=== PATIENT | male | born 1975 | race Hispanic/Latino ===

== ENCOUNTER 2020-12-29 13:48 | Observation (INO) | payer SELFPAY ==
--- NOTE | 2020-12-29 14:08 | Emergency Department Report ---
Blank Doc - Documentation Documentation: 45-year-old female that presents with chest pain, shortness of breath and bila teral leg swelling. 1- This is a initial triage assessment/medical screening only. Full assessment and work-up will be completed once the patient is in proper hospital gown, ED bed and in a private room setting. This initial assessment/diagnostic orders/clinical plan/ treatment(s) is/are subject to change based on pt's health status, clinical progression and re-assessment by fellow clinical providers in the ED. Further treatment and workup at subsequent clinical providers discretion. Patient/guardians urged not to elope from ED as their condition may be serious if not clinically assessed and managed. 2-cardiac work-up
--- NOTE | 2020-12-29 14:30 | XRay Report ---
CHEST 2 VIEWS INDICATION: Chest Pain. Shortness of breath and dizziness. COMPARISON: None available FINDINGS: Support devices: None. Heart: Within normal limits. Lungs/pleura: No acute air space or interstitial disease. No pneumothorax. Additional findings: None. IMPRESSION: No acute findings. Signer Name: Mor Colin Jr, MD Signed: 12/29/2020 2:26 PM Workstation Name: [id number]
[2020-12-29 16:04] LABS: Basophils # (Auto) 0.1 K/mm3 (0.0-0.1); Basophils % (Auto) 0.8 % (0.0-1.8); Eosinophils # (Auto) 0.3 K/mm3 (0.0-0.4); Eosinophils % (Auto) 3.5 % (0.0-4.3); Hematocrit 37.5 % (35.5-45.6); Hemoglobin 12.3 gm/dl (11.8-15.2); Lymphocytes # (Auto) 1.7 K/mm3 (1.2-5.4); Lymphocytes % (Auto) 22.1 % (13.4-35.0); Mean Corpuscular HGB Conc 33 % (32-34); Mean Corpuscular Volume 93 fl (84-94); Monocytes # (Auto) 0.6 K/mm3 (0.0-0.8); Monocytes % (Auto) 7.3 % (0.0-7.3); Platelet Count 249 K/mm3 (140-440); Red Blood Count 4.04 M/mm3 (3.65-5.03); Red Cell Distribution Width 14.6 % (13.2-15.2)
[2020-12-29 16:18] LABS: INR 1.01 (0.87-1.13)
[2020-12-29 16:20] LABS: Partial Thromboplastin Time 29.2 Sec. (24.2-36.6)
[2020-12-29 16:23] LABS: Alanine Aminotransferase 35 units/L (7-56); BUN/Creatinine Ratio 12; Blood Urea Nitrogen 11 mg/dL (9-20); Calcium 9.5 mg/dL (8.4-10.2); Hemolysis Index 11
[2020-12-29 16:35] LABS: Chol/HDL Ratio 4.71 %; HDL Cholesterol 28 mg/dL (40-59); LDL Cholesterol,Direct 91 mg/dL (50-130)
[2020-12-30] MEDS ORDERED: ASPIRIN 81 MG TAB CHEW PO ONE (06:42)
--- NOTE | 2020-12-30 06:48 | Emergency Department Report ---
ED Chest Pain HPI - General Chief Complaint: Chest Pain Stated Complaint: DIFF BREATHING,CHEST PAINS Time Seen by Provider: 12/29/20 14:07 Source: patient Mode of arrival: Ambulatory Limitations: No Limitations - History of Present Illness Initial Comments: This patient has been in the emergency department waiting room for about 14 hours prior to my shift starting. Much of his work-up, including labs, EKG, chest x-ray, have been completed through triage or while in the waiting room. This is a 45-year-old male who presents to the emergency department yesterday afternoon with a complaint of generalized chest pain, shortness of breath, mixed dry and productive cough, and left lower leg pain that has been going on over the past few days. Patient has a history of coronary artery disease and recently had a stent placed at [facility] a few weeks ago. He is a tobacco smoker at about 1/4 to 1/2 pack/day, but denies any illi cit drug use. The patient is not vaccinated against COVID-19. Per nursing staff, the patient had an episode in which she was "choking" and turned an ashy moran appearance. However he was evaluated by the overnight ER physician and did not appear in any respiratory distress or have any hypoxia at that time. - Related Data Previous Rx's Medication Instructions Recorded Last Taken Type Ciprofloxacin HCl [Ciprofloxacin 500 mg PO Q12H #10 tab 05/07/15 Unknown Rx TAB] Ibuprofen [Motrin] 800 mg PO Q8HR PRN #30 tablet 05/07/15 Unknown Rx Ondansetron [Zofran Odt] 4 mg PO Q6HR PRN #20 tab.rapdis 05/07/15 Unknown Rx Ciprofloxacin HCl [Ciprofloxacin 500 mg PO Q12H #14 tab 06/02/15 Unknown Rx TAB] Ibuprofen [Motrin] 800 mg PO Q8HR PRN #30 tablet 06/02/15 Unknown Rx Ondansetron [Zofran Odt] 4 mg PO TID #14 tab.rapdis 06/02/15 Unknown Rx Sulfamethoxazole/Trimethoprim 1 each PO BID #14 tablet 12/30/20 Unknown Rx [Bactrim DS TAB] Allergies Allergy/AdvReac Type Severity Reaction Status Date / Time No Known Allergies Allergy Verified 12/29/20 14:08 Heart Score - HEART Score History: Slightly suspicious EKG: Normal Age: 45-65 Risk factors: > 3 risk factors or hx of atherosclerotic disease Troponin: 1-3x normal limit HEART Score: 4 - EKG Read Time Time EKG Completed: 14:05 EKG Read Time: 14:13 - Critical Actions Critical Actions: 4-6 pts:12-16.6% risk of adverse cardiac event. Should be admitted ED Review of Systems ROS: Stated complaint: DIFF BREATHING,CHEST PAINS Other details as noted in HPI Comment: All other systems reviewed and negative Constitutional: denies: chills, fever Eyes: denies: eye pain, vision change ENT: denies: ear pain, throat pain Respiratory: cough, shortness of breath Cardiovascular: chest pain. denies: edema Gastrointestinal: denies: abdominal pain, vomiting Genitourinary: denies: dysuria, discharge Musculoskeletal: myalgia. denies: back pain Skin: denies: rash, lesions Neurological: denies: headache, weakness ED Past Medical Hx - Past Medical History Hx Congestive Heart Failure: Yes Hx Diabetes: Yes - Surgical History Hx Coronary Stent: Yes Additional Surgical History: R index finger - Social History Smoking Status: Current Every Day Smoker Substance Use Type: None - Medications Home Medications: Home Medications Medication Instructions Recorded Confirmed Last Taken Type Ciprofloxacin HCl [Ciprofloxacin 500 mg PO Q12H #10 tab 05/07/15 Unknown Rx TAB] Ibuprofen [Motrin] 800 mg PO Q8HR PRN #30 tablet 05/07/15 Unknown Rx Ondansetron [Zofran Odt] 4 mg PO Q6HR PRN #20 tab.rapdis 05/07/15 Unknown Rx Ciprofloxacin HCl [Ciprofloxacin 500 mg PO Q12H #14 tab 06/02/15 Unknown Rx TAB] Ibuprofen [Motrin] 800 mg PO Q8HR PRN #30 tablet 06/02/15 Unknown Rx Ondansetron [Zofran Odt] 4 mg PO TID #14 tab.rapdis 06/02/15 Unknown Rx Sulfamethoxazole/Trimethoprim 1 each PO BID #14 tablet 12/30/20 Unknown Rx [Bactrim DS TAB] ED Physical Exam - General Limitations: No Limitations - Other Other exam information: GENERAL: The patient is well-developed well-nourished. HENT: Normocephalic. Atraumatic. Patient has moist mucous membranes. EYES: Extraocular motions are intact. NECK: Supple. Trachea is midline. CHEST/LUNGS: Clear to auscultation. There is no respiratory distress noted. HEART/CARDIOVASCULAR: Regular. There is no tachycardia. There is no murmur. ABDOMEN: Abdomen is soft, nontender. Patient has normal bowel sounds. Obese habitus. SKIN: Skin is warm and dry. There is bilateral nonpitting swelling to the lower extremities. There is erythema to the left tib-fib. NEURO: The patient is awake, alert, and oriented. The patient is cooperative. The patient has no focal neurologic deficits. Cranial nerves II through XII grossly intact. MUSCULOSKELETAL: There is no tenderness or deformity. There is no limitation range of motion. ED Course Vital Signs 12/29/20 12/29/20 12/30/20 14:12 14:13 07:53 Temperature 98.2 F 99.2 F 98 F Pulse Rate 110 H 97 H Respiratory 22 16 Rate Blood Pressure Blood Pressure 144/66 122/86 [Right] O2 Sat by Pulse 93 97 Oximetry 12/30/20 12/30/20 12/30/20 08:39 08:51 11:19 Temperature Pulse Rate 100 H 101 H Respiratory 19 20 Rate Blood Pressure 168/84 Blood Pressure 168/99 [Right] O2 Sat by Pulse 96 96 Oximetry 12/30/20 11:20 Temperature Pulse Rate 110 H Respiratory Rate Blood Pressure 168/87 Blood Pressure [Right] O2 Sat by Pulse Oximetry - Reevaluation(s) Reevaluation #1: 12/30/20 06:51 Patient's labs shows slightly elevated troponins that are trending downwards. Given that the patient recently had a stent placed a few weeks ago, it appears less likely that he has a new obstructing lesion or occlusion. However, given his history of coronary artery disease with active chest pain and even slightly elevated troponins, the patient will be admitted to the hospital for further evaluation and treatment. He has an elevated D-dimer level and has left leg pain. He will have a CT angiography of the chest, as well as lower extremity venous Doppler ultrasounds. The patient will receive a full dose aspirin. I am attempting to get the patient back out of the acute waiting room and onto cardiac monitoring. However, I did see the patient in the acute waiting room and he does not appear in any respiratory or acute distress. Reevaluation #2: 12/30/20 07:52 Patient has expressed frustration regarding his long wait. It is very understandable given that he has been in the emergency department for about 17 hours in between the main waiting room and to the acute waiting room. He also complains of being hungry, but I have told him that he cannot eat anything until he has completed the CT angiography studies. At first, the patient expressed that he wanted to sign out AMA. I explained to him that he has the right to do so, but without further evaluation I cannot rule out a PE, DVT, or ACS. The patient has agreed to remain in the emergency department, for now. We are placing him on a stretcher outside of room 24. An IV will be placed so the patient can have the CT angiography studies, as well as analgesia. The patient will be admitted to the hospitalist service. RADHA score - Radha Score Age > 65: (0) No Aspirin use within the Past 7 Days: (0) No 3 or more CAD Risk Factors: (1) Yes 2 or more Angina events in past 24 hrs: (1) Yes Known CAD with more than 50% Stenosis: (1) Yes Elevated Cardiac Markers: (1) Yes ST Deviation Greater than 0.5mm: (0) No RADHA Score: 4 ED Medical Decision Making - Lab Data Result diagrams: 12/30/20 10:49 12/29/20 15:30 Lab Results 12/29/20 12/29/20 12/29/20 Range/Units 15:30 15:30 15:30 WBC 7.7 (4.5-11.0) K/mm3 RBC 4.04 (3.65-5.03) M/mm3 Hgb 12.3 (11.8-15.2) gm/dl Hct 37.5 (35.5-45.6) % MCV 93 (84-94) fl MCH 31 (28-32) pg MCHC 33 (32-34) % RDW 14.6 (13.2-15.2) % Plt Count 249 (140-440) K/mm3 Lymph % (Auto) 22.1 (13.4-35.0) % [place] % (Auto) 7.3 (0.0-7.3) % Eos % (Auto) 3.5 (0.0-4.3) % Baso % (Auto) 0.8 (0.0-1.8) % Lymph # (Auto) 1.7 (1.2-5.4) K/mm3 [place] # (Auto) 0.6 (0.0-0.8) K/mm3 Eos # (Auto) 0.3 (0.0-0.4) K/mm3 Baso # (Auto) 0.1 (0.0-0.1) K/mm3 Seg Neutrophils % 66.3 (40.0-70.0) % Seg Neutrophils # 5.1 (1.8-7.7) K/mm3 PT 13.8 (12.2-14.9) Sec. INR 1.01 (0.87-1.13) APTT 29.2 (24.2-36.6) Sec. D-Dimer (0-234) ng/mlDDU Sodium 140 (137-145) mmol/L Potassium 4.4 (3.6-5.0) mmol/L Chloride 101.2 (98-107) mmol/L Carbon Dioxide 30 (22-30) mmol/L Anion Gap 13 mmol/L BUN 11 (9-20) mg/dL Creatinine 0.9 (0.8-1.3) mg/dL Estimated GFR > 60 ml/min BUN/Creatinine Ratio 12 % Glucose 177 H (75-100) mg/dL Calcium 9.5 (8.4-10.2) mg/dL Total Bilirubin 0.70 (0.1-1.2) mg/dL AST 33 (5-40) units/L ALT 35 (7-56) units/L Alkaline Phosphatase 133 H (35-129) units/L Troponin T 0.041 H (0.00-0.029) ng/mL NT-Pro-B Natriuret Pep 2558 H (0-450) pg/mL Total Protein 7.2 (6.3-8.2) g/dL Albumin 4.0 (3.9-5) g/dL Albumin/Globulin Ratio 1.3 % Triglycerides 156 H (2-149) mg/dL Cholesterol 132 (50-199) mg/dL LDL Cholesterol Direct 91 (50-130) mg/dL HDL Cholesterol 28 L (40-59) mg/dL Cholesterol/HDL Ratio 4.71 % 12/29/20 12/29/20 Range/Units 17:28 22:47 WBC (4.5-11.0) K/mm3 RBC (3.65-5.03) M/mm3 Hgb (11.8-15.2) gm/dl Hct (35.5-45.6) % MCV (84-94) fl MCH (28-32) pg MCHC (32-34) % RDW (13.2-15.2) % Plt Count (140-440) K/mm3 Lymph % (Auto) (13.4-35.0) % [place] % (Auto) (0.0-7.3) % Eos % (Auto) (0.0-4.3) % Baso % (Auto) (0.0-1.8) % Lymph # (Auto) (1.2-5.4) K/mm3 [place] # (Auto) (0.0-0.8) K/mm3 Eos # (Auto) (0.0-0.4) K/mm3 Baso # (Auto) (0.0-0.1) K/mm3 Seg Neutrophils % (40.0-70.0) % Seg Neutrophils # (1.8-7.7) K/mm3 PT (12.2-14.9) Sec. INR (0.87-1.13) APTT (24.2-36.6) Sec. D-Dimer 1021.02 H (0-234) ng/mlDDU Sodium (137-145) mmol/L Potassium (3.6-5.0) mmol/L Chloride (98-107) mmol/L Carbon Dioxide (22-30) mmol/L Anion Gap mmol/L BUN (9-20) mg/dL Creatinine (0.8-1.3) mg/dL Estimated GFR ml/min BUN/Creatinine Ratio % Glucose (75-100) mg/dL Calcium (8.4-10.2) mg/dL Total Bilirubin (0.1-1.2) mg/dL AST (5-40) units/L ALT (7-56) units/L Alkaline Phosphatase (35-129) units/L Troponin T 0.036 H (0.00-0.029) ng/mL NT-Pro-B Natriuret Pep (0-450) pg/mL Total Protein (6.3-8.2) g/dL Albumin (3.9-5) g/dL Albumin/Globulin Ratio % Triglycerides (2-149) mg/dL Cholesterol (50-199) mg/dL LDL Cholesterol Direct (50-130) mg/dL HDL Cholesterol (40-59) mg/dL Cholesterol/HDL Ratio % - EKG Data -: EKG Interpreted by Me EKG shows normal: sinus rhythm, axis, intervals, QRS complexes, ST-T waves Rate: tachycardia (108 bpm) - EKG Data When compared to previous EKG there are: no significant change Interpretation: unchanged when compared t (09/08/14) - Radiology Data Radiology results: report reviewed, image reviewed interpreted by me: Chest x-ray does not show any acute process. There are no pleural effusions, obvious pneumonia and there is no pneumothorax. No widened mediastinum. CTA CHEST WITH CONTRAST INDICATION : Chest pain, S.O.B., bi-lateral leg swelling an elevated D-dimer. 100 ml omni 350 . TECHNIQUE: Axial imaging performed through the chest, with contrast bolus timing set to maximize opacification of the pulmonary arteries. Sagittal and coronal reformatted images. 3-plane MIP reformatted images were obtained. All CT scans at this location are performed using CT dose reduction for ALARA by means of automated exposure control. 100 mL of intravenous contrast administered. COMPARISON: Chest x-ray yesterday FINDINGS: Bolus: Contrast bolus timing is adequate. PTE: No filling defect is present to suggest PTE. Mediastinum: There is mild cardiomegaly. No pericardial abnormality. The thoracic aorta is unremarkable. No mediastinal mass or adenopathy. Shotty subcentimeter mediastinal lymph nodes are noted. Lungs: The lungs are clear with no evidence for significant parenchymal disease, pneumonia, pleural effusion or pneumothorax. Bones: Minimal thoracic spondylosis. Upper abdomen: Limited imaging of the upper abdomen shows nothing acute. IMPRESSION: No evidence for pulmonary embolus. Mild cardiomegaly. Lungs clear. DUPLEX DOPPLER LOWER EXTREMITY VEINS, BILATERAL INDICATION / CLINICAL INFORMATION: Lower leg pain. TECHNIQUE: Duplex doppler imaging was performed through the veins of both lower extremities using venous compression and other maneuvers. COMPARISON: None available. FINDINGS: RIGHT COMMON FEMORAL VEIN: Negative. RIGHT FEMORAL VEIN: Negative. RIGHT POPLITEAL VEIN: Negative. RIGHT CALF VEINS: Negative. LEFT COMMON FEMORAL VEIN: Negative. LEFT FEMORAL VEIN: Negative. LEFT POPLITEAL VEIN: Negative. LEFT CALF VEINS: Negative. ADDITIONAL FINDINGS: None. IMPRESSION: 1. No sonographic evidence for DVT in either lower extremity. - Medical Decision Making This patient presents with some generalized chest pain, shortness of breath, cough, lower extremity swelling with left leg pain. He recently had a heart cath done with stent placement a few weeks ago at [facility]. EKG does not show any morphology consistent with ST elevation myocardial infarction. Chest x-ray does not show any pneumonia, pleural effusions, pneumothorax, widened mediastinum, or any other acute process. Patient's labs show slightly elevated troponin levels. He also has an elevated D-dimer level. For this reason he had a CT angiography of the chest that did not show any pulmonary embolism, dissection, or any other acute process. Patient had bilateral lower extremity venous Doppler ultrasound that was negative for DVT. Patient has been given analgesia, antiemetics, full dose aspirin. He will be admitted to the hospital for further evaluation and treatment and was accepted for admission by the hospitalist service. Critical Care Time: No Critical care attestation.: If time is entered above; I have spent that time in minutes in the direct care of this critically ill patient, excluding procedure time. ED Disposition Clinical Impression: Elevated troponin, History of coronary artery disease, Cellulitis of left leg without foot, Obesity hypoventilation syndrome Chest pain Qualifiers: Chest pain type: unspecified Qualified Code(s): R07.9 - Chest pain, unspecified Pain and swelling of lower extremity Qualifiers: Laterality: unspecified laterality Qualified Code(s): M79.606 - Pain in leg, unspecified; M79.89 - Other specified soft tissue disorders Disposition: ADMITTED INPATIENT Is pt being admited?: Yes Condition: Serious Time of Disposition: 07:43
[2020-12-30] MEDS ORDERED: MORPHINE 4 MG/1 ML INJ IV ONE (07:54)
[2020-12-30] MEDS ORDERED: ONDANSETRON 4 MG/2 ML INJ IV ONE (07:54)
[2020-12-30] MEDS ORDERED: SULFAMETHOXAZOLE/TRIMETHOPRIM 800/160MG DS TAB PO ONE (08:01)
--- NOTE | 2020-12-30 09:01 | Cat Scan Report ---
CTA CHEST WITH CONTRAST INDICATION : Chest pain, S.O.B., bi-lateral leg swelling an elevated D-dimer. 100 ml omni 350 . TECHNIQUE: Axial imaging performed through the chest, with contrast bolus timing set to maximize opa cification of the pulmonary arteries. Sagittal and coronal reformatted images. 3-plane MIP reformatte d images were obtained. All CT scans at this location are performed using CT dose reduction for ALAR A by means of automated exposure control. 100 mL of intravenous contrast administered. COMPARISON: Chest x-ray yesterday FINDINGS: Bolus: Contrast bolus timing is adequate. PTE: No filling defect is present to suggest PTE. Mediastinum: There is mild cardiomegaly. No pericardial abnormality. The thoracic aorta is unremarka ble. No mediastinal mass or adenopathy. Shotty subcentimeter mediastinal lymph nodes are noted. Lungs: The lungs are clear with no evidence for significant parenchymal disease, pneumonia, pleural effusion or pneumothorax. Bones: Minimal thoracic spondylosis. Upper abdomen: Limited imaging of the upper abdomen shows nothing acute. IMPRESSION: No evidence for pulmonary embolus. Mild cardiomegaly. Lungs clear. Signer Name: Mor Colin Jr, MD Signed: 12/30/2020 8:57 AM Workstation Name: [id number]
--- NOTE | 2020-12-30 09:28 | History and Physical Report ---
History of Present Illness Date of examination: 12/30/20 Date of admission: 12/30/2020 Chief complaint: Chest pain and shortness of breath History of present illness: 45-year-old obese male patient with significant past medical history of coronary artery disease status post PCI, ischemic cardiac myopathy Follows with [facility] presented to the emergency room with worsening shortness of breath, and intermittent chest pain. Patient reports that he was recently admitted to [facility] and had stents placed Patient claims compliance with medications diet and follow-up visits Initial evaluation in the emergency room is consistent with non-ST elevation ID, with elevated troponins Chest x-ray no acute abnormality noted, CTA chest negative for PE however has some cardiomyopathy Time of my evaluation patient denies chest pain, complains of worsening shortness of breath Denies nausea vomiting or abdominal pain Denies palpitations, denies headache or dizziness Past History Past Medical History: CAD, hypertension, hyperlipidemia, other (Status post PCI) Past Surgical History: PTCA (Multiple stent placements) Social history: smoking. denies: alcohol abuse, prescription drug abuse Family history: denies: no significant family history Medications and Allergies Allergies Allergy/AdvReac Type Severity Reaction Status Date / Time No Known Allergies Allergy Verified 12/29/20 14:08 Home Medications Medication Instructions Recorded Confirmed Last Taken Type Ciprofloxacin HCl [Ciprofloxacin 500 mg PO Q12H #10 tab 05/07/15 Unknown Rx TAB] Ibuprofen [Motrin] 800 mg PO Q8HR PRN #30 tablet 05/07/15 Unknown Rx Ondansetron [Zofran Odt] 4 mg PO Q6HR PRN #20 tab.rapdis 05/07/15 Unknown Rx Ciprofloxacin HCl [Ciprofloxacin 500 mg PO Q12H #14 tab 06/02/15 Unknown Rx TAB] Ibuprofen [Motrin] 800 mg PO Q8HR PRN #30 tablet 06/02/15 Unknown Rx Ondansetron [Zofran Odt] 4 mg PO TID #14 tab.rapdis 06/02/15 Unknown Rx Sulfamethoxazole/Trimethoprim 1 each PO BID #14 tablet 12/30/20 Unknown Rx [Bactrim DS TAB] Review of Systems Constitutional: fatigue, weakness, no weight loss, no weight gain, no fever, no chills, no anorexia Cardiovascular: chest pain, orthopnea, edema, shortness of breath, no palpitations, no syncope Respiratory: shortness of breath, dyspnea on exertion, no cough, no cough with s putum Gastrointestinal: no abdominal pain, no nausea, no vomiting Genitourinary Male: no dysuria, no hematuria Musculoskeletal: no neck stiffness, no myalgias, no arthritis Integumentary: no rash, no lesions Neurological: no numbness, no tingling, no seizures Psychiatric: no anxiety, no depression Endocrine: no cold intolerance, no heat intolerance Hematologic/Lymphatic: no easy bruising, no easy bleeding Allergic/Immunologic: no urticaria, no allergic rhinitis Exam - Constitutional Vitals: Temp Pulse Resp BP Pulse Ox 98 F 100 H 20 168/99 96 12/30/20 07:53 12/30/20 08:51 12/30/20 08:51 12/30/20 08:51 12/30/20 08:51 General appearance: Present: no acute distress, well-nourished - EENT Eyes: Present: PERRL, EOM intact - Neck Neck: Present: supple, normal ROM - Respiratory Respiratory effort: normal Respiratory: bilateral: diminished, negative: rales, rhonchi, wheezing - Cardiovascular Rhythm: regular Heart Sounds: Present: S1 & S2 - Extremities Extremities: no ischemia, No edema - Abdominal General gastrointestinal: Present: soft, non-tender, tender, non-distended - Integumentary Integumentary: Present: clear, warm - Musculoskeletal Musculoskeletal: strength equal bilaterally, generalized weakness - Psychiatric Psychiatric: appropriate mood/affect, cooperative - Neurologic Neurologic: CNII-XII intact, moves all extremities HEART Score - HEART Score EKG: Normal Age: 45-65 Risk factors: > 3 risk factors or hx of atherosclerotic disease Troponin: Troponin T 0.040 ng/mL (0.00-0.029) H 12/30/20 08:16 Troponin: 1-3x normal limit - Critical Actions Critical Actions: 4-6 pts:12-16.6% risk of adverse cardiac event. Should be admitted Results - Labs CBC & Chem 7: 12/30/20 10:49 12/30/20 20:43 Labs: Abnormal lab results 12/29/20 12/29/20 12/29/20 Range/Units 15:30 17:28 22:47 D-Dimer 1021.02 H (0-234) ng/mlDDU Glucose 177 H (75-100) mg/dL Alkaline Phosphatase 133 H (35-129) units/L Troponin T 0.041 H 0.036 H (0.00-0.029) ng/mL NT-Pro-B Natriuret Pep 2558 H (0-450) pg/mL Triglycerides 156 H (2-149) mg/dL HDL Cholesterol 28 L (40-59) mg/dL 12/30/20 Range/Units 08:16 D-Dimer (0-234) ng/mlDDU Glucose (75-100) mg/dL Alkaline Phosphatase (35-129) units/L Troponin T 0.040 H (0.00-0.029) ng/mL NT-Pro-B Natriuret Pep (0-450) pg/mL Triglycerides (2-149) mg/dL HDL Cholesterol (40-59) mg/dL Assessment and Plan - Patient Problems (1) Chest pain Onset Date: ~12/30/20 Current Visit: Yes Status: Acute Qualifiers: Chest pain type: unspecified Qualified Code(s): R07.9 - Chest pain, unsp ecified Plan to address problem: Patient has chest pain, multiple risk factors Serial cardiac enzymes, serial EKG Aspirin beta-blockers statins nitrates Advised to quit smoking Cardiology consult, echocardiogram, possible cath versus stress test (2) Non-ST elevation ID (NSTEMI) Onset Date: ~12/30/20 Current Visit: Yes Status: Acute Plan to address problem: Patient has multiple risk factors Aspirin, beta-blockers, СЕРГЕЙ inhibitors, nitrates, statins and morphine Start heparin drip per protocol Serial cardiac enzymes, serial EKG, echocardiogram for LV function ejection fraction Patient n.p.o. status except meds Cardiology consult for possible left heart catheterization versus stress test (3) Tobacco use disorder Current Visit: Yes Status: Chronic Plan to address problem: Smoking cessation education and counseling Advised nicotine patch as needed (4) Obesity (BMI 30-39.9) Current Visit: Yes Status: Acute Plan to address problem: Patient advised weight reduction Dietary modification exercise as tolerated When medically stable (5) Elevated d-dimer Current Visit: Yes Status: Acute Plan to address problem: CTA chest negative for PE, will request venous Doppler to rule out DVT Closely monitor (6) DVT prophylaxis Current Visit: Yes Status: Acute Plan to address problem: Patient is already on heparin drip (7) Full code status Current Visit: Yes Status: Acute Plan to address problem: We will closely monitor the patient and adjust the management as needed Follow cardiology evaluation recommendations Plan of care reviewed with the patient and his nurse I spent total 60 minutes coordinating this admission
[2020-12-30] MEDS ORDERED: FAMOTIDINE 20 MG/2 ML INJ IV NR (09:31)
[2020-12-30] MEDS ORDERED: MORPHINE 2 MG/1 ML INJ IV PRN (10:00)
[2020-12-30] MEDS ORDERED: ASPIRIN 325 MG TAB PO SCH (10:00)
[2020-12-30] MEDS ORDERED: NITROGLYCERIN 0.4 MG TAB SUBL SL PRN (10:00)
[2020-12-30] MEDS ORDERED: LISINOPRIL 5 MG TAB PO SCH (10:00)
--- NOTE | 2020-12-30 10:18 | Electrocardiograph Report ---
[facility] Test Date: 2020-12-29 Test Time: 14:05:37 Pat Name: CRYSTAL PATTERSON Department: Room: Gender: M [employer]: TOD : 1975 Requested By: RANJAN OLEA Order Number: [id number] Reading MD: Jj Matias Measurements Intervals [place] Rate: 108 P: 29 [place]: 135 QRS: 44 QRSD: 95 T: 148 QT: 351 QTc: 471 Interpretive Statements Sinus tachycardia, minor non specific ST changes noted. No previous ECG available for comparison Electronically Signed On 12-30-2020 10:17:53 EDT by Jj Matias
--- NOTE | 2020-12-30 10:49 | Vascular Lab Report ---
DUPLEX DOPPLER LOWER EXTREMITY VEINS, BILATERAL INDICATION / CLINICAL INFORMATION: Lower leg pain. TECHNIQUE: Duplex doppler imaging was performed through the veins of both lower extremities using venous mary john and other maneuvers. COMPARISON: None available. FINDINGS: RIGHT COMMON FEMORAL VEIN: Negative. RIGHT FEMORAL VEIN: Negative. RIGHT POPLITEAL VEIN: Negative. RIGHT CALF VEINS: Negative. LEFT COMMON FEMORAL VEIN: Negative. LEFT FEMORAL VEIN: Negative. LEFT POPLITEAL VEIN: Negative. LEFT CALF VEINS: Negative. ADDITIONAL FINDINGS: None. IMPRESSION: 1. No sonographic evidence for DVT in either lower extremity. Signer Name: Georges Aldana MD Signed: 12/30/2020 10:44 AM Workstation Name: [id number]
[2020-12-30] MEDS ORDERED: HEPARIN/ 0.45% NACL DRIP 25,000 UNIT/500 ML BAG IV SCH (11:00)
[2020-12-30] MEDS ORDERED: HEPARIN 10,000 UNITS/10 ML VIAL IV PRN (11:00)
[2020-12-30] MEDS: carvediloL 6.25 MG TAB PO SCH ×2 (11:19→22:38)
[2020-12-30] MEDS: FUROSEMIDE 40 MG/4 ML INJ IV SCH (11:20)
[2020-12-30 11:41] LABS: Hematocrit 35.6 % (35.5-45.6)
--- NOTE | 2020-12-30 11:43 | Consultation ---
History of Present Illness Consult date: 12/30/20 Consult reason: elevated troponin History of present illness: This is a 45-year old M presents to this hospital with shortness of breath. Patient denies chest pain and denies palpitations. Chest x-ray reports no acute findings and CTA of the chest is negative for PE. Labs done in the ED shows mild elevated troponin measurements. An ECG done is sinus rhythm, no acute ischemic changes. A cardiac consultation was requested for mild elevated troponin measurements. Patient has a history of ischemic cardiomyopathy and 2 vessel coronary artery disease. 3 weeks ago a cardiac cath done at [facility] showed AUDIOVISUAL LIBRARIAN of the RCA. Stenosis involving the mid LAD was treated with angioplasty and Resolute drug eluting stents. There was patent stents of the mid LCx and proximal LAD. Left ventricular ejection fraction 30-35%. Records reports the patient left the hospital against medical advise and without prescriptions for DAPT. Patient reports he takes a low dose aspirin but does not take plavix and has not followed up with his primary [employer] since he left the hospital. He also continues to smoke. Past History Past Medical History: CAD, diabetes, heart failure, hypertension, other (Sleep apnea, non-compliant with Cpap) Social history: smoking Medications and Allergies Allergies Allergy/AdvReac Type Severity Reaction Status Date / Time No Known Allergies Allergy Verified 12/29/20 14:08 Home Medications Medication Instructions Recorded Confirmed Last Taken Type Ciprofloxacin HCl [Ciprofloxacin 500 mg PO Q12H #10 tab 05/07/15 Unknown Rx TAB] Ibuprofen [Motrin] 800 mg PO Q8HR PRN #30 tablet 05/07/15 Unknown Rx Ondansetron [Zofran Odt] 4 mg PO Q6HR PRN #20 tab.rapdis 05/07/15 Unknown Rx Ciprofloxacin HCl [Ciprofloxacin 500 mg PO Q12H #14 tab 06/02/15 Unknown Rx TAB] Ibuprofen [Motrin] 800 mg PO Q8HR PRN #30 tablet 06/02/15 Unknown Rx Ondansetron [Zofran Odt] 4 mg PO TID #14 tab.rapdis 06/02/15 Unknown Rx Sulfamethoxazole/Trimethoprim 1 each PO BID #14 tablet 12/30/20 Unknown Rx [Bactrim DS TAB] Active Meds: Active Medications Aspirin (Aspirin 325 Mg Tab) 325 mg PO QDAY [place] Last Admin: 12/30/20 11:19 Dose: Not Given Documented by: Carvedilol (Carvedilol 6.25 Mg Tab) 6.25 mg PO BID [facility] Last Admin: 12/30/20 11:19 Dose: 6.25 mg Documented by: Clopidogrel Bisulfate (Clopidogrel 75 Mg Tab) 75 mg PO QDAY [facility] Famotidine (Famotidine 20 Mg/2 Ml Inj) 20 mg IV ONCE NR Stop: 12/30/20 12:00 Furosemide (Furosemide 40 Mg/4 Ml Inj) 40 mg IV QDAY [facility] Last Admin: 12/30/20 11:20 Dose: 40 mg Documented by: Heparin Sodium (Porcine) (Heparin 10,000 Units/10 Ml Vial) 4,800 unit 40 unit/kg (4800 unit) IV Q6H PRN PRN Reason: Anti-Xa Assay < 0.1 units/ml Heparin Sodium/Sodium Chloride (Heparin/ 0.45% Nacl-25,000 Unit/500 Ml) 25,000 unit in 500 mls @ 20 mls/hr IV TITRATE [facility]; Protocol Lisinopril (Lisinopril 5 Mg Tab) 5 mg PO QDAY [facility] Last Admin: 12/30/20 11:20 Dose: 5 mg Documented by: Morphine Sulfate (Morphine 2 Mg/1 Ml Inj) 2 mg IV Q4H PRN PRN Reason: Pain, Moderate (4-6) Nitroglycerin (Nitroglycerin 0.4 Mg Tab Subl) 0.4 mg SL .Q5MIN PRN PRN Reason: Chest Pain Review of Systems Cardiovascular: dyspnea on exertion, no chest pain, no palpitations, no edema Physical Examination Vital Signs Temp Pulse Resp Pulse Ox 98.2 F 110 H 22 93 12/29/20 14:12 12/29/20 14:12 12/29/20 14:12 12/29/20 14:12 General appearance: no acute distress, obese HEENT: Positive: PERRL Neck: Positive: trachea midline Cardiac: Positive: Reg Rate and Rhythm Lungs: Positive: Decreased Breath Sounds Neuro: Positive: Grossly Intact Extremities: Absent: edema Results 12/30/20 10:49 12/29/20 15:30 Cardiac Enzymes 12/29/20 Range/Units 15:30 AST 33 (5-40) units/L Coagulation 12/29/20 Range/Units 15:30 PT 13.8 (12.2-14.9) Sec. INR 1.01 (0.87-1.13) APTT 29.2 (24.2-36.6) Sec. Lipids 12/29/20 Range/Units 15:30 Triglycerides 156 H (2-149) mg/dL Cholesterol 132 (50-199) mg/dL HDL Cholesterol 28 L (40-59) mg/dL Cholesterol/HDL Ratio 4.71 % CBC 12/29/20 Range/Units 15:30 WBC 7.7 (4.5-11.0) K/mm3 RBC 4.04 (3.65-5.03) M/mm3 Hgb 12.3 (11.8-15.2) gm/dl Hct 37.5 (35.5-45.6) % Plt Count 249 (140-440) K/mm3 Lymph # (Auto) 1.7 (1.2-5.4) K/mm3 Stark # (Auto) 0.6 (0.0-0.8) K/mm3 Eos # (Auto) 0.3 (0.0-0.4) K/mm3 Baso # (Auto) 0.1 (0.0-0.1) K/mm3 Comprehensive Metabolic Panel 12/29/20 Range/Units 15:30 Sodium 140 (137-145) mmol/L Potassium 4.4 (3.6-5.0) mmol/L Chloride 101.2 (98-107) mmol/L Carbon Dioxide 30 (22-30) mmol/L BUN 11 (9-20) mg/dL Creatinine 0.9 (0.8-1.3) mg/dL Glucose 177 H (75-100) mg/dL Calcium 9.5 (8.4-10.2) mg/dL AST 33 (5-40) units/L ALT 35 (7-56) units/L Alkaline Phosphatase 133 H (35-129) units/L Total Protein 7.2 (6.3-8.2) g/dL Albumin 4.0 (3.9-5) g/dL Assessment and Plan Nonspecific elevated troponin Hx of CAD s/p PCI of the mid LAD 12/09/20 Hx of ischemic CMP, LVEF 30-35% Medical noncompliant Diabetes Hypertension Tobacco abuse Resume medical therapy for coronary artery disease and ischemic cardiomyopathy. Advised smoking cessation.
[2020-12-30] MEDS ORDERED: CLOPIDOGREL 75 MG TAB PO SCH (12:00)
[2020-12-30] MEDS ORDERED: CLOPIDOGREL 300 MG TAB PO ONE (12:15)
[2020-12-30] MEDS ORDERED: CLOPIDOGREL 300 MG TAB PO NR (17:00)
[2020-12-30] MEDS ORDERED: ENOXAPARIN 40 MG/0.4 ML INJ SUB-Q SCH (22:00)
[2020-12-30] MEDS: LISINOPRIL 20 MG TAB PO SCH (22:42)
[2020-12-31] MEDS ORDERED: ZOLPIDEM 5 MG TAB PO ONE (03:45)
[2020-12-31] MEDS ORDERED: ALPRAZolam 0.25 MG TAB PO PRN (09:30)
[2020-12-31 09:36] VITALS: BP 123/67
[2020-12-31] MEDS: FUROSEMIDE 40 MG/4 ML INJ IV SCH (09:36)
[2020-12-31] MEDS: LISINOPRIL 20 MG TAB PO SCH (09:36)
[2020-12-31] MEDS: carvediloL 6.25 MG TAB PO SCH (09:37)
--- NOTE | 2020-12-31 09:49 | Progress Note ---
Assessment and Plan Nonspecific elevated troponin Hx of CAD s/p PCI of the mid LAD 12/09/20 Hx of ischemic CMP, LVEF 30-35% Medical noncompliant Diabetes Hypertension Tobacco abuse Continue medical therapy for coronary artery disease and ischemic cardiomyopathy. Advised smoking cessation. Stable cardiac blackmon. Subjective Date of service: 12/31/20 Interval history: No cardiac complaints. Denies chest pain and denies shortness of breath. Objective Vital Signs Temp Pulse Resp BP BP Pulse Ox 12/31/20 09:36 78 123/67 12/31/20 08:56 97.9 F 72 20 114/68 90 12/31/20 05:42 98.2 F 84 20 124/54 95 12/31/20 04:00 83 12/31/20 03:23 98 12/31/20 00:17 97.9 F 85 18 114/66 96 12/30/20 22:42 93 H 127/80 12/30/20 22:38 92 H 127/80 12/30/20 22:34 96 H 127/80 12/30/20 15:25 98 H 96 H 155/84 12/30/20 11:20 110 H 168/87 12/30/20 11:19 101 H 168/84 - Physical Examination General: No Apparent Distress HEENT: Positive: PERRL Neck: Positive: trachea midline Cardiac: Positive: Reg Rate and Rhythm Lungs: Positive: Decreased Breath Sounds Neuro: Positive: Grossly Intact Extremities: Absent: edema - Labs and Meds CBC 12/30/20 Range/Units 10:49 Hgb 12.0 (11.8-15.2) gm/dl Hct 35.6 (35.5-45.6) % Plt Count 225 (140-440) K/mm3 Comprehensive Metabolic Panel 12/30/20 Range/Units 20:43 Sodium 135 L (137-145) mmol/L
[2020-12-31] MEDS ORDERED: CLOPIDOGREL 75 MG TAB PO SCH (10:00)
[2020-12-31] MEDS ORDERED: ASPIRIN 81 MG TAB CHEW PO SCH (10:00)
[2020-12-31] MEDS ORDERED: SPIRONOLACTONE 25 MG TAB PO SCH (10:00)
--- NOTE | 2020-12-31 11:04 | Discharge Summary ---
Providers - Providers Date of Admission: 12/30/20 08:01 Date of discharge: 12/31/20 Attending physician: MAXIM HAWKINS 12/30/20 09:35 Consult to Physician [CONS] Routine Comment: Consulting Provider: PETE FERRIS Physician Instructions: Reason For Exam: Non-ST elevation PR/risk factors Primary care physician: LAST REPAIRER HELPER Hospitalization Reason for admission: Chest pain and shortness of breath Condition: Stable Pertinent studies: CTA chest; negative for PE mild cardiomegaly lower extremity venous Doppler; negative for DVT Chest x-ray; no acute abnormality no acute abnormality Hospital course: 45-year-old obese male patient with significant past medical history of coronary artery disease status post PCI, ischemic cardiac myopathy Follows with [facility] presented to the emergency room with worsening shortness of breath, and intermittent chest pain. Patient reports that he was recently admitted to [facility] and had stents placed Patient claims compliance with medications diet and follow-up visits Initial evaluation in the emergency room is consistent with non-ST elevation PR, with elevated troponins Chest x-ray no acute abnormality noted, patient had elevated D-dimers ,CTA chest negative for PE however has some cardiomyopathy Lower extremity venous Doppler negative for DVT Patient was evaluated by charging plug placer, patient recently had extensive work-up in [facility], no further work-up during this admission Medications optimized patient symptoms significantly improved Today patient is comfortable no new complaints vital signs stable physical examination prior to discharge is unremarkable Cleared by cardiology for discharge and follow-up per schedule Patient strongly advised smoking cessation advised nicotine patch if needed Patient also advised to be compliant with medications diet and follow-up visits Complains of some anxiety intermittent, gave low-dose Xanax for 2 3 days And if no improvement advised to see private psychiatrist for further evaluation and management Patient verbalized understanding Hemodynamically and clinically stable at discharge - Discharge Diagnoses -- Chest pain Status: Acute -- Non-ST elevation PR (NSTEMI) Status: Acute --GERD; gastroesophageal reflux disease Status: Acute --Coronary artery disease s/p PCI Status: Acute --Generalized anxiety; Status: Chronic/advised to see outpatient psych -- Tobacco use disorder Status: Chronic --Obesity (BMI 30-39.9) Status: Chronic --Elevated d-dimer Status: Acute /negative PE, negative DVT Patient cleared by cardiology Stable at discharge Disposition: HOME / SELF CARE / HOMELESS Final Discharge Diagnosis (Prints w/discharge instructions): Atypical chest pain resolved. GERD. Non-ST elevation PR. Ongoing tobacco use. Obesity BMI 35.6. Elevated D-dimers. Negative for PE and negative DVT Time spent for discharge: 35 minutes Core Measure Documentation - Palliative Care Palliative Care/ Comfort Measures: Not Applicable - Core Measures Any of the following diagnoses?: heart failure - Heart Failure Discharge Requirements СЕРГЕЙ/ARB for LVSD if EF <40%: Yes Beta itzel at discharge: Yes Exam - Constitutional Vitals: Temp Pulse Resp BP Pulse Ox 97.9 F 78 20 123/67 90 12/31/20 08:56 12/31/20 09:36 12/31/20 08:56 12/31/20 09:36 12/31/20 08:56 General appearance: Present: no acute distress, well-nourished, obese - EENT Eyes: Present: PERRL, EOM intact - Neck Neck: Present: supple, normal ROM - Respiratory Respiratory effort: normal Respiratory: bilateral: diminished, negative: rales, rhonchi, wheezing - Cardiovascular Rhythm: regular Heart Sounds: Present: S1 & S2 - Extremities Extremities: no ischemia, No edema - Abdominal General gastrointestinal: Present: soft, non-tender, non-distended, normal bowel sounds - Integumentary Integumentary: Present: clear, warm - Musculoskeletal Musculoskeletal: strength equal bilaterally, generalized weakness - Psychiatric Psychiatric: appropriate mood/affect, cooperative - Neurologic Neurologic: moves all extremities Plan Activity: advance as tolerated Diet: other (Cardiac diet) Special Instructions: smoking cessation Additional Instructions: Advised smoking cessation. Advised to comply with medications, diet and follow-up visits. Advised weight reduction with diet modification and exercise as tolerated when you are medically stable. If you have worsening symptoms, contact MD or go to the nearest emergency room as needed Follow up with: PRIMARY MD RUSTY [Primary Care Provider] - 7 Days PETE FERRIS MD [Staff Physician] - 14 Days BALDO LAGOS MD [Staff Physician] - 7 Days Prescriptions: Spironolactone [Aldactone] 25 mg PO QDAY #30 tablet Aspirin [Aspirin BABY CHEW TAB] 81 mg PO QDAY #30 tab.chew Sulfamethoxazole/Trimethoprim [Bactrim DS TAB] 1 each PO BID #14 tablet carvediloL [Coreg] 6.25 mg PO BID #60 tablet ISOSORBIDE MONOnitrate [Imdur ER] 30 mg PO QDAY #30 tablet Furosemide [Lasix TAB] 40 mg PO QDAY #30 tablet AtorvaSTATin [Lipitor] 40 mg PO QHS #30 tablet Clopidogrel [Plavix] 75 mg PO QDAY #30 tablet ALPRAZolam [Xanax TAB] 0.25 mg PO QHS PRN #6 tablet PRN Reason: Anxiety lisinopriL [Zestril TAB] 20 mg PO QDAY #30 tablet
== END 2020-12-31 14:27 | disposition home or self-care (01) ==
LOC: ED 13:48 → 4A 12-30 08:01
PROVIDERS: ADMIT Internal Medicine; ATTEND Internal Medicine
DX: I21.4 Non-ST elevation (NSTEMI) myocardial infarction (principal); M79.606 Pain in leg, unspecified; R77.8 Other specified abnormalities of plasma proteins; L03.116 Cellulitis of left lower limb; R07.89 Other chest pain; E66.9 Obesity, unspecified; I10 Essential (primary) hypertension; I25.10 Atherosclerotic heart disease of native coronary artery without angina pectoris; E78.5 Hyperlipidemia, unspecified; E11.9 Type 2 diabetes mellitus without complications; K21.9 Gastro-esophageal reflux disease without esophagitis; F41.9 Anxiety disorder, unspecified; F17.210 Nicotine dependence, cigarettes, uncomplicated; Z68.35 Body mass index [BMI] 35.0-35.9, adult; Z86.79 Personal history of other diseases of the circulatory system; Z95.1 Presence of aortocoronary bypass graft; Z91.14 Patient's other noncompliance with medication regimen
CPT/HCPCS: 36415; 71046; 71275; 80053; 80061; 83880; 84295; 84484; 85014; 85018; 85025; 85049; 85379; 85610; 85730; 93005; 93970; 96372; 96374; 96375; 96376; 99285; 99406; A9270; G0378; J1644; J1650; J1940; J2405; Q9967; J2270

== ENCOUNTER 2021-01-31 23:18 | Inpatient (IN) | payer OTHER ==
--- NOTE | 2021-02-01 00:27 | Event Note ---
ED Screening Note Date of service: 02/01/21 Time: 00:24 ED Screening Note: Patient is a 45-year-old male with a history of tobacco abuse, coronary artery disease s/p PTCA stents, hypertension, COPD and recurrent chronic bilateral lower extremities cellulitis presents to the ED with complaint of acute onset persistent shortness of breath on exertion, severe painful swollen erythematous ulcerated lower extremity wounds for the last 1 month, worse in the last 1 week. Patient states that the pain and the swelling on the left lower leg leg has worsened this patient the last 2 days, and that he has also been experiencing intermittent chills and fever and body aches in the last 2 days.. Patient also stated that the shortness of breath is especially worse when he lays down to sleep oral on exertion even on short distances. Patient denies dizziness, syncope, chest pain, nausea and vomiting, abdominal pain, traumatic injury, headache, numbness and tingling or weakness of lower extremities bilaterally. This initial assessment/diagnostic orders/clinical plan/treatment(s) is/are subject to change based on patients health status, clinical progression and re- assessment by fellow clinical providers in the ED. Further treatment and workup at subsequent clinical providers discretion. Patient/guardian urged not to elope from the ED as their condition may be serious if not clinically assessed and managed. Initial orders include: CBC, EKG, CMP, BNP, troponin, chest x-ray
--- NOTE | 2021-02-01 01:42 | XRay Report ---
CHEST 1 VIEW INDICATION / CLINICAL INFORMATION: DYSPNEA STUDY TIME: 42 COMPARISON: 12/29/2020 FINDINGS: SUPPORT DEVICES: None HEART / MEDIASTINUM: No significant abnormality. LUNGS / PLEURA: Calcified granuloma is seen in the right. Lung hirsch are clear of infiltrates. No pn eumothorax. ADDITIONAL FINDINGS: No significant additional findings. additional findings. Signer Name: Sina Whitt MD Signed: 02/01/2021 1:37 AM Workstation Name: [id number]
[2021-02-01 02:00] LABS: Basophils # (Auto) 0.1 K/mm3 (0.0-0.1); Basophils % (Auto) 1.4 % (0.0-1.8); Eosinophils # (Auto) 0.4 K/mm3 (0.0-0.4); Eosinophils % (Auto) 4.5 % (0.0-4.3); Hematocrit 37.2 % (35.5-45.6); Hemoglobin 12.2 gm/dl (11.8-15.2); Lymphocytes % (Auto) 22.6 % (13.4-35.0); Mean Corpuscular HGB Conc 33 % (32-34); Mean Corpuscular Volume 87 fl (84-94); Monocytes # (Auto) 0.6 K/mm3 (0.0-0.8); Monocytes % (Auto) 6.8 % (0.0-7.3); Platelet Count 303 K/mm3 (140-440); Red Blood Count 4.26 M/mm3 (3.65-5.03); Red Cell Distribution Width 15.4 % (13.2-15.2)
[2021-02-01 02:22] LABS: Alanine Aminotransferase 21 units/L (7-56); Albumin 4.1 g/dL (3.9-5); BUN/Creatinine Ratio 14; Blood Urea Nitrogen 11 mg/dL (9-20); Calcium 9.6 mg/dL (8.4-10.2); Hemolysis Index 0
[2021-02-01 03:04] LABS: Chol/HDL Ratio 4.63 %; HDL Cholesterol 33 mg/dL (40-59); LDL Cholesterol,Direct 109 mg/dL (50-130)
[2021-02-01] MEDS ORDERED: MORPHINE 4 MG/1 ML INJ IV ONE (03:04)
[2021-02-01] MEDS ORDERED: FUROSEMIDE 40 MG/4 ML INJ IV ONE (03:04)
[2021-02-01] MEDS ORDERED: CLOPIDOGREL 75 MG TAB PO ONE (03:04)
[2021-02-01] MEDS ORDERED: NITROGLYCERIN 0.4 MG TAB SUBL SL PRN (03:04)
[2021-02-01] MEDS ORDERED: ASPIRIN 325 MG TAB PO ONE (03:04)
[2021-02-01] MEDS ORDERED: ONDANSETRON 4 MG/2 ML INJ IV ONE (03:04)
--- NOTE | 2021-02-01 03:06 | Emergency Department Report ---
ED General Adult HPI - General Chief complaint: Extremity Injury, Lower Stated complaint: LEFT LEG PAIN PUI?: No Time Seen by Provider: 02/01/21 02:37 Source: patient, RN notes reviewed, old records reviewed Mode of arrival: Ambulatory Limitations: Physical Limitation - History of Present Illness Initial comments: The patient was evaluated in the emergency department for symptoms described in the history of present illness. He/she was evaluated in the context of the global COVID-19 pandemic, which necessitated consideration that the patient might be at risk for infection with the virus that causes COVID-19. Institutional protocols and algorithms that pertain to the evaluation of patients at risk for COVID-19 are in a state of rapid change based on information released by regulatory bodies including the CDC and federal and state organizations. These policies and algorithms were followed during the patient's care in the emergency department. Please note that these policies, procedures and recommendations changed on a rapid basis. Past medical history: Obesity, tobacco use, noncompliance, coronary artery disea se, ischemic CAD, recently had cardiac catheterization at [facility], where he was found to have a chronic total occlusion of the right coronary artery, patent state in the circumflex, and progressive de earle disease of the mid LAD. Underwent coronary stenting of the LAD, and placed on dual antiplatelet therapy. EF 30 to 35%. Patient has a documented history of noncompliance. The patient was recently admitted to this hospital for chest pain and shortness of breath as well as lower extremity swelling and left lower extremity redness. He had a bilateral lower extremity DVT study which was negative for DVT. He had a CTA chest which was negative for acute findings. He was seen by cardiology, who recommended dual antiplatelet therapy, guideline directed medical therapy for coronary artery disease, and ischemic cardiomyopathy. Cardiology recommended the patient's long-term prognosis is very poor due to admitted noncompliance with recommended medical therapy and follow-up. Today, the patient presents to the ER with a primary complaints of bilateral lower extremity pain and swelling, and left lower extremity redness and weeping/questionable pus. Patient reports she has completed 3 courses of antibiotics, including Keflex, Bactrim, and clindamycin. He endorses chest tightness but no pain. He denies headache, neck pain. He has abdominal pressure. He denies hematemesis and bright red blood per rectum. The patient tells me that he knows he needs to take his medications, but he has difficulty affording them. He wants to try to stop smoking cigarettes, but he is having difficulty doing so. -: Gradual, days(s) Location: chest, left, right, upper extremity, lower extremity Radiation: non-radiation Quality: aching Consistency: intermittent Improves with: rest Worsens with: movement - Related Data Previous Rx's Medication Instructions Recorded Last Taken Type Ciprofloxacin HCl [Ciprofloxacin 500 mg PO Q12H #10 tab 05/07/15 Unknown Rx TAB] Ondansetron [Zofran Odt] 4 mg PO Q6HR PRN #20 tab.rapdis 05/07/15 Unknown Rx Ciprofloxacin HCl [Ciprofloxacin 500 mg PO Q12H #14 tab 06/02/15 Unknown Rx TAB] Ibuprofen [Motrin 800 MG tab] 800 mg PO Q8HR PRN #30 tablet 06/02/15 Unknown Rx Sulfamethoxazole/Trimethoprim 1 each PO BID #14 tablet 12/30/20 Unknown Rx [Bactrim DS TAB] ALPRAZolam [Xanax TAB] 0.25 mg PO QHS PRN #6 tablet 12/31/20 Unknown Rx Aspirin [Aspirin BABY CHEW TAB] 81 mg PO QDAY #30 tab.chew 12/31/20 Unknown Rx AtorvaSTATin [Lipitor] 40 mg PO QHS #30 tablet 12/31/20 Unknown Rx Clopidogrel [Plavix] 75 mg PO QDAY #30 tablet 12/31/20 Unknown Rx Furosemide [Lasix TAB] 40 mg PO QDAY #30 tablet 12/31/20 Unknown Rx ISOSORBIDE MONOnitrate [Imdur ER] 30 mg PO QDAY #30 tablet 12/31/20 Unknown Rx Nicotine [Habitrol] 14 mg TD DAILY #30 patch 12/31/20 Unknown Rx Spironolactone [Aldactone] 25 mg PO QDAY #30 tablet 12/31/20 Unknown Rx carvediloL [Coreg] 6.25 mg PO BID #60 tablet 12/31/20 Unknown Rx lisinopriL [Zestril TAB] 20 mg PO QDAY #30 tablet 12/31/20 Unknown Rx Allergies Allergy/AdvReac Type Severity Reaction Status Date / Time No Known Allergies Allergy Verified 12/29/20 14:08 ED Review of Systems ROS: Stated complaint: LEFT LEG PAIN Other details as noted in HPI Constitutional: malaise, weakness, other (Denies loss of taste and smell). denies: fever Eyes: denies: eye discharge Respiratory: shortness of breath Cardiovascular: chest pain, edema Gastrointestinal: denies: nausea, vomiting, hematemesis, melena, hematochezia Musculoskeletal: arthralgia, myalgia Skin: rash, lesions, change in color, pruritus Neurological: denies: weakness (Denies focal extremity weakness and numbness) Psychiatric: anxiety Hematological/Lymphatic: denies: easy bleeding ED Past Medical Hx - Past Medical History Hx Congestive Heart Failure: Yes Hx Diabetes: Yes - Surgical History Hx Coronary Stent: Yes Additional Surgical History: R index finger - Social History Smoking Status: Current Every Day Smoker - Medications Home Medications: Home Medications Medication Instructions Recorded Confirmed Last Taken Type Ciprofloxacin HCl [Ciprofloxacin 500 mg PO Q12H #10 tab 05/07/15 Unknown Rx TAB] Ondansetron [Zofran Odt] 4 mg PO Q6HR PRN #20 tab.rapdis 05/07/15 Unknown Rx Ciprofloxacin HCl [Ciprofloxacin 500 mg PO Q12H #14 tab 06/02/15 Unknown Rx TAB] Ibuprofen [Motrin 800 MG tab] 800 mg PO Q8HR PRN #30 tablet 06/02/15 Unknown Rx Sulfamethoxazole/Trimethoprim 1 each PO BID #14 tablet 12/30/20 Unknown Rx [Bactrim DS TAB] ALPRAZolam [Xanax TAB] 0.25 mg PO QHS PRN #6 tablet 12/31/20 Unknown Rx Aspirin [Aspirin BABY CHEW TAB] 81 mg PO QDAY #30 tab.chew 12/31/20 Unknown Rx AtorvaSTATin [Lipitor] 40 mg PO QHS #30 tablet 12/31/20 Unknown Rx Clopidogrel [Plavix] 75 mg PO QDAY #30 tablet 12/31/20 Unknown Rx Furosemide [Lasix TAB] 40 mg PO QDAY #30 tablet 12/31/20 Unknown Rx ISOSORBIDE MONOnitrate [Imdur ER] 30 mg PO QDAY #30 tablet 12/31/20 Unknown Rx Nicotine [Habitrol] 14 mg TD DAILY #30 patch 12/31/20 Unknown Rx Spironolactone [Aldactone] 25 mg PO QDAY #30 tablet 12/31/20 Unknown Rx carvediloL [Coreg] 6.25 mg PO BID #60 tablet 12/31/20 Unknown Rx lisinopriL [Zestril TAB] 20 mg PO QDAY #30 tablet 12/31/20 Unknown Rx ED Physical Exam - General Limitations: Physical Limitation General appearance: alert, anxious, in distress, obese - Head Head exam: Present: atraumatic, normocephalic - Eye Eye exam: Present: normal appearance, EOMI. Absent: nystagmus - ENT ENT exam: Present: normal exam, normal orophraynx, mucous membranes moist, normal external ear exam - Neck Neck exam: Present: normal inspection, full ROM. Absent: tenderness, meningismus - Respiratory Respiratory exam: Present: decreased breath sounds. Absent: wheezes, rales, rhonchi, stridor - Cardiovascular Cardiovascular Exam: Present: normal rhythm, tachycardia, normal heart sounds, JVD. Absent: bradycardia, irregular rhythm, systolic murmur, diastolic murmur, rubs, gallop - GI/Abdominal GI/Abdominal exam: Present: soft. Absent: distended, tenderness, guarding, rebound, rigid, pulsatile mass - Rectal Rectal exam: Present: deferred - Extremities Exam Extremities exam: Present: full ROM, tenderness, pedal edema (3+ pulses noted in the bilateral upper and lower extremities.), calf tenderness (There is bilateral lower extremity tenderness), other (2+ pulses noted in the bilateral upper and lower extremities. There is no long bony tenderness. The muscular compartments are soft. There is no pain with passive range of motion of the toes.). Absent: normal inspection (There is redness noted to the left lower extremity circumferentially, an ulceration noted to the anterior distal tibial region.) - Back Exam Back exam: Present: normal inspection. Absent: tenderness, CVA tenderness (R), CVA tenderness (L), paraspinal tenderness, vertebral tenderness - Neurological Exam Neurological exam: Present: alert, oriented X3, other (No facial droop. Tongue midline. Extraocular movements intact bilaterally. Facial sensation intact to light touch in V1, V2, V3 distribution bilaterally. 5 and a 5 strength in 4 extremities. Sensation intact to light touch in 4 extremities.). Absent: motor sensory deficit - Psychiatric Psychiatric exam: Present: anxious - Skin Skin exam: Present: warm, rash, erythema. Absent: cyanosis, petechiae, pallor, abrasion, ecchymosis ED Course Vital Signs 02/01/21 01:39 Temperature 98.9 F Pulse Rate 117 H Respiratory 18 Rate Blood Pressure 135/89 O2 Sat by Pulse 95 Oximetry - Reevaluation(s) Reevaluation #1: 02/01/21 03:42 Differential diagnosis, including but not limited to: Ischemic cardiomyopathy, CHF, dependent edema, venous stasis dermatitis, noncompliance, acute coronary syndrome, tobacco dependence Assessment plan: 45-year-old gentleman with multiple cardiovascular risk factors, known history of noncompliance, who to me at this point in time denies chest pain, presenting with a primary complaint of bilateral lower extremity swelling, and left lower extremity redness, warmth and ulceration, and weeping discharge. His examination is consistent with decompensated congestive heart failure, and this is most likely lower extremity stasis dermatitis. I will cover him empirically with antibiotics, although I clinically favor stasis dermatitis versus cellulitis. Patient had a marked troponin bump when compared to prior laboratory studies, renal function appears to be unchanged. Uncertain if this is a type I or type II troponin leak. The patient denies chest pain at this time. He will be started on aspirin, Plavix, Lasix, as needed nitroglycerin, and unfractionated heparin. Have requested cardiology consultation, awaiting callback. We have recommended admission to the medical service, the patient is agreeable to this plan of care. I spent around 15 minutes discussing tobacco cessation, with the patient, as well as need to remain compliant with outpatient medications. I instructed patient's and showed him that he may download the good Rx affordable prescription application on smart phone, and I instructed him on how he may use this application to find affordable prescriptions. I also counseled the patient that he would benefit from using the money that he pays for cigarettes to pay for his prescriptions. The patient endorsed understanding. Hospital physician, Dr. Bhardwaj to admit to IMS - Consultations Consultation #1: 02/01/21 04:17 Discussed the patient's history, physical, laboratory studies, imaging studies and EKG findings with cardiology on-call, Dr. Mack. He is in agreement with the plan of care, and [facility] cardiology will follow in consultation and make further inpatient recommendations. ED Medical Decision Making - Lab Data Result diagrams: 02/01/21 01:25 02/01/21 01:25 Lab Results 02/01/21 02/01/21 02/01/21 Range/Units 01:25 01:25 01:25 WBC 8.7 (4.5-11.0) K/mm3 RBC 4.26 (3.65-5.03) M/mm3 Hgb 12.2 (11.8-15.2) gm/dl Hct 37.2 (35.5-45.6) % MCV 87 (84-94) fl MCH 29 (28-32) pg MCHC 33 (32-34) % RDW 15.4 H (13.2-15.2) % Plt Count 303 (140-440) K/mm3 Lymph % (Auto) 22.6 (13.4-35.0) % Wells % (Auto) 6.8 (0.0-7.3) % Eos % (Auto) 4.5 H (0.0-4.3) % Baso % (Auto) 1.4 (0.0-1.8) % Lymph # (Auto) 2.0 (1.2-5.4) K/mm3 Wells # (Auto) 0.6 (0.0-0.8) K/mm3 Eos # (Auto) 0.4 (0.0-0.4) K/mm3 Baso # (Auto) 0.1 (0.0-0.1) K/mm3 Seg Neutrophils % 64.7 (40.0-70.0) % Seg Neutrophils # 5.6 (1.8-7.7) K/mm3 Sodium 141 (137-145) mmol/L Potassium 4.0 (3.6-5.0) mmol/L Chloride 100.5 (98-107) mmol/L Carbon Dioxide 29 (22-30) mmol/L Anion Gap 16 mmol/L BUN 11 (9-20) mg/dL Creatinine 0.8 (0.8-1.3) mg/dL Estimated GFR > 60 ml/min BUN/Creatinine Ratio 14 % Glucose 188 H (75-100) mg/dL Calcium 9.6 (8.4-10.2) mg/dL Magnesium 2.10 (1.7-2.3) mg/dL Total Bilirubin 0.60 (0.1-1.2) mg/dL AST 25 (5-40) units/L ALT 21 (7-56) units/L Alkaline Phosphatase 145 H (35-129) units/L Total Creatine Kinase 92 (55-170) units/L Troponin T 0.297 H* (0.00-0.029) ng/mL NT-Pro-B Natriuret Pep 5209 H (0-450) pg/mL Total Protein 7.4 (6.3-8.2) g/dL Albumin 4.1 (3.9-5) g/dL Albumin/Globulin Ratio 1.2 % Triglycerides 88 (2-149) mg/dL Cholesterol 153 (50-199) mg/dL LDL Cholesterol Direct 109 (50-130) mg/dL HDL Cholesterol 33 L (40-59) mg/dL Cholesterol/HDL Ratio 4.63 % Vital Signs 02/01/21 01:39 Temperature 98.9 F Pulse Rate 117 H Respiratory 18 Rate Blood Pressure 135/89 O2 Sat by Pulse 95 Oximetry - EKG Data -: EKG Interpreted by Mo EKG shows normal: sinus rhythm Rate: tachycardia - EKG Data 02/01/21 03:39 The EKG #1 is interpreted at 01: 40 5 AM. This is a sinus rhythm, tachycardia, rate 114 bpm. QTC prolonged at 459 ms. There is a normal axis, there is a normal P wave axis. There is poor R wave progression. This is an abnormal EKG. This is not a STEMI. The EKG today appears to be unchanged when compared to prior EKG from 12/29/2020 - Radiology Data Radiology results: pending, report reviewed, image reviewed CHEST 1 VIEW INDICATION / CLINICAL INFORMATION: DYSPNEA STUDY TIME: 42 COMPARISON: 12/29/2020 FINDINGS: SUPPORT DEVICES: None HEART / MEDIASTINUM: No significant abnormality. LUNGS / PLEURA: Calcified granuloma is seen in the right. Lung hirsch are clear of infiltrates. No pneumothorax. ADDITIONAL FINDINGS: No significant additional findings. additional findings. Signer Name: Sina Whitt MD Signed: 02/01/2021 12:37 AM Workstation Name: [id number] DUPLEX DOPPLER LOWER EXTREMITY VEINS, BILATERAL INDICATION / CLINICAL INFORMATION: Lower leg pain. TECHNIQUE: Duplex doppler imaging was performed through the veins of both lower extremities using venous compression and other maneuvers. COMPARISON: None available. FINDINGS: RIGHT COMMON FEMORAL VEIN: Negative. RIGHT FEMORAL VEIN: Negative. RIGHT POPLITEAL VEIN: Negative. RIGHT CALF VEINS: Negative. LEFT COMMON FEMORAL VEIN: Negative. LEFT FEMORAL VEIN: Negative. LEFT POPLITEAL VEIN: Negative. LEFT CALF VEINS: Negative. ADDITIONAL FINDINGS: None. IMPRESSION: 1. No sonographic evidence for DVT in either lower extremity. Signer Name: Georges Aldana MD Signed: 12/30/2020 9:44 AM Workstation Name: [id number] CTA CHEST WITH CONTRAST INDICATION : Chest pain, S.O.B., bi-lateral leg swelling an elevated D-dimer. 100 ml omni 350 . TECHNIQUE: Axial imaging performed through the chest, with contrast bolus timing set to maximize opacification of the pulmonary arteries. Sagittal and coronal reformatted im ages. 3-plane MIP reformatted images were obtained. All CT scans at this location are performed using CT dose reduction for ALARA by means of automated exposure control. 100 mL of intravenous contrast administered. COMPARISON: Chest x-ray yesterday FINDINGS: Bolus: Contrast bolus timing is adequate. PTE: No filling defect is present to suggest PTE. Mediastinum: There is mild cardiomegaly. No pericardial abnormality. The thoracic aorta is unremarkable. No mediastinal mass or adenopathy. Shotty subcentimeter mediastinal lymph nodes are noted. Lungs: The lungs are clear with no evidence for significant parenchymal disease, pneumonia, pleural effusion or pneumothorax. Bones: Minimal thoracic spondylosis. Upper abdomen: Limited imaging of the upper abdomen shows nothing acute. IMPRESSION: No evidence for pulmonary embolus. Mild cardiomegaly. Lungs clear. Signer Name: Mor Colin Jr, MD Signed: 12/30/2020 7:57 AM Workstation Name: [id number] Critical Care Time: Yes Critical care time in (mins) excluding proc time.: 35 Critical care attestation.: If time is entered above; I have spent that time in minutes in the direct care of this critically ill patient, excluding procedure time. ED Disposition Clinical Impression: Elevated troponin, Pain and swelling of lower extremity, History of coronary artery disease, Non-compliance, Tobacco abuse counseling, Ischemic cardiomyopathy Disposition: ADMITTED INPATIENT Is pt being admited?: Yes Does the pt Need Aspirin: No Condition: Fair Heart Score - HEART Score History: Slightly suspicious EKG: Non-specific Age: 45-65 Risk factors: > 3 risk factors or hx of atherosclerotic disease Troponin: 1-3x normal limit HEART Score: 5 - EKG Read Time Time EKG Completed: 01:45 EKG Read Time: 01:45 - Critical Actions Critical Actions: 4-6 pts:12-16.6% risk of adverse cardiac event. Should be admitted
[2021-02-01] MEDS ORDERED: HEPARIN 10,000 UNITS/10 ML VIAL IV ONE (03:40)
[2021-02-01] MEDS ORDERED: HEPARIN 10,000 UNITS/10 ML VIAL IV PRN (03:40)
[2021-02-01] MEDS ORDERED: ACETAMINOPHEN 325 MG TAB PO PRN (03:48)
[2021-02-01] MEDS ORDERED: MORPHINE 4 MG/1 ML INJ IV PRN (03:48)
[2021-02-01] MEDS ORDERED: DEXTROSE 50% IN WATER (25GM) 50 ML SYRINGE IV PRN (03:48)
[2021-02-01] MEDS ORDERED: HYDROmorphone 1 MG/1 ML INJ IV PRN (03:48)
[2021-02-01] MEDS ORDERED: SULFAMETHOXAZOLE/TRIMETHOPRIM 800/160MG DS TAB PO ONE (03:50)
[2021-02-01] MEDS ORDERED: cephALEXin ORAL LIQD 500 MG/10 ML ORAL LIQD PO ONE (03:50)
[2021-02-01] MEDS ORDERED: IBUPROFEN 800 MG TAB PO PRN (03:55)
--- NOTE | 2021-02-01 04:04 | History and Physical Report ---
History of Present Illness Date of examination: 02/01/21 Date of admission: 02/01/21 Chief complaint: Bilateral lower extremity swelling Shortness of breath History of present illness: 45 years old man with past medical history of obesity, tobacco use, noncompliance, coronary artery disease, ischemic CAD, recently had cardiac catheterization at [facility], EF 30 to 35% was brought to the emergency room because of bilateral lower extremity pain and swelling, and left lower extremity redness and weeping/questionable pus. Patient reports she has completed 3 courses of antibiotics, including Keflex, Bactrim, and clindamycin. Patient also complained of shortness of breath and chest tightness but no pain. He denies headache, neck pain. He has abdominal pressure. He denies hematemesis and bright red blood per rectum. Patient wants to try to stop smoking cigarettes, but he is having difficulty doing so. In the emergency room patient is found to have acute CHF exacerbation patient proBNP is 09/07/2008. Patient also has elevated troponin 0 0.297 and bilateral lower extremity swelling and left lower extremity cellulitis Past History Past Medical History: CAD, diabetes, heart failure Medications and Allergies Allergies Allergy/AdvReac Type Severity Reaction Status Date / Time No Known Allergies Allergy Verified 12/29/20 14:08 Home Medications Medication Instructions Recorded Confirmed Last Taken Type Ciprofloxacin HCl [Ciprofloxacin 500 mg PO Q12H #10 tab 05/07/15 Unknown Rx TAB] Ondansetron [Zofran Odt] 4 mg PO Q6HR PRN #20 tab.rapdis 05/07/15 Unknown Rx Ciprofloxacin HCl [Ciprofloxacin 500 mg PO Q12H #14 tab 06/02/15 Unknown Rx TAB] Ibuprofen [Motrin 800 MG tab] 800 mg PO Q8HR PRN #30 tablet 06/02/15 Unknown Rx Sulfamethoxazole/Trimethoprim 1 each PO BID #14 tablet 12/30/20 Unknown Rx [Bactrim DS TAB] ALPRAZolam [Xanax TAB] 0.25 mg PO QHS PRN #6 tablet 12/31/20 Unknown Rx Aspirin [Aspirin BABY CHEW TAB] 81 mg PO QDAY #30 tab.chew 12/31/20 Unknown Rx AtorvaSTATin [Lipitor] 40 mg PO QHS #30 tablet 12/31/20 Unknown Rx Clopidogrel [Plavix] 75 mg PO QDAY #30 tablet 12/31/20 Unknown Rx Furosemide [Lasix TAB] 40 mg PO QDAY #30 tablet 12/31/20 Unknown Rx ISOSORBIDE MONOnitrate [Imdur ER] 30 mg PO QDAY #30 tablet 12/31/20 Unknown Rx Nicotine [Habitrol] 14 mg TD DAILY #30 patch 12/31/20 Unknown Rx Spironolactone [Aldactone] 25 mg PO QDAY #30 tablet 12/31/20 Unknown Rx carvediloL [Coreg] 6.25 mg PO BID #60 tablet 12/31/20 Unknown Rx lisinopriL [Zestril TAB] 20 mg PO QDAY #30 tablet 12/31/20 Unknown Rx Active Meds: Active Medications Acetaminophen (Acetaminophen 325 Mg Tab) 650 mg PO Q6H PRN PRN Reason: Pain, Mild (1-3) Alprazolam (Alprazolam 0.25 Mg Tab) 0.25 mg PO QHS PRN PRN Reason: Anxiety Aspirin (Aspirin 81 Mg Tab Chew) 81 mg PO QDAY [place] Atorvastatin Calcium (Atorvastatin 40 Mg Tab) 40 mg PO QHS [place] Carvedilol (Carvedilol 6.25 Mg Tab) 6.25 mg PO BID [place] Clopidogrel Bisulfate (Clopidogrel 75 Mg Tab) 75 mg PO QDAY [place] Dextrose (Dextrose 50% In Water (25gm) 50 Ml Syringe) 50 ml IV Q30MIN PRN; P rotocol PRN Reason: Hypoglycemia Furosemide (Furosemide 40 Mg/4 Ml Inj) 40 mg IV BID@0600,1800 [facility] Heparin Sodium (Porcine) (Heparin 10,000 Units/10 Ml Vial) 4,700 unit 40 unit/kg (4700 unit) IV Q6H PRN PRN Reason: Anti-Xa Assay < 0.1 units/ml Heparin Sodium (Porcine) (Heparin 5,000 Unit/1 Ml Vial) 5,000 unit SUB-Q Q8HR [facility] Hydromorphone HCl (Hydromorphone 1 Mg/1 Ml Inj) 0.25 mg IV Q5MIN PRN PRN Reason: Chest Pain Heparin Sodium/Sodium Chloride (Heparin/ 0.45% Nacl-25,000 Unit/500 Ml) 25,000 unit in 500 mls @ 20 mls/hr IV TITRATE [place]; Protocol Piperacillin Sod/Tazobactam Sod (Zosyn/Ns 4.5gm/100ml) 4.5 gm in 100 mls @ 200 mls/hr IV Q8H [facility]; Protocol Ibuprofen (Ibuprofen 800 Mg Tab) 800 mg PO Q8HR PRN PRN Reason: PAIN Insulin Human Lispro (Insulin Lispro 100 Unit/Ml) 0 unit SUB-Q ACHS [facility]; Protocol Isosorbide Mononitrate (Isosorbide Mononitrate Er 30 Mg Tab) 30 mg PO QDAY [facility] Lisinopril (Lisinopril 20 Mg Tab) 20 mg PO QDAY [facility] Morphine Sulfate (Morphine 4 Mg/1 Ml Inj) 2 mg IV Q5MIN PRN PRN Reason: Chest Pain unrelieved by NTG Nicotine (Nicotine 14 Mg/24 Hr Patch) 14 mg TD DAILY [facility] Nitroglycerin (Nitroglycerin 0.4 Mg Tab Subl) 0.4 mg SL .Q5MIN PRN PRN Reason: Chest Pain Pantoprazole Sodium (Pantoprazole 40 Mg Tab) 40 mg PO QDAY [facility] Sodium Chloride (Sodium Chloride 0.9% 10 Ml Flush Syringe) 10 ml IV PRN PRN PRN Reason: LINE FLUSH Spironolactone (Spironolactone 25 Mg Tab) 25 mg PO QDAY [facility] Tramadol HCl (Tramadol 50 Mg Tab) 50 mg PO Q6H PRN PRN Reason: Pain, Moderate (4-6) Review of Systems All systems: negative Constitutional: weakness, malaise Cardiovascular: chest pain, edema, shortness of breath, dyspnea on exertion Respiratory: shortness of breath, dyspnea on exertion Musculoskeletal: myalgias Exam - Constitutional Vitals: Temp Pulse Resp BP Pulse Ox 98.9 F 117 H 18 135/89 95 02/01/21 01:39 02/01/21 01:39 02/01/21 01:39 02/01/21 01:39 02/01/21 01:39 General appearance: Present: no acute distress, well-nourished - EENT Eyes: Present: PERRL ENT: hearing intact, clear oral mucosa - Neck Neck: Present: supple, normal ROM - Respiratory Respiratory effort: normal Respiratory: bilateral: rales - Cardiovascular Heart Sounds: Present: S1 & S2. Absent: rub, click - Extremities Extremities: pulses symmetrical Extremity abnormal: edema Peripheral Pulses: within normal limits - Abdominal General gastrointestinal: Present: soft, non-tender, non-distended, normal bowel sounds Male genitourinary: Present: normal - Integumentary Integumentary: Present: warm, dry, erythema - Musculoskeletal Musculoskeletal: gait normal, strength equal bilaterally - Psychiatric Psychiatric: appropriate mood/affect, intact judgment & insight - Neurologic Neurologic: CNII-XII intact, moves all extremities HEART Score - HEART Score EKG: Non-specific Age: 45-65 Risk factors: > 3 risk factors or hx of atherosclerotic disease Troponin: Troponin T 0.297 ng/mL (0.00-0.029) H* 02/01/21 01:25 Troponin: 1-3x normal limit - Critical Actions Critical Actions: 4-6 pts:12-16.6% risk of adverse cardiac event. Should be admitted Results - Labs CBC & Chem 7: 02/01/21 01:25 02/01/21 01:25 Labs: Laboratory Last Values WBC 8.7 K/mm3 (4.5-11.0) 02/01/21 01:25 RBC 4.26 M/mm3 (3.65-5.03) 02/01/21 01:25 Hgb 12.2 gm/dl (11.8-15.2) 02/01/21 01:25 Hct 37.2 % (35.5-45.6) 02/01/21 01:25 MCV 87 fl (84-94) 02/01/21 01:25 MCH 29 pg (28-32) 02/01/21 01:25 MCHC 33 % (32-34) 02/01/21 01:25 RDW 15.4 % (13.2-15.2) H 02/01/21 01:25 Plt Count 303 K/mm3 (140-440) 02/01/21 01:25 Lymph % (Auto) 22.6 % (13.4-35.0) 02/01/21 01:25 [place] % (Auto) 6.8 % (0.0-7.3) 02/01/21 01:25 Eos % (Auto) 4.5 % (0.0-4.3) H 02/01/21 01:25 Baso % (Auto) 1.4 % (0.0-1.8) 02/01/21 01:25 Lymph # (Auto) 2.0 K/mm3 (1.2-5.4) 02/01/21 01:25 [place] # (Auto) 0.6 K/mm3 (0.0-0.8) 02/01/21 01:25 Eos # (Auto) 0.4 K/mm3 (0.0-0.4) 02/01/21 01:25 Baso # (Auto) 0.1 K/mm3 (0.0-0.1) 02/01/21 01:25 Seg Neutrophils % 64.7 % (40.0-70.0) 02/01/21 01:25 Seg Neutrophils # 5.6 K/mm3 (1.8-7.7) 02/01/21 01:25 Sodium 141 mmol/L (137-145) 02/01/21 01:25 Potassium 4.0 mmol/L (3.6-5.0) 02/01/21 01:25 Chloride 100.5 mmol/L (98-107) 02/01/21 01:25 Carbon Dioxide 29 mmol/L (22-30) 02/01/21 01:25 Anion Gap 16 mmol/L 02/01/21 01:25 BUN 11 mg/dL (9-20) 02/01/21 01:25 Creatinine 0.8 mg/dL (0.8-1.3) 02/01/21 01:25 Estimated GFR > 60 ml/min 02/01/21 01:25 BUN/Creatinine Ratio 14 % 02/01/21 01:25 Glucose 188 mg/dL (75-100) H 02/01/21 01:25 Calcium 9.6 mg/dL (8.4-10.2) 02/01/21 01:25 Magnesium 2.10 mg/dL (1.7-2.3) 02/01/21 01:25 Total Bilirubin 0.60 mg/dL (0.1-1.2) 02/01/21 01:25 AST 25 units/L (5-40) 02/01/21 01:25 ALT 21 units/L (7-56) 02/01/21 01:25 Alkaline Phosphatase 145 units/L (35-129) H 02/01/21 01:25 Total Creatine Kinase 92 units/L (55-170) 02/01/21 01:25 Troponin T 0.297 ng/mL (0.00-0.029) H* 02/01/21 01:25 NT-Pro-B Natriuret Pep 5209 pg/mL (0-450) H 02/01/21 01:25 Total Protein 7.4 g/dL (6.3-8.2) 02/01/21 01:25 Albumin 4.1 g/dL (3.9-5) 02/01/21 01:25 Albumin/Globulin Ratio 1.2 % 02/01/21 01:25 Triglycerides 88 mg/dL (2-149) 02/01/21 01:25 Cholesterol 153 mg/dL (50-199) 02/01/21 01:25 LDL Cholesterol Direct 109 mg/dL (50-130) 02/01/21 01:25 HDL Cholesterol 33 mg/dL (40-59) L 02/01/21 01:25 Cholesterol/HDL Ratio 4.63 % 02/01/21 01:25 - Imaging and Cardiology Chest x-ray: report reviewed Assessment and Plan VTE prophylaxis?: Chemical Plan of care discussed with patient/family: Yes - Patient Problems (1) Acute exacerbation of CHF (congestive heart failure) Status: Acute Plan to address problem: Admit the patient to the medical telemetry. Put the patient on CHF pathway. Cardiac diet. Fluid restriction. Maintain input output. Lasix 40 mg IV daily. Echocardiogram. Lisinopril 20 mg p.o. daily. Consult cardiology (2) Non-ST elevation CT (NSTEMI) Onset Date: ~12/30/20 Status: Acute Plan to address problem: Aspirin 81 mg p.o. daily Plavix 75 mg p.o. daily. Lipitor 40 mg p.o. daily. We do the serial cardiac enzymes. Echocardiogram. Cardiology consult (3) Cellulitis of left leg without foot Status: Acute Plan to address problem: Zosyn 4.5 g IV every 8 hours. Reconsult wound care evaluation. Lasix 40 mg IV every 12 hours (4) Ischemic cardiomyopathy Status: Acute Plan to address problem: Aspirin 81 mg p.o. daily Plavix 75 mg p.o. daily. Lipitor 40 mg p.o. daily. We do the serial cardiac enzymes. Echocardiogram. Cardiology consult. We will continue the home medication (5) Tobacco use disorder Status: Chronic Plan to address problem: We counseled the patient regarding quitting smoking. We will continue the nicotine patch (6) DVT prophylaxis Status: Acute Plan to address problem: Heparin 5000 units subcu every 8 hours for DVT prophylaxis. Protonix 40 mg p.o. daily for GI prophylaxis (7) Full code status Status: Acute Plan to address problem: Patient is a full code
[2021-02-01 04:08] LABS: INR 1.08 (0.87-1.13)
[2021-02-01 04:09] LABS: Partial Thromboplastin Time 30.3 Sec. (24.2-36.6)
[2021-02-01] MEDS: HEPARIN/ 0.45% NACL DRIP 25,000 UNIT/500 ML BAG IV SCH (04:41)
[2021-02-01] MEDS: PIPERACIL/TAZOBACTA 4.5/NS 100 4.5 GM/100 ML VIAL IV SCH ×3 (04:54→21:53)
[2021-02-01 05:19] LABS: Blood Urea Nitrogen 11 mg/dL (9-20); Calcium 9.3 mg/dL (8.4-10.2); Hemolysis Index 7
[2021-02-01 05:20] LABS: BUN/Creatinine Ratio 16
[2021-02-01] MEDS ORDERED: HEPARIN 5,000 UNIT/1 ML VIAL SUB-Q SCH (06:00)
[2021-02-01] MEDS: FUROSEMIDE 40 MG/4 ML INJ IV SCH ×2 (06:15→18:00)
[2021-02-01] MEDS: INSULIN LISPRO 100 UNIT/ML SUB-Q SCH ×3 (07:55→16:36)
--- NOTE | 2021-02-01 08:38 | Progress Note ---
Assessment and Plan Assessment and plan: -- Acute exacerbation of CHF (congestive heart failure) Current visit: yes Status: Acute Acute on chronic systolic congestive heart failure EF 30 to 35% Continue antifailure medications, diuretics, beta-blockers, СЕРГЕЙ inhibitors Input output monitoring, low-sodium diet, fluid restriction And supportive care --Ischemic cardiomyopathy Current visit: yes Status: Acute EF 30 to 35%, continue antifailure medications --Non-ST elevation [place] (NSTEMI) Current visit: yes Status: Acute nonspecific elevation of troponin Continue current cardiac medications Patient is started on heparin drip by admitting physician Follow cardiology eval --History of coronary artery disease s/p PCI 12/09/2020[mid LAD] Current visit: yes Status: Chronic Continue current cardiac medications Continue dual antiplatelet therapy aspirin and Plavix Beta-blockers, СЕРГЕЙ inhibitors, nitrates and statin --Cellulitis of left leg without foot Current visit: yes Status: Acute Zosyn 4.5 g IV every 8 hours. Elevate the limb Wound care -- Tobacco use disorder Current visit: yes Status: Chronic Smoking cessation counseling done, advised nicotine patch as needed --DVT prophylaxis Status: Acute Lovenox subcu --Full code status Status: Acute Patient is on heparin drip --Medical noncompliance; patient strongly advised to comply with medications diet follow-up visits Patient verbalized understanding We will closely monitor the patient and adjust management as needed Follow consultants evaluation and recommendation Plan of care reviewed with the patient and his nurse Advance care 45 minutes History Interval history: I seen and examined the patient in ER awaiting room assignment Patient complains of mild intermittent chest pain Slightly better than yesterday Vital signs noted Hospitalist Physical - Constitutional Vitals: Temp Pulse Resp BP Pulse Ox 98.9 F 109 H 20 121/94 96 02/01/21 01:39 02/01/21 08:01 02/01/21 08:01 02/01/21 08:01 02/01/21 08:01 General appearance: Present: no acute distress, well-nourished, obese - EENT Eyes: Present: PERRL, EOM intact - Neck Neck: Present: supple, normal ROM - Respiratory Respiratory effort: normal Respiratory: bilateral: diminished, rales, negative: rhonchi, wheezing - Cardiovascular Rhythm: regular Heart Sounds: Present: S1 & S2 - Extremities Extremities: no ischemia Extremity abnormal: edema, other (Chronic skin changes/chronic cellulitis) - Abdominal General gastrointestinal: soft, non-tender, non-distended, normal bowel sounds - Integumentary Integumentary: Present: clear, warm - Psychiatric Psychiatric: appropriate mood/affect, cooperative - Neurologic Neurologic: CNII-XII intact, moves all extremities HEART Score - HEART Score EKG: Non-specific Age: 45-65 Risk factors: > 3 risk factors or hx of atherosclerotic disease Troponin: Troponin T 0.297 ng/mL (0.00-0.029) H* 02/01/21 01:25 Troponin: 1-3x normal limit - Critical Actions Critical Actions: 4-6 pts:12-16.6% risk of adverse cardiac event. Should be admitted Results - Labs CBC & Chem 7: 02/01/21 01:25 02/01/21 04:15 Labs: Laboratory Last Values WBC 8.7 K/mm3 (4.5-11.0) 02/01/21 01:25 RBC 4.26 M/mm3 (3.65-5.03) 02/01/21 01:25 Hgb 12.2 gm/dl (11.8-15.2) 02/01/21 01:25 Hct 37.2 % (35.5-45.6) 02/01/21 01:25 MCV 87 fl (84-94) 02/01/21 01:25 MCH 29 pg (28-32) 02/01/21 01:25 MCHC 33 % (32-34) 02/01/21 01:25 RDW 15.4 % (13.2-15.2) H 02/01/21 01:25 Plt Count 303 K/mm3 (140-440) 02/01/21 01:25 Lymph % (Auto) 22.6 % (13.4-35.0) 02/01/21 01:25 [place] % (Auto) 6.8 % (0.0-7.3) 02/01/21 01:25 Eos % (Auto) 4.5 % (0.0-4.3) H 02/01/21 01:25 Baso % (Auto) 1.4 % (0.0-1.8) 02/01/21 01:25 Lymph # (Auto) 2.0 K/mm3 (1.2-5.4) 02/01/21 01:25 [place] # (Auto) 0.6 K/mm3 (0.0-0.8) 02/01/21 01:25 Eos # (Auto) 0.4 K/mm3 (0.0-0.4) 02/01/21 01:25 Baso # (Auto) 0.1 K/mm3 (0.0-0.1) 02/01/21 01:25 Seg Neutrophils % 64.7 % (40.0-70.0) 02/01/21 01:25 Seg Neutrophils # 5.6 K/mm3 (1.8-7.7) 02/01/21 01:25 PT 14.6 Sec. (12.2-14.9) 02/01/21 03:44 INR 1.08 (0.87-1.13) 02/01/21 03:44 APTT 30.3 Sec. (24.2-36.6) 02/01/21 03:44 Sodium 138 mmol/L (137-145) 02/01/21 04:15 Potassium 3.7 mmol/L (3.6-5.0) 02/01/21 04:15 Chloride 99.3 mmol/L (98-107) 02/01/21 04:15 Carbon Dioxide 29 mmol/L (22-30) 02/01/21 04:15 Anion Gap 13 mmol/L 02/01/21 04:15 BUN 11 mg/dL (9-20) 02/01/21 04:15 Creatinine 0.7 mg/dL (0.8-1.3) L 02/01/21 04:15 Estimated GFR > 60 ml/min 02/01/21 04:15 BUN/Creatinine Ratio 16 % 02/01/21 04:15 Glucose 160 mg/dL (75-100) H 02/01/21 04:15 POC Glucose 155 mg/dL (70-105) H 02/01/21 07:38 Calcium 9.3 mg/dL (8.4-10.2) 02/01/21 04:15 Magnesium 2.10 mg/dL (1.7-2.3) 02/01/21 01:25 Total Bilirubin 0.60 mg/dL (0.1-1.2) 02/01/21 01:25 AST 25 units/L (5-40) 02/01/21 01:25 ALT 21 units/L (7-56) 02/01/21 01:25 Alkaline Phosphatase 145 units/L (35-129) H 02/01/21 01:25 Total Creatine Kinase 92 units/L (55-170) 02/01/21 01:25 Troponin T 0.297 ng/mL (0.00-0.029) H* 02/01/21 01:25 NT-Pro-B Natriuret Pep 5209 pg/mL (0-450) H 02/01/21 01:25 Total Protein 7.4 g/dL (6.3-8.2) 02/01/21 01:25 Albumin 4.1 g/dL (3.9-5) 02/01/21 01:25 Albumin/Globulin Ratio 1.2 % 02/01/21 01:25 Triglycerides 88 mg/dL (2-149) 02/01/21 01:25 Cholesterol 153 mg/dL (50-199) 02/01/21 01:25 LDL Cholesterol Direct 109 mg/dL (50-130) 02/01/21 01:25 HDL Cholesterol 33 mg/dL (40-59) L 02/01/21 01:25 Cholesterol/HDL Ratio 4.63 % 02/01/21 01:25 Active Medications - Current Medications Current Medications: Generic Name Dose Route Start Last Admin Trade Name Freq PRN Reason Stop Dose Admin Acetaminophen 650 mg 02/01/21 03:48 Acetaminophen 325 Mg Tab PO Q6H PRN Pain, Mild (1-3) Alprazolam 0.25 mg 02/01/21 03:55 Alprazolam 0.25 Mg Tab PO QHS PRN Anxiety Aspirin 81 mg 02/01/21 10:00 Aspirin 81 Mg Tab Chew PO QDAY [facility] Atorvastatin Calcium 40 mg 02/01/21 22:00 Atorvastatin 40 Mg Tab PO QHS [facility] Carvedilol 6.25 mg 02/01/21 10:00 Carvedilol 6.25 Mg Tab PO BID [facility] Clopidogrel Bisulfate 75 mg 02/02/21 10:00 Clopidogrel 75 Mg Tab PO QDAY [facility] Dextrose 50 ml 02/01/21 03:48 Dextrose 50% In Water (25gm) 50 Ml Syringe IV Q30MIN PRN Hypoglycemia Protocol Furosemide 40 mg 02/01/21 06:00 02/01/21 06:15 Furosemide 40 Mg/4 Ml Inj IV Not Given BID@0600,1800 [facility] Heparin Sodium (Porcine) 4,700 unit 02/01/21 03:40 Heparin 10,000 Units/10 Ml Vial 40 unit/kg (4700 unit) IV Q6H PRN Anti-Xa Assay < 0.1 units/ml Hydromorphone HCl 0.25 mg 02/01/21 03:48 Hydromorphone 1 Mg/1 Ml Inj IV Q5MIN PRN Chest Pain Heparin Sodium/Sodium Chloride 25,000 unit in 500 mls @ 20 mls/hr 02/01/21 04:00 02/01/21 04:41 Heparin/ 0.45% Nacl-25,000 Unit/500 Ml IV 1,000 units/hr TITRATE [place] 20 mls/hr Administration Protocol 1,000 UNITS/HR Piperacillin Sod/Tazobactam Sod 4.5 gm in 100 mls @ 200 mls/hr 02/01/21 04:00 02/01/21 04:54 Zosyn/Ns 4.5gm/100ml IV 200 mls/hr Q8H [facility] Administration Protocol Ibuprofen 800 mg 02/01/21 03:55 Ibuprofen 800 Mg Tab PO Q8HR PRN Pain, Moderate (4-6) Insulin Human Lispro 0 unit 02/01/21 07:30 02/01/21 07:55 Insulin Lispro 100 Unit/Ml SUB-Q 2 unit ACHS [facility] Administration Protocol Isosorbide Mononitrate 30 mg 02/01/21 10:00 Isosorbide Mononitrate Er 30 Mg Tab PO QDAY [facility] Lisinopril 20 mg 02/01/21 10:00 Lisinopril 20 Mg Tab PO QDAY [facility] Morphine Sulfate 2 mg 02/01/21 03:48 Morphine 4 Mg/1 Ml Inj IV Q5MIN PRN Chest Pain unrelieved by NTG Nicotine 14 mg 02/01/21 10:00 Nicotine 14 Mg/24 Hr Patch TD DAILY [facility] Nitroglycerin 0.4 mg 02/01/21 03:04 Nitroglycerin 0.4 Mg Tab Subl SL .Q5MIN PRN Chest Pain Pantoprazole Sodium 40 mg 02/01/21 10:00 Pantoprazole 40 Mg Tab PO QDAY [facility] Sodium Chloride 10 ml 02/01/21 03:48 Sodium Chloride 0.9% 10 Ml Flush Syringe IV PRN PRN LINE FLUSH Spironolactone 25 mg 02/01/21 10:00 Spironolactone 25 Mg Tab PO QDAY [facility] Tramadol HCl 50 mg 02/01/21 03:48 Tramadol 50 Mg Tab PO Q6H PRN Pain, Moderate (4-6)
[2021-02-01] MEDS: SPIRONOLACTONE 25 MG TAB PO SCH (10:55)
[2021-02-01] MEDS: LISINOPRIL 20 MG TAB PO SCH (10:55)
[2021-02-01] MEDS: NICOTINE 14 MG/24 HR PATCH TD SCH (10:55)
[2021-02-01] MEDS: carvediloL 6.25 MG TAB PO SCH ×2 (10:55→22:09)
[2021-02-01] MEDS: ASPIRIN 81 MG TAB CHEW PO SCH (10:55)
[2021-02-01] MEDS: PANTOPRAZOLE 40 MG TAB PO SCH (10:55)
[2021-02-01] MEDS: traMADol 50 MG TAB PO PRN ×2 (12:51→22:11)
--- NOTE | 2021-02-01 14:14 | Consultation ---
History of Present Illness Consult date: 02/01/21 Consult reason: congestive heart failure, elevated troponin History of present illness: 45-year-old male with past medical history of ischemic cardiomyopathy, CAD status post multiple PCI (most recently mid LAD stent 12/2020), diabetes, history of tobacco and methamphetamine abuse, obesity, and noncompliance is admitted with dyspnea and cellulitis. Cardiology consulted for recommendations regarding elevated troponin. Patient reports previously seeing Dr. Ger Layton at [facility] office approximately 1 year ago but admits to lack of follow-up since then. He was recently seen at [facility] in December due to unstable angina after he had been noncompliant with prescribed ticagrelor. He presents today with increasing leg swelling, dyspnea, and PND. No chest pain. He reports compliance with his medications, including dual antiplatelet therapy with aspirin and Plavix. Work-up notable for elevated troponin (0.297, 0.257) and elevated NT proBNP 5209. Last cardiac catheterization 12/09/20 at [facility] showed 80% mid LAD stenosis status post NORMA x1 and SENIOR ADMINISTRATOR SUPPORT of the RCA. Previously placed stents in the left main coronary artery, proximal to mid LAD, and proximal to mid left circumflex were patent. LVEF was reportedly 30 to 35%. Past History Past Medical History: CAD, diabetes, heart failure Medications and Allergies Allergies Allergy/AdvReac Type Severity Reaction Status Date / Time No Known Allergies Allergy Verified 12/29/20 14:08 Home Medications Medication Instructions Recorded Confirmed Last Taken Type Ciprofloxacin HCl [Ciprofloxacin 500 mg PO Q12H #10 tab 05/07/15 Unknown Rx TAB] Ondansetron [Zofran Odt] 4 mg PO Q6HR PRN #20 tab.rapdis 05/07/15 Unknown Rx Ciprofloxacin HCl [Ciprofloxacin 500 mg PO Q12H #14 tab 06/02/15 Unknown Rx TAB] Ibuprofen [Motrin 800 MG tab] 800 mg PO Q8HR PRN #30 tablet 06/02/15 Unknown Rx Sulfamethoxazole/Trimethoprim 1 each PO BID #14 tablet 12/30/20 Unknown Rx [Bactrim DS TAB] ALPRAZolam [Xanax TAB] 0.25 mg PO QHS PRN #6 tablet 12/31/20 Unknown Rx Aspirin [Aspirin BABY CHEW TAB] 81 mg PO QDAY #30 tab.chew 12/31/20 Unknown Rx AtorvaSTATin [Lipitor] 40 mg PO QHS #30 tablet 12/31/20 Unknown Rx Clopidogrel [Plavix] 75 mg PO QDAY #30 tablet 12/31/20 Unknown Rx Furosemide [Lasix TAB] 40 mg PO QDAY #30 tablet 12/31/20 Unknown Rx ISOSORBIDE MONOnitrate [Imdur ER] 30 mg PO QDAY #30 tablet 12/31/20 Unknown Rx Nicotine [Habitrol] 14 mg TD DAILY #30 patch 12/31/20 Unknown Rx Spironolactone [Aldactone] 25 mg PO QDAY #30 tablet 12/31/20 Unknown Rx carvediloL [Coreg] 6.25 mg PO BID #60 tablet 12/31/20 Unknown Rx lisinopriL [Zestril TAB] 20 mg PO QDAY #30 tablet 12/31/20 Unknown Rx Active Meds: Active Medications Acetaminophen (Acetaminophen 325 Mg Tab) 650 mg PO Q6H PRN PRN Reason: Pain, Mild (1-3) Alprazolam (Alprazolam 0.25 Mg Tab) 0.25 mg PO QHS PRN PRN Reason: Anxiety Aspirin (Aspirin 81 Mg Tab Chew) 81 mg PO QDAY [facility] Last Admin: 02/01/21 10:55 Dose: 81 mg Documented by: Atorvastatin Calcium (Atorvastatin 40 Mg Tab) 40 mg PO QHS [facility] Carvedilol (Carvedilol 6.25 Mg Tab) 6.25 mg PO BID [facility] Last Admin: 02/01/21 10:55 Dose: 6.25 mg Documented by: Clopidogrel Bisulfate (Clopidogrel 75 Mg Tab) 75 mg PO QDAY [facility] Dextrose (Dextrose 50% In Water (25gm) 50 Ml Syringe) 50 ml IV Q30MIN PRN; Protocol PRN Reason: Hypoglycemia Furosemide (Furosemide 40 Mg/4 Ml Inj) 40 mg IV BID@0600,1800 [facility] Last Admin: 02/01/21 06:15 Dose: Not Given Documented by: Heparin Sodium (Porcine) (Heparin 10,000 Units/10 Ml Vial) 4,700 unit 40 unit/kg (4700 unit) IV Q6H PRN PRN Reason: Anti-Xa Assay < 0.1 units/ml Last Admin: 02/01/21 11:00 Dose: 4,700 unit Documented by: Hydromorphone HCl (Hydromorphone 1 Mg/1 Ml Inj) 0.25 mg IV Q5MIN PRN PRN Reason: Chest Pain Heparin Sodium/Sodium Chloride (Heparin/ 0.45% Nacl-25,000 Unit/500 Ml) 25,000 unit in 500 mls @ 20 mls/hr IV TITRATE [facility]; Protocol Last Titration: 02/01/21 11:00 Dose: 1,350 units/hr, 27 mls/hr Documented by: Piperacillin Sod/Tazobactam Sod (Zosyn/Ns 4.5gm/100ml) 4.5 gm in 100 mls @ 200 mls/hr IV Q8H [facility]; Protocol Last Admin: 02/01/21 12:21 Dose: 200 mls/hr Documented by: Ibuprofen (Ibuprofen 800 Mg Tab) 800 mg PO Q8HR PRN PRN Reason: Pain, Moderate (4-6) Insulin Human Lispro (Insulin Lispro 100 Unit/Ml) 0 unit SUB-Q ACHS [facility]; Protocol Last Admin: 02/01/21 12:21 Dose: 2 unit Documented by: Isosorbide Mononitrate (Isosorbide Mononitrate Er 30 Mg Tab) 30 mg PO QDAY [facility] Last Admin: 02/01/21 10:55 Dose: 30 mg Documented by: Lisinopril (Lisinopril 20 Mg Tab) 20 mg PO QDAY [facility] Last Admin: 02/01/21 10:55 Dose: 20 mg Documented by: Morphine Sulfate (Morphine 4 Mg/1 Ml Inj) 2 mg IV Q5MIN PRN PRN Reason: Chest Pain unrelieved by NTG Nicotine (Nicotine 14 Mg/24 Hr Patch) 14 mg TD DAILY [facility] Last Admin: 02/01/21 10:55 Dose: 14 mg Documented by: Nitroglycerin (Nitroglycerin 0.4 Mg Tab Subl) 0.4 mg SL .Q5MIN PRN PRN Reason: Chest Pain Pantoprazole Sodium (Pantoprazole 40 Mg Tab) 40 mg PO QDAY [facility] Last Admin: 02/01/21 10:55 Dose: 40 mg Documented by: Sodium Chloride (Sodium Chloride 0.9% 10 Ml Flush Syringe) 10 ml IV PRN PRN PRN Reason: LINE FLUSH Spironolactone (Spironolactone 25 Mg Tab) 25 mg PO QDAY [facility] Last Admin: 02/01/21 10:55 Dose: 25 mg Documented by: Tramadol HCl (Tramadol 50 Mg Tab) 50 mg PO Q6H PRN PRN Reason: Pain, Moderate (4-6) Last Admin: 02/01/21 12:51 Dose: 50 mg Documented by: Physical Examination Vital Signs Temp Pulse Resp BP Pulse Ox 98.9 F 117 H 18 135/89 95 02/01/21 01:39 02/01/21 01:39 02/01/21 01:39 02/01/21 01:39 02/01/21 01:39 Narrative exam: Gen-NAD, comfortable Neck-supple, no JVD CV-regular rhythm, tachycardic, no murmurs Lungs-mostly clear, nasal cannula oxygen Abd-soft/nt/nd Ext-warm to touch, 1+ edema, left lower extremity red Neuro-alert and oriented, no gross focal deficits Psych-affect normal Results 02/01/21 01:25 02/01/21 04:15 Cardiac Enzymes 02/01/21 Range/Units 01:25 AST 25 (5-40) units/L Coagulation 02/01/21 Range/Units 03:44 PT 14.6 (12.2-14.9) Sec. INR 1.08 (0.87-1.13) APTT 30.3 (24.2-36.6) Sec. Lipids 02/01/21 Range/Units 01:25 Triglycerides 88 (2-149) mg/dL Cholesterol 153 (50-199) mg/dL HDL Cholesterol 33 L (40-59) mg/dL Cholesterol/HDL Ratio 4.63 % CBC 02/01/21 Range/Units 01:25 WBC 8.7 (4.5-11.0) K/mm3 RBC 4.26 (3.65-5.03) M/mm3 Hgb 12.2 (11.8-15.2) gm/dl Hct 37.2 (35.5-45.6) % Plt Count 303 (140-440) K/mm3 Lymph # (Auto) 2.0 (1.2-5.4) K/mm3 [place] # (Auto) 0.6 (0.0-0.8) K/mm3 Eos # (Auto) 0.4 (0.0-0.4) K/mm3 Baso # (Auto) 0.1 (0.0-0.1) K/mm3 Comprehensive Metabolic Panel 02/01/21 02/01/21 Range/Units 01:25 04:15 Sodium 141 138 (137-145) mmol/L Potassium 4.0 3.7 (3.6-5.0) mmol/L Chloride 100.5 99.3 (98-107) mmol/L Carbon Dioxide 29 29 (22-30) mmol/L BUN 11 11 (9-20) mg/dL Creatinine 0.8 0.7 L (0.8-1.3) mg/dL Glucose 188 H 160 H (75-100) mg/dL Calcium 9.6 9.3 (8.4-10.2) mg/dL AST 25 (5-40) units/L ALT 21 (7-56) units/L Alkaline Phosphatase 145 H (35-129) units/L Total Protein 7.4 (6.3-8.2) g/dL Albumin 4.1 (3.9-5) g/dL 01/31/2021 EKGsinus tachycardia 114 bpm, nonspecific ST changes Assessment and Plan #Decompensated ischemic cardiomyopathy #Troponin elevation #CAD status post multiple prior PCI, last mid LAD stent in 12/2020 #Cellulitis #Diabetes #History of tobacco and methamphetamine use #Obesity #Left leg cellulitis #Noncompliance Mild troponin elevation with decreasing trend is likely related to decompensated heart failure, rather than acute MA. No need to further check troponin. May continue IV heparin for 48 hours. Continue IV Lasix. Monitor renal function and I/Os. Continue aspirin, Plavix, atorvastatin, carvedilol, lisinopril, spironolactone, and Imdur. Patient extensively counseled on importance of outpatient follow-up and with medications. He may ultimately be a candidate for ICD for primary prevention of SCD if LVEF remains less than 35% after compliance with GDMT and abstinence from drug use for >90 days.
[2021-02-01] MEDS: ALPRAZolam 0.25 MG TAB PO PRN (22:13)
[2021-02-02] MEDS: INSULIN LISPRO 100 UNIT/ML SUB-Q SCH ×5 (00:02→22:22)
[2021-02-02] MEDS: PIPERACIL/TAZOBACTA 4.5/NS 100 4.5 GM/100 ML VIAL IV SCH ×4 (04:57→20:34)
[2021-02-02] MEDS: FUROSEMIDE 40 MG/4 ML INJ IV SCH ×2 (05:42→18:37)
[2021-02-02] MEDS: HEPARIN/ 0.45% NACL DRIP 25,000 UNIT/500 ML BAG IV SCH (05:56)
[2021-02-02] MEDS ORDERED: MORPHINE 4 MG/1 ML INJ IV PRN (08:26)
--- NOTE | 2021-02-02 08:28 | Progress Note ---
Assessment and Plan Assessment and plan: --Non-ST elevation OK (NSTEMI) Current visit: yes Status: Acute nonspecific elevation of troponin Continue current cardiac medications Patient is started on heparin drip by admitting physician Cardiology evaluation noted and appreciated Advised to continue heparin drip for total 48 hours -- Acute exacerbation of CHF (congestive heart failure) Current visit: yes Status: Acute Acute on chronic systolic congestive heart failure EF 30 to 35% Continue antifailure medications, diuretics, beta-blockers, СЕРГЕЙ inhibitors Input output monitoring, low-sodium diet, fluid restriction And supportive care --Ischemic cardiomyopathy Current visit: yes Status: Acute EF 30 to 35%, continue antifailure medications --History of coronary artery disease s/p PCI 12/09/2020[mid LAD] Current visit: yes Status: Chronic Continue current cardiac medications Continue dual antiplatelet therapy aspirin and Plavix Beta-blockers, СЕРГЕЙ inhibitors, nitrates and statin --Cellulitis of left leg without foot Current visit: yes Status: Acute Zosyn 4.5 g IV every 8 hours. Elevate the limb Wound care -- Tobacco use disorder Current visit: yes Status: Chronic Smoking cessation counseling done, advised nicotine patch as needed --Obesity; BMI 35.3 Current visit: yes Status: Chronic Patient advised diet modification exercise as tolerated and weight reduction When medically stable, verbalized understanding --DVT prophylaxis Status: Acute Lovenox subcu --Full code status Status: Acute Patient is on heparin drip --Medical noncompliance; patient strongly advised to comply with medications diet follow-up visits Patient verbalized understanding We will closely monitor the patient and adjust management as needed Follow consultants evaluation and recommendation Plan of care reviewed with the patient and his nurse 02/02/2021; Patient feels slightly better Cardiology evaluation noted and appreciated, continue heparin drip next 24 hours Smoking cessation counseling, advised compliance Disposition; follow cardiology evaluation and recommendation, discharge when medically stable and cleared History Interval history: I have seen and examined the patient at the bedside Patient continues to have intermittent chest pain On heparin drip and cardiac medications Vital signs noted Hospitalist Physical - Constitutional Vitals: Temp Pulse Resp BP Pulse Ox 98.4 F 104 H 15 92/62 96 02/02/21 05:38 02/02/21 05:10 02/01/21 23:50 02/02/21 05:10 02/02/21 05:10 General appearance: Present: no acute distress, well-nourished, obese - EENT Eyes: Present: PERRL, EOM intact - Neck Neck: Present: supple, normal ROM - Respiratory Respiratory effort: normal Respiratory: bilateral: diminished, negative: rales, rhonchi, wheezing - Cardiovascular Rhythm: regular Heart Sounds: Present: S1 & S2 - Extremities Extremities: no ischemia, No edema - Abdominal General gastrointestinal: soft, non-tender, non-distended, normal bowel sounds - Integumentary Integumentary: Present: clear, warm - Psychiatric Psychiatric: appropriate mood/affect, cooperative - Neurologic Neurologic: CNII-XII intact, moves all extremities HEART Score - HEART Score EKG: Non-specific Age: 45-65 Risk factors: > 3 risk factors or hx of atherosclerotic disease Troponin: Troponin T 0.257 ng/mL (0.00-0.029) H* 02/01/21 10:35 Troponin: 1-3x normal limit - Critical Actions Critical Actions: 4-6 pts:12-16.6% risk of adverse cardiac event. Should be admitted Results - Labs CBC & Chem 7: 02/01/21 01:25 02/01/21 04:15 Labs: Laboratory Last Values WBC 8.7 K/mm3 (4.5-11.0) 02/01/21 01:25 RBC 4.26 M/mm3 (3.65-5.03) 02/01/21 01:25 Hgb 12.2 gm/dl (11.8-15.2) 02/01/21 01:25 Hct 37.2 % (35.5-45.6) 02/01/21 01:25 MCV 87 fl (84-94) 02/01/21 01:25 MCH 29 pg (28-32) 02/01/21 01:25 MCHC 33 % (32-34) 02/01/21 01:25 RDW 15.4 % (13.2-15.2) H 02/01/21 01:25 Plt Count 303 K/mm3 (140-440) 02/01/21 01:25 Lymph % (Auto) 22.6 % (13.4-35.0) 02/01/21 01:25 [place] % (Auto) 6.8 % (0.0-7.3) 02/01/21 01:25 Eos % (Auto) 4.5 % (0.0-4.3) H 02/01/21 01:25 Baso % (Auto) 1.4 % (0.0-1.8) 02/01/21 01:25 Lymph # (Auto) 2.0 K/mm3 (1.2-5.4) 02/01/21 01:25 [place] # (Auto) 0.6 K/mm3 (0.0-0.8) 02/01/21 01:25 Eos # (Auto) 0.4 K/mm3 (0.0-0.4) 02/01/21 01:25 Baso # (Auto) 0.1 K/mm3 (0.0-0.1) 02/01/21 01:25 Seg Neutrophils % 64.7 % (40.0-70.0) 02/01/21 01:25 Seg Neutrophils # 5.6 K/mm3 (1.8-7.7) 02/01/21 01:25 PT 14.6 Sec. (12.2-14.9) 02/01/21 03:44 INR 1.08 (0.87-1.13) 02/01/21 03:44 APTT 30.3 Sec. (24.2-36.6) 02/01/21 03:44 Heparin Anti-Xa Level 0.16 U.I./ml (0.3-0.7) L 02/01/21 23:15 Sodium 138 mmol/L (137-145) 02/01/21 04:15 Potassium 3.7 mmol/L (3.6-5.0) 02/01/21 04:15 Chloride 99.3 mmol/L (98-107) 02/01/21 04:15 Carbon Dioxide 29 mmol/L (22-30) 02/01/21 04:15 Anion Gap 13 mmol/L 02/01/21 04:15 BUN 11 mg/dL (9-20) 02/01/21 04:15 Creatinine 0.7 mg/dL (0.8-1.3) L 02/01/21 04:15 Estimated GFR > 60 ml/min 02/01/21 04:15 BUN/Creatinine Ratio 16 % 02/01/21 04:15 Glucose 160 mg/dL (75-100) H 02/01/21 04:15 POC Glucose 146 mg/dL (70-105) H 02/01/21 16:33 Calcium 9.3 mg/dL (8.4-10.2) 02/01/21 04:15 Magnesium 2.10 mg/dL (1.7-2.3) 02/01/21 01:25 Total Bilirubin 0.60 mg/dL (0.1-1.2) 02/01/21 01:25 AST 25 units/L (5-40) 02/01/21 01:25 ALT 21 units/L (7-56) 02/01/21 01:25 Alkaline Phosphatase 145 units/L (35-129) H 02/01/21 01:25 Total Creatine Kinase 92 units/L (55-170) 02/01/21 01:25 Troponin T 0.257 ng/mL (0.00-0.029) H* 02/01/21 10:35 NT-Pro-B Natriuret Pep 5209 pg/mL (0-450) H 02/01/21 01:25 Total Protein 7.4 g/dL (6.3-8.2) 02/01/21 01:25 Albumin 4.1 g/dL (3.9-5) 02/01/21 01:25 Albumin/Globulin Ratio 1.2 % 02/01/21 01:25 Triglycerides 88 mg/dL (2-149) 02/01/21 01:25 Cholesterol 153 mg/dL (50-199) 02/01/21 01:25 LDL Cholesterol Direct 109 mg/dL (50-130) 02/01/21 01:25 HDL Cholesterol 33 mg/dL (40-59) L 02/01/21 01:25 Cholesterol/HDL Ratio 4.63 % 02/01/21 01:25 Active Medications - Current Medications Current Medications: Generic Name Dose Route Start Last Admin Trade Name Freq PRN Reason Stop Dose Admin Acetaminophen 650 mg 02/01/21 03:48 Acetaminophen 325 Mg Tab PO Q6H PRN Pain, Mild (1-3) Alprazolam 0.25 mg 02/01/21 03:55 02/01/21 22:13 Alprazolam 0.25 Mg Tab PO 0.25 mg QHS PRN Administration Anxiety Aspirin 81 mg 02/01/21 10:00 02/01/21 10:55 Aspirin 81 Mg Tab Chew PO 81 mg QDAY [facility] Administration Atorvastatin Calcium 40 mg 02/01/21 22:00 02/01/21 22:09 Atorvastatin 40 Mg Tab PO 40 mg QHS [facility] Administration Carvedilol 6.25 mg 02/01/21 10:00 02/01/21 22:09 Carvedilol 6.25 Mg Tab PO 6.25 mg BID [facility] Administration Clopidogrel Bisulfate 75 mg 02/02/21 10:00 Clopidogrel 75 Mg Tab PO QDAY [facility] Dextrose 50 ml 02/01/21 03:48 Dextrose 50% In Water (25gm) 50 Ml Syringe IV Q30MIN PRN Hypoglycemia Protocol Furosemide 40 mg 02/01/21 06:00 02/02/21 05:42 Furosemide 40 Mg/4 Ml Inj IV 40 mg BID@0600,1800 [facility] Administration Heparin Sodium (Porcine) 4,700 unit 02/01/21 03:40 02/01/21 11:00 Heparin 10,000 Units/10 Ml Vial 40 unit/kg (4700 unit) 4,700 unit IV Administration Q6H PRN Anti-Xa Assay < 0.1 units/ml Hydromorphone HCl 0.25 mg 02/01/21 03:48 Hydromorphone 1 Mg/1 Ml Inj IV Q5MIN PRN Chest Pain Heparin Sodium/Sodium Chloride 25,000 unit in 500 mls @ 20 mls/hr 02/01/21 04:00 02/02/21 05:56 Heparin/ 0.45% Nacl-25,000 Unit/500 Ml IV 1,550 units/hr TITRATE [facility] 31 mls/hr Administration Protocol 1,000 UNITS/HR Piperacillin Sod/Tazobactam Sod 4.5 gm in 100 mls @ 200 mls/hr 02/01/21 04:00 02/02/21 05:57 Zosyn/Ns 4.5gm/100ml IV 200 mls/hr Q8H [facility] Administration Protocol Ibuprofen 800 mg 02/01/21 03:55 Ibuprofen 800 Mg Tab PO Q8HR PRN Pain, Moderate (4-6) Insulin Human Lispro 0 unit 02/01/21 07:30 02/02/21 00:02 Insulin Lispro 100 Unit/Ml SUB-Q 4 unit ACHS [facility] Administration Protocol Isosorbide Mononitrate 30 mg 02/01/21 10:00 02/01/21 10:55 Isosorbide Mononitrate Er 30 Mg Tab PO 30 mg QDAY [facility] Administration Lisinopril 20 mg 02/01/21 10:00 02/01/21 10:55 Lisinopril 20 Mg Tab PO 20 mg QDAY [facility] Administration Morphine Sulfate 2 mg 02/01/21 03:48 02/01/21 23:45 Morphine 4 Mg/1 Ml Inj IV 2 mg Q5MIN PRN Administration Chest Pain unrelieved by NTG Nicotine 14 mg 02/01/21 10:00 02/01/21 10:55 Nicotine 14 Mg/24 Hr Patch TD 14 mg DAILY [facility] Administration Nitroglycerin 0.4 mg 02/01/21 03:04 Nitroglycerin 0.4 Mg Tab Subl SL .Q5MIN PRN Chest Pain Pantoprazole Sodium 40 mg 02/01/21 10:00 02/01/21 10:55 Pantoprazole 40 Mg Tab PO 40 mg QDAY [facility] Administration Sodium Chloride 10 ml 02/01/21 03:48 Sodium Chloride 0.9% 10 Ml Flush Syringe IV PRN PRN LINE FLUSH Spironolactone 25 mg 02/01/21 10:00 02/01/21 10:55 Spironolactone 25 Mg Tab PO 25 mg QDAY [facility] Administration Tramadol HCl 50 mg 02/01/21 03:48 02/01/21 22:11 Tramadol 50 Mg Tab PO 50 mg Q6H PRN Administration Pain, Moderate (4-6) Nutrition/Malnutrition Assess - Dietary Evaluation Nutrition/Malnutrition Findings: Nutrition Notes Start: 02/01/21 08:54 Freq: Status: Active Protocol: Document 02/01/21 08:54 (Rec: 02/01/21 08:56 [email or web address]) Nutrition Notes Need for Assessment generated from: MD Order Initial or Follow up Brief Note Current Diagnosis Coronary Artery Disease, Diabetes,Heart Failure Other Pertinent Diagnosis NSTEMI, cellulitis of left food Current Diet Cardiac, consistent CHO Subjective/Other Information MD consult for diet education. Pt on hold in ED. Nutrition Intervention Follow-Up By: 02/03/21 Additional Comments F/U: room placement and diet education needs
[2021-02-02] MEDS ORDERED: MORPHINE 2 MG/1 ML INJ IV PRN (09:00)
[2021-02-02] MEDS: CLOPIDOGREL 75 MG TAB PO SCH (10:31)
[2021-02-02] MEDS: carvediloL 6.25 MG TAB PO SCH ×2 (10:31→22:17)
[2021-02-02] MEDS: ASPIRIN 81 MG TAB CHEW PO SCH (10:31)
[2021-02-02] MEDS: PANTOPRAZOLE 40 MG TAB PO SCH (10:32)
[2021-02-02] MEDS: LISINOPRIL 20 MG TAB PO SCH (10:32)
--- NOTE | 2021-02-02 10:42 | Electrocardiograph Report ---
[facility] Test Date: 2021-02-01 Test Time: 01:45:46 Pat Name: CRYSTAL PATTERSON Department: Room: [place] [address] Gender: M Charge Loader: ALDEN : 1975 Requested By: TAY MENDEZ Order Number: [id number] Reading MD: Jj Matias Measurements Intervals [place] Rate: 114 P: 34 [place]: 133 QRS: 38 QRSD: 95 T: 45 QT: 332 QTc: 459 Interpretive Statements Sinus tachycardia Compared to ECG 12/29/2020 14:05:37 No significant change. Electronically Signed On 02-02-2021 10:42:23 EDT by Jj Matias
[2021-02-02] MEDS: SPIRONOLACTONE 25 MG TAB PO SCH (12:02)
[2021-02-02] MEDS: NICOTINE 14 MG/24 HR PATCH TD SCH (12:04)
--- NOTE | 2021-02-02 13:53 | Progress Note ---
Assessment and Plan - Patient Problems (1) Ischemic cardiomyopathy Current Visit: Yes Status: Acute Plan to address problem: As documented, he has a history of multivessel coronary disease and ischemic cardiomyopathy. 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 2 months ago, he had additional drug-eluting stents placed to his mid LAD at [facility], and since then has been fully compliant with his dual antiplatelet therapy with Plavix. His left ventricular ejection fraction is 30 to 35%. On this presentation, he has no chest pain, but he complained of some dyspnea, and he was also found with some lower extremity cellulitis. The EKG showed mild sinus tachycardia with no ST or T wave changes of ischemia, but the troponin levels were elevated at 0.25 and 0.29, flat on serial measurements. Recommendations: Optimal management of coronary artery disease with guideline directed medical therapy including continued uninterrupted dual oral antiplatelet therapy. Medical therapy for chronic systolic heart failure with guideline directed medical therapy including diuretics. Subjective Date of service: 02/02/21 Interval history: Patient is comfortable, no new cardiac complaints. As documented, he has a history of multivessel coronary disease and ischemic cardiomyopathy. 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 2 months ago, he had additional drug-eluting stents placed to his mid LAD at [facility], and since then has been fully compliant with his dual antiplatelet therapy with Plavix. His left ventricular ejection fraction is 30 to 35%. On this presentation, he has no chest pain, but he complained of some dyspnea, and he was also found with some lower extremity cellulitis. The EKG showed mild sinus tachycardia with no ST or T wave changes of ischemia, but the troponin levels were elevated at 0.25 and 0.29, flat on serial measurements. Objective Vital Signs Temp Pulse Resp BP Pulse Ox 02/02/21 05:38 98.4 F 02/02/21 05:10 104 H 92/62 96 02/02/21 05:00 92/62 82 L 02/02/21 04:50 92/62 02/02/21 04:43 98/62 83 L 02/02/21 04:20 98/62 02/02/21 04:05 107/65 82 L 02/02/21 03:50 107/65 02/02/21 03:46 98/59 73 L 02/02/21 03:35 98/59 02/02/21 03:20 98/59 02/02/21 03:02 103/58 85 02/02/21 02:50 103/58 89 02/02/21 02:41 109/58 90 02/02/21 02:31 112/63 79 L 02/02/21 02:20 112/63 02/02/21 02:11 109/58 02/02/21 02:01 109/58 02/02/21 01:50 178 H 109/58 02/02/21 01:40 102/60 100 02/02/21 01:31 102/60 100 02/02/21 01:20 102/60 99 02/02/21 01:11 87/51 98 02/02/21 01:01 96 02/02/21 00:50 87/51 95 02/02/21 00:41 95/51 94 02/02/21 00:31 95/51 91 02/02/21 00:20 87/51 94 02/02/21 00:11 96 H 90/43 95 02/02/21 00:01 90/43 93 02/01/21 23:50 95 H 15 90/43 02/01/21 23:41 96 H 16 95/51 76 L 02/01/21 23:31 98 H 20 95/51 38 L 02/01/21 23:20 96 H 20 95/51 02/01/21 23:11 101 H 20 115/67 46 L 02/01/21 23:01 101 H 21 115/67 02/01/21 22:50 101 H 21 115/67 02/01/21 22:41 101 H 19 109/66 65 L 02/01/21 22:31 99 H 20 109/66 02/01/21 22:20 101 H 19 109/66 02/01/21 22:11 102 H 16 107/71 02/01/21 22:09 101 H 107/71 02/01/21 22:01 91 H 20 107/71 02/01/21 21:50 101 H 26 H 107/71 02/01/21 21:41 105 H 22 99/72 02/01/21 21:31 103 H 17 99/72 79 L 02/01/21 21:21 102 H 23 98/69 81 L 02/01/21 21:11 98 H 20 99/72 94 02/01/21 21:01 84 17 99/72 83 L 02/01/21 20:50 100 H 17 99/72 83 L 02/01/21 20:41 111 H 18 106/85 53 L 02/01/21 20:31 103 H 20 106/85 61 L - Physical Examination General: No Apparent Distress HEENT: Positive: PERRL Neck: Positive: neck supple Cardiac: Positive: Reg Rate and Rhythm Lungs: Positive: Decreased Breath Sounds Neuro: Positive: Grossly Intact Abdomen: Positive: Soft Skin: Positive: Clear Extremities: Present: +1 Edema
[2021-02-02] MEDS: ALPRAZolam 0.25 MG TAB PO PRN (22:16)
[2021-02-03] MEDS: PIPERACIL/TAZOBACTA 4.5/NS 100 4.5 GM/100 ML VIAL IV SCH ×3 (05:22→21:40)
[2021-02-03] MEDS: FUROSEMIDE 40 MG/4 ML INJ IV SCH ×2 (05:22→17:29)
[2021-02-03 06:49] LABS: Hematocrit 36.4 % (35.5-45.6); Hemoglobin 11.7 gm/dl (11.8-15.2)
--- NOTE | 2021-02-03 09:59 | Progress Note ---
Assessment and Plan Nonspecific troponin measurement pt denies chest pain Lower extremity cellulitis Hx of multivessel coronary disease additional drug-eluting stents placed to his mid LAD at [facility] 12/2020 compliant with plavix and aspirin Ischemic cardiomyopathy, ejection fraction is 30-35%. Continue medical therapy for ischemic cardiomyopathy and coronary artery disease. Otherwise, conservative cardiac management. Subjective Date of service: 02/03/21 Interval history: Patient has no cardiac complaints. Objective Vital Signs Temp Pulse Resp BP BP Pulse Ox 02/03/21 07:38 98.7 F 18 124/79 02/03/21 00:19 96 02/02/21 23:45 98.4 F 108 H 18 109/67 95 02/02/21 22:53 108 H 02/02/21 22:17 96 H 111/62 02/02/21 21:04 18 02/02/21 21:00 96 H 21 111/62 02/02/21 20:50 98.5 F 02/02/21 20:34 18 02/02/21 20:00 89 16 128/71 98 02/02/21 19:30 16 98 02/02/21 17:40 74 16 116/74 95 - Physical Examination General: No Apparent Distress HEENT: Positive: PERRL Neck: Positive: neck supple Cardiac: Positive: Reg Rate and Rhythm Lungs: Positive: Decreased Breath Sounds Neuro: Positive: Grossly Intact Abdomen: Positive: Soft Extremities: Present: +1 Edema - Labs and Meds CBC 02/03/21 Range/Units 06:22 Hgb 11.7 L (11.8-15.2) gm/dl Hct 36.4 (35.5-45.6) % Plt Count 319 (140-440) K/mm3
[2021-02-03] MEDS: INSULIN LISPRO 100 UNIT/ML SUB-Q SCH ×5 (10:18→22:14)
[2021-02-03] MEDS: CLOPIDOGREL 75 MG TAB PO SCH (10:30)
[2021-02-03] MEDS: LISINOPRIL 20 MG TAB PO SCH (10:30)
[2021-02-03] MEDS: NICOTINE 14 MG/24 HR PATCH TD SCH (10:30)
[2021-02-03] MEDS: SPIRONOLACTONE 25 MG TAB PO SCH (10:30)
[2021-02-03] MEDS: ASPIRIN 81 MG TAB CHEW PO SCH (10:30)
[2021-02-03] MEDS: carvediloL 6.25 MG TAB PO SCH ×2 (10:30→22:10)
[2021-02-03] MEDS: PANTOPRAZOLE 40 MG TAB PO SCH (10:30)
--- NOTE | 2021-02-03 16:28 | Progress Note ---
Assessment and Plan --Non-ST elevation MD (NSTEMI) Current visit: yes Status: Acute nonspecific elevation of troponin Continue current cardiac medications Patient is started on heparin drip by admitting physician Cardiology evaluation noted and appreciated Advised to continue heparin drip for total 48 hours -- Acute exacerbation of CHF (congestive heart failure) Current visit: yes Status: Acute Acute on chronic systolic congestive heart failure EF 30 to 35% Continue antifailure medications, diuretics, beta-blockers, СЕРГЕЙ inhibitors Input output monitoring, low-sodium diet, fluid restriction And supportive care --Ischemic cardiomyopathy Current visit: yes Status: Acute EF 30 to 35%, continue antifailure medications --History of coronary artery disease s/p PCI 12/09/2020[mid LAD] Current visit: yes Status: Chronic Continue current cardiac medications Continue dual antiplatelet therapy aspirin and Plavix Beta-blockers, СЕРГЕЙ inhibitors, nitrates and statin --Cellulitis of left leg without foot Current visit: yes Status: Acute Zosyn 4.5 g IV every 8 hours. Elevate the limb Wound care -- Tobacco use disorder Current visit: yes Status: Chronic Smoking cessation counseling done, advised nicotine patch as needed --Obesity; BMI 35.3 Current visit: yes Status: Chronic Patient advised diet modification exercise as tolerated and weight reduction When medically stable, verbalized understanding --DVT prophylaxis Status: Acute Lovenox subcu --Full code status Status: Acute Patient is on heparin drip --Medical noncompliance; patient strongly advised to comply with medications diet follow-up visits Patient verbalized understanding Plan of care reviewed with the patient and his nurse 02/02/2021; Patient feels slightly better Cardiology evaluation noted and appreciated, continue heparin drip next 24 hours Smoking cessation counseling, advised compliance 02/03/21: pending cardiology recommendation for anticoagulation Disposition; follow cardiology evaluation and recommendation, discharge when medically stable and cleared Subjective Date of service: 02/03/21 Interval history: Patient seen and examined. Medical records and medication list reviewed. No acute event overnight noted by the RN. Patient denies any chest pain or difficulty breathing. Patient is tolerating diet. Discussed plan of care at bedside with patient. Objective - Exam Narrative Exam: GENERAL: well-developed and well-nourished male lying on bed appeared to be in no discomfort. HEENT: Normocephalic. Atraumatic. No conjunctival congestion or icterus. Patient has moist mucous membranes. NECK: Supple. Trachea midline. CHEST/LUNGS: Clear to auscultated bilaterally, breathing nonlabored. No wheezes crackles or rhonchi. HEART/CARDIOVASCULAR: Regular in rate and rhythm. S1 and S2 positive. ABDOMEN: Abdomen is soft, nontender. Patient has normal bowel sounds. SKIN: There is no rash. Warm and dry. NEURO: No focal motor deficit. Follows command. MUSCULOSKELETAL: No joint effusion or tenderness. EXTRIMITY: No edema, no cyanosis or clubbing. PSYCH: Cooperative. - Constitutional Vitals: Vital Signs - 12hr 02/03/21 02/03/21 02/03/21 07:38 11:51 14:00 Temperature 98.7 F 98.0 F Pulse Rate 91 H 98 H Respiratory 18 18 Rate Blood Pressure 124/79 117/66 O2 Sat by Pulse 97 Oximetry 02/03/21 14:31 Temperature Pulse Rate Respiratory 18 Rate Blood Pressure O2 Sat by Pulse 97 Oximetry - Labs CBC & Chem 7: 02/03/21 06:22 02/01/21 04:15 Labs: Abnormal lab results 02/02/21 02/03/21 02/03/21 Range/Units 16:27 06:22 16:19 Hgb 11.7 L (11.8-15.2) gm/dl POC Glucose 158 H 218 H (70-105) mg/dL HEART Score - HEART Score EKG: Non-specific Age: 45-65 Risk factors: > 3 risk factors or hx of atherosclerotic disease Troponin: Troponin T 0.257 ng/mL (0.00-0.029) H* 02/01/21 10:35 Troponin: 1-3x normal limit - Critical Actions Critical Actions: 4-6 pts:12-16.6% risk of adverse cardiac event. Should be admitted
[2021-02-04] MEDS: PIPERACIL/TAZOBACTA 4.5/NS 100 4.5 GM/100 ML VIAL IV SCH ×2 (04:40→13:00)
[2021-02-04] MEDS: FUROSEMIDE 40 MG/4 ML INJ IV SCH (05:49)
[2021-02-04] MEDS: traMADol 50 MG TAB PO PRN (06:16)
[2021-02-04] MEDS: INSULIN LISPRO 100 UNIT/ML SUB-Q SCH ×2 (08:15→13:00)
[2021-02-04] MEDS: SPIRONOLACTONE 25 MG TAB PO SCH (09:14)
[2021-02-04] MEDS: ASPIRIN 81 MG TAB CHEW PO SCH (09:14)
[2021-02-04] MEDS: carvediloL 6.25 MG TAB PO SCH (09:15)
[2021-02-04] MEDS: CLOPIDOGREL 75 MG TAB PO SCH (09:16)
[2021-02-04] MEDS: PANTOPRAZOLE 40 MG TAB PO SCH (09:16)
[2021-02-04] MEDS: NICOTINE 14 MG/24 HR PATCH TD SCH (09:17)
[2021-02-04] MEDS: LISINOPRIL 20 MG TAB PO SCH (09:17)
--- NOTE | 2021-02-04 11:56 | Progress Note ---
Assessment and Plan Nonspecific troponin measurement pt denies chest pain Lower extremity cellulitis Hx of multivessel coronary disease additional drug-eluting stents placed to his mid LAD at [facility] 12/2020 on plavix and aspirin Ischemic cardiomyopathy A follow up echocardiogram done this admission shows a severe cardiomyopathy with EF 15-20%. 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 Noncompliant with outpatient cardiac follow up. Subjective Date of service: 02/04/21 Interval history: Patient has no cardiac complaints. Objective Vital Signs Temp Pulse Pulse Resp BP Pulse Ox 02/04/21 10:47 16 95 02/04/21 10:00 90 02/04/21 08:06 98.7 F 88 18 104/61 93 02/04/21 06:00 95 H 02/04/21 03:43 97.7 F 95 H 18 136/81 98 02/03/21 23:48 94 02/03/21 22:50 98.0 F 96 H 19 107/56 100 02/03/21 22:10 92 H 106/54 02/03/21 22:00 96 H 92 H 20 97 02/03/21 19:21 98.0 F 98 H 20 106/54 97 02/03/21 16:20 98.7 F 93 H 18 139/58 100 02/03/21 14:31 18 97 02/03/21 14:00 98 H - Physical Examination General: No Apparent Distress HEENT: Positive: PERRL Neck: Positive: neck supple Cardiac: Positive: Reg Rate and Rhythm Lungs: Positive: Decreased Breath Sounds Neuro: Positive: Grossly Intact Extremities: Present: +1 Edema, Other (Bilat LE cellulitis )
--- NOTE | 2021-02-04 16:21 | Discharge Summary ---
Providers - Providers Date of Admission: 02/01/21 06:32 Date of discharge: 02/04/21 Attending physician: LAURENT GRIMALDO 02/01/21 Consult to Cardiac Rehabilitation [CONS] Routine Reason For Exam: Phase I 02/01/21 03:32 Consult to Physician [CONS] Urgent Comment: Dr. Rendon spoke with Dr. Mack @ 0415 Consulting Provider: BREEZY CRESPO Physician Instructions: Reason For Exam: ischemic cardiomyopathy, troponin bump 02/01/21 03:49 Consult to Dietitian/Nutrition [CONS] Routine Physician Instructions: Reason For Exam: Reason for Consult: Diet education 02/01/21 03:59 Consult to Wound/ET Nurse [CONS] Routine Reason For Exam: wound eval Primary care physician: [employer] Hospitalization Condition: Fair Hospital course: 45 years old man with past medical history of obesity, tobacco use, noncompliance, coronary artery disease, ischemic CAD, recently had cardiac catheterization at [facility], EF 30 to 35% was brought to the emergency room because of bilateral lower extremity pain and swelling, and left lower extremity redness and weeping/questionable pus. Patient reported she has completed 3 courses of antibiotics, including Keflex, Bactrim, and clindamycin. Patient also complained of shortness of breath and chest tightness but no pain. In the emergency room patient is found to have acute CHF exacerbation patient proBNP is 09/07/2008. 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 Patient placed on diuretics, cardiology recommended to continue patient with Eliquis 2.5 mg twice daily along with his regimen of Plavix and aspirin. Patient symptom improved with supportive care medical management. Patient was then discharged home in stable condition with outpatient follow-up. Daily clinical course: 02/02/2021; Patient feels slightly better Cardiology evaluation noted and appreciated, continue heparin drip next 24 hours Smoking cessation counseling, advised compliance 02/03/21: pending cardiology recommendation for anticoagulation 02/04/21: As noted, echocardiogram shows a severe cardiomyopathy with evidence of old laminated apical thrombus. The patient is a poor candidate for warfarin due to his history of noncompliance. We will instead add Eliquis 2.5 mg twice daily to his regimen of Plavix and baby aspirin. Patient was then discharged home in stable condition with outpatient follow-up. Disposition: 01 HOME / SELF CARE / HOMELESS Final Discharge Diagnosis (Prints w/discharge instructions): --Non-ST elevation PR (NSTEMI). -- Acute exacerbation of CHF (congestive heart failure) EF 30 to 35%. --Ischemic cardiomyopathy. --History of coronary artery disease s/p PCI 12/09/2020[mid LAD]. --Cellulitis of left leg without foot. --Tobacco use disorder. --Obesity; BMI 35.3 Time spent for discharge: 34 minutes Core Measure Documentation - Palliative Care Palliative Care/ Comfort Measures: Not Applicable - Core Measures Any of the following diagnoses?: none Exam - Constitutional Vitals: Temp Pulse Resp BP Pulse Ox 98.7 F 88 16 104/61 95 02/04/21 08:06 02/04/21 08:06 02/04/21 10:47 02/04/21 08:06 02/04/21 10:47 Plan Activity: advance as tolerated Weight Bearing Status: Weight Bear as Tolerated Diet: low fat, low salt Special Instructions: other (Follow-up at wound care clinic in 1 week) Follow up with: PRIMARY CAREMD [Primary Care Provider] - 3-5 Days PRABHJOT GRIFFITH MD [Staff Physician] - 7 Days Prescriptions: Apixaban [Eliquis] 2.5 mg PO Q12HR #60 tablet
[2021-02-04 17:13] VITALS: BP 116/73
[2021-02-04] MEDS ORDERED: APIXABAN 2.5 MG TAB PO SCH (22:00)
--- NOTE | 2021-02-09 14:07 | Electrocardiograph Report ---
[facility] Test Date: 2021-02-03 Test Time: 07:44:58 Pat Name: CRYSTAL PATTERSON Department: Room: A475 1 Gender: M First Line Supervisor: SANTIAGO : 1975 Requested By: DAYAMI ALVARADO Order Number: [id number] Reading MD: Kenneth Anderson Measurements Intervals [place] Rate: 88 P: 50 OR: 141 QRS: 33 QRSD: 108 T: 70 QT: 396 QTc: 480 Interpretive Statements Sinus rhythm Nonspecific inferolateral ST abnormality Compared to ECG 02/01/2021 01:45:46 No significant change Electronically Signed On 02-09-2021 14:07:21 EDT by Kenneth Anderson
--- NOTE | 2021-02-09 14:12 | Electrocardiograph Report ---
[facility] Test Date: 2021-02-03 Test Time: 11:30:29 Pat Name: CRYSTAL PATTERSON Department: Room: A475 1 Gender: M Land Inspector: SANTIAGO : 1975 Requested By: DAYAMI ALVARADO Order Number: [id number] Reading MD: Kenneth Anderson Measurements Intervals [place] Rate: 70 P: 24 DC: 157 QRS: 23 QRSD: 105 T: QT: 402 QTc: 434 Interpretive Statements Sinus rhythm Compared to ECG 02/03/2021 07:44:58 No significant changes Electronically Signed On 02-09-2021 14:11:55 EDT by Kenneth Anderson
== END 2021-02-04 17:33 | disposition home or self-care (01) | DRG 280 ==
LOC: ED 23:18 → 4A 02-01 06:32
PROVIDERS: ADMIT Hospitalist; ATTEND Internal Medicine
DX: I21.4 Non-ST elevation (NSTEMI) myocardial infarction (principal); I50.23 Acute on chronic systolic (congestive) heart failure; L03.116 Cellulitis of left lower limb; F17.200 Nicotine dependence, unspecified, uncomplicated; I25.5 Ischemic cardiomyopathy; E66.9 Obesity, unspecified; Z68.35 Body mass index [BMI] 35.0-35.9, adult; I25.10 Atherosclerotic heart disease of native coronary artery without angina pectoris; J44.9 Chronic obstructive pulmonary disease, unspecified; I11.0 Hypertensive heart disease with heart failure; Z91.19 Patient's noncompliance with other medical treatment and regimen; Z71.6 Tobacco abuse counseling
CPT/HCPCS: 36415; 71045; 80048; 80053; 80061; 82550; 82962; 83735; 83880; 84484; 85014; 85018; 85025; 85049; 85520; 85610; 85730; 93005; 93306; 94760; G0378; J1644; J1815; J1940; J2270; J2405; J2543

== ENCOUNTER 2021-03-18 21:13 | Inpatient (IN) | payer SELFPAY ==
--- NOTE | 2021-03-18 22:08 | Event Note ---
ED Screening Note ED Screening Note: Patient is a 45-year-old male presents emergency room with complaints of possible cellulitis He states he has had bilateral lower extremity swelling and redness for approximately 1 week Patient states he was admitted in the hospital on 02/04/2021 and states he was sent home with Augmentin He states it improved with the antibiotics but then came back He states he is on Lasix Patient states he has chronic shortness of breath which has been increasing Pitting bilateral lower extremity edema with erythema and increased warmth This initial assessment/diagnostic orders/clinical plan/treatment(s) is/are subject to change based on patients health status, clinical progression and re- assessment by fellow clinical providers in the ED. Further treatment and workup at subsequent clinical providers discretion. Patient/guardian urged not to elope from the ED as their condition may be serious if not clinically assessed and managed. Initial orders include: Labs, EKG, x-ray Appears likely CHF exacerbation with cellulitis Patient will be sent to the main ED for MD cobb
--- NOTE | 2021-03-18 22:24 | Emergency Department Report ---
ED General Adult HPI - General Chief complaint: Skin Rash Stated complaint: BILATERAL LEG PAIN Time Seen by Provider: 03/18/21 22:03 Source: patient Mode of arrival: Ambulatory Limitations: No Limitations - History of Present Illness Initial comments: Patient is 45-year-old male with history of diabetes, noncompliant with his medication, congestive heart failure. Patient presented to the ER complaining of bilateral lower extremity swelling, pain and redness. Patient was diagnosed with cellulitis and admitted to the hospital in January. Patient stated that he was discharged on Augmentin. Patient stated that he felt much better but he came back again. Patient currently denying any fever or chills. He is complaining of shortness of breath. - Related Data Previous Rx's Medication Instructions Recorded Last Taken Type Ondansetron [Zofran Odt] 4 mg PO Q6HR PRN #20 tab.rapdis 05/07/15 Unknown Rx Ibuprofen [Motrin 800 MG tab] 800 mg PO Q8HR PRN #30 tablet 06/02/15 Unknown Rx ALPRAZolam [Xanax TAB] 0.25 mg PO QHS PRN #6 tablet 12/31/20 Unknown Rx Aspirin [Aspirin BABY CHEW TAB] 81 mg PO QDAY #30 tab.chew 12/31/20 Unknown Rx AtorvaSTATin [Lipitor] 40 mg PO QHS #30 tablet 12/31/20 Unknown Rx Clopidogrel [Plavix] 75 mg PO QDAY #30 tablet 12/31/20 Unknown Rx Furosemide [Lasix TAB] 40 mg PO QDAY #30 tablet 12/31/20 Unknown Rx ISOSORBIDE MONOnitrate [Imdur ER] 30 mg PO QDAY #30 tablet 12/31/20 Unknown Rx Nicotine [Habitrol] 14 mg TD DAILY #30 patch 12/31/20 Unknown Rx Spironolactone [Aldactone] 25 mg PO QDAY #30 tablet 12/31/20 Unknown Rx carvediloL [Coreg] 6.25 mg PO BID #60 tablet 12/31/20 Unknown Rx lisinopriL [Zestril TAB] 20 mg PO QDAY #30 tablet 12/31/20 Unknown Rx Amoxicillin/Potassium Clav 1 each PO BID #10 tablet 02/04/21 Unknown Rx [Augmentin 875-125 Tablet] Apixaban [Eliquis] 2.5 mg PO Q12HR #60 tablet 02/04/21 Unknown Rx Allergies Allergy/AdvReac Type Severity Reaction Status Date / Time No Known Allergies Allergy Verified 12/29/20 14:08 ED Review of Systems ROS: Stated complaint: BILATERAL LEG PAIN Other details as noted in HPI Comment: All other systems reviewed and negative Constitutional: denies: chills, fever Respiratory: shortness of breath. denies: cough, SOB with exertion, wheezing Cardiovascular: palpitations. denies: chest pain Gastrointestinal: denies: abdominal pain, nausea, vomiting Musculoskeletal: arthralgia, myalgia ED Past Medical Hx - Past Medical History Previous Medical History?: Yes Hx Congestive Heart Failure: Yes Hx Diabetes: Yes - Surgical History Past Surgical History?: Yes Hx Coronary Stent: Yes Additional Surgical History: R index finger - Social History Smoking Status: Current Every Day Smoker - Medications Home Medications: Home Medications Medication Instructions Recorded Confirmed Last Taken Type Ondansetron [Zofran Odt] 4 mg PO Q6HR PRN #20 tab.rapdis 05/07/15 Unknown Rx Ibuprofen [Motrin 800 MG tab] 800 mg PO Q8HR PRN #30 tablet 06/02/15 Unknown Rx ALPRAZolam [Xanax TAB] 0.25 mg PO QHS PRN #6 tablet 12/31/20 Unknown Rx Aspirin [Aspirin BABY CHEW TAB] 81 mg PO QDAY #30 tab.chew 12/31/20 Unknown Rx AtorvaSTATin [Lipitor] 40 mg PO QHS #30 tablet 12/31/20 Unknown Rx Clopidogrel [Plavix] 75 mg PO QDAY #30 tablet 12/31/20 Unknown Rx Furosemide [Lasix TAB] 40 mg PO QDAY #30 tablet 12/31/20 Unknown Rx ISOSORBIDE MONOnitrate [Imdur ER] 30 mg PO QDAY #30 tablet 12/31/20 Unknown Rx Nicotine [Habitrol] 14 mg TD DAILY #30 patch 12/31/20 Unknown Rx Spironolactone [Aldactone] 25 mg PO QDAY #30 tablet 12/31/20 Unknown Rx carvediloL [Coreg] 6.25 mg PO BID #60 tablet 12/31/20 Unknown Rx lisinopriL [Zestril TAB] 20 mg PO QDAY #30 tablet 12/31/20 Unknown Rx Amoxicillin/Potassium Clav 1 each PO BID #10 tablet 02/04/21 Unknown Rx [Augmentin 875-125 Tablet] Apixaban [Eliquis] 2.5 mg PO Q12HR #60 tablet 02/04/21 Unknown Rx ED Physical Exam - General Limitations: No Limitations General appearance: alert, in no apparent distress - Head Head exam: Present: atraumatic, normocephalic, normal inspection - Eye Eye exam: Present: normal appearance - ENT ENT exam: Present: normal exam, normal orophraynx, mucous membranes moist - Neck Neck exam: Present: normal inspection - Respiratory Respiratory exam: Present: normal lung sounds bilaterally - Cardiovascular Cardiovascular Exam: Present: tachycardia - GI/Abdominal GI/Abdominal exam: Present: soft, normal bowel sounds. Absent: distended, tenderness, guarding, rebound, rigid, mass, bruit, pulsatile mass, hernia - Extremities Exam Extremities exam: Present: pedal edema, other (Bilateral lower extremity swelling, tenderness and redness up to the knee.). Absent: calf tenderness - Back Exam Back exam: Present: normal inspection, full ROM. Absent: CVA tenderness (R), CVA tenderness (L) - Neurological Exam Neurological exam: Present: alert, oriented X3, CN II-XII intact, reflexes normal. Absent: motor sensory deficit - Psychiatric Psychiatric exam: Present: normal mood - Skin Skin exam: Present: warm, intact, erythema ED Course Vital Signs 03/18/21 03/18/21 03/18/21 21:59 22:12 23:31 Temperature 99.2 F 99.2 F Pulse Rate 117 H 115 H 112 H Respiratory 16 17 17 Rate Blood Pressure 113/59 Blood Pressure 123/81 149/78 [Left] O2 Sat by Pulse 95 97 97 Oximetry ED Medical Decision Making - Lab Data Result diagrams: 03/18/21 22:16 03/18/21 22:16 - Medical Decision Making Patient is 45-year-old male with history of diabetes, noncompliant with his medication, congestive heart failure. Patient presented to the ER complaining of bilateral lower extremity swelling, pain and redness. Patient was diagnosed with cellulitis and admitted to the hospital in January. Patient stated that he was discharged on Augmentin. Patient stated that he felt much better but he came back again. Patient currently denying any fever or chills. He is complaining of shortness of breath. Patient remained stable in the ER. Labs reviewed and is unremarkable except for elevated BNP. Patient has significant bilateral lower extremity edema and cellulitis. Patient received clindamycin. Patient also received Lasix 40 mg IV. I discussed the patient with Dr. Sin he agreed to admit the patient to the hospital for further management. Critical care attestation.: If time is entered above; I have spent that time in minutes in the direct care of this critically ill patient, excluding procedure time. ED Disposition Clinical Impression: Bilateral lower leg cellulitis, CHF exacerbation Disposition: ADMITTED INPATIENT Is pt being admited?: Yes Condition: Stable
[2021-03-18 22:34] LABS: Basophils # (Auto) 0.1 K/mm3 (0.0-0.1); Basophils % (Auto) 1.2 % (0.0-1.8); Eosinophils # (Auto) 0.2 K/mm3 (0.0-0.4); Eosinophils % (Auto) 2.7 % (0.0-4.3); Hematocrit 35.3 % (35.5-45.6); Hemoglobin 11.5 gm/dl (11.8-15.2); Lymphocytes # (Auto) 1.4 K/mm3 (1.2-5.4); Lymphocytes % (Auto) 17.9 % (13.4-35.0); Mean Corpuscular HGB Conc 33 % (32-34); Mean Corpuscular Volume 84 fl (84-94); Monocytes # (Auto) 0.6 K/mm3 (0.0-0.8); Monocytes % (Auto) 8.1 % (0.0-7.3); Platelet Count 287 K/mm3 (140-440); Red Blood Count 4.21 M/mm3 (3.65-5.03)
[2021-03-18 22:58] LABS: Alanine Aminotransferase 16 units/L (7-56); Albumin 3.8 g/dL (3.9-5); BUN/Creatinine Ratio 11; Blood Urea Nitrogen 10 mg/dL (9-20); Calcium 9.2 mg/dL (8.4-10.2); Hemolysis Index 7
--- NOTE | 2021-03-18 23:01 | XRay Report ---
CHEST 1 VIEW 03/18/2021 9:43 PM INDICATION / CLINICAL INFORMATION: SOB, BLE edema. COMPARISON: 02/01/21 FINDINGS: SUPPORT DEVICES: None. HEART / MEDIASTINUM: Heart is upper normal size and stable. LUNGS / PLEURA: No significant pulmonary or pleural abnormality. No pneumothorax. ADDITIONAL FINDINGS: No significant additional findings. IMPRESSION: 1. No acute findings. No change. Signer Name: Lisa Owusu MD Signed: 03/18/2021 10:57 PM Workstation Name: [id number]
[2021-03-18] MEDS ORDERED: FUROSEMIDE 40 MG/4 ML INJ IV ONE (23:07)
[2021-03-18] MEDS ORDERED: SODIUM CHLORIDE 0.9% 1000 ML 1,000 ML IV SCH (23:45)
[2021-03-18] MEDS ORDERED: DEXTROSE 50% IN WATER (25GM) 50 ML SYRINGE IV PRN (23:52)
[2021-03-18] MEDS ORDERED: ACETAMINOPHEN 325 MG TAB PO PRN (23:52)
[2021-03-18] MEDS ORDERED: ONDANSETRON 4 MG/2 ML INJ IV PRN (23:52)
[2021-03-18] MEDS ORDERED: NALOXONE 0.4 MG/1 ML INJ IV PRN (23:55)
[2021-03-18] MEDS ORDERED: ALPRAZolam 0.25 MG TAB PO PRN (23:57)
[2021-03-19] MEDS ORDERED: ALBUTEROL 2.5 MG/3 ML NEBU IH PRN (00:03)
[2021-03-19] MEDS: AMPICILLIN/SULBACTA 1.5GM/50ML 1.5 GM/50 ML BAG IV SCH ×2 (00:46→05:45)
[2021-03-19] MEDS ORDERED: NON-FORMULARY EACH (Apixaban 2.5 MG Tablet) PO SCH (01:15)
--- NOTE | 2021-03-19 01:19 | History and Physical Report ---
History of Present Illness Date of examination: 03/18/21 Date of admission: 03/18/21 23:52 Chief complaint: BLE redness, warmth, and edema extending up to abdomen History of present illness: 45 y.o. male who is an ongoing smoker with hx HTN, HLD, CAD, MO x2 s/p PCI stents, CHF (EF 30-35%), DM2, and obesity who presents to [facility] ED with complaints of BLE pain, swelling and redness. Reports worsening BLE edema extending up to abdomen x 3-4 days. He usually takes oral Lasix 40mg daily. He decided to to an extra dose (an additional 40mg) to see if it would help with the swelling, but no relief. In addition to BLE edema, his legs are red and warm to touch. Reports being admitted to [facility] in January with similar complaints and was diagnosed with BLE cellulitis, treated with IV abx and discharged on oral Augmentin. States that he completed oral abx and had improvement in his legs. Endorses dyspnea at rest which is worst with exertion. Denies fever, chills, n/v/d, PAREDES, CP, palpitations, abdominal pain, constipation, melena, hematochezia, cough, recent fall/injury, hematuria, dysuria, or recent sick contacts Past History Past Medical History: acute MO (x2), CAD, heart failure (EF 30-35%), hy pertension, hyperlipidemia, other (Bilateral lower extremity cellulitis (01/27), obesity, tobacco abuse, ?? DIRK with nocturnal use of supplemental O2 3L NC) Past Surgical History: Other (PCI stent) Social history: single, lives with family (Sister), smoking (Current every day smoker), full code. denies: alcohol abuse, prescription drug abuse Family history: CAD, hypertension, stroke, other (CHF) Medications and Allergies Allergies Allergy/AdvReac Type Severity Reaction Status Date / Time No Known Allergies Allergy Verified 12/29/20 14:08 Home Medications Medication Instructions Recorded Confirmed Last Taken Type Ondansetron [Zofran Odt] 4 mg PO Q6HR PRN #20 tab.rapdis 05/07/15 Unknown Rx Ibuprofen [Motrin 800 MG tab] 800 mg PO Q8HR PRN #30 tablet 06/02/15 Unknown Rx ALPRAZolam [Xanax TAB] 0.25 mg PO QHS PRN #6 tablet 12/31/20 Unknown Rx Aspirin [Aspirin BABY CHEW TAB] 81 mg PO QDAY #30 tab.chew 12/31/20 Unknown Rx AtorvaSTATin [Lipitor] 40 mg PO QHS #30 tablet 12/31/20 Unknown Rx Clopidogrel [Plavix] 75 mg PO QDAY #30 tablet 12/31/20 Unknown Rx Furosemide [Lasix TAB] 40 mg PO QDAY #30 tablet 12/31/20 Unknown Rx ISOSORBIDE MONOnitrate [Imdur ER] 30 mg PO QDAY #30 tablet 12/31/20 Unknown Rx Nicotine [Habitrol] 14 mg TD DAILY #30 patch 12/31/20 Unknown Rx Spironolactone [Aldactone] 25 mg PO QDAY #30 tablet 12/31/20 Unknown Rx carvediloL [Coreg] 6.25 mg PO BID #60 tablet 12/31/20 Unknown Rx lisinopriL [Zestril TAB] 20 mg PO QDAY #30 tablet 12/31/20 Unknown Rx Amoxicillin/Potassium Clav 1 each PO BID #10 tablet 02/04/21 Unknown Rx [Augmentin 875-125 Tablet] Apixaban [Eliquis] 2.5 mg PO Q12HR #60 tablet 02/04/21 Unknown Rx Active Meds: Active Medications Acetaminophen (Acetaminophen 325 Mg Tab) 650 mg PO Q4H PRN PRN Reason: Pain MILD(1-3)/Fever >100.5/PAREDES Albuterol (Albuterol 2.5 Mg/3 Ml Nebu) 2.5 mg IH Q4HRT PRN PRN Reason: Shortness Of Breath Alprazolam (Alprazolam 0.25 Mg Tab) 0.25 mg PO QHS PRN PRN Reason: Anxiety Aspirin (Aspirin 81 Mg Tab Chew) 81 mg PO QDAY [place] Atorvastatin Calcium (Atorvastatin 40 Mg Tab) 40 mg PO QHS [place] Carvedilol (Carvedilol 6.25 Mg Tab) 6.25 mg PO BID [place] Dextrose (Dextrose 50% In Water (25gm) 50 Ml Syringe) 50 ml IV Q30MIN PRN; Protocol PRN Reason: Hypoglycemia Docusate Sodium (Docusate Sodium 100 Mg Cap) 100 mg PO BID [place] Furosemide (Furosemide 40 Mg/4 Ml Inj) 40 mg IV QDAY [place] Hydromorphone HCl (Hydromorphone 1 Mg/1 Ml Inj) 0.5 mg IV Q3H PRN PRN Reason: Pain , Severe (7-10) Ampicillin Sodium/Sulbactam Sodium (Unasyn/Ns 1.5 Gm/50 Ml) 1.5 gm in 50 mls @ 100 mls/hr IV Q6HR PAR[place]; Protocol Last Admin: 03/19/21 00:46 Dose: 100 mls/hr Documented by: Sodium Chloride (Nacl 0.9% 1000 Ml) 1,000 mls @ 42 mls/hr IV DIRECT PARIS Stop: 03/19/21 10:00 Insulin Human Lispro (Insulin Lispro 100 Unit/Ml) 0 unit SUB-Q ACHS PARIS; Protocol Miscellaneous Medication (Apixaban) 2.5 mg PO Q12HR [place] Naloxone HCl (Naloxone 0.4 Mg/1 Ml Inj) 0.1 mg IV Q2MIN PRN PRN Reason: Res Rate </= 8 or 02 SAT < 92% Nicotine (Nicotine 14 Mg/24 Hr Patch) 14 mg TD DAILY [place] Ondansetron HCl (Ondansetron 4 Mg/2 Ml Inj) 4 mg IV Q8H PRN PRN Reason: Nausea And Vomiting Oxycodone/Acetaminophen (Oxycodone /Acetaminophen 5-325mg Tab) 1 tab PO Q6H PRN PRN Reason: Pain, Moderate (4-6) Sodium Chloride (Sodium Chloride 0.9% 10 Ml Flush Syringe) 10 ml IV BID PARIS Sodium Chloride (Sodium Chloride 0.9% 10 Ml Flush Syringe) 10 ml IV PRN PRN PRN Reason: LINE FLUSH Review of Systems All systems: negative (As noted in HPI) Exam - Physical Exam Narrative exam: Physical exam General appearance: Present: Slightly uncomfortable, alert and oriented 3, adult male - EENT Eyes: Present: PERRL, EOM intact ENT: hearing intact, normal dentition - Neck Neck: Present: supple, normal ROM - Respiratory Respiratory effort: Labored with activity, on supplemental oxygen 3L Respiratory: Diminished bases - Cardiovascular Heart rate: 88 (bpm) Rhythm: Sinus Heart Sounds: Present: S1 & S2. Absent: rub, click - Extremities Extremities: no ischemia, pulses intact, bilateral lower extremity edema extending up to abdomen, bilateral lower extremity erythema and warmth - Peripheral Assessment Peripheral Pulses: within normal limits - Abdominal General gastrointestinal: non-tender, normal bowel sounds - Integumentary Integumentary: Present: warm, dry, BLE erythema - Musculoskeletal Musculoskeletal: Able to move all extremities -Neurological Neurological: CN II-XII intact - Psychiatric Psychiatric: cooperative - Constitutional Vitals: Temp Pulse Resp BP Pulse Ox 99.2 F 116 H 15 102/52 96 03/18/21 22:12 03/19/21 01:00 03/19/21 01:00 03/19/21 01:00 03/19/21 01:00 Results - Labs CBC & Chem 7: 03/18/21 22:16 03/18/21 22:16 Labs: Laboratory Last Values WBC 7.8 K/mm3 (4.5-11.0) 03/18/21 22:16 RBC 4.21 M/mm3 (3.65-5.03) 03/18/21 22:16 Hgb 11.5 gm/dl (11.8-15.2) L 03/18/21 22:16 Hct 35.3 % (35.5-45.6) L 03/18/21 22:16 MCV 84 fl (84-94) 03/18/21 22:16 MCH 27 pg (28-32) L 03/18/21 22:16 MCHC 33 % (32-34) 03/18/21 22:16 RDW 17.0 % (13.2-15.2) H 03/18/21 22:16 Plt Count 287 K/mm3 (140-440) 03/18/21 22:16 Lymph % (Auto) 17.9 % (13.4-35.0) 03/18/21 22:16 [place] % (Auto) 8.1 % (0.0-7.3) H 03/18/21 22:16 Eos % (Auto) 2.7 % (0.0-4.3) 03/18/21 22:16 Baso % (Auto) 1.2 % (0.0-1.8) 03/18/21 22:16 Lymph # (Auto) 1.4 K/mm3 (1.2-5.4) 03/18/21 22:16 S[place]ent # (Auto) 0.6 K/mm3 (0.0-0.8) 03/18/21 22:16 Eos # (Auto) 0.2 K/mm3 (0.0-0.4) 03/18/21 22:16 Baso # (Auto) 0.1 K/mm3 (0.0-0.1) 03/18/21 22:16 Seg Neutrophils % 70.1 % (40.0-70.0) H 03/18/21 22:16 Seg Neutrophils # 5.5 K/mm3 (1.8-7.7) 03/18/21 22:16 Sodium 138 mmol/L (137-145) 03/18/21 22:16 Potassium 3.9 mmol/L (3.6-5.0) 03/18/21 22:16 Chloride 97.8 mmol/L (98-107) L 03/18/21 22:16 Carbon Dioxide 29 mmol/L (22-30) 03/18/21 22:16 Anion Gap 15 mmol/L 03/18/21 22:16 BUN 10 mg/dL (9-20) 03/18/21 22:16 Creatinine 0.9 mg/dL (0.8-1.3) 03/18/21 22:16 Estimated GFR > 60 ml/min 03/18/21 22:16 BUN/Creatinine Ratio 11 % 03/18/21 22:16 Glucose 207 mg/dL (75-100) H 03/18/21 22:16 Lactic Acid 1.90 mmol/L (0.7-2.0) 03/18/21 23:29 Calcium 9.2 mg/dL (8.4-10.2) 03/18/21 22:16 Total Bilirubin 0.80 mg/dL (0.1-1.2) 03/18/21 22:16 AST 23 units/L (5-40) 03/18/21 22:16 ALT 16 units/L (7-56) 03/18/21 22:16 Alkaline Phosphatase 162 units/L (35-129) H 03/18/21 22:16 NT-Pro-B Natriuret Pep 1808 pg/mL (0-450) H 03/18/21 22:16 Total Protein 6.9 g/dL (6.3-8.2) 03/18/21 22:16 Albumin 3.8 g/dL (3.9-5) L 03/18/21 22:16 Albumin/Globulin Ratio 1.2 % 03/18/21 22:16 - Imaging and Cardiology Chest x-ray: report reviewed, image reviewed Imaging and Cardiology: CXR: FINDINGS: SUPPORT DEVICES: None. HEART / MEDIASTINUM: Heart is upper normal size and stable. LUNGS / PLEURA: No significant pulmonary or pleural abnormality. No pneumothorax. ADDITIONAL FINDINGS: No significant additional findings. IMPRESSION: 1. No acute findings. No change. Assessment and Plan Assessment and plan: Bilateral lower extremity cellulitis -History of bilateral lower extremity cellulitis previously treated as inpatient with IV ABX, DC'd on Augmentin (01/27) -Bilateral lower extremity Doppler pending -On IV ABX -ID consult pending Acute on chronic CHF -EF 30-35% seen on Echo -BNP elevated at 1808 -CXR negative for acute abnormalities -on IV Lasix Dyspnea -Monitor O2 sats -Albuterol prn -Supplemental O2 prn, wean as tolerated Lactic acidosis -Lactic acid on admission 2.40 -on IV Abx -Gentle IVF -Cultures pending -Continue to monitor Anemia -Hemoglobin on admission 11.5 -Continue to monitor hemoglobin -Transfuse as needed for hgb <7 DM2 -Uncontrolled -POC BG monitoring -On consistent carb diet -SSI coverage prn -HgbA1C pending Hx CAD -Continue Eliquis, statin, and ASA Tobacco abuse -Current every day smoker -Counseled for cessation -Nicotine patch when necessary DVT PPX -On oral a/c, and SCD's Advance Directives: No VTE prophylaxis?: Chemical, Mechanical Plan of care discussed with patient/family: Yes
[2021-03-19] MEDS: oxyCODONE /ACETAMINOPHEN 5-325MG TAB PO PRN ×2 (01:29→22:29)
[2021-03-19] MEDS: APIXABAN 2.5 MG TAB PO SCH ×3 (01:30→22:30)
[2021-03-19] MEDS: INSULIN LISPRO 100 UNIT/ML SUB-Q SCH ×4 (07:29→22:31)
[2021-03-19] MEDS ORDERED: HEPARIN 5,000 UNIT/1 ML VIAL SUB-Q SCH (10:00)
[2021-03-19] MEDS: ASPIRIN 81 MG TAB CHEW PO SCH (10:31)
[2021-03-19] MEDS: DOCUSATE SODIUM 100 MG CAP PO SCH ×2 (10:31→22:30)
[2021-03-19] MEDS: carvediloL 6.25 MG TAB PO SCH ×2 (10:31→22:33)
[2021-03-19] MEDS: FUROSEMIDE 40 MG/4 ML INJ IV SCH (10:32)
[2021-03-19] MEDS: HYDROmorphone 1 MG/1 ML INJ IV PRN (10:48)
[2021-03-19] MEDS: NICOTINE 14 MG/24 HR PATCH TD SCH (11:00)
--- NOTE | 2021-03-19 11:41 | Progress Note ---
Assessment and Plan Assessment and plan: #Bilateral lower extremity swelling -Patient with history of cellulitis treated inpatient last month -Unusual to have bilateral cellulitis, exam more consistent with chronic venous stasis with superimposed edema -Counseled on the need for control of fluid status, compression of lower extremity, and elevation -Infectious disease consulted for further recommendations -We will continue Unasyn and IV Lasix for now #Heart failure with reduced ejection fraction #ischemic cardiomyopathy #Coronary artery disease -TTE 01/2021: EF less than 15% -BNP 1808 -Will restart home medications -Cardiology consulted for optimization of fluid status #Left ventricular apical thrombus -Seen on last echocardiogram (01/2021) -Continue apixaban at current dose #Type 2 diabetes -A1c 8.4% -patient not taking any medications outpatient -controlled with SSI -will need to oral medications up discharge and outpatient follow up #Obesity -BMI 35.5% -counseled on lifestyle modifications including dietary and physical activity: Time +10mins Disposition Plan: Continue medical management Total Time Spent with Patient (Minutes): 20 minutes History Interval history: No acute events overnight. Patient reports improvement in lower extremity swelling. Continues to have pain in both legs. Hospitalist Physical - Physical exam Narrative exam: GENERAL: Obese. Sitting on the side of the bed in no acute distress. HEENT: Nasal cannula at 3 L/min CHEST/LUNGS: Coarse breath sounds bilaterally. HEART/CARDIOVASCULAR: RRR. No murmur, rubs or gallops appreciated. ABDOMEN: +BS. NT/ND. SKIN: Dusky color to bilateral lower extremity NEURO: No focal motor deficit. Follows all commands. EXTREMITIES: 2+ edema to bilateral lower extremity. PSYCH: Cooperative. - Constitutional Vitals: Temp Pulse Resp BP Pulse Ox 98.4 F 108 H 16 117/64 96 03/19/21 01:31 03/19/21 07:30 03/19/21 07:30 03/19/21 07:30 03/19/21 07:30 Results - Labs CBC & Chem 7: 03/20/21 05:43 03/20/21 05:43 Labs: Laboratory Last Values WBC 7.8 K/mm3 (4.5-11.0) 03/18/21 22:16 RBC 4.21 M/mm3 (3.65-5.03) 03/18/21 22:16 Hgb 11.5 gm/dl (11.8-15.2) L 03/18/21 22:16 Hct 35.3 % (35.5-45.6) L 03/18/21 22:16 MCV 84 fl (84-94) 03/18/21 22:16 MCH 27 pg (28-32) L 03/18/21 22:16 MCHC 33 % (32-34) 03/18/21 22:16 RDW 17.0 % (13.2-15.2) H 03/18/21 22:16 Plt Count 287 K/mm3 (140-440) 03/18/21 22:16 Lymph % (Auto) 17.9 % (13.4-35.0) 03/18/21 22:16 [place] % (Auto) 8.1 % (0.0-7.3) H 03/18/21 22:16 Eos % (Auto) 2.7 % (0.0-4.3) 03/18/21 22:16 Baso % (Auto) 1.2 % (0.0-1.8) 03/18/21 22:16 Lymph # (Auto) 1.4 K/mm3 (1.2-5.4) 03/18/21 22:16 [place] # (Auto) 0.6 K/mm3 (0.0-0.8) 03/18/21 22:16 Eos # (Auto) 0.2 K/mm3 (0.0-0.4) 03/18/21 22:16 Baso # (Auto) 0.1 K/mm3 (0.0-0.1) 03/18/21 22:16 Seg Neutrophils % 70.1 % (40.0-70.0) H 03/18/21 22:16 Seg Neutrophils # 5.5 K/mm3 (1.8-7.7) 03/18/21 22:16 Sodium 138 mmol/L (137-145) 03/18/21 22:16 Potassium 3.9 mmol/L (3.6-5.0) 03/18/21 22:16 Chloride 97.8 mmol/L (98-107) L 03/18/21 22:16 Carbon Dioxide 29 mmol/L (22-30) 03/18/21 22:16 Anion Gap 15 mmol/L 03/18/21 22:16 BUN 10 mg/dL (9-20) 03/18/21 22:16 Creatinine 0.9 mg/dL (0.8-1.3) 03/18/21 22:16 Estimated GFR > 60 ml/min 03/18/21 22:16 BUN/Creatinine Ratio 11 % 03/18/21 22:16 Glucose 207 mg/dL (75-100) H 03/18/21 22:16 POC Glucose 160 mg/dL (70-105) H 03/19/21 11:21 Hemoglobin A1c 8.4 % (4-6) H 03/18/21 22:16 Lactic Acid 1.90 mmol/L (0.7-2.0) 03/18/21 23:29 Calcium 9.2 mg/dL (8.4-10.2) 03/18/21 22:16 Total Bilirubin 0.80 mg/dL (0.1-1.2) 03/18/21 22:16 AST 23 units/L (5-40) 03/18/21 22:16 ALT 16 units/L (7-56) 03/18/21 22:16 Alkaline Phosphatase 162 units/L (35-129) H 03/18/21 22:16 NT-Pro-B Natriuret Pep 1808 pg/mL (0-450) H 03/18/21 22:16 Total Protein 6.9 g/dL (6.3-8.2) 03/18/21 22:16 Albumin 3.8 g/dL (3.9-5) L 03/18/21 22:16 Albumin/Globulin Ratio 1.2 % 03/18/21 22:16 Microbiology: Microbiology 03/18/21 22:48 Peripheral/Venous Blood Culture - Preliminary Culture in Progress 03/18/21 23:29 Peripheral/Venous Blood Culture - Preliminary Culture in Progress Active Medications - Current Medications Current Medications: Generic Name Dose Route Start Last Admin Trade Name Freq PRN Reason Stop Dose Admin Acetaminophen 650 mg 03/18/21 23:52 Acetaminophen 325 Mg Tab PO Q4H PRN Pain MILD(1-3)/Fever >100.5/PAREDES Albuterol 2.5 mg 03/19/21 00:03 Albuterol 2.5 Mg/3 Ml Nebu IH Q4HRT PRN Shortness Of Breath Alprazolam 0.25 mg 03/18/21 23:57 Alprazolam 0.25 Mg Tab PO QHS PRN Anxiety Apixaban 2.5 mg 03/19/21 01:15 03/19/21 11:00 Apixaban 2.5 Mg Tab PO 2.5 mg Q12HR PAR[place] Administration Aspirin 81 mg 03/19/21 10:00 03/19/21 10:31 Aspirin 81 Mg Tab Chew PO 81 mg QDAY [place] Administration Atorvastatin Calcium 40 mg 03/19/21 22:00 Atorvastatin 40 Mg Tab PO QHS [place] Carvedilol 6.25 mg 03/19/21 10:00 03/19/21 10:31 Carvedilol 6.25 Mg Tab PO 6.25 mg BID [place] Administration Dextrose 50 ml 03/18/21 23:52 Dextrose 50% In Water (25gm) 50 Ml Syringe IV Q30MIN PRN Hypoglycemia Protocol Docusate Sodium 100 mg 03/19/21 10:00 03/19/21 10:31 Docusate Sodium 100 Mg Cap PO 100 mg BID [facility] Administration Furosemide 40 mg 03/19/21 10:00 03/19/21 10:32 Furosemide 40 Mg/4 Ml Inj IV 40 mg QDAY [facility] Administration Hydromorphone HCl 0.5 mg 03/18/21 23:55 03/19/21 10:48 Hydromorphone 1 Mg/1 Ml Inj IV 0.5 mg Q3H PRN Administration Pain , Severe (7-10) Ampicillin Sodium/Sulbactam Sodium 3 gm in 100 mls @ 200 mls/hr 03/19/21 12:00 Unasyn/Ns 3 Gm/100 Ml IV Q6HR [facility] Insulin Human Lispro 0 unit 03/19/21 07:30 03/19/21 07:29 Insulin Lispro 100 Unit/Ml SUB-Q Not Given ACHS [facility] Protocol Naloxone HCl 0.1 mg 03/18/21 23:55 Naloxone 0.4 Mg/1 Ml Inj IV Q2MIN PRN Res Rate </= 8 or 02 SAT < 92% Nicotine 14 mg 03/19/21 10:00 03/19/21 11:00 Nicotine 14 Mg/24 Hr Patch TD 14 mg DAILY [facility] Administration Ondansetron HCl 4 mg 03/18/21 23:52 Ondansetron 4 Mg/2 Ml Inj IV Q8H PRN Nausea And Vomiting Oxycodone/Acetaminophen 1 tab 03/18/21 23:55 03/19/21 01:29 Oxycodone /Acetaminophen 5-325mg Tab PO 1 tab Q6H PRN Administration Pain, Moderate (4-6) Sodium Chloride 10 ml 03/19/21 10:00 03/19/21 10:29 Sodium Chloride 0.9% 10 Ml Flush Syringe IV 10 ml BID [place] Administration Sodium Chloride 10 ml 03/18/21 23:52 Sodium Chloride 0.9% 10 Ml Flush Syringe IV PRN PRN LINE FLUSH
--- NOTE | 2021-03-19 12:07 | Consultation ---
History of Present Illness - Reason for Consult Consult date: 03/19/21 - History of Present Illness 45-year-old male past medical history tobacco abuse, hypertension, hyperlipidemia, CAD, CHF, diabetes, obesity presented to hospital complaining of bilateral lower extremity pain, swelling, redness. He had recently been seen for bilateral lower extremity cellulitis in January, and was discharged with Augmentin. He reports that he had improvement in the legs at that time. Afebrile since admission white count 7.8. Normal renal function. Cultures no growth so far. Imaging personally reviewed: Chest x-ray: No acute findings Review of Systems: Bold if positive, otherwise negative General: fevers, chills, rigors HEENT: visual disturbance, diplopia, eye pain Respiratory: cough, sputum, hemoptysis, shortness of breath Cardiovascular: chest pain, syncope Gastrointestinal: nausea, vomiting, diarrhea, abdominal pain Genitourinary: dysuria, hematuria, flank pain Musculoskeletal: neck pain, back pain, joint pain, edema Neurologic: headaches, seizures Hematologic: easy bruising or bleeding Endocrine: night sweats, acute weight loss Skin: rash, jaundice, redness Psychiatric: suicidal, homicidal ideation Past History Past Medical History: acute CA (x2), CAD, heart failure (EF 30-35%), hypertension, hyperlipidemia, other (Bilateral lower extremity cellulitis (01/27), obesity, tobacco abuse, ?? DIRK with nocturnal use of supplemental O2 3L NC) Past Surgical History: Other (PCI stent) Social history: single, lives with family (Sister), smoking (Current every day smoker), full code. denies: alcohol abuse, prescription drug abuse Family history: CAD, hypertension, stroke, other (CHF) Medications and Allergies Allergies Allergy/AdvReac Type Severity Reaction Status Date / Time No Known Allergies Allergy Verified 12/29/20 14:08 Home Medications Medication Instructions Recorded Confirmed Last Taken Type Ondansetron [Zofran Odt] 4 mg PO Q6HR PRN #20 tab.rapdis 05/07/15 Unknown Rx Ibuprofen [Motrin 800 MG tab] 800 mg PO Q8HR PRN #30 tablet 06/02/15 Unknown Rx ALPRAZolam [Xanax TAB] 0.25 mg PO QHS PRN #6 tablet 12/31/20 Unknown Rx Aspirin [Aspirin BABY CHEW TAB] 81 mg PO QDAY #30 tab.chew 12/31/20 Unknown Rx AtorvaSTATin [Lipitor] 40 mg PO QHS #30 tablet 12/31/20 Unknown Rx Clopidogrel [Plavix] 75 mg PO QDAY #30 tablet 12/31/20 Unknown Rx Furosemide [Lasix TAB] 40 mg PO QDAY #30 tablet 12/31/20 Unknown Rx ISOSORBIDE MONOnitrate [Imdur ER] 30 mg PO QDAY #30 tablet 12/31/20 Unknown Rx Nicotine [Habitrol] 14 mg TD DAILY #30 patch 12/31/20 Unknown Rx Spironolactone [Aldactone] 25 mg PO QDAY #30 tablet 12/31/20 Unknown Rx carvediloL [Coreg] 6.25 mg PO BID #60 tablet 12/31/20 Unknown Rx lisinopriL [Zestril TAB] 20 mg PO QDAY #30 tablet 12/31/20 Unknown Rx Amoxicillin/Potassium Clav 1 each PO BID #10 tablet 02/04/21 Unknown Rx [Augmentin 875-125 Tablet] Apixaban [Eliquis] 2.5 mg PO Q12HR #60 tablet 02/04/21 Unknown Rx Active Meds: Active Medications Acetaminophen (Acetaminophen 325 Mg Tab) 650 mg PO Q4H PRN PRN Reason: Pain MILD(1-3)/Fever >100.5/PAREDES Albuterol (Albuterol 2.5 Mg/3 Ml Nebu) 2.5 mg IH Q4HRT PRN PRN Reason: Shortness Of Breath Alprazolam (Alprazolam 0.25 Mg Tab) 0.25 mg PO QHS PRN PRN Reason: Anxiety Apixaban (Apixaban 2.5 Mg Tab) 2.5 mg PO Q12HR [facility] Last Admin: 03/19/21 11:00 Dose: 2.5 mg Documented by: Aspirin (Aspirin 81 Mg Tab Chew) 81 mg PO QDAY [facility] Last Admin: 03/19/21 10:31 Dose: 81 mg Documented by: Atorvastatin Calcium (Atorvastatin 40 Mg Tab) 40 mg PO QHS [facility] Carvedilol (Carvedilol 6.25 Mg Tab) 6.25 mg PO BID [facility] Last Admin: 03/19/21 10:31 Dose: 6.25 mg Documented by: Dextrose (Dextrose 50% In Water (25gm) 50 Ml Syringe) 50 ml IV Q30MIN PRN; Protocol PRN Reason: Hypoglycemia Docusate Sodium (Docusate Sodium 100 Mg Cap) 100 mg PO BID [facility] Last Admin: 03/19/21 10:31 Dose: 100 mg Documented by: Furosemide (Furosemide 40 Mg/4 Ml Inj) 40 mg IV QDAY [facility] Last Admin: 03/19/21 10:32 Dose: 40 mg Documented by: Hydromorphone HCl (Hydromorphone 1 Mg/1 Ml Inj) 0.5 mg IV Q3H PRN PRN Reason: Pain , Severe (7-10) Last Admin: 03/19/21 10:48 Dose: 0.5 mg Documented by: Ampicillin Sodium/Sulbactam Sodium (Unasyn/Ns 3 Gm/100 Ml) 3 gm in 100 mls @ 200 mls/hr IV Q6HR [facility] Insulin Human Lispro (Insulin Lispro 100 Unit/Ml) 0 unit SUB-Q ACHS [facility]; Protocol Last Admin: 03/19/21 11:41 Dose: 2 unit Documented by: Naloxone HCl (Naloxone 0.4 Mg/1 Ml Inj) 0.1 mg IV Q2MIN PRN PRN Reason: Res Rate </= 8 or 02 SAT < 92% Nicotine (Nicotine 14 Mg/24 Hr Patch) 14 mg TD DAILY [facility] Last Admin: 03/19/21 11:00 Dose: 14 mg Documented by: Ondansetron HCl (Ondansetron 4 Mg/2 Ml Inj) 4 mg IV Q8H PRN PRN Reason: Nausea And Vomiting Oxycodone/Acetaminophen (Oxycodone /Acetaminophen 5-325mg Tab) 1 tab PO Q6H PRN PRN Reason: Pain, Moderate (4-6) Last Admin: 03/19/21 01:29 Dose: 1 tab Documented by: Sodium Chloride (Sodium Chloride 0.9% 10 Ml Flush Syringe) 10 ml IV BID [facility] Last Admin: 03/19/21 10:29 Dose: 10 ml Documented by: Sodium Chloride (Sodium Chloride 0.9% 10 Ml Flush Syringe) 10 ml IV PRN PRN PRN Reason: LINE FLUSH Physical Examination - Physical Exam Narrative exam: Physical Exam: Constitutional: Alert, cooperative. No acute distress Head, Ears, Nose: Normocephalic, atraumatic. External ears, nose normal Eyes: Conjunctivae/corneas clear. No icterus. No ptosis. Neck: Supple, no meningeal signs Oral: dentition fair, no thrush Cardiovascular: S1, S2 normal. Respiratory: Good air entry, clear to auscultation bilaterally GI: Soft, non-tender; bowel sounds normal. No peritoneal signs. Musculoskeletal: BLE edema to abdomen. Redness. Skin: No rash or abscess Hem/Lymphatic: No palpable cervical or supraclavicular nodes. No lymphangitis Psych: Mood ok. Affect normal Neurological: Awake, alert, oriented. No gross abnormality - Constitutional Vitals: Vital Signs Temp Pulse Resp BP Pulse Ox 98.4 F 108 H 16 117/64 96 03/19/21 01:31 03/19/21 07:30 03/19/21 07:30 03/19/21 07:30 03/19/21 07:30 Temperature -Last 24 Hours Temperature 98.4 F Temperature 99.2 F Temperature 99.2 F Results - Labs CBC & Chem 7: 03/18/21 22:16 03/18/21 22:16 Labs: Abnormal lab results 03/18/21 03/18/21 03/18/21 Range/Units 22:16 22:16 22:16 Hgb 11.5 L (11.8-15.2) gm/dl Hct 35.3 L (35.5-45.6) % MCH 27 L (28-32) pg RDW 17.0 H (13.2-15.2) % [place] % (Auto) 8.1 H (0.0-7.3) % Seg Neutrophils % 70.1 H (40.0-70.0) % Chloride 97.8 L (98-107) mmol/L Glucose 207 H (75-100) mg/dL POC Glucose (70-105) mg/dL Hemoglobin A1c (4-6) % Lactic Acid 2.40 H* (0.7-2.0) mmol/L Alkaline Phosphatase 162 H (35-129) units/L NT-Pro-B Natriuret Pep 1808 H (0-450) pg/mL Albumin 3.8 L (3.9-5) g/dL 03/18/21 03/19/21 03/19/21 Range/Units 22:16 04:42 07:28 Hgb (11.8-15.2) gm/dl Hct (35.5-45.6) % MCH (28-32) pg RDW (13.2-15.2) % [place] % (Auto) (0.0-7.3) % Seg Neutrophils % (40.0-70.0) % Chloride (98-107) mmol/L Glucose (75-100) mg/dL POC Glucose 117 H 107 H (70-105) mg/dL Hemoglobin A1c 8.4 H (4-6) % Lactic Acid (0.7-2.0) mmol/L Alkaline Phosphatase (35-129) units/L NT-Pro-B Natriuret Pep (0-450) pg/mL Albumin (3.9-5) g/dL 03/19/21 Range/Units 11:21 Hgb (11.8-15.2) gm/dl Hct (35.5-45.6) % MCH (28-32) pg RDW (13.2-15.2) % [place] % (Auto) (0.0-7.3) % Seg Neutrophils % (40.0-70.0) % Chloride (98-107) mmol/L Glucose (75-100) mg/dL POC Glucose 160 H (70-105) mg/dL Hemoglobin A1c (4-6) % Lactic Acid (0.7-2.0) mmol/L Alkaline Phosphatase (35-129) units/L NT-Pro-B Natriuret Pep (0-450) pg/mL Albumin (3.9-5) g/dL Assessment and Plan Cultures: Blood culture no growth so far A/P: 45-year-old male past medical history tobacco abuse, hypertension, hyperlipidemia, CAD, CHF, diabetes, obesity admitted with: #Venous stasis vs cellulitis: More likely to be venous stasis dermatitis, especially in the setting of no fevers or white count and in the setting of edema. #CHF: With severe bilateral lower extremity edema #Diabetes: tight glycemic control for best outcomes. Recs: -Continue Unasyn for now -Check CRP and procalcitonin in the morning -Likely stop antibiotics if above normal given afebrile normal white count. -Edema control strategies: Compression, leg elevation Thank you for the consult, we will continue to follow. Nadeem Thornton MD [facility] ([facility]) O: [phone] F: [phone]
[2021-03-19] MEDS: AMPICILLIN/SULBACTA 3GM/100ML 3 GM/100 ML BAG IV SCH ×2 (13:00→17:59)
--- NOTE | 2021-03-19 13:11 | Vascular Lab Report ---
DUPLEX DOPPLER LOWER EXTREMITY VEINS, BILATERAL INDICATION / CLINICAL INFORMATION: hx cad, hf, c/o ble edema and pain. TECHNIQUE: Duplex doppler imaging was performed through the veins of both lower extremities using britton ous compression and other maneuvers. COMPARISON: Bilateral lower extremity venous Doppler 12/30/2020. FINDINGS: RIGHT COMMON FEMORAL VEIN: Negative. RIGHT FEMORAL VEIN: Negative. RIGHT POPLITEAL VEIN: Negative. RIGHT CALF VEINS: Negative. LEFT COMMON FEMORAL VEIN: Negative. LEFT FEMORAL VEIN: Negative. LEFT POPLITEAL VEIN: Negative. LEFT CALF VEINS: Negative. ADDITIONAL FINDINGS: Incidental finding of a small right knee effusion. IMPRESSION: 1. No sonographic evidence for DVT in either lower extremity. Scribed by: Cristina Parekh RDMS, RVT Scribed: 03/19/2021 9:52 AM I have reviewed the images, agree with this report, and edited this report as needed. Signer Name: Braydon Jones MD Signed: 03/19/2021 1:06 PM Workstation Name: [id number]
--- NOTE | 2021-03-19 13:55 | Consultation ---
History of Present Illness Consult date: 03/19/21 Consult reason: congestive heart failure, other (Coronary artery disease) History of present illness: 45-year-old man with a history of coronary artery disease, ischemic cardiomyopathy on medical therapy. He has multivessel coronary stents, most recent coronary stenting was 5 months ago. He is on dual antiplatelet therapy aspirin and Plavix. The patient presents to the hospital at this time with complaints of persistent redness and swelling of both lower extremities. He has apparently been undergoing treatment for bilateral cellulitis, but complaints that his symptoms of cellulitis have been persistent. Otherwise, no chest pain, no unusual shortness of breath. He states that he is compliant with his guideline directed medical therapy for his coronary artery disease and ischemic cardiomyopathy, and states that he is compliant with his aspirin and Plavix. His home medications also include triple therapy with Eliqu is 2.5 mg twice daily. The indication for oral anticoagulation is unclear to me at this time. 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 Past History Past Medical History: CAD, heart failure (EF 30-35%), hypertension, hyperlipidemia, other (Bilateral lower extremity cellulitis (01/27), obesity, tobacco abuse, ?? DIRK with nocturnal use of supplemental O2 3L NC) Past Surgical History: PTCA, Other (PCI stent) Social history: single, lives with family (Sister), smoking (Current every day smoker), full code. denies: alcohol abuse, prescription drug abuse Family history: CAD, hypertension, stroke, other (CHF) Medications and Allergies Allergies Allergy/AdvReac Type Severity Reaction Status Date / Time No Known Allergies Allergy Verified 12/29/20 14:08 Home Medications Medication Instructions Recorded Confirmed Last Taken Type Ondansetron [Zofran Odt] 4 mg PO Q6HR PRN #20 tab.rapdis 05/07/15 Unknown Rx Ibuprofen [Motrin 800 MG tab] 800 mg PO Q8HR PRN #30 tablet 06/02/15 Unknown Rx ALPRAZolam [Xanax TAB] 0.25 mg PO QHS PRN #6 tablet 12/31/20 Unknown Rx Aspirin [Aspirin BABY CHEW TAB] 81 mg PO QDAY #30 tab.chew 12/31/20 Unknown Rx AtorvaSTATin [Lipitor] 40 mg PO QHS #30 tablet 08/25/21 Unknown Rx Clopidogrel [Plavix] 75 mg PO QDAY #30 tablet 12/31/20 Unknown Rx Furosemide [Lasix TAB] 40 mg PO QDAY #30 tablet 12/31/20 Unknown Rx ISOSORBIDE MONOnitrate [Imdur ER] 30 mg PO QDAY #30 tablet 12/31/20 Unknown Rx Nicotine [Habitrol] 14 mg TD DAILY #30 patch 12/31/20 Unknown Rx Spironolactone [Aldactone] 25 mg PO QDAY #30 tablet 12/31/20 Unknown Rx carvediloL [Coreg] 6.25 mg PO BID #60 tablet 12/31/20 Unknown Rx lisinopriL [Zestril TAB] 20 mg PO QDAY #30 tablet 12/31/20 Unknown Rx Amoxicillin/Potassium Clav 1 each PO BID #10 tablet 02/04/21 Unknown Rx [Augmentin 875-125 Tablet] Apixaban [Eliquis] 2.5 mg PO Q12HR #60 tablet 02/04/21 Unknown Rx Active Meds: Active Medications Acetaminophen (Acetaminophen 325 Mg Tab) 650 mg PO Q4H PRN PRN Reason: Pain MILD(1-3)/Fever >100.5/PAREDES Albuterol (Albuterol 2.5 Mg/3 Ml Nebu) 2.5 mg IH Q4HRT PRN PRN Reason: Shortness Of Breath Alprazolam (Alprazolam 0.25 Mg Tab) 0.25 mg PO QHS PRN PRN Reason: Anxiety Apixaban (Apixaban 2.5 Mg Tab) 2.5 mg PO Q12HR [facility] Last Admin: 03/19/21 11:00 Dose: 2.5 mg Documented by: Aspirin (Aspirin 81 Mg Tab Chew) 81 mg PO QDAY [facility] Last Admin: 03/19/21 10:31 Dose: 81 mg Documented by: Atorvastatin Calcium (Atorvastatin 40 Mg Tab) 40 mg PO QHS [facility] Carvedilol (Carvedilol 6.25 Mg Tab) 6.25 mg PO BID [facility] Last Admin: 03/19/21 10:31 Dose: 6.25 mg Documented by: Dextrose (Dextrose 50% In Water (25gm) 50 Ml Syringe) 50 ml IV Q30MIN PRN; Protocol PRN Reason: Hypoglycemia Docusate Sodium (Docusate Sodium 100 Mg Cap) 100 mg PO BID [facility] Last Admin: 03/19/21 10:31 Dose: 100 mg Documented by: Furosemide (Furosemide 40 Mg/4 Ml Inj) 40 mg IV QDAY [facility] Last Admin: 03/19/21 10:32 Dose: 40 mg Documented by: Hydromorphone HCl (Hydromorphone 1 Mg/1 Ml Inj) 0.5 mg IV Q3H PRN PRN Reason: Pain , Severe (7-10) Last Admin: 03/19/21 10:48 Dose: 0.5 mg Documented by: Ampicillin Sodium/Sulbactam Sodium (Unasyn/Ns 3 Gm/100 Ml) 3 gm in 100 mls @ 200 mls/hr IV Q6HR [facility] Last Admin: 03/19/21 13:00 Dose: 200 mls/hr Documented by: Insulin Human Lispro (Insulin Lispro 100 Unit/Ml) 0 unit SUB-Q ACHS [facility]; Pr otocol Last Admin: 03/19/21 11:41 Dose: 2 unit Documented by: Naloxone HCl (Naloxone 0.4 Mg/1 Ml Inj) 0.1 mg IV Q2MIN PRN PRN Reason: Res Rate </= 8 or 02 SAT < 92% Nicotine (Nicotine 14 Mg/24 Hr Patch) 14 mg TD DAILY [facility] Last Admin: 03/19/21 11:00 Dose: 14 mg Documented by: Ondansetron HCl (Ondansetron 4 Mg/2 Ml Inj) 4 mg IV Q8H PRN PRN Reason: Nausea And Vomiting Oxycodone/Acetaminophen (Oxycodone /Acetaminophen 5-325mg Tab) 1 tab PO Q6H PRN PRN Reason: Pain, Moderate (4-6) Last Admin: 03/19/21 01:29 Dose: 1 tab Documented by: Sodium Chloride (Sodium Chloride 0.9% 10 Ml Flush Syringe) 10 ml IV BID [facility] Last Admin: 03/19/21 10:29 Dose: 10 ml Documented by: Sodium Chloride (Sodium Chloride 0.9% 10 Ml Flush Syringe) 10 ml IV PRN PRN PRN Reason: LINE FLUSH Review of Systems Cardiovascular: shortness of breath, no chest pain, no orthopnea, no palpitations, no rapid/irregular heart beat, no edema, no syncope, no lightheadedness Physical Examination Vital Signs Temp Pulse Resp BP Pulse Ox 99.2 F 117 H 16 123/81 95 03/18/21 21:59 03/18/21 21:59 03/18/21 21:59 03/18/21 21:59 03/18/21 21:59 General appearance: no acute distress HEENT: Positive: PERRL Neck: Positive: neck supple Cardiac: Positive: Reg Rate and Rhythm Lungs: Positive: Decreased Breath Sounds Neuro: Positive: Grossly Intact Abdomen: Positive: Soft Male genitourinary: Positive: deferred Skin: Positive: Clear Extremities: Present: +2 Edema (With bilateral erythema, consistent with bilateral cellulitis) Results 03/18/21 22:16 03/18/21 22:16 Cardiac Enzymes 03/18/21 Range/Units 22:16 AST 23 (5-40) units/L CBC 03/18/21 Range/Units 22:16 WBC 7.8 (4.5-11.0) K/mm3 RBC 4.21 (3.65-5.03) M/mm3 Hgb 11.5 L (11.8-15.2) gm/dl Hct 35.3 L (35.5-45.6) % Plt Count 287 (140-440) K/mm3 Lymph # (Auto) 1.4 (1.2-5.4) K/mm3 [place] # (Auto) 0.6 (0.0-0.8) K/mm3 Eos # (Auto) 0.2 (0.0-0.4) K/mm3 Baso # (Auto) 0.1 (0.0-0.1) K/mm3 Comprehensive Metabolic Panel 03/18/21 Range/Units 22:16 Sodium 138 (137-145) mmol/L Potassium 3.9 (3.6-5.0) mmol/L Chloride 97.8 L (98-107) mmol/L Carbon Dioxide 29 (22-30) mmol/L BUN 10 (9-20) mg/dL Creatinine 0.9 (0.8-1.3) mg/dL Glucose 207 H (75-100) mg/dL Calcium 9.2 (8.4-10.2) mg/dL AST 23 (5-40) units/L ALT 16 (7-56) units/L Alkaline Phosphatase 162 H (35-129) units/L Total Protein 6.9 (6.3-8.2) g/dL Albumin 3.8 L (3.9-5) g/dL Assessment and Plan - Patient Problems (1) Ischemic cardiomyopathy Current Visit: No Status: Acute Plan to address problem: Patient presents with symptoms of persistent bilateral lower extremity cellulitis. Cardiac status appears asymptomatic, will continue guideline directed medical therapy for coronary artery disease and ischemic cardiomyopathy, including dual oral antiplatelet therapy following his coronary stent implanted 5 months ago at [facility].
[2021-03-19] MEDS: CLOPIDOGREL 75 MG TAB PO SCH (14:07)
[2021-03-20] MEDS: AMPICILLIN/SULBACTA 3GM/100ML 3 GM/100 ML BAG IV SCH ×5 (00:42→23:16)
[2021-03-20 06:34] LABS: Basophils # (Auto) 0.1 K/mm3 (0.0-0.1); Basophils % (Auto) 1.2 % (0.0-1.8); Eosinophils # (Auto) 0.3 K/mm3 (0.0-0.4); Eosinophils % (Auto) 3.7 % (0.0-4.3); Hematocrit 38.4 % (35.5-45.6); Hemoglobin 11.8 gm/dl (11.8-15.2); Lymphocytes # (Auto) 0.9 K/mm3 (1.2-5.4); Lymphocytes % (Auto) 12.8 % (13.4-35.0); Mean Corpuscular HGB Conc 31 % (32-34); Mean Corpuscular Volume 83 fl (84-94); Monocytes # (Auto) 0.6 K/mm3 (0.0-0.8); Platelet Count 293 K/mm3 (140-440); Red Blood Count 4.62 M/mm3 (3.65-5.03); Red Cell Distribution Width 17.1 % (13.2-15.2)
[2021-03-20 06:40] LABS: Alanine Aminotransferase 16 units/L (7-56); Albumin 3.8 g/dL (3.9-5); BUN/Creatinine Ratio 17; Blood Urea Nitrogen 15 mg/dL (9-20); Calcium 9.2 mg/dL (8.4-10.2); Hemolysis Index 2
[2021-03-20] MEDS: INSULIN LISPRO 100 UNIT/ML SUB-Q SCH ×4 (09:29→21:35)
[2021-03-20] MEDS: CLOPIDOGREL 75 MG TAB PO SCH (09:31)
[2021-03-20] MEDS: ASPIRIN 81 MG TAB CHEW PO SCH (09:31)
[2021-03-20] MEDS: SPIRONOLACTONE 25 MG TAB PO SCH (09:31)
[2021-03-20] MEDS: NICOTINE 14 MG/24 HR PATCH TD SCH (09:31)
[2021-03-20] MEDS: DOCUSATE SODIUM 100 MG CAP PO SCH ×2 (09:31→21:23)
[2021-03-20] MEDS: carvediloL 6.25 MG TAB PO SCH ×2 (09:32→21:22)
[2021-03-20] MEDS: FUROSEMIDE 40 MG/4 ML INJ IV SCH (09:32)
[2021-03-20] MEDS: LISINOPRIL 20 MG TAB PO SCH (09:32)
[2021-03-20] MEDS: APIXABAN 2.5 MG TAB PO SCH ×2 (09:32→21:23)
--- NOTE | 2021-03-20 09:54 | Progress Note ---
Assessment and Plan - Patient Problems (1) Ischemic cardiomyopathy Current Visit: No Status: Acute Plan to address problem: Patient presents with symptoms of persistent bilateral lower extremity cellulitis. Cardiac status appears asymptomatic, will continue guideline directed medical therapy for coronary artery disease and ischemic cardiomyopathy, including dual oral antiplatelet therapy following his coronary stent implanted 5 months ago at [facility]. While hospitalized, we will place him on a trial of intravenous milrinone in addition to optimal diuretic therapy. I will also recommend a pulmonary evaluation of his sleep apnea and COPD which are likely major contributors to his chronic dyspnea and fatigue. Subjective Date of service: 03/20/21 Interval history: Patient is able to lay flat, but complains of low threshold exertional dyspnea at home. It will be recalled that he has multiple comorbidities for chronic d yspnea including his sleep apnea, COPD and continued tobacco abuse. In the hospital, his able to lay mostly supine, and does not exhibit any symptoms of orthopnea. He does have a persistent 2+ lower extremity edema, with erythema that has been previously suggested to be cellulitis. Objective Vital Signs Temp Pulse Resp BP BP Pulse Ox 03/20/21 05:02 97.4 F L 96 H 18 110/68 97 03/19/21 23:44 96 03/19/21 23:29 17 03/19/21 22:34 97.8 F 106 H 18 118/67 100 03/19/21 22:33 118/67 03/19/21 22:29 17 03/19/21 22:00 128/78 99 03/19/21 20:31 98 H 12 128/78 99 03/19/21 19:31 100 H 18 128/78 99 03/19/21 18:30 91 H 16 111/76 03/19/21 18:01 101 H 15 111/76 03/19/21 17:31 99 H 18 111/76 03/19/21 17:01 96 H 22 111/76 03/19/21 16:31 90 11 L 111/76 03/19/21 16:00 93 H 17 111/76 03/19/21 15:31 85 19 107/68 03/19/21 15:01 94 H 17 106/65 03/19/21 14:31 93 H 17 106/65 03/19/21 14:01 93 H 21 106/65 94 03/19/21 13:31 117/79 88 03/19/21 13:01 97 03/19/21 12:53 / 96 03/19/21 10:30 103 H 17 11779 97 03/19/21 10:28 117/ 98 - Physical Examination General: No Apparent Distress HEENT: Positive: PERRL Neck: Positive: neck supple Cardiac: Positive: Reg Rate and Rhythm Lungs: Positive: Decreased Breath Sounds Neuro: Positive: Grossly Intact Abdomen: Positive: Soft Skin: Positive: Clear Extremities: Present: +2 Edema (With bilateral erythema, consistent with bilateral cellulitis) - Labs and Meds Cardiac Enzymes 03/20/21 Range/Units 05:43 AST 24 (5-40) units/L CBC 03/20/21 Range/Units 05:43 WBC 7.4 (4.5-11.0) K/mm3 RBC 4.62 (3.65-5.03) M/mm3 Hgb 11.8 (11.8-15.2) gm/dl Hct 38.4 (35.5-45.6) % Plt Count 293 (140-440) K/mm3 Lymph # (Auto) 0.9 L (1.2-5.4) K/mm3 [place] # (Auto) 0.6 (0.0-0.8) K/mm3 Eos # (Auto) 0.3 (0.0-0.4) K/mm3 Baso # (Auto) 0.1 (0.0-0.1) K/mm3 Comprehensive Metabolic Panel 03/20/21 Range/Units 05:43 Sodium 136 L (137-145) mmol/L Potassium 4.4 (3.6-5.0) mmol/L Chloride 95.3 L (98-107) mmol/L Carbon Dioxide 31 H (22-30) mmol/L BUN 15 (9-20) mg/dL Creatinine 0.9 (0.8-1.3) mg/dL Glucose 128 H (75-100) mg/dL Calcium 9.2 (8.4-10.2) mg/dL AST 24 (5-40) units/L ALT 16 (7-56) units/L Alkaline Phosphatase 180 H (35-129) units/L Total Protein 7.6 (6.3-8.2) g/dL Albumin 3.8 L (3.9-5) g/dL
[2021-03-20] MEDS ORDERED: CLOPIDOGREL 75 MG TAB PO SCH (10:00)
--- NOTE | 2021-03-20 12:20 | Progress Note ---
Assessment and Plan Cultures: Blood culture no growth so far A/P: 45-year-old male past medical history tobacco abuse, hypertension, hyperlipidemia, CAD, CHF, diabetes, obesity admitted with: #Venous stasis vs cellulitis: More likely to be venous stasis dermatitis, especially in the setting of no fevers or white count and in the setting of edema. #CHF: With severe bilateral lower extremity edema #Diabetes: tight glycemic control for best outcomes. Recs: -Continue Unasyn for now -Check CRP and procalcitonin in the morning -Likely stop antibiotics if above normal given afebrile normal white count. -Edema control strategies: Compression, leg elevation Thank you for the consult, we will continue to follow. Nadeem Thornton MD [facility] ([facility]) O: [phone] F: [phone] Subjective Date of service: 03/20/21 Interval history: Afebrile, normal white count. Cultures remain negative Objective - Exam Narrative Exam: Physical Exam: Constitutional: Alert, cooperative. No acute distress Head, Ears, Nose: Normocephalic, atraumatic. Eyes: Conjunctivae/corneas clear. No icterus. No ptosis. Neck: Supple, no meningeal signs Oral: dentition fair, no thrush Cardiovascular: S1, S2 normal. Respiratory: Good air entry, clear to auscultation bilaterally GI: Soft, non-tender; bowel sounds normal. No peritoneal signs. Musculoskeletal: Tense BLE edema to abdomen. Redness L>R. Skin: No rash or abscess Hem/Lymphatic: No palpable cervical or supraclavicular nodes. No lymphangitis Psych: Mood ok. Affect normal Neurological: Awake, alert, oriented. No gross abnormality - Constitutional Vitals: Vital Signs Temp Pulse Resp BP Pulse Ox 97.4 F L 96 H 18 110/68 97 03/20/21 05:02 03/20/21 05:02 03/20/21 05:02 03/20/21 05:02 03/20/21 05:02 Temperature -Last 24 Hours Temperature 97.4 F Temperature 97.8 F - Labs CBC & Chem 7: 03/20/21 05:43 03/20/21 05:43 Labs: Abnormal lab results 03/19/21 03/19/21 03/20/21 Range/Units 16:01 21:43 05:43 MCV 83 L (84-94) fl MCH 26 L (28-32) pg MCHC 31 L (32-34) % RDW 17.1 H (13.2-15.2) % Lymph % (Auto) 12.8 L (13.4-35.0) % [place] % (Auto) 8.0 H (0.0-7.3) % Lymph # (Auto) 0.9 L (1.2-5.4) K/mm3 Seg Neutrophils % 74.3 H (40.0-70.0) % Sodium (137-145) mmol/L Chloride (98-107) mmol/L Carbon Dioxide (22-30) mmol/L Glucose (75-100) mg/dL POC Glucose 146 H 123 H (70-105) mg/dL Total Bilirubin (0.1-1.2) mg/dL Alkaline Phosphatase (35-129) units/L Albumin (3.9-5) g/dL 03/20/21 03/20/21 03/20/21 Range/Units 05:43 07:39 11:31 MCV (84-94) fl MCH (28-32) pg MCHC (32-34) % RDW (13.2-15.2) % Lymph % (Auto) (13.4-35.0) % [place] % (Auto) (0.0-7.3) % Lymph # (Auto) (1.2-5.4) K/mm3 Seg Neutrophils % (40.0-70.0) % Sodium 136 L (137-145) mmol/L Chloride 95.3 L (98-107) mmol/L Carbon Dioxide 31 H (22-30) mmol/L Glucose 128 H (75-100) mg/dL POC Glucose 191 H 129 H (70-105) mg/dL Total Bilirubin 1.30 H (0.1-1.2) mg/dL Alkaline Phosphatase 180 H (35-129) units/L Albumin 3.8 L (3.9-5) g/dL
--- NOTE | 2021-03-20 12:58 | Electrocardiograph Report ---
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
--- NOTE | 2021-03-20 13:02 | Electrocardiograph Report ---
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
--- NOTE | 2021-03-20 13:35 | Progress Note ---
Assessment and Plan Assessment and plan: #Probable lower extremity cellulitis #venous stasis dermatitis #Bilateral lower extremity swelling -Unusual to have bilateral cellulitis, exam more consistent with chronic venous stasis with superimposed edema -Counseled on the need for control of fluid status, compression of lower extremity, and elevation at home -Infectious disease following, appreciate assistance -continue unasyn #Heart failure with reduced ejection fraction #ischemic cardiomyopathy #Coronary artery disease -TTE 01/2021: EF less than 15% -BNP 1808 -continue home medications -milrinone drip today, transfer to telemetry floor -Cardiology consulted for optimization of fluid status #Left ventricular apical thrombus -Seen on last echocardiogram (01/2021) -Continue apixaban at current dose #Type 2 diabetes -A1c 8.4% -patient not taking any medications outpatient -controlled with SSI -will need to oral medications up discharge and outpatient follow up #Obesity -BMI 35.5% #Tobacco dependence -Counseled about tobacco cessation and detrimental effects of tobacco on his comorbidities: Time +10 mins Disposition Plan: Home Total Time Spent with Patient (Minutes): 20 minutes History Interval history: No acute events overnight. Patient reports not sleeping well overnight. Still has shortness of breath. Noticed improvement in edema. Hospitalist Physical - Physical exam Narrative exam: GENERAL: Obese. Lying in bed in no acute distress. HEENT: Nasal cannula at 3 L/min CHEST/LUNGS: Coarse breath sounds bilaterally. HEART/CARDIOVASCULAR: RRR. No murmur, rubs or gallops appreciated. ABDOMEN: +BS. NT/ND. SKIN: Dusky color to bilateral lower extremity NEURO: No focal motor deficit. Follows all commands. EXTREMITIES: Improving edema to bilateral lower extremity. PSYCH: Cooperative. - Constitutional Vitals: Temp Pulse Resp BP Pulse Ox 97.4 F L 95 H 22 112/69 96 03/20/21 11:33 03/20/21 11:33 03/20/21 11:33 03/20/21 11:33 03/20/21 11:33 General appearance: Present: no acute distress HEART Score - HEART Score Troponin: WBC 7.4 K/mm3 (4.5-11.0) 03/20/21 05:43 RBC 4.62 M/mm3 (3.65-5.03) 03/20/21 05:43 Hgb 11.8 gm/dl (11.8-15.2) 03/20/21 05:43 Hct 38.4 % (35.5-45.6) 03/20/21 05:43 MCV 83 fl (84-94) L 03/20/21 05:43 MCH 26 pg (28-32) L 03/20/21 05:43 MCHC 31 % (32-34) L 03/20/21 05:43 RDW 17.1 % (13.2-15.2) H 03/20/21 05:43 Plt Count 293 K/mm3 (140-440) 03/20/21 05:43 Lymph % (Auto) 12.8 % (13.4-35.0) L 03/20/21 05:43 [place] % (Auto) 8.0 % (0.0-7.3) H 03/20/21 05:43 Eos % (Auto) 3.7 % (0.0-4.3) 03/20/21 05:43 Baso % (Auto) 1.2 % (0.0-1.8) 03/20/21 05:43 Lymph # (Auto) 0.9 K/mm3 (1.2-5.4) L 03/20/21 05:43 [place] # (Auto) 0.6 K/mm3 (0.0-0.8) 03/20/21 05:43 Eos # (Auto) 0.3 K/mm3 (0.0-0.4) 03/20/21 05:43 Baso # (Auto) 0.1 K/mm3 (0.0-0.1) 03/20/21 05:43 Seg Neutrophils % 74.3 % (40.0-70.0) H 03/20/21 05:43 Seg Neutrophils # 5.5 K/mm3 (1.8-7.7) 03/20/21 05:43 Sodium 136 mmol/L (137-145) L 03/20/21 05:43 Potassium 4.4 mmol/L (3.6-5.0) 03/20/21 05:43 Chloride 95.3 mmol/L (98-107) L 03/20/21 05:43 Carbon Dioxide 31 mmol/L (22-30) H 03/20/21 05:43 Anion Gap 14 mmol/L 03/20/21 05:43 BUN 15 mg/dL (9-20) 03/20/21 05:43 Creatinine 0.9 mg/dL (0.8-1.3) 03/20/21 05:43 Estimated GFR > 60 ml/min 03/20/21 05:43 BUN/Creatinine Ratio 17 % 03/20/21 05:43 Glucose 128 mg/dL (75-100) H 03/20/21 05:43 POC Glucose 129 mg/dL (70-105) H 03/20/21 11:31 Hemoglobin A1c 8.4 % (4-6) H 03/18/21 22:16 Lactic Acid 1.90 mmol/L (0.7-2.0) 03/18/21 23:29 Calcium 9.2 mg/dL (8.4-10.2) 03/20/21 05:43 Total Bilirubin 1.30 mg/dL (0.1-1.2) H 03/20/21 05:43 AST 24 units/L (5-40) 03/20/21 05:43 ALT 16 units/L (7-56) 03/20/21 05:43 Alkaline Phosphatase 180 units/L (35-129) H 03/20/21 05:43 NT-Pro-B Natriuret Pep 1808 pg/mL (0-450) H 03/18/21 22:16 Total Protein 7.6 g/dL (6.3-8.2) 03/20/21 05:43 Albumin 3.8 g/dL (3.9-5) L 03/20/21 05:43 Albumin/Globulin Ratio 1.0 % 03/20/21 05:43 Results - Labs CBC & Chem 7: 03/20/21 05:43 03/20/21 05:43 Labs: Laboratory Last Values WBC 7.4 K/mm3 (4.5-11.0) 03/20/21 05:43 RBC 4.62 M/mm3 (3.65-5.03) 03/20/21 05:43 Hgb 11.8 gm/dl (11.8-15.2) 03/20/21 05:43 Hct 38.4 % (35.5-45.6) 03/20/21 05:43 MCV 83 fl (84-94) L 03/20/21 05:43 MCH 26 pg (28-32) L 03/20/21 05:43 MCHC 31 % (32-34) L 03/20/21 05:43 RDW 17.1 % (13.2-15.2) H 03/20/21 05:43 Plt Count 293 K/mm3 (140-440) 03/20/21 05:43 Lymph % (Auto) 12.8 % (13.4-35.0) L 03/20/21 05:43 [place] % (Auto) 8.0 % (0.0-7.3) H 03/20/21 05:43 Eos % (Auto) 3.7 % (0.0-4.3) 03/20/21 05:43 Baso % (Auto) 1.2 % (0.0-1.8) 03/20/21 05:43 Lymph # (Auto) 0.9 K/mm3 (1.2-5.4) L 03/20/21 05:43 [place] # (Auto) 0.6 K/mm3 (0.0-0.8) 03/20/21 05:43 Eos # (Auto) 0.3 K/mm3 (0.0-0.4) 03/20/21 05:43 Baso # (Auto) 0.1 K/mm3 (0.0-0.1) 03/20/21 05:43 Seg Neutrophils % 74.3 % (40.0-70.0) H 03/20/21 05:43 Seg Neutrophils # 5.5 K/mm3 (1.8-7.7) 03/20/21 05:43 Sodium 136 mmol/L (137-145) L 03/20/21 05:43 Potassium 4.4 mmol/L (3.6-5.0) 03/20/21 05:43 Chloride 95.3 mmol/L (98-107) L 03/20/21 05:43 Carbon Dioxide 31 mmol/L (22-30) H 03/20/21 05:43 Anion Gap 14 mmol/L 03/20/21 05:43 BUN 15 mg/dL (9-20) 03/20/21 05:43 Creatinine 0.9 mg/dL (0.8-1.3) 03/20/21 05:43 Estimated GFR > 60 ml/min 03/20/21 05:43 BUN/Creatinine Ratio 17 % 03/20/21 05:43 Glucose 128 mg/dL (75-100) H 03/20/21 05:43 POC Glucose 129 mg/dL (70-105) H 03/20/21 11:31 Hemoglobin A1c 8.4 % (4-6) H 03/18/21 22:16 Lactic Acid 1.90 mmol/L (0.7-2.0) 03/18/21 23:29 Calcium 9.2 mg/dL (8.4-10.2) 03/20/21 05:43 Total Bilirubin 1.30 mg/dL (0.1-1.2) H 03/20/21 05:43 AST 24 units/L (5-40) 03/20/21 05:43 ALT 16 units/L (7-56) 03/20/21 05:43 Alkaline Phosphatase 180 units/L (35-129) H 03/20/21 05:43 NT-Pro-B Natriuret Pep 1808 pg/mL (0-450) H 03/18/21 22:16 Total Protein 7.6 g/dL (6.3-8.2) 03/20/21 05:43 Albumin 3.8 g/dL (3.9-5) L 03/20/21 05:43 Albumin/Globulin Ratio 1.0 % 03/20/21 05:43 Microbiology: Microbiology 03/18/21 22:48 Peripheral/Venous Blood Culture - Preliminary NO GROWTH AFTER 24 HOURS 03/18/21 23:29 Peripheral/Venous Blood Culture - Preliminary NO GROWTH AFTER 24 HOURS Martinez/IV: Voiding Method Toilet Active Medications - Current Medications Current Medications: Generic Name Dose Route Start Last Admin Trade Name Freq PRN Reason Stop Dose Admin Acetaminophen 650 mg 03/18/21 23:52 03/20/21 11:27 Acetaminophen 325 Mg Tab PO 650 mg Q4H PRN Administration Pain MILD(1-3)/Fever >100.5/PAREDES Albuterol 2.5 mg 03/19/21 00:03 Albuterol 2.5 Mg/3 Ml Nebu IH Q4HRT PRN Shortness Of Breath Alprazolam 0.25 mg 03/18/21 23:57 Alprazolam 0.25 Mg Tab PO QHS PRN Anxiety Apixaban 2.5 mg 03/19/21 01:15 03/20/21 09:32 Apixaban 2.5 Mg Tab PO 2.5 mg Q12HR [place]IS Administration Aspirin 81 mg 03/19/21 10:00 03/20/21 09:31 Aspirin 81 Mg Tab Chew PO 81 mg QDAY [place] Administration Atorvastatin Calcium 40 mg 03/19/21 22:00 03/19/21 22:30 Atorvastatin 40 Mg Tab PO 40 mg QHS [place]IS Administration Carvedilol 6.25 mg 03/19/21 10:00 03/20/21 09:32 Carvedilol 6.25 Mg Tab PO 6.25 mg BID PARIS Administration Clopidogrel Bisulfate 75 mg 03/19/21 14:00 03/20/21 09:31 Clopidogrel 75 Mg Tab PO 75 mg QDAY [place] Administration Dextrose 50 ml 03/18/21 23:52 Dextrose 50% In Water (25gm) 50 Ml Syringe IV Q30MIN PRN Hypoglycemia Protocol Docusate Sodium 100 mg 03/19/21 10:00 03/20/21 09:31 Docusate Sodium 100 Mg Cap PO 100 mg BID PARIS Administration Furosemide 40 mg 03/19/21 10:00 03/20/21 09:32 Furosemide 40 Mg/4 Ml Inj IV 40 mg QDAY [place] Administration Hydromorphone HCl 0.5 mg 03/18/21 23:55 03/19/21 10:48 Hydromorphone 1 Mg/1 Ml Inj IV 0.5 mg Q3H PRN Administration Pain , Severe (7-10) Ampicillin Sodium/Sulbactam Sodium 3 gm in 100 mls @ 200 mls/hr 03/19/21 12:00 03/20/21 12:35 Unasyn/Ns 3 Gm/100 Ml IV 200 mls/hr Q6HR PARIS Administration Milrinone Lactate/Dextrose 20 mg in 100 mls @ 13.37 mls/hr 03/20/21 10:00 Milrinone-D5w 20 Mg/100 Ml IV 03/23/21 09:59 DIRECT PARIS Protocol 0.375 MCG/KG/MIN Insulin Human Lispro 0 unit 03/19/21 07:30 03/20/21 11:52 Insulin Lispro 100 Unit/Ml SUB-Q Not Given ACHS PARIS Protocol Isosorbide Mononitrate 30 mg 03/20/21 10:00 03/20/21 09:32 Isosorbide Mononitrate Er 30 Mg Tab PO 30 mg QDAY [place] Administration Lisinopril 20 mg 03/20/21 10:00 03/20/21 09:32 Lisinopril 20 Mg Tab PO 20 mg QDAY [place] Administration Naloxone HCl 0.1 mg 03/18/21 23:55 Naloxone 0.4 Mg/1 Ml Inj IV Q2MIN PRN Res Rate </= 8 or 02 SAT < 92% Nicotine 14 mg 03/19/21 10:00 03/20/21 09:31 Nicotine 14 Mg/24 Hr Patch TD 14 mg DAILY PARIS Administration Ondansetron HCl 4 mg 03/18/21 23:52 Ondansetron 4 Mg/2 Ml Inj IV Q8H PRN Nausea And Vomiting Oxycodone/Acetaminophen 1 tab 03/18/21 23:55 03/19/21 22:29 Oxycodone /Acetaminophen 5-325mg Tab PO 1 tab Q6H PRN Administration Pain, Moderate (4-6) Sodium Chloride 10 ml 03/19/21 10:00 03/20/21 09:33 Sodium Chloride 0.9% 10 Ml Flush Syringe IV 10 ml BID PARIS Administration Sodium Chloride 10 ml 03/18/21 23:52 Sodium Chloride 0.9% 10 Ml Flush Syringe IV PRN PRN LINE FLUSH Spironolactone 25 mg 03/20/21 10:00 03/20/21 09:31 Spironolactone 25 Mg Tab PO 25 mg QDAY PARIS Administration
[2021-03-20] MEDS: MILRINONE-D5W 20 MG/100 ML 20 MG/100 ML BAG IV SCH ×2 (14:26→20:38)
[2021-03-20] MEDS: oxyCODONE /ACETAMINOPHEN 5-325MG TAB PO PRN (21:18)
[2021-03-21] MEDS: MILRINONE-D5W 20 MG/100 ML 20 MG/100 ML BAG IV SCH ×2 (05:38→13:30)
[2021-03-21] MEDS: AMPICILLIN/SULBACTA 3GM/100ML 3 GM/100 ML BAG IV SCH ×4 (05:40→23:49)
[2021-03-21 05:59] LABS: BUN/Creatinine Ratio 19; Blood Urea Nitrogen 15 mg/dL (9-20); Hemolysis Index 2
[2021-03-21 06:42] LABS: Hepatitis C Virus Antibody Non-Reactive (NonReactive)
--- NOTE | 2021-03-21 08:01 | Progress Note ---
Assessment and Plan Assessment and plan: #Probable lower extremity cellulitis #venous stasis dermatitis #Bilateral lower extremity swelling -US venous duplex negative for DVT -exam more consistent with chronic venous stasis with superimposed edema -counseled on the need for control of fluid status, compression of lower extremity, and elevation at home -Infectious disease following, appreciate assistance -continue unasyn for now #Heart failure with reduced ejection fraction #ischemic cardiomyopathy #Coronary artery disease -TTE 01/2021: EF less than 15% -BNP 1808 -continue home medications -Continue milrinone drip -continue telemetry -Lasix dose changed to 20 IV twice daily -Cardiology consulted for optimization of fluid status #Left ventricular apical thrombus -Seen on last echocardiogram (01/2021) -Continue apixaban at current dose #Type 2 diabetes -A1c 8.4% -patient not taking any medications outpatient -controlled with SSI -will need to oral medications up discharge and outpatient follow up #Obesity #Sleep apnea -BMI 35.5% -Continue oxygen at night #Tobacco dependence -Counseled about tobacco cessation and detrimental effects of tobacco on his comorbidities: Time +10 mins Disposition Plan: Continue medical management Total Time Spent with Patient (Minutes): 20 minutes History Interval history: No acute events overnight. Shortness of breath improved his only wear oxygen at night due to inability to tolerate CPAP. Has been having continued improvement in edema. Continues to have bilateral leg pain. Hospitalist Physical - Physical exam Narrative exam: GENERAL: Obese. Standing up in no acute distress CHEST/LUNGS: Coarse breath sounds bilaterally. HEART/CARDIOVASCULAR: RRR. No murmur, rubs or gallops appreciated. ABDOMEN: +BS. NT/ND. SKIN: Dusky color to bilateral lower extremity NEURO: No focal motor deficit. Follows all commands. EXTREMITIES: Improving edema to bilateral lower extremity. PSYCH: Cooperative. - Constitutional Vitals: Temp Pulse Resp BP Pulse Ox 97.8 F 109 H 22 114/63 89 03/21/21 03:15 03/21/21 03:15 03/21/21 03:15 03/21/21 03:15 03/21/21 03:15 General appearance: Present: no acute distress Results - Labs CBC & Chem 7: 03/20/21 05:43 03/21/21 04:08 Labs: Laboratory Last Values WBC 7.4 K/mm3 (4.5-11.0) 03/20/21 05:43 RBC 4.62 M/mm3 (3.65-5.03) 03/20/21 05:43 Hgb 11.8 gm/dl (11.8-15.2) 03/20/21 05:43 Hct 38.4 % (35.5-45.6) 03/20/21 05:43 MCV 83 fl (84-94) L 03/20/21 05:43 MCH 26 pg (28-32) L 03/20/21 05:43 MCHC 31 % (32-34) L 03/20/21 05:43 RDW 17.1 % (13.2-15.2) H 03/20/21 05:43 Plt Count 293 K/mm3 (140-440) 03/20/21 05:43 Lymph % (Auto) 12.8 % (13.4-35.0) L 03/20/21 05:43 [place] % (Auto) 8.0 % (0.0-7.3) H 03/20/21 05:43 Eos % (Auto) 3.7 % (0.0-4.3) 03/20/21 05:43 Baso % (Auto) 1.2 % (0.0-1.8) 03/20/21 05:43 Lymph # (Auto) 0.9 K/mm3 (1.2-5.4) L 03/20/21 05:43 [place] # (Auto) 0.6 K/mm3 (0.0-0.8) 03/20/21 05:43 Eos # (Auto) 0.3 K/mm3 (0.0-0.4) 03/20/21 05:43 Baso # (Auto) 0.1 K/mm3 (0.0-0.1) 03/20/21 05:43 Seg Neutrophils % 74.3 % (40.0-70.0) H 03/20/21 05:43 Seg Neutrophils # 5.5 K/mm3 (1.8-7.7) 03/20/21 05:43 Sodium 139 mmol/L (137-145) 03/21/21 04:08 Potassium 3.7 mmol/L (3.6-5.0) 03/21/21 04:08 Chloride 98.9 mmol/L (98-107) 03/21/21 04:08 Carbon Dioxide 29 mmol/L (22-30) 03/21/21 04:08 Anion Gap 15 mmol/L 03/21/21 04:08 BUN 15 mg/dL (9-20) 03/21/21 04:08 Creatinine 0.8 mg/dL (0.8-1.3) 03/21/21 04:08 Estimated GFR > 60 ml/min 03/21/21 04:08 BUN/Creatinine Ratio 19 % 03/21/21 04:08 Glucose 173 mg/dL (75-100) H 03/21/21 04:08 POC Glucose 175 mg/dL (70-105) H 03/21/21 07:35 Hemoglobin A1c 8.4 % (4-6) H 03/18/21 22:16 Lactic Acid 1.90 mmol/L (0.7-2.0) 03/18/21 23:29 Calcium 9.0 mg/dL (8.4-10.2) 03/21/21 04:08 Total Bilirubin 1.30 mg/dL (0.1-1.2) H 03/20/21 05:43 AST 24 units/L (5-40) 03/20/21 05:43 ALT 16 units/L (7-56) 03/20/21 05:43 Alkaline Phosphatase 180 units/L (35-129) H 03/20/21 05:43 C-Reactive Protein 1.70 mg/dL (0.00-1.30) H 03/21/21 05:28 NT-Pro-B Natriuret Pep 1808 pg/mL (0-450) H 03/18/21 22:16 Total Protein 7.6 g/dL (6.3-8.2) 03/20/21 05:43 Albumin 3.8 g/dL (3.9-5) L 03/20/21 05:43 Albumin/Globulin Ratio 1.0 % 03/20/21 05:43 Hepatitis C Antibody Non-reactive (NonReactive) 03/21/21 05:28 Microbiology: Microbiology 03/18/21 22:48 Peripheral/Venous Blood Culture - Preliminary NO GROWTH AFTER 48 HOURS 03/18/21 23:29 Peripheral/Venous Blood Culture - Preliminary NO GROWTH AFTER 48 HOURS Martinez/IV: Voiding Method Toilet Active Medications - Current Medications Current Medications: Generic Name Dose Route Start Last Admin Trade Name Freq PRN Reason Stop Dose Admin Acetaminophen 650 mg 03/18/21 23:52 03/20/21 11:27 Acetaminophen 325 Mg Tab PO 650 mg Q4H PRN Administration Pain MILD(1-3)/Fever >100.5/PAREDES Albuterol 2.5 mg 03/19/21 00:03 Albuterol 2.5 Mg/3 Ml Nebu IH Q4HRT PRN Shortness Of Breath Alprazolam 0.25 mg 03/18/21 23:57 Alprazolam 0.25 Mg Tab PO QHS PRN Anxiety Apixaban 2.5 mg 03/19/21 01:15 03/20/21 21:23 Apixaban 2.5 Mg Tab PO 2.5 mg Q12HR PARIS Administration Aspirin 81 mg 03/19/21 10:00 03/20/21 09:31 Aspirin 81 Mg Tab Chew PO 81 mg QDAY [place] Administration Atorvastatin Calcium 40 mg 03/19/21 22:00 03/20/21 21:22 Atorvastatin 40 Mg Tab PO 40 mg QHS [place] Administration Carvedilol 6.25 mg 03/19/21 10:00 03/20/21 21:22 Carvedilol 6.25 Mg Tab PO 6.25 mg BID [place] Administration Clopidogrel Bisulfate 75 mg 03/19/21 14:00 03/20/21 09:31 Clopidogrel 75 Mg Tab PO 75 mg QDAY [place] Administration Dextrose 50 ml 03/18/21 23:52 Dextrose 50% In Water (25gm) 50 Ml Syringe IV Q30MIN PRN Hypoglycemia Protocol Docusate Sodium 100 mg 03/19/21 10:00 03/20/21 21:23 Docusate Sodium 100 Mg Cap PO 100 mg BID [place] Administration Furosemide 40 mg 03/19/21 10:00 03/20/21 09:32 Furosemide 40 Mg/4 Ml Inj IV 40 mg QDAY [place] Administration Hydromorphone HCl 0.5 mg 03/18/21 23:55 03/19/21 10:48 Hydromorphone 1 Mg/1 Ml Inj IV 0.5 mg Q3H PRN Administration Pain , Severe (7-10) Ampicillin Sodium/Sulbactam Sodium 3 gm in 100 mls @ 200 mls/hr 03/19/21 12:00 03/21/21 05:40 Unasyn/Ns 3 Gm/100 Ml IV 200 mls/hr Q6HR [place] Administration Milrinone Lactate/Dextrose 20 mg in 100 mls @ 13.37 mls/hr 03/20/21 10:00 03/21/21 05:38 Milrinone-D5w 20 Mg/100 Ml IV 03/23/21 09:59 0.375 mcg/kg/min DIRECT [place]IS 13.37 mls/hr Administration Protocol 0.375 MCG/KG/MIN Insulin Human Lispro 0 unit 03/19/21 07:30 03/20/21 21:35 Insulin Lispro 100 Unit/Ml SUB-Q 2 unit ACHS PARIS Administration Protocol Isosorbide Mononitrate 30 mg 03/20/21 10:00 03/20/21 09:32 Isosorbide Mononitrate Er 30 Mg Tab PO 30 mg QDAY [place] Administration Lisinopril 20 mg 03/20/21 10:00 03/20/21 09:32 Lisinopril 20 Mg Tab PO 20 mg QDAY [place] Administration Naloxone HCl 0.1 mg 03/18/21 23:55 Naloxone 0.4 Mg/1 Ml Inj IV Q2MIN PRN Res Rate </= 8 or 02 SAT < 92% Nicotine 14 mg 03/19/21 10:00 03/20/21 09:31 Nicotine 14 Mg/24 Hr Patch TD 14 mg DAILY [place]IS Administration Ondansetron HCl 4 mg 03/18/21 23:52 Ondansetron 4 Mg/2 Ml Inj IV Q8H PRN Nausea And Vomiting Oxycodone/Acetaminophen 1 tab 03/18/21 23:55 03/20/21 21:18 Oxycodone /Acetaminophen 5-325mg Tab PO 1 tab Q6H PRN Administration Pain, Moderate (4-6) Sodium Chloride 10 ml 03/19/21 10:00 03/20/21 21:33 Sodium Chloride 0.9% 10 Ml Flush Syringe IV 10 ml BID PARIS Administration Sodium Chloride 10 ml 03/18/21 23:52 Sodium Chloride 0.9% 10 Ml Flush Syringe IV PRN PRN LINE FLUSH Spironolactone 25 mg 03/20/21 10:00 03/20/21 09:31 Spironolactone 25 Mg Tab PO 25 mg QDAY PARIS Administration
[2021-03-21] MEDS: oxyCODONE /ACETAMINOPHEN 5-325MG TAB PO PRN (08:23)
[2021-03-21] MEDS: INSULIN LISPRO 100 UNIT/ML SUB-Q SCH ×4 (08:24→21:34)
[2021-03-21] MEDS: DOCUSATE SODIUM 100 MG CAP PO SCH ×2 (09:36→21:12)
[2021-03-21] MEDS: ASPIRIN 81 MG TAB CHEW PO SCH (09:36)
[2021-03-21] MEDS: NICOTINE 14 MG/24 HR PATCH TD SCH (09:36)
[2021-03-21] MEDS: FUROSEMIDE 40 MG/4 ML INJ IV SCH (09:36)
[2021-03-21] MEDS: SPIRONOLACTONE 25 MG TAB PO SCH (09:37)
[2021-03-21] MEDS: APIXABAN 2.5 MG TAB PO SCH ×2 (09:37→21:13)
[2021-03-21] MEDS: CLOPIDOGREL 75 MG TAB PO SCH (09:37)
[2021-03-21] MEDS: carvediloL 6.25 MG TAB PO SCH ×2 (09:37→21:12)
[2021-03-21] MEDS: LISINOPRIL 20 MG TAB PO SCH (09:37)
--- NOTE | 2021-03-21 09:59 | Progress Note ---
Assessment and Plan Acute on chronic systolic heart failure Ischemic cardiomyopathy Coronary artery disease s/p PCI 5 months ago Bilateral LE cellulitis COPD DIRK Cannot tolerate CPAP Recommendations: Continue IV milrinone Change lasix to 20 mg IV bid at patient request Subjective Date of service: 03/21/21 Principal diagnosis: CHF Interval history: Patient feeling better however he continues to be volume overloaded on exam. He is requesting to lower IV lasix dose to 20 mg bid instead of 40 mg IV once a day. Objective Vital Signs Temp Pulse Pulse Resp BP Pulse Ox 03/21/21 07:38 98.4 F 114 H 18 143/82 94 03/21/21 03:15 97.8 F 109 H 22 114/63 89 03/20/21 23:22 98.0 F 106 H 18 122/69 91 03/20/21 22:00 112 H 18 94 03/20/21 21:22 115 H 120/66 03/20/21 19:30 98.1 F 115 H 19 120/66 94 03/20/21 17:00 98 03/20/21 15:35 98.1 F 104 H 20 121/80 93 03/20/21 11:33 97.4 F L 95 H 22 112/69 96 - Physical Examination General: No Apparent Distress HEENT: Positive: PERRL Neck: Positive: neck supple Cardiac: Positive: Tachycardia Lungs: Positive: Normal Exam Neuro: Positive: Grossly Intact Abdomen: Positive: Soft Skin: Positive: Clear Extremities: Present: +2 Edema (With bilateral erythema, consistent with bilateral cellulitis) - Labs and Meds Comprehensive Metabolic Panel 03/21/21 Range/Units 04:08 Sodium 139 (137-145) mmol/L Potassium 3.7 (3.6-5.0) mmol/L Chloride 98.9 (98-107) mmol/L Carbon Dioxide 29 (22-30) mmol/L BUN 15 (9-20) mg/dL Creatinine 0.8 (0.8-1.3) mg/dL Glucose 173 H (75-100) mg/dL Calcium 9.0 (8.4-10.2) mg/dL
[2021-03-21] MEDS: GABAPENTIN 300 MG CAP PO SCH ×2 (13:13→21:13)
[2021-03-21] MEDS: FUROSEMIDE 20 MG/2 ML INJ IV SCH (17:46)
[2021-03-22] MEDS: HYDROmorphone 1 MG/1 ML INJ IV PRN (01:06)
[2021-03-22] MEDS: FUROSEMIDE 20 MG/2 ML INJ IV SCH ×2 (05:53→17:30)
[2021-03-22] MEDS: GABAPENTIN 300 MG CAP PO SCH ×3 (05:53→21:26)
[2021-03-22] MEDS: AMPICILLIN/SULBACTA 3GM/100ML 3 GM/100 ML BAG IV SCH ×4 (05:53→23:46)
[2021-03-22] MEDS: MILRINONE-D5W 20 MG/100 ML 20 MG/100 ML BAG IV SCH ×2 (06:31→16:39)
[2021-03-22 06:37] LABS: Hematocrit 37.2 % (35.5-45.6); Hemoglobin 11.7 gm/dl (11.8-15.2); Mean Corpuscular HGB Conc 32 % (32-34); Mean Corpuscular Volume 84 fl (84-94); Platelet Count 295 K/mm3 (140-440); Red Blood Count 4.44 M/mm3 (3.65-5.03)
[2021-03-22 06:59] LABS: Blood Urea Nitrogen 12 mg/dL (9-20); Hemolysis Index 5
[2021-03-22 07:12] LABS: BUN/Creatinine Ratio 17
--- NOTE | 2021-03-22 08:05 | Progress Note ---
Assessment and Plan Assessment and plan: #Probable lower extremity cellulitis #venous stasis dermatitis #Bilateral lower extremity swelling -US venous duplex negative for DVT -exam more consistent with chronic venous stasis with superimposed edema -counseled on the need for control of fluid status, compression of lower extremity, and elevation at home -Infectious disease following, appreciate assistance -continue unasyn for now #Heart failure with reduced ejection fraction #ischemic cardiomyopathy #Coronary artery disease -TTE 01/2021: EF less than 15% -BNP 1808 -continue home medications -Continue milrinone drip -continue telemetry and lasix while inpatient -will discharge with toresmide per Cardiology recommendations -Cardiology consulted for optimization of fluid status #Left ventricular apical thrombus -Seen on last echocardiogram (01/2021) -Continue apixaban at current dose #Type 2 diabetes -A1c 8.4% -patient not taking any medications outpatient -controlled with SSI -will need to oral medications up discharge and outpatient follow up #Obesity #Sleep apnea -BMI 35.5% -Continue oxygen at night #Tobacco dependence -Counseled about tobacco cessation and detrimental effects of tobacco on his comorbidities: Time +10 mins Disposition Plan: Home Total Time Spent with Patient (Minutes): 20 minutes History Interval history: No acute events overnight. Patient continues to notice improvement in edema. Still having bilateral leg pain. Hospitalist Physical - Physical exam Narrative exam: GENERAL: Obese. Lying in bed, no acute distress CHEST/LUNGS: Coarse breath sounds bilaterally. HEART/CARDIOVASCULAR: RRR. No murmur, rubs or gallops appreciated. ABDOMEN: +BS. NT/ND. SKIN: Dusky color to bilateral lower extremity NEURO: No focal motor deficit. Follows all commands. EXTREMITIES: Improving edema to bilateral lower extremity. PSYCH: Cooperative. - Constitutional Vitals: Temp Pulse Resp BP Pulse Ox 97.9 F 105 H 19 131/71 91 03/22/21 03:27 03/22/21 03:27 03/22/21 03:27 03/22/21 03:27 03/22/21 03:27 General appearance: Present: no acute distress Results - Labs CBC & Chem 7: 03/22/21 04:18 03/22/21 04:18 Labs: Laboratory Last Values WBC 7.5 K/mm3 (4.5-11.0) 03/22/21 04:18 RBC 4.44 M/mm3 (3.65-5.03) 03/22/21 04:18 Hgb 11.7 gm/dl (11.8-15.2) L 03/22/21 04:18 Hct 37.2 % (35.5-45.6) 03/22/21 04:18 MCV 84 fl (84-94) 03/22/21 04:18 MCH 26 pg (28-32) L 03/22/21 04:18 MCHC 32 % (32-34) 03/22/21 04:18 RDW 17.0 % (13.2-15.2) H 03/22/21 04:18 Plt Count 295 K/mm3 (140-440) 03/22/21 04:18 Lymph % (Auto) 12.8 % (13.4-35.0) L 03/20/21 05:43 [place] % (Auto) 8.0 % (0.0-7.3) H 03/20/21 05:43 Eos % (Auto) 3.7 % (0.0-4.3) 03/20/21 05:43 Baso % (Auto) 1.2 % (0.0-1.8) 03/20/21 05:43 Lymph # (Auto) 0.9 K/mm3 (1.2-5.4) L 03/20/21 05:43 [place] # (Auto) 0.6 K/mm3 (0.0-0.8) 03/20/21 05:43 Eos # (Auto) 0.3 K/mm3 (0.0-0.4) 03/20/21 05:43 Baso # (Auto) 0.1 K/mm3 (0.0-0.1) 03/20/21 05:43 Seg Neutrophils % 74.3 % (40.0-70.0) H 03/20/21 05:43 Seg Neutrophils # 5.5 K/mm3 (1.8-7.7) 03/20/21 05:43 Sodium 139 mmol/L (137-145) 03/22/21 04:18 Potassium 4.4 mmol/L (3.6-5.0) 03/22/21 04:18 Chloride 98.6 mmol/L (98-107) 03/22/21 04:18 Carbon Dioxide 27 mmol/L (22-30) 03/22/21 04:18 Anion Gap 18 mmol/L 03/22/21 04:18 BUN 12 mg/dL (9-20) 03/22/21 04:18 Creatinine 0.7 mg/dL (0.8-1.3) L 03/22/21 04:18 Estimated GFR > 60 ml/min 03/22/21 04:18 BUN/Creatinine Ratio 17 % 03/22/21 04:18 Glucose 132 mg/dL (75-100) H 03/22/21 04:18 POC Glucose 138 mg/dL (70-105) H 03/22/21 07:39 Hemoglobin A1c 8.4 % (4-6) H 03/18/21 22:16 Lactic Acid 1.90 mmol/L (0.7-2.0) 03/18/21 23:29 Calcium 9.0 mg/dL (8.4-10.2) 03/22/21 04:18 Total Bilirubin 1.30 mg/dL (0.1-1.2) H 03/20/21 05:43 AST 24 units/L (5-40) 03/20/21 05:43 ALT 16 units/L (7-56) 03/20/21 05:43 Alkaline Phosphatase 180 units/L (35-129) H 03/20/21 05:43 C-Reactive Protein 1.70 mg/dL (0.00-1.30) H 03/21/21 05:28 NT-Pro-B Natriuret Pep 1808 pg/mL (0-450) H 03/18/21 22:16 Total Protein 7.6 g/dL (6.3-8.2) 03/20/21 05:43 Albumin 3.8 g/dL (3.9-5) L 03/20/21 05:43 Albumin/Globulin Ratio 1.0 % 03/20/21 05:43 Hepatitis C Antibody Non-reactive (NonReactive) 03/21/21 05:28 Microbiology: Microbiology 03/18/21 22:48 Peripheral/Venous Blood Culture - Preliminary NO GROWTH AFTER 72 HOURS 03/18/21 23:29 Peripheral/Venous Blood Culture - Preliminary NO GROWTH AFTER 72 HOURS Martinez/IV: Voiding Method Urinal Active Medications - Current Medications Current Medications: Generic Name Dose Route Start Last Admin Trade Name Freq PRN Reason Stop Dose Admin Acetaminophen 650 mg 03/18/21 23:52 03/20/21 11:27 Acetaminophen 325 Mg Tab PO 650 mg Q4H PRN Administration Pain MILD(1-3)/Fever >100.5/PAREDES Albuterol 2.5 mg 03/19/21 00:03 Albuterol 2.5 Mg/3 Ml Nebu IH Q4HRT PRN Shortness Of Breath Alprazolam 0.25 mg 03/18/21 23:57 03/22/21 01:06 Alprazolam 0.25 Mg Tab PO 0.25 mg QHS PRN Administration Anxiety Apixaban 2.5 mg 03/19/21 01:15 03/21/21 21:13 Apixaban 2.5 Mg Tab PO 2.5 mg Q12HR PARIS Administration Aspirin 81 mg 03/19/21 10:00 03/21/21 09:36 Aspirin 81 Mg Tab Chew PO 81 mg QDAY PARIS Administration Atorvastatin Calcium 40 mg 03/19/21 22:00 03/21/21 21:13 Atorvastatin 40 Mg Tab PO 40 mg QHS PARIS Administration Carvedilol 6.25 mg 03/19/21 10:00 03/21/21 21:12 Carvedilol 6.25 Mg Tab PO 6.25 mg BID PARIS Administration Clopidogrel Bisulfate 75 mg 03/19/21 14:00 03/21/21 09:37 Clopidogrel 75 Mg Tab PO 75 mg QDAY PARIS Administration Dextrose 50 ml 03/18/21 23:52 Dextrose 50% In Water (25gm) 50 Ml Syringe IV Q30MIN PRN Hypoglycemia Protocol Docusate Sodium 100 mg 03/19/21 10:00 03/21/21 21:12 Docusate Sodium 100 Mg Cap PO 100 mg BID PARIS Administration Furosemide 20 mg 03/21/21 18:00 03/22/21 05:53 Furosemide 20 Mg/2 Ml Inj IV 20 mg 0600,1800 PARIS Administration Gabapentin 300 mg 03/21/21 14:00 03/22/21 05:53 Gabapentin 300 Mg Cap PO 300 mg Q8HR PARIS Administration Hydromorphone HCl 0.5 mg 03/18/21 23:55 03/22/21 01:06 Hydromorphone 1 Mg/1 Ml Inj IV 0.5 mg Q3H PRN Administration Pain , Severe (7-10) Ampicillin Sodium/Sulbactam Sodium 3 gm in 100 mls @ 200 mls/hr 03/19/21 12:00 03/22/21 05:53 Unasyn/Ns 3 Gm/100 Ml IV 200 mls/hr Q6HR PARIS Administration Milrinone Lactate/Dextrose 20 mg in 100 mls @ 13.37 mls/hr 03/20/21 10:00 03/22/21 06:31 Milrinone-D5w 20 Mg/100 Ml IV 03/23/21 09:59 0.36 mcg/kg/min DIRECT PARIS 12.9 mls/hr Infusion Protocol 0.375 MCG/KG/MIN Insulin Human Lispro 0 unit 03/19/21 07:30 03/21/21 21:34 Insulin Lispro 100 Unit/Ml SUB-Q Not Given ACHS PARIS Protocol Isosorbide Mononitrate 30 mg 03/20/21 10:00 03/21/21 09:36 Isosorbide Mononitrate Er 30 Mg Tab PO 30 mg QDAY PARIS Administration Lisinopril 20 mg 03/20/21 10:00 03/21/21 09:37 Lisinopril 20 Mg Tab PO 20 mg QDAY PARIS Administration Naloxone HCl 0.1 mg 03/18/21 23:55 Naloxone 0.4 Mg/1 Ml Inj IV Q2MIN PRN Res Rate </= 8 or 02 SAT < 92% Nicotine 14 mg 03/19/21 10:00 03/21/21 09:36 Nicotine 14 Mg/24 Hr Patch TD 14 mg DAILY PARIS Administration Ondansetron HCl 4 mg 03/18/21 23:52 Ondansetron 4 Mg/2 Ml Inj IV Q8H PRN Nausea And Vomiting Oxycodone/Acetaminophen 1 tab 03/18/21 23:55 03/21/21 08:23 Oxycodone /Acetaminophen 5-325mg Tab PO 1 tab Q6H PRN Administration Pain, Moderate (4-6) Sodium Chloride 10 ml 03/19/21 10:00 03/21/21 21:13 Sodium Chloride 0.9% 10 Ml Flush Syringe IV 10 ml BID PARIS Administration Sodium Chloride 10 ml 03/18/21 23:52 Sodium Chloride 0.9% 10 Ml Flush Syringe IV PRN PRN LINE FLUSH Spironolactone 25 mg 03/20/21 10:00 03/21/21 09:37 Spironolactone 25 Mg Tab PO 25 mg QDAY PARIS Administration
[2021-03-22] MEDS: INSULIN LISPRO 100 UNIT/ML SUB-Q SCH ×4 (09:47→21:39)
[2021-03-22] MEDS: NICOTINE 14 MG/24 HR PATCH TD SCH (10:06)
[2021-03-22] MEDS: SPIRONOLACTONE 25 MG TAB PO SCH (10:08)
[2021-03-22] MEDS: APIXABAN 2.5 MG TAB PO SCH ×2 (10:14→21:38)
[2021-03-22] MEDS: CLOPIDOGREL 75 MG TAB PO SCH (10:14)
[2021-03-22] MEDS: DOCUSATE SODIUM 100 MG CAP PO SCH ×2 (10:14→21:26)
[2021-03-22] MEDS: carvediloL 6.25 MG TAB PO SCH ×2 (10:15→21:26)
[2021-03-22] MEDS: LISINOPRIL 20 MG TAB PO SCH (10:18)
[2021-03-22] MEDS: ASPIRIN 81 MG TAB CHEW PO SCH (10:18)
--- NOTE | 2021-03-22 10:23 | Progress Note ---
Assessment and Plan Acute on chronic systolic heart failure Ischemic cardiomyopathy Coronary artery disease s/p PCI 5 months ago Bilateral LE cellulitis COPD DIRK Cannot tolerate CPAP Recommendations: Continue IV milrinone as long as inpatient. Discontinue when ready for discharge from a noncardiac standpoint. Continue IV diuretics. Switch to p.o. torsemide 40 mg once a day upon discharge. Subjective Date of service: 03/22/21 Principal diagnosis: CHF Interval history: Patient is asleep. No cardiac events recorded overnight. Discussed with RN. Objective Vital Signs Temp Pulse Resp BP Pulse Ox 03/22/21 10:18 110 H 03/22/21 10:15 114 H 03/22/21 10:14 114 H 03/22/21 10:08 114 H 03/22/21 07:41 98.4 F 101 H 18 149/84 86 03/22/21 03:27 97.9 F 105 H 19 131/71 91 03/21/21 22:35 98.2 F 103 H 19 102/54 96 03/21/21 22:00 98 03/21/21 21:40 96 03/21/21 21:12 103 H 131/78 03/21/21 19:30 98.3 F 112 H 18 126/79 94 03/21/21 15:10 98.4 F 103 H 18 131/78 93 - Physical Examination General: No Apparent Distress HEENT: Positive: PERRL Neck: Positive: neck supple Cardiac: Positive: Reg Rate and Rhythm Lungs: Positive: Normal Exam Neuro: Positive: Grossly Intact Abdomen: Positive: Soft Skin: Positive: Clear Extremities: Present: +2 Edema (With bilateral erythema, consistent with bilateral cellulitis) - Labs and Meds CBC 03/22/21 Range/Units 04:18 WBC 7.5 (4.5-11.0) K/mm3 RBC 4.44 (3.65-5.03) M/mm3 Hgb 11.7 L (11.8-15.2) gm/dl Hct 37.2 (35.5-45.6) % Plt Count 295 (140-440) K/mm3 Comprehensive Metabolic Panel 03/22/21 Range/Units 04:18 Sodium 139 (137-145) mmol/L Potassium 4.4 (3.6-5.0) mmol/L Chloride 98.6 (98-107) mmol/L Carbon Dioxide 27 (22-30) mmol/L BUN 12 (9-20) mg/dL Creatinine 0.7 L (0.8-1.3) mg/dL Glucose 132 H (75-100) mg/dL Calcium 9.0 (8.4-10.2) mg/dL
[2021-03-23] MEDS: MILRINONE-D5W 20 MG/100 ML 20 MG/100 ML BAG IV SCH (03:18)
[2021-03-23] MEDS: FUROSEMIDE 20 MG/2 ML INJ IV SCH (05:16)
[2021-03-23] MEDS: AMPICILLIN/SULBACTA 3GM/100ML 3 GM/100 ML BAG IV SCH (05:16)
[2021-03-23] MEDS: GABAPENTIN 300 MG CAP PO SCH (05:16)
[2021-03-23] MEDS: INSULIN LISPRO 100 UNIT/ML SUB-Q SCH (08:00)
--- NOTE | 2021-03-23 08:39 | Discharge Summary ---
Providers - Providers Date of Admission: 03/18/21 23:52 Date of discharge: 03/23/21 Attending physician: NARCISA ALMENDAREZ MD 03/18/21 23:51 Consult to Wound/ET Nurse [CONS] Routine Reason For Exam: wound eval 03/18/21 23:52 Consult to Physician [CONS] Routine Comment: Consulting Provider: RANDY ZENDEJAS Physician Instructions: Reason For Exam: hx ble cellulitis previously tx with augmentin 03/19/21 11:46 Consult to Physician [CONS] Routine Comment: Consulting Provider: PETE FERRIS Physician Instructions: Reason For Exam: Ischemic cardiomyopathy Primary care physician: [id number] DEVELOPER Hospitalization Condition: Stable Disposition: 30 STILL A PATIENT Exam - Constitutional Vitals: Temp Pulse Resp BP Pulse Ox 98.2 F 103 H 18 110/65 94 03/23/21 04:56 03/23/21 04:56 03/23/21 04:56 03/23/21 04:56 03/23/21 04:56 Plan Care Plan Goals: Please start wearing compression stockings during the day. If you find that you have increased swelling in your lower extremities, please elevate them. Try to restrict the total amount of fluid you consume every day (eating or drinking) to less than 1.5 liters. Consume a low sodium diet. Restrict processed foods, cured meats, do not add additional salt to prepared foods, wash canned vegetables before preparing them. You will start taking a new water pill called torsemide once per day. You can stop taking the furosemide. Please follow up with Cardiology and your primary care doctor after discharge. Follow up with: PRIMARY MD RUSTY [Primary Care Provider] - 3-5 Days Prescriptions: Torsemide [Demadex] 40 mg PO DAILY 30 Days #60 tablet Gabapentin 300 mg PO Q8HR 30 Days #90 capsule Compress.stocking,Knee,Reg,Lrg [Relief Knee Close Toe] 1 each MC DAILY 30 Days #2 each
[2021-03-23 10:56] LABS: BUN/Creatinine Ratio 14; Blood Urea Nitrogen 11 mg/dL (9-20); Calcium 9.2 mg/dL (8.4-10.2); Hemolysis Index 0
[2021-03-23] MEDS: NICOTINE 14 MG/24 HR PATCH TD SCH (11:04)
[2021-03-23] MEDS: ASPIRIN 81 MG TAB CHEW PO SCH (11:04)
[2021-03-23] MEDS: LISINOPRIL 20 MG TAB PO SCH (11:05)
[2021-03-23] MEDS: carvediloL 6.25 MG TAB PO SCH (11:14)
[2021-03-23] MEDS: DOCUSATE SODIUM 100 MG CAP PO SCH (11:14)
[2021-03-23] MEDS: APIXABAN 2.5 MG TAB PO SCH (11:15)
[2021-03-23] MEDS: CLOPIDOGREL 75 MG TAB PO SCH (11:15)
[2021-03-23 11:16] VITALS: BP 107/87
[2021-03-23] MEDS: SPIRONOLACTONE 25 MG TAB PO SCH (11:18)
--- NOTE | 2021-03-23 11:27 | Progress Note ---
Assessment and Plan Cultures: Blood culture no growth A/P: 45-year-old male past medical history tobacco abuse, hypertension, hyperlipidemia, CAD, CHF, diabetes, obesity admitted with: #Venous stasis vs cellulitis: More likely to be venous stasis dermatitis, especially in the setting of no fevers or white count and in the setting of edema. CRP and procal also normal. #CHF: With severe bilateral lower extremity edema #Diabetes: tight glycemic control for best outcomes. Recs: -continue off abx -Hep C negative, d/w patient ID will sign off. Please call with questions. Manuel Clements MD, FACP [facility] ([facility] O: [phone] F: [phone] Subjective Date of service: 03/23/21 Principal diagnosis: CHF Interval history: Denies any complaints. Getting discharged today. No cough, no fever. No new leg redness or pain. Objective - Exam Narrative Exam: Physical Exam: Constitutional: Alert, cooperative. No acute distress Head, Ears, Nose: Normocephalic, atraumatic. External ears, nose normal Eyes: Conjunctivae/corneas clear. No icterus. No ptosis. Neck: Supple, no meningeal signs Cardiovascular: S1, S2 + Respiratory: Good air entry, clear to auscultation bilaterally GI: Soft, non-tender; bowel sounds normal. No peritoneal signs Musculoskeletal: Trace bilateral pedal edema with multiple skin scabs Skin: No rash or abscess Hem/Lymphatic: No palpable cervical or supraclavicular nodes. No lymphangitis Psych: Mood ok. Affect normal Neurological: Awake, alert, oriented. No gross abnormality - Constitutional Vitals: Vital Signs Temp Pulse Resp BP Pulse Ox 98.2 F 102 H 18 107/87 93 03/23/21 04:56 03/23/21 11:18 03/23/21 04:56 03/23/21 11:18 03/23/21 10:23 Temperature -Last 24 Hours Temperature 98.2 F Temperature 98.4 F Temperature 98.4 F Temperature 99.2 F - Labs CBC & Chem 7: 03/22/21 04:18 03/23/21 09:49 Labs: Abnormal lab results 03/22/21 03/22/21 03/23/21 Range/Units 15:43 20:27 07:57 Chloride (98-107) mmol/L Glucose (75-100) mg/dL POC Glucose 144 H 111 H 140 H (70-105) mg/dL 03/23/21 Range/Units 09:49 Chloride 97.7 L (98-107) mmol/L Glucose 192 H (75-100) mg/dL POC Glucose (70-105) mg/dL
== END 2021-03-23 12:15 | disposition home or self-care (01) | DRG 602 ==
LOC: ED 21:13 → 3A 23:52 → 4A 03-20 14:01
PROVIDERS: ADMIT Internal Medicine Geriatric Medicine; ATTEND Student in an Organized Health Care Education/Training Program
DX: L03.116 Cellulitis of left lower limb (principal); I50.23 Acute on chronic systolic (congestive) heart failure; E87.2 Acidosis; L03.115 Cellulitis of right lower limb; M79.606 Pain in leg, unspecified; E11.9 Type 2 diabetes mellitus without complications; F17.200 Nicotine dependence, unspecified, uncomplicated; I25.2 Old myocardial infarction; I11.0 Hypertensive heart disease with heart failure; I25.10 Atherosclerotic heart disease of native coronary artery without angina pectoris; Z82.3 Family history of stroke; Z82.49 Family history of ischemic heart disease and other diseases of the circulatory system; E78.5 Hyperlipidemia, unspecified; D64.9 Anemia, unspecified; E66.9 Obesity, unspecified; I25.5 Ischemic cardiomyopathy
CPT/HCPCS: 36415; 71045; 80048; 80053; 82140; 82962; 83036; 83880; 84145; 85025; 85027; 86140; 86803; 87040; 93005; 93970; 94640; 94760; G0378; Q9967; J0295; J1170; J1815; J1940; J2260

== ENCOUNTER 2021-04-13 02:05 | Emergency (ER) | payer SELFPAY ==
[2021-04-13 02:16] VITALS: BP 139/94
[2021-04-13] MEDS ORDERED: HYDROcodone/ACETAMINOPHEN 5-325 MG TAB PO ONE (03:29)
[2021-04-13] MEDS ORDERED: CLINDAMYCIN 300 MG CAP PO ONE (03:29)
[2021-04-13] MEDS ORDERED: SULFAMETHOXAZOLE/TRIMETHOPRIM 800/160MG DS TAB PO ONE (03:29)
[2021-04-13] MEDS ORDERED: ONDANSETRON 4 MG ODT TAB PO ONE (03:30)
[2021-04-13] MEDS ORDERED: IBUPROFEN 600 MG TAB PO ONE (03:30)
[2021-04-13 04:38] LABS: Alanine Aminotransferase 19 units/L (7-56); BUN/Creatinine Ratio 19; Blood Urea Nitrogen 15 mg/dL (9-20); Calcium 9.8 mg/dL (8.4-10.2); Hemolysis Index 4
[2021-04-13 04:46] LABS: Basophils # (Auto) 0.1 K/mm3 (0.0-0.1); Basophils % (Auto) 0.9 % (0.0-1.8); Eosinophils # (Auto) 0.3 K/mm3 (0.0-0.4); Eosinophils % (Auto) 3.6 % (0.0-4.3); Hemoglobin 12.1 gm/dl (11.8-15.2); Lymphocytes # (Auto) 2.4 K/mm3 (1.2-5.4); Lymphocytes % (Auto) 28.9 % (13.4-35.0); Mean Corpuscular HGB Conc 30 % (32-34); Mean Corpuscular Volume 82 fl (84-94); Monocytes # (Auto) 0.6 K/mm3 (0.0-0.8); Monocytes % (Auto) 7.8 % (0.0-7.3); Platelet Count 234 K/mm3 (140-440); Red Blood Count 4.92 M/mm3 (3.65-5.03)
[2021-04-13 04:47] LABS: Hematocrit 40.1 % (35.5-45.6)
--- NOTE | 2021-04-13 04:57 | Emergency Department Report ---
ED Extremity Problem HPI - General Chief complaint: Extremity Problem,Nontraumatic Stated complaint: CELLULITIS Source: patient Mode of arrival: Ambulatory Limitations: No Limitations - History of Present Illness Initial comments: Patient is a 45-year-old male with a history of hypertension, [id number] diabetes, coronary artery disease status post PTCA stents CHF and recurrent bilateral lower extremity edema and cellulitis presents to the ED with acute exacerbation of his chronic lower leg pain with mild erythematous maculopapular rash for the last 1 week, worse in the last 3 days. Patient states that the pain is worse with ambulation. Patient also states that he was previously treated in the ED for bilateral lower extremity cellulitis which improved his legs conditions. Patient denies fall, traumatic injury, fever, chills, shortness of breath, chest pain, or traumatic injury, numbness and tingling or weakness of lower extremities bilaterally. MD Complaint: extremity pain (Bilateral lower extremity pain, mild swelling and mild diffuse erythematous rash) -: Gradual, month(s) (3 months) Location: bilateral lower extremity History of Same: Yes (Chronic) -: Yes myalgia, Yes arthralgia, No fever, No associated dyspnea, No associated chest pain Radiation: distal Severity scale (0 -10): 6 Quality: aching, sharp Consistency: constant Improves with: nothing Worsens with: nothing Associated Symptoms: denies other symptoms, arthralgias, rash (Mild erythematous maculopapular rash on lower extremities bilaterally.). denies: chest pain, shortness of breath, fever, myalgias - Related Data Previous Rx's Medication Instructions Recorded Last Taken Type Ondansetron [Zofran Odt] 4 mg PO Q6HR PRN #20 tab.rapdis 05/07/15 03/18/21 09:00 Rx ALPRAZolam [Xanax TAB] 0.25 mg PO QHS PRN #6 tablet 12/31/20 03/09/21 09:00 Rx Aspirin [Aspirin BABY CHEW TAB] 81 mg PO QDAY #30 tab.chew 12/31/20 03/18/21 09:00 Rx AtorvaSTATin [Lipitor] 40 mg PO QHS #30 tablet 12/31/20 03/18/21 09:30 Rx Clopidogrel [Plavix] 75 mg PO QDAY #30 tablet 12/31/20 03/18/21 09:00 Rx ISOSORBIDE MONOnitrate [Imdur ER] 30 mg PO QDAY #30 tablet 12/31/20 01/07/21 21:00 Rx Nicotine [Habitrol] 14 mg TD DAILY #30 patch 12/31/20 03/18/21 Rx Spironolactone [Aldactone] 25 mg PO QDAY #30 tablet 12/31/20 03/18/21 Rx carvediloL [Coreg] 6.25 mg PO BID #60 tablet 12/31/20 03/19/21 10:00 Rx lisinopriL [Zestril TAB] 20 mg PO QDAY #30 tablet 12/31/20 03/17/21 Rx Apixaban [Eliquis] 2.5 mg PO Q12HR #60 tablet 02/04/21 03/19/21 21:30 Rx Compress.stocking,Knee,Reg,Lrg 1 each MC DAILY 30 Days #2 each 03/23/21 Unknown Rx [Relief Knee Close Toe] Gabapentin 300 mg PO Q8HR 30 Days #90 capsule 03/23/21 Unknown Rx Torsemide [Demadex] 40 mg PO DAILY 30 Days #60 tablet 03/23/21 Unknown Rx Ibuprofen [Motrin 800 MG tab] 800 mg PO Q8HR PRN #30 tablet 04/13/21 Unknown Rx Sulfamethoxazole/Trimethoprim 1 each PO Q12H #20 tablet 04/13/21 Unknown Rx [Bactrim DS TAB] Allergies Allergy/AdvReac Type Severity Reaction Status Date / Time No Known Allergies Allergy Verified 12/29/20 14:08 ED Review of Systems ROS: Stated complaint: CELLULITIS Other details as noted in HPI Constitutional: denies: chills, fever Eyes: denies: eye pain, eye discharge, vision change ENT: denies: ear pain, throat pain Respiratory: denies: cough, shortness of breath, wheezing Cardiovascular: denies: chest pain, palpitations Endocrine: no symptoms reported Gastrointestinal: denies: abdominal pain, nausea, diarrhea Genitourinary: denies: urgency, dysuria Musculoskeletal: arthralgia (Bilateral lower extremity pain with mild swelling due to mildly erythematous maculopapular rash). denies: back pain, joint swelling Skin: rash (Mild erythematous maculopapular rashes on lower extremities bilaterally), change in color. denies: lesions Neurological: denies: headache, weakness, paresthesias Psychiatric: denies: anxiety, depression Hematological/Lymphatic: denies: easy bleeding, easy bruising ED Past Medical Hx - Past Medical History Previous Medical History?: Yes Hx Hypertension: Yes Hx Heart Attack/AMI: Yes (twice) Hx Congestive Heart Failure: Yes Hx Diabetes: Yes Hx Sickle Cell Disease: No Hx COPD: Yes Hx HIV: No - Surgical History Past Surgical History?: Yes Hx Coronary Stent: Yes Additional Surgical History: R index finger - Social History Smoking Status: Current Every Day Smoker - Medications Home Medications: Home Medications Medication Instructions Recorded Confirmed Last Taken Type Ondansetron [Zofran Odt] 4 mg PO Q6HR PRN #20 tab.rapdis 05/07/15 03/20/21 03/18/21 09:00 Rx ALPRAZolam [Xanax TAB] 0.25 mg PO QHS PRN #6 tablet 12/31/20 03/20/21 03/09/21 09:00 Rx Aspirin [Aspirin BABY CHEW TAB] 81 mg PO QDAY #30 tab.chew 12/31/20 03/20/21 03/18/21 09:00 Rx AtorvaSTATin [Lipitor] 40 mg PO QHS #30 tablet 12/31/20 03/20/21 03/18/21 09:30 Rx Clopidogrel [Plavix] 75 mg PO QDAY #30 tablet 12/31/20 03/20/21 03/18/21 09:00 Rx ISOSORBIDE MONOnitrate [Imdur ER] 30 mg PO QDAY #30 tablet 12/31/20 03/20/21 01/07/21 21:00 Rx Nicotine [Habitrol] 14 mg TD DAILY #30 patch 12/31/20 03/20/21 03/18/21 Rx Spironolactone [Aldactone] 25 mg PO QDAY #30 tablet 12/31/20 03/20/21 03/18/21 Rx carvediloL [Coreg] 6.25 mg PO BID #60 tablet 12/31/20 03/20/21 03/19/21 10:00 Rx lisinopriL [Zestril TAB] 20 mg PO QDAY #30 tablet 12/31/20 03/20/21 03/17/21 Rx Apixaban [Eliquis] 2.5 mg PO Q12HR #60 tablet 02/04/21 03/20/21 03/19/21 21:30 Rx Compress.stocking,Knee,Reg,Lrg 1 each MC DAILY 30 Days #2 each 03/23/21 Unknown Rx [Relief Knee Close Toe] Gabapentin 300 mg PO Q8HR 30 Days #90 capsule 03/23/21 Unknown Rx Torsemide [Demadex] 40 mg PO DAILY 30 Days #60 tablet 03/23/21 Unknown Rx Ibuprofen [Motrin 800 MG tab] 800 mg PO Q8HR PRN #30 tablet 04/13/21 Unknown Rx Sulfamethoxazole/Trimethoprim 1 each PO Q12H #20 tablet 04/13/21 Unknown Rx [Bactrim DS TAB] ED Physical Exam - General Limitations: No Limitations General appearance: alert, in no apparent distress - Head Head exam: Present: atraumatic, normocephalic, normal inspection - Eye Eye exam: Present: normal appearance, PERRL, EOMI Pupils: Present: normal accommodation - ENT ENT exam: Present: normal exam, normal orophraynx, mucous membranes moist, TM's normal bilaterally, normal external ear exam - Neck Neck exam: Present: normal inspection, full ROM. Absent: tenderness - Respiratory Respiratory exam: Present: normal lung sounds bilaterally. Absent: respiratory distress, wheezes, rales, rhonchi, chest wall tenderness, accessory muscle use, decreased breath sounds, prolonged expiratory - Cardiovascular Cardiovascular Exam: Present: normal rhythm, tachycardia, normal heart sounds. Absent: systolic murmur, diastolic murmur, rubs, gallop - GI/Abdominal GI/Abdominal exam: Present: soft, normal bowel sounds. Absent: tenderness, guarding, rebound, hyperactive bowel sounds, hypoactive bowel sounds, mass - Extremities Exam Extremities exam: Present: normal inspection, full ROM, normal capillary refill, calf tenderness (Palpable mild bilateral lower extremity tenderness with mild swelling due to mild erythematous maculopapular rashes). Absent: tenderness, pedal edema, joint swelling - Back Exam Back exam: Present: normal inspection, full ROM. Absent: tenderness, CVA tenderness (R), CVA tenderness (L), muscle spasm, paraspinal tenderness, vertebral tenderness - Neurological Exam Neurological exam: Present: alert, oriented X3, CN II-XII intact, normal gait, reflexes normal - Psychiatric Psychiatric exam: Present: normal affect, normal mood - Skin Skin exam: Present: warm, dry, intact, normal color, rash (Mild erythematous maculopapular rashes on lower extremities bilaterally), erythema. Absent: urticaria ED Course Vital Signs 04/13/21 02:13 Temperature 97.8 F Pulse Rate 105 H Respiratory 18 Rate Blood Pressure 139/94 [Right] O2 Sat by Pulse 97 Oximetry ED Medical Decision Making - Lab Data Result diagrams: 04/13/21 04:05 04/13/21 04:05 - Medical Decision Making This is a 45-year-old male with a history of hypertension, [id number] diabetes, coronary artery disease status post PTCA stents CHF and recurrent bilateral lower extremity edema and cellulitis presents to the ED with acute exacerbation of his chronic lower leg pain with mild erythematous maculopapular rash for the last 1 week, worse in the last 3 days. Patient states that the pain is worse with ambulation. Patient also states that he was previously treated in the ED for bilateral lower extremity cellulitis which improved his legs conditions. In the ED, patient is alert and oriented x3 and is not in distress. Patient was treated for pain in the ED and also given initial oral antibiotics in the ED. Lab test results were reviewed and are all nonactionable. Bilateral lower extremity Doppler ultrasound showed no sonogr aphic evidence of DVT. On reevaluation, patient's pain is well controlled medication. Patient will discharge home on pain medications and antibiotics and advised follow-up with his primary care physician in 7 to 10 days for reevaluation. Patient is advised return to the ED immediately if symptoms get worse. - Differential Diagnosis Cellulitis; DVT; muscle strain; muscle spasm; Critical care attestation.: If time is entered above; I have spent that time in minutes in the direct care of this critically ill patient, excluding procedure time. ED Disposition Clinical Impression: Cellulitis of both lower extremities Disposition: 01 HOME / SELF CARE / HOMELESS Is pt being admited?: No Does the pt Need Aspirin: No Condition: Stable Instructions: Cellulitis, Adult, [id number] Additional Instructions: Lab test results were reviewed and are all nonactionable. Bilateral lower extremity doppler US showed no sonographic evidence of DVT. Therefore take medications with food, drink plenty of fluids and follow up with your Primary Care Physician in 7-10 days for reevaluation. Return to the ED immediately if symptoms get worse. Prescriptions: Sulfamethoxazole/Trimethoprim [Bactrim DS TAB] 1 each PO Q12H #20 tablet Ibuprofen [Motrin 800 MG tab] 800 mg PO Q8HR PRN #30 tablet PRN Reason: Pain Referrals: [facility] [Provider Group] - 3-5 Days Time of Disposition: 06:25 Print Language: MALAY
--- NOTE | 2021-04-13 07:05 | Vascular Lab Report ---
DUPLEX DOPPLER LOWER EXTREMITY VEINS, BILATERAL INDICATION / CLINICAL INFORMATION: Bilateral LE swelling and pain. TECHNIQUE: Duplex doppler imaging was performed through the veins of both lower extremities using venous mary john and other maneuvers. COMPARISON: None available. FINDINGS: RIGHT COMMON FEMORAL VEIN: Negative. RIGHT FEMORAL VEIN: Negative. RIGHT POPLITEAL VEIN: Negative. RIGHT CALF VEINS: Negative. LEFT COMMON FEMORAL VEIN: Negative. LEFT FEMORAL VEIN: Negative. LEFT POPLITEAL VEIN: Negative. LEFT CALF VEINS: Negative. ADDITIONAL FINDINGS: None. IMPRESSION: 1. No sonographic evidence for DVT in either lower extremity. Signer Name: Georges Aldana MD Signed: 04/13/2021 7:00 AM Workstation Name: [id number]
== END 2021-04-13 07:20 | disposition home or self-care (01) ==
LOC: ED 02:05
DX: L03.116 Cellulitis of left lower limb (principal); L03.115 Cellulitis of right lower limb; I11.0 Hypertensive heart disease with heart failure; I50.9 Heart failure, unspecified; J44.9 Chronic obstructive pulmonary disease, unspecified; F17.200 Nicotine dependence, unspecified, uncomplicated; Z79.01 Long term (current) use of anticoagulants; Z79.899 Other long term (current) drug therapy
CPT/HCPCS: 36415; 80053; 85025; 93970; 99284; J3490; Q0162

== ENCOUNTER 2021-06-26 00:50 | Inpatient (IN) | payer SELFPAY ==
[2021-06-26] MEDS ORDERED: ALBUTEROL 2.5 MG/3 ML NEBU IH ONE (03:11)
[2021-06-26] MEDS ORDERED: FUROSEMIDE 40 MG/4 ML INJ IV ONE (03:12)
--- NOTE | 2021-06-26 03:19 | XRay Report ---
CHEST 1 VIEW INDICATION / CLINICAL INFORMATION: Chest Pain. COMPARISON: None available. FINDINGS: SUPPORT DEVICES: None. HEART / MEDIASTINUM: No significant abnormality. LUNGS / PLEURA: No significant pulmonary or pleural abnormality. No pneumothorax. ADDITIONAL FINDINGS: No significant additional findings. IMPRESSION: 1. No active cardiopulmonary disease. Signer Name: Bonilla Armendariz II, MD Signed: 06/26/2021 3:15 AM Workstation Name: [id number]
[2021-06-26 03:44] LABS: Bilirubin,Urine NEG (Negative); Blood,Urine NEG (Negative); Color,Urine Yellow (Yellow); Mucus,Urine FEW /HPF
[2021-06-26 03:50] LABS: INR 1.03 (0.87-1.13)
[2021-06-26 04:12] LABS: Alanine Aminotransferase 30 units/L (7-56); Albumin 3.6 g/dL (3.9-5); BUN/Creatinine Ratio 15; Blood Urea Nitrogen 12 mg/dL (9-20); Calcium 9.3 mg/dL (8.4-10.2); Hemolysis Index 344
[2021-06-26 04:34] LABS: Chol/HDL Ratio 5.48 %; HDL Cholesterol 31 mg/dL (40-59); LDL Cholesterol,Direct 128 mg/dL (50-130)
[2021-06-26] MEDS ORDERED: ASPIRIN 81 MG TAB CHEW PO ONE (06:05)
--- NOTE | 2021-06-26 06:05 | Emergency Department Report ---
ED Shortness of Breath HPI - General Chief Complaint: Dyspnea/Respdistress Stated Complaint: LOWER BODY SWELLING Time Seen by Provider: 06/26/21 03:04 Source: patient Mode of arrival: Ambulatory Limitations: No Limitations - History of Present Illness Initial Comments: shortness of breath and swollen lower extremeties x 3 days. Hx: CHF, COPD, DM, HTN, VT X 2, total 6 cardiac stents. MD Complaint: shortness of breath -: days(s) Severity: moderate Known History Of: congestive heart failure - Related Data Home Oxygen Therapy: No Previous Rx's Medication Instructions Recorded Last Taken Type Ondansetron [Zofran Odt] 4 mg PO Q6HR PRN #20 tab.rapdis 05/07/15 03/18/21 09:00 Rx ALPRAZolam [Xanax TAB] 0.25 mg PO QHS PRN #6 tablet 12/31/20 03/09/21 09:00 Rx Aspirin [Aspirin BABY CHEW TAB] 81 mg PO QDAY #30 tab.chew 12/31/20 03/18/21 09:00 Rx AtorvaSTATin [Lipitor] 40 mg PO QHS #30 tablet 12/31/20 03/18/21 09:30 Rx Clopidogrel [Plavix] 75 mg PO QDAY #30 tablet 12/31/20 03/18/21 09:00 Rx ISOSORBIDE MONOnitrate [Imdur ER] 30 mg PO QDAY #30 tablet 12/31/20 01/07/21 21 :00 Rx Nicotine [Habitrol] 14 mg TD DAILY #30 patch 12/31/20 03/18/21 Rx Spironolactone [Aldactone] 25 mg PO QDAY #30 tablet 12/31/20 03/18/21 Rx carvediloL [Coreg] 6.25 mg PO BID #60 tablet 12/31/20 03/19/21 10:00 Rx lisinopriL [Zestril TAB] 20 mg PO QDAY #30 tablet 12/31/20 03/17/21 Rx Apixaban [Eliquis] 2.5 mg PO Q12HR #60 tablet 02/04/21 03/19/21 21:30 Rx Compress.stocking,Knee,Reg,Lrg 1 each MC DAILY 30 Days #2 each 03/23/21 Unknown Rx [Relief Knee Close Toe] Gabapentin 300 mg PO Q8HR 30 Days #90 capsule 03/23/21 Unknown Rx Torsemide [Demadex] 40 mg PO DAILY 30 Days #60 tablet 03/23/21 Unknown Rx Ibuprofen [Motrin 800 MG tab] 800 mg PO Q8HR PRN #30 tablet 04/13/21 Unknown Rx Sulfamethoxazole/Trimethoprim 1 each PO Q12H #20 tablet 04/13/21 Unknown Rx [Bactrim DS TAB] Allergies Allergy/AdvReac Type Severity Reaction Status Date / Time adhesive tape Allergy Rash Verified 06/26/21 02:42 ED Review of Systems ROS: Stated complaint: LOWER BODY SWELLING Other details as noted in HPI Constitutional: denies: chills, fever Eyes: denies: eye pain, eye discharge, vision change ENT: denies: ear pain, throat pain Respiratory: denies: cough, shortness of breath, wheezing Cardiovascular: denies: chest pain, palpitations Endocrine: no symptoms reported Gastrointestinal: denies: abdominal pain, nausea, diarrhea Genitourinary: denies: urgency, dysuria Musculoskeletal: denies: back pain, joint swelling, arthralgia Skin: denies: rash, lesions Neurological: denies: headache, weakness, paresthesias Psychiatric: denies: anxiety, depression Hematological/Lymphatic: denies: easy bleeding, easy bruising ED Past Medical Hx - Past Medical History Previous Medical History?: Yes Hx Hypertension: Yes Hx Heart Attack/AMI: Yes (twice) Hx Congestive Heart Failure: Yes (Home O2 PRN) Hx Diabetes: Yes Hx Sickle Cell Disease: No Hx COPD: Yes Hx HIV: No - Surgical History Past Surgical History?: Yes Hx Coronary Stent: Yes Additional Surgical History: R index finger - Social History Smoking Status: Current Every Day Smoker - Medications Home Medications: Home Medications Medication Instructions Recorded Confirmed Last Taken Type Ondansetron [Zofran Odt] 4 mg PO Q6HR PRN #20 tab.rapdis 05/07/15 03/20/21 03/18/21 09:00 Rx ALPRAZolam [Xanax TAB] 0.25 mg PO QHS PRN #6 tablet 12/31/20 03/20/21 03/09/21 09:00 Rx Aspirin [Aspirin BABY CHEW TAB] 81 mg PO QDAY #30 tab.chew 12/31/20 03/20/21 03/18/21 09:00 Rx AtorvaSTATin [Lipitor] 40 mg PO QHS #30 tablet 12/31/20 03/20/21 03/18/21 09:30 Rx Clopidogrel [Plavix] 75 mg PO QDAY #30 tablet 12/31/20 03/20/21 03/18/21 09:00 Rx ISOSORBIDE MONOnitrate [Imdur ER] 30 mg PO QDAY #30 tablet 12/31/20 03/20/21 01/07/21 21:00 Rx Nicotine [Habitrol] 14 mg TD DAILY #30 patch 12/31/20 03/20/21 03/18/21 Rx Spironolactone [Aldactone] 25 mg PO QDAY #30 tablet 12/31/20 03/20/21 03/18/21 Rx carvediloL [Coreg] 6.25 mg PO BID #60 tablet 12/31/20 03/20/21 03/19/21 10:00 Rx lisinopriL [Zestril TAB] 20 mg PO QDAY #30 tablet 12/31/20 03/20/21 03/17/21 Rx Apixaban [Eliquis] 2.5 mg PO Q12HR #60 tablet 02/04/21 03/20/21 03/19/21 21:30 Rx Compress.stocking,Knee,Reg,Lrg 1 each MC DAILY 30 Days #2 each 03/23/21 Unknown Rx [Relief Knee Close Toe] Gabapentin 300 mg PO Q8HR 30 Days #90 capsule 03/23/21 Unknown Rx Torsemide [Demadex] 40 mg PO DAILY 30 Days #60 tablet 03/23/21 Unknown Rx Ibuprofen [Motrin 800 MG tab] 800 mg PO Q8HR PRN #30 tablet 04/13/21 Unknown Rx Sulfamethoxazole/Trimethoprim 1 each PO Q12H #20 tablet 04/13/21 Unknown Rx [Bactrim DS TAB] ED Physical Exam - General Limitations: No Limitations General appearance: alert, in distress, obese - Head Head exam: Present: atraumatic, normocephalic - Eye Eye exam: Present: normal appearance - ENT ENT exam: Present: mucous membranes moist - Neck Neck exam: Present: normal inspection - Respiratory Respiratory exam: Present: wheezes, rales, accessory muscle use, decreased breath sounds. Absent: respiratory distress - Cardiovascular Cardiovascular Exam: Present: normal rhythm, tachycardia. Absent: systolic murmur, diastolic murmur, rubs, gallop - GI/Abdominal GI/Abdominal exam: Present: soft, normal bowel sounds - Rectal Rectal exam: Present: deferred - Extremities Exam Extremities exam: Present: pedal edema - Back Exam Back exam: Present: normal inspection - Neurological Exam Neurological exam: Present: alert, oriented X3 - Psychiatric Psychiatric exam: Present: normal affect, normal mood - Skin Skin exam: Present: warm, dry, intact, normal color. Absent: rash ED Course Vital Signs 06/26/21 06/26/21 06/26/21 02:42 03:28 03:50 Temperature 98.1 F Pulse Rate 127 H 119 H 116 H Respiratory 24 20 20 Rate Blood Pressure 106/69 Blood Pressure 138/84 114/63 [Right] O2 Sat by Pulse 93 99 97 Oximetry 06/26/21 06/26/21 06/26/21 04:00 04:16 04:30 Temperature Pulse Rate 113 H 117 H 124 H Respiratory 15 24 27 H Rate Blood Pressure 94/58 94/58 136/84 Blood Pressure [Right] O2 Sat by Pulse 96 99 97 Oximetry 06/26/21 06/26/21 04:46 05:00 Temperature Pulse Rate 121 H 117 H Respiratory 18 21 Rate Blood Pressure 136/84 139/110 Blood Pressure [Right] O2 Sat by Pulse 98 99 Oximetry - Reevaluation(s) Reevaluation #1: 06/26/21 06:03 work up showed chf exacerbation lasix given , albuterol still tachypneic will admit for chf exacerbation ED Medical Decision Making - Lab Data Result diagrams: 06/26/21 03:17 Critical care attestation.: If time is entered above; I have spent that time in minutes in the direct care of this critically ill patient, excluding procedure time. ED Disposition Clinical Impression: Pain and swelling of lower extremity, Acute exacerbation of CHF (congestive heart failure), SOB (shortness of breath) Disposition: ADMITTED INPATIENT Is pt being admited?: Yes Does the pt Need Aspirin: Yes Condition: Stable Referrals: PRIMARY CARE, [Primary Care Provider] - 3-5 Days
[2021-06-26 06:25] LABS: Basophils # (Auto) 0.1 K/mm3 (0.0-0.1); Basophils % (Auto) 1.3 % (0.0-1.8); Eosinophils # (Auto) 0.3 K/mm3 (0.0-0.4); Lymphocytes # (Auto) 1.4 K/mm3 (1.2-5.4); Lymphocytes % (Auto) 20.5 % (13.4-35.0); Mean Corpuscular HGB Conc 30 % (32-34); Mean Corpuscular Volume 80 fl (84-94); Monocytes # (Auto) 0.5 K/mm3 (0.0-0.8); Monocytes % (Auto) 6.7 % (0.0-7.3); Platelet Count 206 K/mm3 (140-440); Red Blood Count 4.75 M/mm3 (3.65-5.03)
--- NOTE | 2021-06-26 06:27 | History and Physical Report ---
History of Present Illness Date of examination: 06/26/21 Date of admission: 06/26/2021 Chief complaint: Shortness of Breath History of present illness: 45-year-old white male with known history of hypertension, diabetes mellitus, coronary artery disease with stent placement in the past, CHF with ejection fraction of 15%01/2021 presenting to the emergency room today complaining of shortness of breath and progressive swelling of his lower extremities. Symptoms have been ongoing for the past few days. He denies any chest pain. He denies any fever or chills, no nausea vomiting and no abdominal pain. He however has noticed some redness in his lower extremities. Denies any trauma to the lower extremities. Patient denies any headache or dizziness and denies any diaphoresis. He denies any sick contacts and no recent travel. Denies any contact with anyone with COVID-19. Patient admits that he has not been quite compliant with his medications as he cannot afford them. Upon arrival in the emergency room, patient was quite tachypneic and tachycardic. Oxygen saturation upon arrival was about 93% on room air. He was placed on oxygen and also given some IV Lasix with significant improvement of his oxygen saturation. Work-up in the emergency room today, labs were significant for elevated troponin of 0.03, BNP of 1688. Chest x-ray showed no acute cardiopulmonary disease. Past History Past Medical History: acute [place] (X2 with PCIstents), CAD, diabetes, heart failure (EF 15% 01/27), hypertension, hyperlipidemia, other (Obesity) Past Surgical History: PTCA Social history: smoking Family history: CAD, hypertension, stroke Medications and Allergies Allergies Allergy/AdvReac Type Severity Reaction Status Date / Time adhesive tape Allergy Rash Verified 06/26/21 02:42 Home Medications Medication Instructions Recorded Confirmed Last Taken Type Ondansetron [Zofran Odt] 4 mg PO Q6HR PRN #20 tab.rapdis 05/07/15 03/20/21 03/18/21 09:00 Rx ALPRAZolam [Xanax TAB] 0.25 mg PO QHS PRN #6 tablet 12/31/20 03/20/21 03/09/21 09:00 Rx Aspirin [Aspirin BABY CHEW TAB] 81 mg PO QDAY #30 tab.chew 12/31/20 03/20/21 03/18/21 09:00 Rx AtorvaSTATin [Lipitor] 40 mg PO QHS #30 tablet 12/31/20 03/20/21 03/18/21 09:30 Rx Clopidogrel [Plavix] 75 mg PO QDAY #30 tablet 12/31/20 03/20/21 03/18/21 09:00 Rx ISOSORBIDE MONOnitrate [Imdur ER] 30 mg PO QDAY #30 tablet 12/31/20 03/20/21 01/07/21 21:00 Rx Nicotine [Habitrol] 14 mg TD DAILY #30 patch 12/31/20 03/20/21 03/18/21 Rx Spironolactone [Aldactone] 25 mg PO QDAY #30 tablet 12/31/20 03/20/21 03/18/21 R x carvediloL [Coreg] 6.25 mg PO BID #60 tablet 12/31/20 03/20/21 03/19/21 10:00 Rx lisinopriL [Zestril TAB] 20 mg PO QDAY #30 tablet 12/31/20 03/20/21 03/17/21 Rx Apixaban [Eliquis] 2.5 mg PO Q12HR #60 tablet 02/04/21 03/20/21 03/19/21 21:30 Rx Compress.stocking,Knee,Reg,Lrg 1 each MC DAILY 30 Days #2 each 03/23/21 Unknown Rx [Relief Knee Close Toe] Gabapentin 300 mg PO Q8HR 30 Days #90 capsule 03/23/21 Unknown Rx Torsemide [Demadex] 40 mg PO DAILY 30 Days #60 tablet 03/23/21 Unknown Rx Ibuprofen [Motrin 800 MG tab] 800 mg PO Q8HR PRN #30 tablet 04/13/21 Unknown Rx Sulfamethoxazole/Trimethoprim 1 each PO Q12H #20 tablet 04/13/21 Unknown Rx [Bactrim DS TAB] Active Meds: Active Medications Acetaminophen (Acetaminophen 325 Mg Tab) 650 mg PO Q4H PRN PRN Reason: Pain MILD(1-3)/Fever >100.5/PAREDES Furosemide (Furosemide 40 Mg/4 Ml Inj) 40 mg IV BID@0600,1800 [place] Heparin Sodium (Porcine) (Heparin 5,000 Unit/1 Ml Vial) 5,000 unit SUB-Q Q8HR [place] Magnesium Hydroxide (Magnesium Hydroxide (Mom) Oral Liqd Udc) 30 ml PO Q4H PRN PRN Reason: Constipation Morphine Sulfate (Morphine 2 Mg/1 Ml Inj) 2 mg IV Q4H PRN PRN Reason: Pain, Moderate (4-6) Morphine Sulfate (Morphine 4 Mg/1 Ml Inj) 4 mg IV Q4H PRN PRN Reason: Pain , Severe (7-10) Ondansetron HCl (Ondansetron 4 Mg/2 Ml Inj) 4 mg IV Q8H PRN PRN Reason: Nausea And Vomiting Sodium Chloride (Sodium Chloride 0.9% 10 Ml Flush Syringe) 10 ml IV BID [place] Sodium Chloride (Sodium Chloride 0.9% 10 Ml Flush Syringe) 10 ml IV PRN PRN PRN Reason: LINE FLUSH Review of Systems Constitutional: no fever, no chills Ears, nose, mouth and throat: no nasal congestion, no sore throat Cardiovascular: leg edema, no chest pain, no palpitations Respiratory: shortness of breath, no cough Gastrointestinal: no abdominal pain, no nausea, no vomiting, no diarrhea Genitourinary Male: no dysuria, no hematuria, no flank pain Musculoskeletal: no neck pain, no low back pain Integumentary: no rash, no pruritis Neurological: no headaches, no confusion Psychiatric: no anxiety, no depression Endocrine: no polyphagia, no polydipsia, no polyuria, no nocturia Exam - Constitutional Vitals: Temp Pulse Resp BP Pulse Ox 98.1 F 113 H 26 H 124/76 99 06/26/21 02:42 06/26/21 06:00 06/26/21 06:00 06/26/21 06:00 06/26/21 06:00 General appearance: Present: no acute distress, well-nourished - EENT Eyes: Present: PERRL, EOM intact. Absent: scleral icterus ENT: hearing intact, clear oral mucosa, dentition normal - Neck Neck: Present: supple, normal ROM, other (+ve JVD) - Respiratory Respiratory effort: normal Respiratory: bilateral: CTA - Cardiovascular Rhythm: regular Heart Sounds: Present: S1 & S2, systolic murmur (soft systolic murmur). Absent: gallop, diastolic murmur, rub, click - Extremities Extremities: no ischemia, pulses intact, pulses symmetrical, Full ROM, abnormal (Left lower extremity red and mildly warm to touch) Extremity abnormal: edema (3+ bilateral lower extremity edema) Peripheral Pulses: within normal limits - Abdominal General gastrointestinal: Present: soft, non-tender, distended (Mildly distended, mild abdominal wall edema), normal bowel sounds. Absent: mass - Integumentary Integumentary: Present: clear, warm, dry, normal turgor. Absent: rash - Musculoskeletal Musculoskeletal: strength equal bilaterally - Psychiatric Psychiatric: appropriate mood/affect, intact judgment & insight, memory intact, cooperative - Neurologic Neurologic: CNII-XII intact, no focal deficits, moves all extremities HEART Score - HEART Score Troponin: Troponin T 0.030 ng/mL (0.00-0.029) H 06/26/21 03:17 Results - Labs CBC & Chem 7: 06/26/21 06:01 06/26/21 03:17 Labs: Abnormal lab results 06/26/21 06/26/21 Range/Units 03:17 03:17 Sodium 133 L (137-145) mmol/L Glucose 172 H (75-100) mg/dL AST 59 H (5-40) units/L Alkaline Phosphatase 198 H (35-129) units/L Troponin T 0.030 H (0.00-0.029) ng/mL NT-Pro-B Natriuret Pep 1688 H (0-450) pg/mL Albumin 3.6 L (3.9-5) g/dL HDL Cholesterol 31 L (40-59) mg/dL Assessment and Plan - Patient Problems (1) Acute exacerbation of CHF (congestive heart failure) Current Visit: Yes Status: Acute Plan to address problem: Patient admitted and placed on telemetry. Patient placed on diuretics. Will monitor inputs and outputs and also monitor daily weight. We will await further evaluation and recommendations from cardiology. (2) Cellulitis of left leg without foot Current Visit: No Status: Acute Plan to address problem: Patient will be placed on empiric IV antibiotics. (3) Elevated troponin Current Visit: No Status: Acute Plan to address problem: Possibly troponin leak. There has been no EKG changes and no chest pain. We will trend cardiac enzymes. We will await further recommendations from cardiology. (4) History of coronary artery disease Current Visit: No Status: Acute Plan to address problem: Stable. Known history of stent placement. Continue routine home medications. (5) Non-compliance Current Visit: No Status: Acute Plan to address problem: Patient counseled on compliance with medications. He verbalized understanding. Patient requests help with getting his medication as he cannot afford them. Consult will be placed to case management for evaluation. (6) Obesity (BMI 30-39.9) Current Visit: No Status: Acute Plan to address problem: Dietary consult requested. Lifestyle modification encouraged. (7) Tobacco use disorder Current Visit: No Status: Chronic Plan to address problem: Counseled on quitting tobacco abuse. We will offer nicotine patch as needed. (8) DVT prophylaxis Current Visit: No Status: Acute Plan to address problem: Patient placed on subcutaneous heparin. (9) Full code status Current Visit: No Status: Acute Plan to address problem: Patient is full code.
[2021-06-26] MEDS ORDERED: DEXTROSE 50% IN WATER (25GM) 50 ML SYRINGE IV PRN (06:37)
[2021-06-26] MEDS ORDERED: DEXTROSE 10% *Hypoglycemia IV PRN (06:39)
[2021-06-26 06:43] LABS: Hemoglobin 11.5 gm/dl (11.8-15.2); Red Cell Distribution Width 20.2 % (13.2-15.2)
[2021-06-26] MEDS ORDERED: ACETAMINOPHEN 325 MG TAB PO PRN (07:00)
[2021-06-26] MEDS ORDERED: VANCOMYCIN PHARMACY TO DOSE IV SCH (07:00)
[2021-06-26] MEDS ORDERED: MAGNESIUM HYDROXIDE (MOM) ORAL LIQD UDC PO PRN (07:00)
[2021-06-26] MEDS ORDERED: VANCOMYCIN 2,000 MG in SODIUM CHLORIDE 0.9% 500 ML 500 ML IV ONE (08:00)
--- NOTE | 2021-06-26 09:08 | Consultation ---
History of Present Illness Consult date: 06/26/21 Consult reason: congestive heart failure History of present illness: Patient is a 45-year-old man with coronary artery disease and a severe ischemic cardiomyopathy. He has multivessel stents, most recently implanted early 2020 at [facility], has been recommended for dual antiplatelet therapy with aspirin and Plavix. His left ventricular ejection fraction has been documented at 15%, and he has been recommended for guideline directed medical therapy, salt restricted diet and outpatient cardiac follow-up. He was also previously on triple therapy with low-dose Eliquis added to his DAPT, indication for Eliquis is unclear. Comorbidities include chronic bilateral lower extremity cellulitis. He presents to the hospital now with progressive shortness of breath, orthopnea, worsening edema of the lower legs, thighs and scrotal area. There is no chest pain, no palpitations, no syncope. The patient's admits to me that he has no outpatient follow-up, has not seen a doctor since his prior admission to the hospital here 3 months ago, and is noncompliant with his prescribed medications. He is also poorly compliant with recommended dietary salt restrictions. EKG is a mild sinus tachycardia at 114, nonspecific intraventricular conduction delay, but no acute ischemic ST or T wave changes. Chest x-ray shows a moderate to severe cardiomegaly, but clear lungs. Past History Past Medical History: acute [place] (X2 with PCIstents), CAD, diabetes, heart failure (EF 15% 01/27), hypertension, hyperlipidemia, other (Obesity) Past Surgical History: PTCA Social history: smoking Family history: CAD, hypertension, stroke Medications and Allergies Allergies Allergy/AdvReac Type Severity Reaction Status Date / Time adhesive tape Allergy Rash Verified 06/26/21 02:42 Home Medications Medication Instructions Recorded Confirmed Last Taken Type Ondansetron [Zofran Odt] 4 mg PO Q6HR PRN #20 tab.rapdis 05/07/15 03/20/21 03/18/21 09:00 Rx ALPRAZolam [Xanax TAB] 0.25 mg PO QHS PRN #6 tablet 12/31/20 03/20/21 03/09/21 09:00 Rx Aspirin [Aspirin BABY CHEW TAB] 81 mg PO QDAY #30 tab.chew 12/31/20 03/20/21 03/18/21 09:00 Rx AtorvaSTATin [Lipitor] 40 mg PO QHS #30 tablet 12/31/20 03/20/21 03/18/21 09:30 Rx Clopidogrel [Plavix] 75 mg PO QDAY #30 tablet 12/31/20 03/20/21 03/18/21 09:00 Rx ISOSORBIDE MONOnitrate [Imdur ER] 30 mg PO QDAY #30 tablet 12/31/20 03/20/21 01/07/21 21:00 Rx Nicotine [Habitrol] 14 mg TD DAILY #30 patch 12/31/20 03/20/21 03/18/21 Rx Spironolactone [Aldactone] 25 mg PO QDAY #30 tablet 12/31/20 03/20/21 03/18/21 Rx carvediloL [Coreg] 6.25 mg PO BID #60 tablet 12/31/20 03/20/21 03/19/21 10:00 Rx lisinopriL [Zestril TAB] 20 mg PO QDAY #30 tablet 12/31/20 03/20/21 03/17/21 Rx Apixaban [Eliquis] 2.5 mg PO Q12HR #60 tablet 02/04/21 03/20/21 03/19/21 21:30 Rx Compress.stocking,Knee,Reg,Lrg 1 each MC DAILY 30 Days #2 each 03/23/21 Unknown Rx [Relief Knee Close Toe] Gabapentin 300 mg PO Q8HR 30 Days #90 capsule 03/23/21 Unknown Rx Torsemide [Demadex] 40 mg PO DAILY 30 Days #60 tablet 03/23/21 Unknown Rx Ibuprofen [Motrin 800 MG tab] 800 mg PO Q8HR PRN #30 tablet 04/13/21 Unknown Rx Sulfamethoxazole/Trimethoprim 1 each PO Q12H #20 tablet 04/13/21 Unknown Rx [Bactrim DS TAB] Active Meds: Active Medications Acetaminophen (Acetaminophen 325 Mg Tab) 650 mg PO Q4H PRN PRN Reason: Pain MILD(1-3)/Fever >100.5/PAREDES Clopidogrel Bisulfate (Clopidogrel 75 Mg Tab) 75 mg PO QDAY [facility] Dextrose (Dextrose 10% *Hypoglycemia) 0 ml IV PRN PRN PRN Reason: Hypoglycemia Furosemide (Furosemide 40 Mg/4 Ml Inj) 40 mg IV BID@0600,1800 [facility] Heparin Sodium (Porcine) (Heparin 5,000 Unit/1 Ml Vial) 5,000 unit SUB-Q Q8HR [place] Vancomycin HCl 2,000 mg/ (Sodium Chloride) 540 mls @ 250 mls/hr IV ONCE ONE Stop: 06/26/21 10:09 Vancomycin HCl 2,000 mg/ (Sodium Chloride) 540 mls @ 250 mls/hr IV Q12H [facility] Insulin Human Lispro (Insulin Lispro 100 Unit/Ml) 0 unit SUB-Q ACHS [place]; Protocol Magnesium Hydroxide (Magnesium Hydroxide (Mom) Oral Liqd Udc) 30 ml PO Q4H PRN PRN Reason: Constipation Morphine Sulfate (Morphine 2 Mg/1 Ml Inj) 2 mg IV Q4H PRN PRN Reason: Pain, Moderate (4-6) Morphine Sulfate (Morphine 4 Mg/1 Ml Inj) 4 mg IV Q4H PRN PRN Reason: Pain , Severe (7-10) Ondansetron HCl (Ondansetron 4 Mg/2 Ml Inj) 4 mg IV Q8H PRN PRN Reason: Nausea And Vomiting Sodium Chloride (Sodium Chloride 0.9% 10 Ml Flush Syringe) 10 ml IV BID [place] Sodium Chloride (Sodium Chloride 0.9% 10 Ml Flush Syringe) 10 ml IV PRN PRN PRN Reason: LINE FLUSH Review of Systems Cardiovascular: orthopnea, edema, shortness of breath, no chest pain, no palpitations, no rapid/irregular heart beat, no syncope, no lightheadedness Physical Examination Vital Signs Temp Pulse Resp BP Pulse Ox 98.1 F 127 H 24 138/84 93 06/26/21 02:42 06/26/21 02:42 06/26/21 02:42 06/26/21 02:42 06/26/21 02:42 General appearance: no acute distress HEENT: Positive: PERRL Neck: Positive: neck supple Cardiac: Positive: Regular Rhythm Lungs: Positive: Decreased Breath Sounds Neuro: Positive: Grossly Intact Abdomen: Positive: Soft Male genitourinary: Positive: scrotal edema Skin: Positive: Clear Extremities: Present: +3 Edema Results 06/26/21 06:01 06/26/21 03:17 Cardiac Enzymes 06/26/21 Range/Units 03:17 AST 59 H (5-40) units/L Coagulation 06/26/21 Range/Units 03:17 PT 14.6 (12.2-14.9) Sec. INR 1.03 (0.87-1.13) Lipids 06/26/21 Range/Units 03:17 Triglycerides 78 (2-149) mg/dL Cholesterol 170 (50-199) mg/dL HDL Cholesterol 31 L (40-59) mg/dL Cholesterol/HDL Ratio 5.48 % CBC 06/26/21 Range/Units 06:01 WBC 7.0 (4.5-11.0) K/mm3 RBC 4.75 (3.65-5.03) M/mm3 Hgb 11.5 L (11.8-15.2) gm/dl Hct 38.0 (35.5-45.6) % Plt Count 206 (140-440) K/mm3 Lymph # (Auto) 1.4 (1.2-5.4) K/mm3 Hendricks # (Auto) 0.5 (0.0-0.8) K/mm3 Eos # (Auto) 0.3 (0.0-0.4) K/mm3 Baso # (Auto) 0.1 (0.0-0.1) K/mm3 Comprehensive Metabolic Panel 06/26/21 Range/Units 03:17 Sodium 133 L (137-145) mmol/L Potassium TNR Chloride 98.2 (98-107) mmol/L Carbon Dioxide 23 (22-30) mmol/L BUN 12 (9-20) mg/dL Creatinine 0.8 (0.8-1.3) mg/dL Glucose 172 H (75-100) mg/dL Calcium 9.3 (8.4-10.2) mg/dL AST 59 H (5-40) units/L ALT 30 (7-56) units/L Alkaline Phosphatase 198 H (35-129) units/L Total Protein 7.4 (6.3-8.2) g/dL Albumin 3.6 L (3.9-5) g/dL EKG interpretations - Telemetry EKG Rhythm: Sinus Tachycardia (With nonspecific intraventricular conduction delay, but no acute ST or T wave changes) Assessment and Plan - Patient Problems (1) Acute on chronic systolic heart failure Current Visit: Yes Status: Acute Plan to address problem: Patient presents with acute on chronic systolic left ventricular failure. He has a severe ischemic cardiomyopathy, historical ejection fraction is 15%. He admits to noncompliance with outpatient medical therapy and physician follow-up. He is also noncompliant with recommended dietary salt restrictions. We will resume guideline directed medical therapy including diuretics, afterload agents, carvedilol, and a 72-hour infusion of intravenous milrinone. It would be prudent to obtain social work case manager consultation, with an aim to evaluating options for the patient's cardiac management and medical therapy in the outpatient setting. (2) Coronary artery disease Current Visit: Yes Status: Acute Plan to address problem: The patient has multivessel coronary artery disease, multivessel stents, most recently early 2020 at [facility]. We will continue guideline directed medical therapy including dual oral antiplatelets with aspirin and Plavix.
--- NOTE | 2021-06-26 10:15 | Electrocardiograph Report ---
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
--- NOTE | 2021-06-26 10:47 | Progress Note ---
Assessment and Plan Assessment and plan: Patient is a 45-year-old man with chronic bilateral lower extremity cellulitis, coronary artery disease (multivessel stents) and a severe ischemic cardiomyopathy (EF 15%) who was most recently implanted early 2020 at [facility] and had been recommended for dual antiplatelet therapy with asp irin and Plavix presented to the hospital now with progressive shortness of breath, orthopnea, worsening edema of the lower legs, thighs and scrotal area. The patient was previously recommended for guideline directed medical therapy, salt restricted diet and outpatient cardiac follow-up. Also he was also previously on triple therapy with low-dose Eliquis added to his DAPT, indication for Eliquis is unclear. The patient has exhibited medical noncompliance with medications and no outpatient follow-up, has not seen a doctor since his prior admission to the hospital here 3 months ago. Also, he is also poorly compliant with recommended dietary salt restrictions. Coronary artery disease. History of acute [place] x2 with PCI stents. Diabetes mellitus type 2 Acute on chronic systolic heart failure Ischemic cardiomyopathy Hypertension Hyperlipidemia Obesity 06/26/2021. Cardiology consulted. We will resume GDMT with diuretic, afterloading agents, Coreg, and a 72-hour trial of IV milrinone. Continue DAPT for coronary artery disease/multivessel stents. Case management follow-up with regards to medications and outpatient follow-up. Continue antibiotics for cellulitis. History Interval history: No new issues overnight Hospitalist Physical - Constitutional Vitals: Temp Pulse Resp BP Pulse Ox 98.1 F 114 H 37 H 112/69 98 06/26/21 02:42 06/26/21 07:00 06/26/21 07:00 06/26/21 07:00 06/26/21 07:00 General appearance: Present: no acute distress - EENT Eyes: Present: PERRL, EOM intact ENT: hearing intact, clear oral mucosa, dentition normal - Neck Neck: Present: supple, normal ROM - Respiratory Respiratory effort: normal Respiratory: bilateral: CTA - Cardiovascular Rhythm: regular Heart Sounds: Present: S1 & S2. Absent: gallop, rub - Extremities Extremities: no ischemia, No edema, Full ROM - Abdominal General gastrointestinal: soft, non-tender, non-distended, normal bowel sounds - Integumentary Integumentary: Present: clear, warm, dry - Neurologic Neurologic: CNII-XII intact, moves all extremities HEART Score - HEART Score Troponin: Troponin T 0.038 ng/mL (0.00-0.029) H D 06/26/21 05:59 Results - Labs CBC & Chem 7: 06/26/21 06:01 06/26/21 03:17 Labs: Laboratory Last Values WBC 7.0 K/mm3 (4.5-11.0) 06/26/21 06:01 RBC 4.75 M/mm3 (3.65-5.03) 06/26/21 06:01 Hgb 11.5 gm/dl (11.8-15.2) L 06/26/21 06:01 Hct 38.0 % (35.5-45.6) 06/26/21 06:01 MCV 80 fl (84-94) L 06/26/21 06:01 MCH 24 pg (28-32) L 06/26/21 06:01 MCHC 30 % (32-34) L 06/26/21 06:01 RDW 20.2 % (13.2-15.2) H 06/26/21 06:01 Plt Count 206 K/mm3 (140-440) 06/26/21 06:01 Lymph % (Auto) 20.5 % (13.4-35.0) 06/26/21 06:01 Wake % (Auto) 6.7 % (0.0-7.3) 06/26/21 06:01 Eos % (Auto) 4.0 % (0.0-4.3) 06/26/21 06:01 Baso % (Auto) 1.3 % (0.0-1.8) 06/26/21 06:01 Lymph # (Auto) 1.4 K/mm3 (1.2-5.4) 06/26/21 06:01 Wake # (Auto) 0.5 K/mm3 (0.0-0.8) 06/26/21 06:01 Eos # (Auto) 0.3 K/mm3 (0.0-0.4) 06/26/21 06:01 Baso # (Auto) 0.1 K/mm3 (0.0-0.1) 06/26/21 06:01 Seg Neutrophils % 67.5 % (40.0-70.0) 06/26/21 06:01 Seg Neutrophils # 4.7 K/mm3 (1.8-7.7) 06/26/21 06:01 PT 14.6 Sec. (12.2-14.9) 06/26/21 03:17 INR 1.03 (0.87-1.13) 06/26/21 03:17 Sodium 133 mmol/L (137-145) L 06/26/21 03:17 Potassium TNR 06/26/21 03:17 Chloride 98.2 mmol/L (98-107) 06/26/21 03:17 Carbon Dioxide 23 mmol/L (22-30) 06/26/21 03:17 Anion Gap 18 mmol/L 06/26/21 03:17 BUN 12 mg/dL (9-20) 06/26/21 03:17 Creatinine 0.8 mg/dL (0.8-1.3) 06/26/21 03:17 Estimated GFR > 60 ml/min 06/26/21 03:17 BUN/Creatinine Ratio 15 % 06/26/21 03:17 Glucose 172 mg/dL (75-100) H 06/26/21 03:17 Calcium 9.3 mg/dL (8.4-10.2) 06/26/21 03:17 Total Bilirubin 1.20 mg/dL (0.1-1.2) 06/26/21 03:17 AST 59 units/L (5-40) H 06/26/21 03:17 ALT 30 units/L (7-56) 06/26/21 03:17 Alkaline Phosphatase 198 units/L (35-129) H 06/26/21 03:17 Troponin T 0.038 ng/mL (0.00-0.029) H D 06/26/21 05:59 NT-Pro-B Natriuret Pep 1688 pg/mL (0-450) H 06/26/21 03:17 Total Protein 7.4 g/dL (6.3-8.2) 06/26/21 03:17 Albumin 3.6 g/dL (3.9-5) L 06/26/21 03:17 Albumin/Globulin Ratio 0.9 % 06/26/21 03:17 Triglycerides 78 mg/dL (2-149) 06/26/21 03:17 Cholesterol 170 mg/dL (50-199) 06/26/21 03:17 LDL Cholesterol Direct 128 mg/dL (50-130) 06/26/21 03:17 HDL Cholesterol 31 mg/dL (40-59) L 06/26/21 03:17 Cholesterol/HDL Ratio 5.48 % 06/26/21 03:17 Lipase 49 units/L (13-60) 06/26/21 03:17 Urine Color Yellow (Yellow) 06/26/21 Unknown Urine Turbidity Clear (Clear) 06/26/21 Unknown Urine pH 5.0 (5.0-7.0) 06/26/21 Unknown Ur Specific Chapman 1.017 (1.003-1.030) 06/26/21 Unknown Urine Protein 30 mg/dl mg/dL (Negative) 06/26/21 Unknown Urine Glucose (UA) Neg mg/dL (Negative) 06/26/21 Unknown Urine Ketones Neg mg/dL (Negative) 06/26/21 Unknown Urine Blood Neg (Negative) 06/26/21 Unknown Urine Nitrite Neg (Negative) 06/26/21 Unknown Urine Bilirubin Neg (Negative) 06/26/21 Unknown Urine Urobilinogen 4.0 mg/dL (<2.0) 06/26/21 Unknown Ur Leukocyte Esterase Neg (Negative) 06/26/21 Unknown Urine WBC (Auto) 1.0 /HPF (0.0-6.0) 06/26/21 Unknown Urine RBC (Auto) 1.0 /HPF (0.0-6.0) 06/26/21 Unknown U Epithel Cells (Auto) < 1.0 /HPF (0-13.0) 06/26/21 Unknown Urine Mucus Few /HPF 06/26/21 Unknown Active Medications - Current Medications Current Medications: Generic Name Dose Route Start Last Admin Trade Name Freq PRN Reason Stop Dose Admin Acetaminophen 650 mg 06/26/21 07:00 Acetaminophen 325 Mg Tab PO Q4H PRN Pain MILD(1-3)/Fever >100.5/PAREDES Atorvastatin Calcium 40 mg 06/26/21 22:00 Atorvastatin 40 Mg Tab PO QHS [facility] Carvedilol 3.125 mg 06/26/21 10:00 Carvedilol 3.125 Mg Tab PO BID [facility] Clopidogrel Bisulfate 75 mg 06/26/21 10:00 Clopidogrel 75 Mg Tab PO QDAY [facility] Dextrose 0 ml 06/26/21 06:39 Dextrose 10% *Hypoglycemia IV PRN PRN Hypoglycemia Furosemide 40 mg 06/26/21 18:00 Furosemide 40 Mg/4 Ml Inj IV BID@0600,1800 [facility] Heparin Sodium (Porcine) 5,000 unit 06/26/21 14:00 Heparin 5,000 Unit/1 Ml Vial SUB-Q Q8HR [facility] Vancomycin HCl 2,000 mg/ 540 mls @ 250 mls/hr 06/26/21 20:00 Sodium Chloride IV Q12H [facility] Milrinone Lactate/Dextrose 20 mg in 100 mls @ 13.594 mls/hr 06/26/21 10:00 Milrinone-D5w 20 Mg/100 Ml IV 06/29/21 09:59 DIRECT [facility] Protocol 0.375 MCG/KG/MIN Insulin Human Lispro 0 unit 06/26/21 07:30 Insulin Lispro 100 Unit/Ml SUB-Q ACHS [facility] Protocol Lisinopril 5 mg 06/26/21 10:00 Lisinopril 5 Mg Tab PO QDAY [facility] Magnesium Hydroxide 30 ml 06/26/21 07:00 Magnesium Hydroxide (Mom) Oral Liqd Udc PO Q4H PRN Constipation Morphine Sulfate 2 mg 06/26/21 07:00 Morphine 2 Mg/1 Ml Inj IV Q4H PRN Pain, Moderate (4-6) Morphine Sulfate 4 mg 06/26/21 07:00 Morphine 4 Mg/1 Ml Inj IV Q4H PRN Pain , Severe (7-10) Ondansetron HCl 4 mg 06/26/21 07:00 Ondansetron 4 Mg/2 Ml Inj IV Q8H PRN Nausea And Vomiting Sodium Chloride 10 ml 06/26/21 10:00 Sodium Chloride 0.9% 10 Ml Flush Syringe IV BID [facility] Sodium Chloride 10 ml 06/26/21 07:00 Sodium Chloride 0.9% 10 Ml Flush Syringe IV PRN PRN LINE FLUSH Spironolactone 25 mg 06/26/21 10:00 Spironolactone 25 Mg Tab PO QDAY [facility] Nutrition/Malnutrition Assess - Dietary Evaluation Nutrition/Malnutrition Findings: Nutrition Notes Start: 06/26/21 10:00 Freq: Status: Active Protocol: Document 06/26/21 10:01 SRUTHI (Rec: 06/26/21 10:03 RIJAMEL [id number]) Nutrition Notes Need for Assessment generated from: MD Order,Education Initial or Follow up Brief Note Current Diagnosis Coronary Artery Disease, Diabetes,Hypertension,Heart Failure Other Pertinent Diagnosis CHF exacerbation Current Diet Cardiac Weight Status Obese Subjective/Other Information RD consulted for diet education. Pt admits to medication non-compliance sec to financial constraints. Nutrition Intervention Follow-Up By: 07/01/21 Additional Comments F/U: diet education/assessment needs
[2021-06-26] MEDS: SPIRONOLACTONE 25 MG TAB PO SCH (11:04)
[2021-06-26] MEDS: carvediloL 3.125 MG TAB PO SCH ×2 (11:04→21:56)
[2021-06-26] MEDS: INSULIN LISPRO 100 UNIT/ML SUB-Q SCH ×4 (11:23→22:55)
[2021-06-26] MEDS: CLOPIDOGREL 75 MG TAB PO SCH (14:07)
[2021-06-26] MEDS: LISINOPRIL 5 MG TAB PO SCH (14:08)
[2021-06-26] MEDS: MILRINONE-D5W 20 MG/100 ML 20 MG/100 ML BAG IV SCH ×2 (14:29→21:56)
[2021-06-26] MEDS: HEPARIN 5,000 UNIT/1 ML VIAL SUB-Q SCH ×2 (14:40→21:56)
[2021-06-26] MEDS: FUROSEMIDE 40 MG/4 ML INJ IV SCH (18:45)
[2021-06-26] MEDS: VANCOMYCIN 2,000 MG in SODIUM CHLORIDE 0.9% 500 ML 500 ML IV SCH (20:55)
[2021-06-27] MEDS: MILRINONE-D5W 20 MG/100 ML 20 MG/100 ML BAG IV SCH ×3 (04:36→18:49)
[2021-06-27] MEDS: HEPARIN 5,000 UNIT/1 ML VIAL SUB-Q SCH ×3 (05:39→21:02)
[2021-06-27] MEDS: FUROSEMIDE 40 MG/4 ML INJ IV SCH ×2 (05:41→17:27)
[2021-06-27 07:31] LABS: Basophils # (Auto) 0.1 K/mm3 (0.0-0.1); Eosinophils # (Auto) 0.4 K/mm3 (0.0-0.4); Eosinophils % (Auto) 6.1 % (0.0-4.3); Hematocrit 35.3 % (35.5-45.6); Lymphocytes # (Auto) 0.6 K/mm3 (1.2-5.4); Lymphocytes % (Auto) 8.3 % (13.4-35.0); Mean Corpuscular HGB Conc 31 % (32-34); Mean Corpuscular Volume 79 fl (84-94); Monocytes # (Auto) 0.5 K/mm3 (0.0-0.8); Monocytes % (Auto) 7.1 % (0.0-7.3); Platelet Count 223 K/mm3 (140-440); Red Blood Count 4.46 M/mm3 (3.65-5.03)
[2021-06-27 07:51] LABS: BUN/Creatinine Ratio 16; Blood Urea Nitrogen 13 mg/dL (9-20); Calcium 9.1 mg/dL (8.4-10.2); Hemolysis Index 1
[2021-06-27] MEDS: MORPHINE 2 MG/1 ML INJ IV PRN (08:35)
[2021-06-27] MEDS: CLOPIDOGREL 75 MG TAB PO SCH ×2 (08:40→09:06)
[2021-06-27] MEDS: carvediloL 3.125 MG TAB PO SCH ×4 (08:40→21:01)
[2021-06-27] MEDS: VANCOMYCIN 2,000 MG in SODIUM CHLORIDE 0.9% 500 ML 500 ML IV SCH ×2 (08:40→20:53)
[2021-06-27] MEDS: SPIRONOLACTONE 25 MG TAB PO SCH ×2 (08:40→09:05)
[2021-06-27] MEDS: LISINOPRIL 5 MG TAB PO SCH ×2 (08:42→09:06)
[2021-06-27] MEDS: INSULIN LISPRO 100 UNIT/ML SUB-Q SCH ×4 (08:51→21:04)
--- NOTE | 2021-06-27 10:15 | Progress Note ---
Assessment and Plan Assessment and plan: Patient is a 45-year-old man with chronic bilateral lower extremity cellulitis, coronary artery disease (multivessel stents) and a severe ischemic cardiomyopathy (EF 15%) who was most recently implanted early 2020 at [facility] and had been recommended for dual antiplatelet therapy with asp irin and Plavix presented to the hospital now with progressive shortness of breath, orthopnea, worsening edema of the lower legs, thighs and scrotal area. The patient was previously recommended for guideline directed medical therapy, salt restricted diet and outpatient cardiac follow-up. Also he was also previously on triple therapy with low-dose Eliquis added to his DAPT, indication for Eliquis is unclear. The patient has exhibited medical noncompliance with medications and no outpatient follow-up, has not seen a doctor since his prior admission to the hospital here 3 months ago. Also, he is also poorly compliant with recommended dietary salt restrictions. Coronary artery disease. History of acute [place] x2 with PCI stents. Diabetes mellitus type 2 Acute on chronic systolic heart failure Ischemic cardiomyopathy Hypertension Hyperlipidemia Obesity 06/26/2021. Cardiology consulted. We will resume GDMT with diuretic, afterloading agents, Coreg, and a 72-hour trial of IV milrinone. Continue DAPT for coronary artery disease/multivessel stents. Case management follow-up with regards to medications and outpatient follow-up. Continue antibiotics for cellulitis. 06/27/2021. Continue aspirin 81 mg p.o. daily, atorvastatin 40 mg daily, Coreg 3.125 mg p.o. twice daily, Plavix 75 mg p.o. daily, Zestril 5 mg daily and Lasix 40 mg IV twice daily. Also continue milrinone drip x48 hours. Cardiology following. Continue antibiotics for cellulitis. Case management follow-up with regards to medications and outpatient follow-up. History Interval history: No new issues overnight Hospitalist Physical - Constitutional Vitals: Temp Pulse Resp BP Pulse Ox 97.5 F L 109 H 18 115/75 89 06/27/21 08:27 06/27/21 08:27 06/27/21 08:27 06/27/21 08:27 06/27/21 08:37 General appearance: Present: no acute distress - EENT Eyes: Present: PERRL, EOM intact ENT: hearing intact, clear oral mucosa, dentition normal - Neck Neck: Present: supple, normal ROM - Respiratory Respiratory effort: normal Respiratory: bilateral: CTA - Cardiovascular Rhythm: regular Heart Sounds: Present: S1 & S2. Absent: gallop, rub - Extremities Extremities: no ischemia, No edema, Full ROM - Abdominal General gastrointestinal: soft, non-tender, non-distended, normal bowel sounds - Integumentary Integumentary: Present: clear, warm, dry - Neurologic Neurologic: CNII-XII intact, moves all extremities HEART Score - HEART Score Troponin: Troponin T 0.038 ng/mL (0.00-0.029) H D 06/26/21 05:59 Results - Labs CBC & Chem 7: 06/27/21 06:47 06/27/21 06:47 Labs: Laboratory Last Values WBC 6.9 K/mm3 (4.5-11.0) 06/27/21 06:47 RBC 4.46 M/mm3 (3.65-5.03) 06/27/21 06:47 Hgb 11.0 gm/dl (11.8-15.2) L 06/27/21 06:47 Hct 35.3 % (35.5-45.6) L 06/27/21 06:47 MCV 79 fl (84-94) L 06/27/21 06:47 MCH 25 pg (28-32) L 06/27/21 06:47 MCHC 31 % (32-34) L 06/27/21 06:47 RDW 20.0 % (13.2-15.2) H 06/27/21 06:47 Plt Count 223 K/mm3 (140-440) 06/27/21 06:47 Lymph % (Auto) 8.3 % (13.4-35.0) L 06/27/21 06:47 [place] % (Auto) 7.1 % (0.0-7.3) 06/27/21 06:47 Eos % (Auto) 6.1 % (0.0-4.3) H 06/27/21 06:47 Baso % (Auto) 2.0 % (0.0-1.8) H 06/27/21 06:47 Lymph # (Auto) 0.6 K/mm3 (1.2-5.4) L 06/27/21 06:47 [place] # (Auto) 0.5 K/mm3 (0.0-0.8) 06/27/21 06:47 Eos # (Auto) 0.4 K/mm3 (0.0-0.4) 06/27/21 06:47 Baso # (Auto) 0.1 K/mm3 (0.0-0.1) 06/27/21 06:47 Seg Neutrophils % 76.5 % (40.0-70.0) H 06/27/21 06:47 Seg Neutrophils # 5.3 K/mm3 (1.8-7.7) 06/27/21 06:47 PT 14.6 Sec. (12.2-14.9) 06/26/21 03:17 INR 1.03 (0.87-1.13) 06/26/21 03:17 Sodium 137 mmol/L (137-145) 06/27/21 06:47 Potassium 4.5 mmol/L (3.6-5.0) 06/27/21 06:47 Chloride 96.2 mmol/L (98-107) L 06/27/21 06:47 Carbon Dioxide 27 mmol/L (22-30) 06/27/21 06:47 Anion Gap 18 mmol/L 06/27/21 06:47 BUN 13 mg/dL (9-20) 06/27/21 06:47 Creatinine 0.8 mg/dL (0.8-1.3) 06/27/21 06:47 Estimated GFR > 60 ml/min 06/27/21 06:47 BUN/Creatinine Ratio 16 % 06/27/21 06:47 Glucose 131 mg/dL (75-100) H 06/27/21 06:47 POC Glucose 134 mg/dL (70-105) H 06/27/21 08:43 Calcium 9.1 mg/dL (8.4-10.2) 06/27/21 06:47 Total Bilirubin 1.20 mg/dL (0.1-1.2) 06/26/21 03:17 AST 59 units/L (5-40) H 06/26/21 03:17 ALT 30 units/L (7-56) 06/26/21 03:17 Alkaline Phosphatase 198 units/L (35-129) H 06/26/21 03:17 Troponin T 0.038 ng/mL (0.00-0.029) H D 06/26/21 05:59 NT-Pro-B Natriuret Pep 1688 pg/mL (0-450) H 06/26/21 03:17 Total Protein 7.4 g/dL (6.3-8.2) 06/26/21 03:17 Albumin 3.6 g/dL (3.9-5) L 06/26/21 03:17 Albumin/Globulin Ratio 0.9 % 06/26/21 03:17 Triglycerides 78 mg/dL (2-149) 06/26/21 03:17 Cholesterol 170 mg/dL (50-199) 06/26/21 03:17 LDL Cholesterol Direct 128 mg/dL (50-130) 06/26/21 03:17 HDL Cholesterol 31 mg/dL (40-59) L 06/26/21 03:17 Cholesterol/HDL Ratio 5.48 % 06/26/21 03:17 Lipase 49 units/L (13-60) 06/26/21 03:17 Urine Color Yellow (Yellow) 06/26/21 Unknown Urine Turbidity Clear (Clear) 06/26/21 Unknown Urine pH 5.0 (5.0-7.0) 06/26/21 Unknown Ur Specific [place] 1.017 (1.003-1.030) 06/26/21 Unknown Urine Protein 30 mg/dl mg/dL (Negative) 06/26/21 Unknown Urine Glucose (UA) Neg mg/dL (Negative) 06/26/21 Unknown Urine Ketones Neg mg/dL (Negative) 06/26/21 Unknown Urine Blood Neg (Negative) 06/26/21 Unknown Urine Nitrite Neg (Negative) 06/26/21 Unknown Urine Bilirubin Neg (Negative) 06/26/21 Unknown Urine Urobilinogen 4.0 mg/dL (<2.0) 06/26/21 Unknown Ur Leukocyte Esterase Neg (Negative) 06/26/21 Unknown Urine WBC (Auto) 1.0 /HPF (0.0-6.0) 06/26/21 Unknown Urine RBC (Auto) 1.0 /HPF (0.0-6.0) 06/26/21 Unknown U Epithel Cells (Auto) < 1.0 /HPF (0-13.0) 06/26/21 Unknown Urine Mucus Few /HPF 06/26/21 Unknown Martinez/IV: Voiding Method Urinal Active Medications - Current Medications Current Medications: Generic Name Dose Route Start Last Admin Trade Name Freq PRN Reason Stop Dose Admin Acetaminophen 650 mg 06/26/21 07:00 Acetaminophen 325 Mg Tab PO Q4H PRN Pain MILD(1-3)/Fever >100.5/PAREDES Atorvastatin Calcium 40 mg 06/26/21 22:00 06/26/21 21:56 Atorvastatin 40 Mg Tab PO 40 mg QHS [place] Administration Carvedilol 3.125 mg 06/26/21 10:00 06/27/21 09:06 Carvedilol 3.125 Mg Tab PO Not Given BID [place] Clopidogrel Bisulfate 75 mg 06/26/21 10:00 06/27/21 09:06 Clopidogrel 75 Mg Tab PO Not Given QDAY [facility] Dextrose 0 ml 06/26/21 06:39 Dextrose 10% *Hypoglycemia IV PRN PRN Hypoglycemia Furosemide 40 mg 06/26/21 18:00 06/27/21 05:41 Furosemide 40 Mg/4 Ml Inj IV 40 mg BID@0600,1800 [place] Administration Heparin Sodium (Porcine) 5,000 unit 06/26/21 14:00 06/27/21 05:39 Heparin 5,000 Unit/1 Ml Vial SUB-Q 5,000 unit Q8HR [place] Administration Vancomycin HCl 2,000 mg/ 540 mls @ 250 mls/hr 06/26/21 20:00 06/27/21 08:40 Sodium Chloride IV 250 mls/hr Q12H [place] Administration Milrinone Lactate/Dextrose 20 mg in 100 mls @ 13.594 mls/hr 06/26/21 10:00 06/27/21 04:36 Milrinone-D5w 20 Mg/100 Ml IV 06/29/21 09:59 0.375 mcg/kg/min DIRECT [place] 13.594 mls/hr Administration Protocol 0.375 MCG/KG/MIN Insulin Human Lispro 0 unit 06/26/21 07:30 06/27/21 08:51 Insulin Lispro 100 Unit/Ml SUB-Q Not Given ACHS [facility] Protocol Lisinopril 5 mg 06/26/21 10:00 06/27/21 09:06 Lisinopril 5 Mg Tab PO Not Given QDAY [facility] Magnesium Hydroxide 30 ml 06/26/21 07:00 Magnesium Hydroxide (Mom) Oral Liqd Udc PO Q4H PRN Constipation Morphine Sulfate 2 mg 06/26/21 07:00 02/19/22 08:35 Morphine 2 Mg/1 Ml Inj IV 2 mg Q4H PRN Administration Pain, Moderate (4-6) Morphine Sulfate 4 mg 06/26/21 07:00 Morphine 4 Mg/1 Ml Inj IV Q4H PRN Pain , Severe (7-10) Ondansetron HCl 4 mg 06/26/21 07:00 Ondansetron 4 Mg/2 Ml Inj IV Q8H PRN Nausea And Vomiting Sodium Chloride 10 ml 06/26/21 10:00 06/27/21 09:06 Sodium Chloride 0.9% 10 Ml Flush Syringe IV Not Given BID [place] Sodium Chloride 10 ml 06/26/21 07:00 Sodium Chloride 0.9% 10 Ml Flush Syringe IV PRN PRN LINE FLUSH Spironolactone 25 mg 06/26/21 10:00 06/27/21 09:05 Spironolactone 25 Mg Tab PO Not Given QDAY [place] Nutrition/Malnutrition Assess - Dietary Evaluation Nutrition/Malnutrition Findings: Nutrition Notes Start: 06/26/21 10:00 Freq: Status: Active Protocol: Document 06/26/21 10:01 SRUTHI (Rec: 06/26/21 10:03 [email or web address] [id number]) Nutrition Notes Need for Assessment generated from: MD Order,Education Initial or Follow up Brief Note Current Diagnosis Coronary Artery Disease, Diabetes,Hypertension,Heart Failure Other Pertinent Diagnosis CHF exacerbation Current Diet Cardiac Weight Status Obese Subjective/Other Information RD consulted for diet education. Pt admits to medication non-compliance sec to financial constraints. Nutrition Intervention Follow-Up By: 07/01/21 Additional Comments F/U: diet education/assessment needs
--- NOTE | 2021-06-27 20:04 | Progress Note ---
Assessment and Plan Assessment: Acute on chronic systolic heart failure Ischemic cardiomyopathy LVEF 15% Coronary artery disease s/p multivessel PCI Obstructive sleep apnea Non-compliance Patient signed out AMA from [facility] on Jun 13, 2021 Recommendations: Continue IV milrinone and IV lasix Monitor renal function and electrolytes Subjective Date of service: 06/27/21 Principal diagnosis: CHF Interval history: Patient is breathing better this morning. He is diuresing well after second dose of IV lasix and while on IV milrinone. Objective Vital Signs Temp Pulse Pulse Resp BP BP Pulse Ox 06/27/21 16:59 97.4 F L 18 106/40 06/27/21 16:51 134/69 100 06/27/21 16:41 134/69 100 06/27/21 16:37 134/69 100 06/27/21 16:01 126/65 100 06/27/21 15:51 114/64 96 06/27/21 15:40 114/64 100 06/27/21 15:31 114/64 100 06/27/21 15:21 114/84 99 06/27/21 15:11 114/84 100 06/27/21 15:01 114/84 100 06/27/21 14:51 121/62 97 06/27/21 14:41 121/62 92 06/27/21 14:31 121/62 100 06/27/21 14:21 117/69 100 06/27/21 14:11 117/69 100 06/27/21 14:01 117/69 99 06/27/21 13:51 114/75 99 06/27/21 13:41 114/75 99 06/27/21 13:31 114/75 99 06/27/21 13:21 116/61 99 06/27/21 13:11 116/61 99 06/27/21 13:01 116/61 100 06/27/21 12:51 129/64 98 06/27/21 12:41 100 06/27/21 12:34 97.8 F 109 H 18 115/76 06/27/21 11:09 111 H 18 99 06/27/21 08:37 89 06/27/21 08:27 97.5 F L 109 H 18 115/75 98 06/27/21 07:55 111 H 06/27/21 04:08 98.2 F 99 H 18 86/50 96 06/26/21 23:29 97.4 F L 109 H 20 89/58 99 06/26/21 21:08 100 - Physical Examination HEENT: Positive: PERRL Neck: Positive: neck supple Cardiac: Positive: Reg Rate and Rhythm Lungs: Positive: Decreased Breath Sounds Neuro: Positive: Grossly Intact Abdomen: Positive: Soft Skin: Positive: Clear Extremities: Present: +3 Edema - Labs and Meds CBC 06/27/21 Range/Units 06:47 WBC 6.9 (4.5-11.0) K/mm3 RBC 4.46 (3.65-5.03) M/mm3 Hgb 11.0 L (11.8-15.2) gm/dl Hct 35.3 L (35.5-45.6) % Plt Count 223 (140-440) K/mm3 Lymph # (Auto) 0.6 L (1.2-5.4) K/mm3 [place] # (Auto) 0.5 (0.0-0.8) K/mm3 Eos # (Auto) 0.4 (0.0-0.4) K/mm3 Baso # (Auto) 0.1 (0.0-0.1) K/mm3 Comprehensive Metabolic Panel 06/27/21 Range/Units 06:47 Sodium 137 (137-145) mmol/L Potassium 4.5 (3.6-5.0) mmol/L Chloride 96.2 L (98-107) mmol/L Carbon Dioxide 27 (22-30) mmol/L BUN 13 (9-20) mg/dL Creatinine 0.8 (0.8-1.3) mg/dL Glucose 131 H (75-100) mg/dL Calcium 9.1 (8.4-10.2) mg/dL
[2021-06-27 20:07] LABS: BUN/Creatinine Ratio 18; Blood Urea Nitrogen 16 mg/dL (9-20); Calcium 9.4 mg/dL (8.4-10.2); Hemolysis Index 1
[2021-06-27] MEDS: MORPHINE 4 MG/1 ML INJ IV PRN (21:03)
[2021-06-28] MEDS: MILRINONE-D5W 20 MG/100 ML 20 MG/100 ML BAG IV SCH ×2 (01:56→11:34)
[2021-06-28] MEDS: MORPHINE 4 MG/1 ML INJ IV PRN (04:01)
[2021-06-28] MEDS: HEPARIN 5,000 UNIT/1 ML VIAL SUB-Q SCH ×3 (05:54→22:45)
[2021-06-28] MEDS: FUROSEMIDE 40 MG/4 ML INJ IV SCH ×2 (05:55→17:21)
[2021-06-28] MEDS: VANCOMYCIN 2,000 MG in SODIUM CHLORIDE 0.9% 500 ML 500 ML IV SCH (07:40)
--- NOTE | 2021-06-28 08:05 | Progress Note ---
Assessment and Plan Assessment and plan: Patient is a 45-year-old man with chronic bilateral lower extremity cellulitis, coronary artery disease (multivessel stents) and a severe ischemic cardiomyopathy (EF 15%) who was most recently implanted early 2020 at [facility] and had been recommended for dual antiplatelet therapy with asp irin and Plavix presented to the hospital now with progressive shortness of breath, orthopnea, worsening edema of the lower legs, thighs and scrotal area. The patient was previously recommended for guideline directed medical therapy, salt restricted diet and outpatient cardiac follow-up. Also he was also previously on triple therapy with low-dose Eliquis added to his DAPT, indication for Eliquis is unclear. The patient has exhibited medical noncompliance with medications and no outpatient follow-up, has not seen a doctor since his prior admission to the hospital here 3 months ago. Also, he is also poorly compliant with recommended dietary salt restrictions. Coronary artery disease. History of acute [place] x2 with PCI stents. Diabetes mellitus type 2 Acute on chronic systolic heart failure Ischemic cardiomyopathy Hypertension Hyperlipidemia Obesity 06/26/2021. Cardiology consulted. We will resume GDMT with diuretic, afterloading agents, Coreg, and a 72-hour trial of IV milrinone. Continue DAPT for coronary artery disease/multivessel stents. Case management follow-up with regards to medications and outpatient follow-up. Continue antibiotics for cellulitis. 06/27/2021. Continue aspirin 81 mg p.o. daily, atorvastatin 40 mg daily, Coreg 3.125 mg p.o. twice daily, Plavix 75 mg p.o. daily, Zestril 5 mg daily and Lasix 40 mg IV twice daily. Also continue milrinone drip x48 hours. Cardiology following. Continue antibiotics for cellulitis. Case management follow-up with regards to medications and outpatient follow-up. 06/28/2021. Continue milrinone drip x24 hours per cardiology recommendations. Also continue GDMT with aspirin 81 mg p.o. daily, atorvastatin 40 mg daily, Coreg 3.125 mg p.o. twice daily, Plavix 75 mg p.o. daily, Zestril 5 mg daily and Lasix 40 mg IV twice daily. Continue IV antibiotics for cellulitis History Interval history: No new issues overnight Hospitalist Physical - Constitutional Vitals: Temp Pulse Resp BP Pulse Ox 97.4 F L 108 H 18 122/64 97 06/28/21 03:52 06/28/21 03:52 06/28/21 03:52 06/28/21 03:52 06/28/21 03:52 General appearance: Present: no acute distress - EENT Eyes: Present: PERRL, EOM intact ENT: hearing intact, clear oral mucosa, dentition normal - Neck Neck: Present: supple, normal ROM - Respiratory Respiratory effort: normal Respiratory: bilateral: CTA - Cardiovascular Rhythm: regular Heart Sounds: Present: S1 & S2. Absent: gallop, rub - Extremities Extremities: no ischemia, No edema, Full ROM - Abdominal General gastrointestinal: soft, non-tender, non-distended, normal bowel sounds - Integumentary Integumentary: Present: clear, warm, dry - Neurologic Neurologic: CNII-XII intact, moves all extremities HEART Score - HEART Score Troponin: Troponin T 0.038 ng/mL (0.00-0.029) H D 06/26/21 05:59 Results - Labs CBC & Chem 7: 06/27/21 06:47 06/27/21 19:30 Labs: Laboratory Last Values WBC 6.9 K/mm3 (4.5-11.0) 06/27/21 06:47 RBC 4.46 M/mm3 (3.65-5.03) 06/27/21 06:47 Hgb 11.0 gm/dl (11.8-15.2) L 06/27/21 06:47 Hct 35.3 % (35.5-45.6) L 06/27/21 06:47 MCV 79 fl (84-94) L 06/27/21 06:47 MCH 25 pg (28-32) L 06/27/21 06:47 MCHC 31 % (32-34) L 06/27/21 06:47 RDW 20.0 % (13.2-15.2) H 06/27/21 06:47 Plt Count 223 K/mm3 (140-440) 06/27/21 06:47 Lymph % (Auto) 8.3 % (13.4-35.0) L 06/27/21 06:47 [place] % (Auto) 7.1 % (0.0-7.3) 06/27/21 06:47 Eos % (Auto) 6.1 % (0.0-4.3) H 06/27/21 06:47 Baso % (Auto) 2.0 % (0.0-1.8) H 06/27/21 06:47 Lymph # (Auto) 0.6 K/mm3 (1.2-5.4) L 06/27/21 06:47 [place] # (Auto) 0.5 K/mm3 (0.0-0.8) 06/27/21 06:47 Eos # (Auto) 0.4 K/mm3 (0.0-0.4) 06/27/21 06:47 Baso # (Auto) 0.1 K/mm3 (0.0-0.1) 06/27/21 06:47 Seg Neutrophils % 76.5 % (40.0-70.0) H 06/27/21 06:47 Seg Neutrophils # 5.3 K/mm3 (1.8-7.7) 06/27/21 06:47 PT 14.6 Sec. (12.2-14.9) 06/26/21 03:17 INR 1.03 (0.87-1.13) 06/26/21 03:17 Sodium 138 mmol/L (137-145) 06/27/21 19:30 Potassium 4.3 mmol/L (3.6-5.0) 06/27/21 19:30 Chloride 95.3 mmol/L (98-107) L 06/27/21 19:30 Carbon Dioxide 29 mmol/L (22-30) 06/27/21 19:30 Anion Gap 18 mmol/L 06/27/21 19:30 BUN 16 mg/dL (9-20) 06/27/21 19:30 Creatinine 0.9 mg/dL (0.8-1.3) 06/27/21 19:30 Estimated GFR > 60 ml/min 06/27/21 19:30 BUN/Creatinine Ratio 18 % 06/27/21 19:30 Glucose 145 mg/dL (75-100) H 06/27/21 19:30 POC Glucose 151 mg/dL (70-105) H 06/28/21 07:35 Calcium 9.4 mg/dL (8.4-10.2) 06/27/21 19:30 Magnesium 2.10 mg/dL (1.7-2.3) 06/27/21 19:30 Total Bilirubin 1.20 mg/dL (0.1-1.2) 06/26/21 03:17 AST 59 units/L (5-40) H 06/26/21 03:17 ALT 30 units/L (7-56) 06/26/21 03:17 Alkaline Phosphatase 198 units/L (35-129) H 06/26/21 03:17 Troponin T 0.038 ng/mL (0.00-0.029) H D 06/26/21 05:59 NT-Pro-B Natriuret Pep 1688 pg/mL (0-450) H 06/26/21 03:17 Total Protein 7.4 g/dL (6.3-8.2) 06/26/21 03:17 Albumin 3.6 g/dL (3.9-5) L 06/26/21 03:17 Albumin/Globulin Ratio 0.9 % 06/26/21 03:17 Triglycerides 78 mg/dL (2-149) 06/26/21 03:17 Cholesterol 170 mg/dL (50-199) 06/26/21 03:17 LDL Cholesterol Direct 128 mg/dL (50-130) 06/26/21 03:17 HDL Cholesterol 31 mg/dL (40-59) L 06/26/21 03:17 Cholesterol/HDL Ratio 5.48 % 06/26/21 03:17 Lipase 49 units/L (13-60) 06/26/21 03:17 Urine Color Yellow (Yellow) 06/26/21 Unknown Urine Turbidity Clear (Clear) 06/26/21 Unknown Urine pH 5.0 (5.0-7.0) 06/26/21 Unknown Ur Specific [place] 1.017 (1.003-1.030) 06/26/21 Unknown Urine Protein 30 mg/dl mg/dL (Negative) 06/26/21 Unknown Urine Glucose (UA) Neg mg/dL (Negative) 06/26/21 Unknown Urine Ketones Neg mg/dL (Negative) 06/26/21 Unknown Urine Blood Neg (Negative) 06/26/21 Unknown Urine Nitrite Neg (Negative) 06/26/21 Unknown Urine Bilirubin Neg (Negative) 06/26/21 Unknown Urine Urobilinogen 4.0 mg/dL (<2.0) 06/26/21 Unknown Ur Leukocyte Esterase Neg (Negative) 06/26/21 Unknown Urine WBC (Auto) 1.0 /HPF (0.0-6.0) 06/26/21 Unknown Urine RBC (Auto) 1.0 /HPF (0.0-6.0) 06/26/21 Unknown U Epithel Cells (Auto) < 1.0 /HPF (0-13.0) 06/26/21 Unknown Urine Mucus Few /HPF 06/26/21 Unknown Vancomycin Trough 24.0 ug/mL (5.0-20.0) H 06/27/21 19:30 Martinez/IV: Voiding Method Urinal Active Medications - Current Medications Current Medications: Generic Name Dose Route Start Last Admin Trade Name Freq PRN Reason Stop Dose Admin Acetaminophen 650 mg 06/26/21 07:00 Acetaminophen 325 Mg Tab PO Q4H PRN Pain MILD(1-3)/Fever >100.5/PAREDES Aspirin 81 mg 06/28/21 10:00 Aspirin Ec 81 Mg Tab PO QDAY [facility] Atorvastatin Calcium 40 mg 06/26/21 22:00 06/27/21 21:00 Atorvastatin 40 Mg Tab PO 40 mg QHS [facility] Administration Carvedilol 3.125 mg 06/26/21 10:00 06/27/21 21:01 Carvedilol 3.125 Mg Tab PO 3.125 mg BID [place] Administration Clopidogrel Bisulfate 75 mg 06/26/21 10:00 06/27/21 09:06 Clopidogrel 75 Mg Tab PO Not Given QDAY [facility] Dextrose 0 ml 06/26/21 06:39 Dextrose 10% *Hypoglycemia IV PRN PRN Hypoglycemia Furosemide 40 mg 06/26/21 18:00 06/28/21 05:55 Furosemide 40 Mg/4 Ml Inj IV 40 mg BID@0600,1800 [place] Administration Heparin Sodium (Porcine) 5,000 unit 06/26/21 14:00 06/28/21 05:54 Heparin 5,000 Unit/1 Ml Vial SUB-Q 5,000 unit Q8HR [facility] Administration Milrinone Lactate/Dextrose 20 mg in 100 mls @ 13.594 mls/hr 06/26/21 10:00 06/28/21 01:56 Milrinone-D5w 20 Mg/100 Ml IV 06/29/21 09:59 0.375 mcg/kg/min DIRECT [place] 13.594 mls/hr Administration Protocol 0.375 MCG/KG/MIN Insulin Human Lispro 0 unit 06/26/21 07:30 06/27/21 21:04 Insulin Lispro 100 Unit/Ml SUB-Q Not Given ACHS [facility] Protocol Lisinopril 5 mg 06/26/21 10:00 06/27/21 09:06 Lisinopril 5 Mg Tab PO Not Given QDAY [facility] Magnesium Hydroxide 30 ml 06/26/21 07:00 Magnesium Hydroxide (Mom) Oral Liqd Udc PO Q4H PRN Constipation Morphine Sulfate 2 mg 06/26/21 07:00 06/27/21 08:35 Morphine 2 Mg/1 Ml Inj IV 2 mg Q4H PRN Administration Pain, Moderate (4-6) Morphine Sulfate 4 mg 06/26/21 07:00 06/28/21 04:01 Morphine 4 Mg/1 Ml Inj IV 4 mg Q4H PRN Administration Pain , Severe (7-10) Ondansetron HCl 4 mg 06/26/21 07:00 Ondansetron 4 Mg/2 Ml Inj IV Q8H PRN Nausea And Vomiting Sodium Chloride 10 ml 06/26/21 10:00 06/27/21 21:00 Sodium Chloride 0.9% 10 Ml Flush Syringe IV 10 ml BID [place] Administration Sodium Chloride 10 ml 06/26/21 07:00 06/28/21 05:58 Sodium Chloride 0.9% 10 Ml Flush Syringe IV 10 ml PRN PRN Administration LINE FLUSH Spironolactone 25 mg 06/26/21 10:00 06/27/21 09:05 Spironolactone 25 Mg Tab PO Not Given QDAY [facility] Nutrition/Malnutrition Assess - Dietary Evaluation Nutrition/Malnutrition Findings: Nutrition Notes Start: 06/26/21 10:00 Freq: Status: Active Protocol: Document 06/26/21 10:01 SRUTHI (Rec: 06/26/21 10:03 SRUTHI [email or web address]) Nutrition Notes Need for Assessment generated from: MD Order,Education Initial or Follow up Brief Note Current Diagnosis Coronary Artery Disease, Diabetes,Hypertension,Heart Failure Other Pertinent Diagnosis CHF exacerbation Current Diet Cardiac Weight Status Obese Subjective/Other Information RD consulted for diet education. Pt admits to medication non-compliance sec to financial constraints. Nutrition Intervention Follow-Up By: 07/01/21 Additional Comments F/U: diet education/assessment needs
[2021-06-28] MEDS: INSULIN LISPRO 100 UNIT/ML SUB-Q SCH ×4 (09:00→22:45)
[2021-06-28] MEDS: SPIRONOLACTONE 25 MG TAB PO SCH (09:23)
[2021-06-28] MEDS: CLOPIDOGREL 75 MG TAB PO SCH (09:23)
[2021-06-28] MEDS: LISINOPRIL 5 MG TAB PO SCH (09:24)
[2021-06-28] MEDS: carvediloL 3.125 MG TAB PO SCH ×2 (09:24→22:46)
[2021-06-28] MEDS: ASPIRIN EC 81 MG TAB PO SCH (09:26)
--- NOTE | 2021-06-28 09:27 | Progress Note ---
Assessment and Plan Assessment: Acute on chronic systolic heart failure Ischemic cardiomyopathy LVEF 15% Coronary artery disease s/p multivessel PCI Obstructive sleep apnea Non-compliance, profound Patient was refusing therapy while hospitalized at [facility] and pulling out all his lines Patient signed out AMA from [facility] on Jun 13, 2021 Due to his noncompliance, patient has been deemed not to be a candidate for repeat invasive coronary angiogram or AICD placement Recommendations: Continue IV milrinone and IV lasix Monitor renal function and electrolytes Subjective Date of service: 06/28/21 Principal diagnosis: CHF Interval history: The nurse taking care of the patient reports good diuresis overnight. Telemetry did show 8 beats of nonsustained ventricular tachycardia. Objective Vital Signs Temp Pulse Pulse Resp BP BP Pulse Ox 06/28/21 08:32 104 H 18 99 06/28/21 03:52 97.4 F L 108 H 18 122/64 97 06/27/21 23:46 100 06/27/21 23:09 97.7 F 103 H 18 101/64 97 06/27/21 22:00 97 06/27/21 21:01 106 H 133/81 06/27/21 19:51 97.1 F L 102 H 20 133/81 100 06/27/21 19:21 116/69 86 06/27/21 19:11 116/69 100 06/27/21 19:01 116/69 87 06/27/21 18:51 123/62 100 06/27/21 18:45 89 06/27/21 16:59 97.4 F L 18 106/40 06/27/21 16:51 134/69 100 06/27/21 16:41 134/69 100 06/27/21 16:37 134/69 100 06/27/21 16:01 126/65 100 06/27/21 15:51 114/64 96 06/27/21 15:40 114/64 100 06/27/21 15:31 114/64 100 06/27/21 15:21 114/84 99 06/27/21 15:11 114/84 100 06/27/21 15:01 114/84 100 06/27/21 14:51 121/62 97 06/27/21 14:41 121/62 92 06/27/21 14:31 121/62 100 06/27/21 14:21 117/69 100 02/19/22 14:11 117/69 100 06/27/21 14:01 117/69 99 06/27/21 13:51 114/75 99 06/27/21 13:41 114/75 99 06/27/21 13:31 114/75 99 06/27/21 13:21 116/61 99 06/27/21 13:11 116/61 99 06/27/21 13:01 116/61 100 06/27/21 12:51 129/64 98 06/27/21 12:41 100 06/27/21 12:34 97.8 F 109 H 18 115/76 06/27/21 11:09 111 H 18 99 - Physical Examination HEENT: Positive: PERRL Neck: Positive: neck supple Cardiac: Positive: Tachycardia Lungs: Positive: Decreased Breath Sounds Neuro: Positive: Grossly Intact Abdomen: Positive: Soft Skin: Positive: Clear Extremities: Present: +3 Edema - Labs and Meds Comprehensive Metabolic Panel 06/27/21 Range/Units 19:30 Sodium 138 (137-145) mmol/L Potassium 4.3 (3.6-5.0) mmol/L Chloride 95.3 L (98-107) mmol/L Carbon Dioxide 29 (22-30) mmol/L BUN 16 (9-20) mg/dL Creatinine 0.9 (0.8-1.3) mg/dL Glucose 145 H (75-100) mg/dL Calcium 9.4 (8.4-10.2) mg/dL
[2021-06-28] MEDS: MORPHINE 2 MG/1 ML INJ IV PRN (12:12)
[2021-06-28] MEDS: ONDANSETRON 4 MG/2 ML INJ IV PRN (12:15)
[2021-06-28] MEDS: VANCOMYCIN 1,500 MG in SODIUM CHLORIDE 0.9% 500 ML 500 ML IV SCH (20:52)
[2021-06-29] MEDS: ONDANSETRON 4 MG/2 ML INJ IV PRN (04:58)
[2021-06-29] MEDS: HEPARIN 5,000 UNIT/1 ML VIAL SUB-Q SCH ×3 (05:00→21:45)
[2021-06-29] MEDS: FUROSEMIDE 40 MG/4 ML INJ IV SCH ×3 (05:00→17:35)
[2021-06-29] MEDS: INSULIN LISPRO 100 UNIT/ML SUB-Q SCH ×4 (09:14→21:42)
--- NOTE | 2021-06-29 09:14 | Progress Note ---
Assessment and Plan Assessment and plan: Patient is a 45-year-old man with chronic bilateral lower extremity cellulitis, coronary artery disease (multivessel stents) and a severe ischemic cardiomyopathy (EF 15%) who was most recently implanted early 2020 at [facility] and had been recommended for dual antiplatelet therapy with asp irin and Plavix presented to the hospital now with progressive shortness of breath, orthopnea, worsening edema of the lower legs, thighs and scrotal area. The patient was previously recommended for guideline directed medical therapy, salt restricted diet and outpatient cardiac follow-up. Also he was also previously on triple therapy with low-dose Eliquis added to his DAPT, indication for Eliquis is unclear. The patient has exhibited medical noncompliance with medications and no outpatient follow-up, has not seen a doctor since his prior admission to the hospital here 3 months ago. Also, he is also poorly compliant with recommended dietary salt restrictions. Coronary artery disease. History of acute [place] x2 with PCI stents. Diabetes mellitus type 2 Acute on chronic systolic heart failure Ischemic cardiomyopathy. LVEF 15%. Obstructive sleep apnea. Profound medical noncompliance. Hypertension Hyperlipidemia Obesity 06/26/2021. Cardiology consulted. We will resume GDMT with diuretic, afterloading agents, Coreg, and a 72-hour trial of IV milrinone. Continue DAPT for coronary artery disease/multivessel stents. Case management follow-up with regards to medications and outpatient follow-up. Continue antibiotics for cellulitis. 06/27/2021. Continue aspirin 81 mg p.o. daily, atorvastatin 40 mg daily, Coreg 3.125 mg p.o. twice daily, Plavix 75 mg p.o. daily, Zestril 5 mg daily and Lasix 40 mg IV twice daily. Also continue milrinone drip x48 hours. Cardiology following. Continue antibiotics for cellulitis. Case management follow-up with regards to medications and outpatient follow-up. 06/28/2021. Continue milrinone drip x24 hours per cardiology recommendations. Also continue GDMT with aspirin 81 mg p.o. daily, atorvastatin 40 mg daily, Coreg 3.125 mg p.o. twice daily, Plavix 75 mg p.o. daily, Zestril 5 mg daily and Lasix 40 mg IV twice daily. Continue IV antibiotics for cellulitis 06/29/2021. Continue IV milrinone per cardiology recommendations. Continue GDMT with aspirin 81 mg p.o. daily, atorvastatin 40 mg daily, Coreg 3.125 mg p.o. twice daily, Plavix 75 mg p.o. daily, Zestril 5 mg daily and Lasix 40 mg IV twice daily. Continue IV antibiotics for cellulitis. Cardiology reports profile medical noncompliance. Patient was refusing therapy while hospitalized at [facility] and pulling out all his lines. Patient signed out AMA from [facility] on Jun 13, 2021. Due to his noncompliance, patient has been deemed not to be a candidate for repeat invasive coronary angiogram or AICD placement History Interval history: No new issues overnight Hospitalist Physical - Constitutional Vitals: Temp Pulse Resp BP Pulse Ox 97.2 F L 102 H 18 128/83 99 06/29/21 08:04 06/29/21 08:36 06/29/21 08:36 06/29/21 08:04 06/29/21 08:36 General appearance: Present: no acute distress - EENT Eyes: Present: PERRL, EOM intact ENT: hearing intact, clear oral mucosa, dentition normal - Neck Neck: Present: supple, normal ROM - Respiratory Respiratory effort: normal Respiratory: bilateral: CTA - Cardiovascular Rhythm: regular Heart Sounds: Present: S1 & S2. Absent: gallop, rub - Extremities Extremities: no ischemia, No edema, Full ROM - Abdominal General gastrointestinal: soft, non-tender, non-distended, normal bowel sounds - Integumentary Integumentary: Present: clear, warm, dry - Neurologic Neurologic: CNII-XII intact, moves all extremities HEART Score - HEART Score Troponin: Troponin T 0.038 ng/mL (0.00-0.029) H D 06/26/21 05:59 Results - Labs CBC & Chem 7: 06/27/21 06:47 06/27/21 19:30 Labs: Laboratory Last Values WBC 6.9 K/mm3 (4.5-11.0) 06/27/21 06:47 RBC 4.46 M/mm3 (3.65-5.03) 06/27/21 06:47 Hgb 11.0 gm/dl (11.8-15.2) L 06/27/21 06:47 Hct 35.3 % (35.5-45.6) L 06/27/21 06:47 MCV 79 fl (84-94) L 06/27/21 06:47 MCH 25 pg (28-32) L 06/27/21 06:47 MCHC 31 % (32-34) L 06/27/21 06:47 RDW 20.0 % (13.2-15.2) H 06/27/21 06:47 Plt Count 223 K/mm3 (140-440) 06/27/21 06:47 Lymph % (Auto) 8.3 % (13.4-35.0) L 06/27/21 06:47 [place] % (Auto) 7.1 % (0.0-7.3) 06/27/21 06:47 Eos % (Auto) 6.1 % (0.0-4.3) H 06/27/21 06:47 Baso % (Auto) 2.0 % (0.0-1.8) H 06/27/21 06:47 Lymph # (Auto) 0.6 K/mm3 (1.2-5.4) L 06/27/21 06:47 [place] # (Auto) 0.5 K/mm3 (0.0-0.8) 06/27/21 06:47 Eos # (Auto) 0.4 K/mm3 (0.0-0.4) 06/27/21 06:47 Baso # (Auto) 0.1 K/mm3 (0.0-0.1) 06/27/21 06:47 Seg Neutrophils % 76.5 % (40.0-70.0) H 06/27/21 06:47 Seg Neutrophils # 5.3 K/mm3 (1.8-7.7) 06/27/21 06:47 PT 14.6 Sec. (12.2-14.9) 06/26/21 03:17 INR 1.03 (0.87-1.13) 06/26/21 03:17 Sodium 138 mmol/L (137-145) 06/27/21 19:30 Potassium 4.3 mmol/L (3.6-5.0) 06/27/21 19:30 Chloride 95.3 mmol/L (98-107) L 06/27/21 19:30 Carbon Dioxide 29 mmol/L (22-30) 06/27/21 19:30 Anion Gap 18 mmol/L 06/27/21 19:30 BUN 16 mg/dL (9-20) 06/27/21 19:30 Creatinine 0.9 mg/dL (0.8-1.3) 06/27/21 19:30 Estimated GFR > 60 ml/min 06/27/21 19:30 BUN/Creatinine Ratio 18 % 06/27/21 19:30 Glucose 145 mg/dL (75-100) H 06/27/21 19:30 POC Glucose 142 mg/dL (70-105) H 06/29/21 07:30 Calcium 9.4 mg/dL (8.4-10.2) 06/27/21 19:30 Magnesium 2.10 mg/dL (1.7-2.3) 06/27/21 19:30 Total Bilirubin 1.20 mg/dL (0.1-1.2) 06/26/21 03:17 AST 59 units/L (5-40) H 06/26/21 03:17 ALT 30 units/L (7-56) 06/26/21 03:17 Alkaline Phosphatase 198 units/L (35-129) H 06/26/21 03:17 Troponin T 0.038 ng/mL (0.00-0.029) H D 06/26/21 05:59 NT-Pro-B Natriuret Pep 1688 pg/mL (0-450) H 06/26/21 03:17 Total Protein 7.4 g/dL (6.3-8.2) 06/26/21 03:17 Albumin 3.6 g/dL (3.9-5) L 06/26/21 03:17 Albumin/Globulin Ratio 0.9 % 06/26/21 03:17 Triglycerides 78 mg/dL (2-149) 06/26/21 03:17 Cholesterol 170 mg/dL (50-199) 06/26/21 03:17 LDL Cholesterol Direct 128 mg/dL (50-130) 06/26/21 03:17 HDL Cholesterol 31 mg/dL (40-59) L 06/26/21 03:17 Cholesterol/HDL Ratio 5.48 % 06/26/21 03:17 Lipase 49 units/L (13-60) 06/26/21 03:17 Urine Color Yellow (Yellow) 06/26/21 Unknown Urine Turbidity Clear (Clear) 06/26/21 Unknown Urine pH 5.0 (5.0-7.0) 06/26/21 Unknown Ur Specific [place] 1.017 (1.003-1.030) 06/26/21 Unknown Urine Protein 30 mg/dl mg/dL (Negative) 06/26/21 Unknown Urine Glucose (UA) Neg mg/dL (Negative) 06/26/21 Unknown Urine Ketones Neg mg/dL (Negative) 06/26/21 Unknown Urine Blood Neg (Negative) 06/26/21 Unknown Urine Nitrite Neg (Negative) 06/26/21 Unknown Urine Bilirubin Neg (Negative) 06/26/21 Unknown Urine Urobilinogen 4.0 mg/dL (<2.0) 06/26/21 Unknown Ur Leukocyte Esterase Neg (Negative) 06/26/21 Unknown Urine WBC (Auto) 1.0 /HPF (0.0-6.0) 06/26/21 Unknown Urine RBC (Auto) 1.0 /HPF (0.0-6.0) 06/26/21 Unknown U Epithel Cells (Auto) < 1.0 /HPF (0-13.0) 06/26/21 Unknown Urine Mucus Few /HPF 06/26/21 Unknown Vancomycin Trough 24.0 ug/mL (5.0-20.0) H 06/27/21 19:30 Martinez/IV: Voiding Method Urinal Active Medications - Current Medications Current Medications: Generic Name Dose Route Start Last Admin Trade Name Freq PRN Reason Stop Dose Admin Acetaminophen 650 mg 06/26/21 07:00 06/28/21 22:46 Acetaminophen 325 Mg Tab PO 650 mg Q4H PRN Administration Pain MILD(1-3)/Fever >100.5/PAREDES Aspirin 81 mg 06/28/21 10:00 06/28/21 09:26 Aspirin Ec 81 Mg Tab PO 81 mg QDAY [place] Administration Atorvastatin Calcium 40 mg 06/26/21 22:00 06/28/21 22:45 Atorvastatin 40 Mg Tab PO 40 mg QHS [place] Administration Carvedilol 3.125 mg 06/26/21 10:00 06/28/21 22:46 Carvedilol 3.125 Mg Tab PO Not Given BID PARIS Clopidogrel Bisulfate 75 mg 06/26/21 10:00 06/28/21 09:23 Clopidogrel 75 Mg Tab PO 75 mg QDAY [place] Administration Dextrose 0 ml 06/26/21 06:39 Dextrose 10% *Hypoglycemia IV PRN PRN Hypoglycemia Furosemide 40 mg 06/26/21 18:00 06/29/21 05:00 Furosemide 40 Mg/4 Ml Inj IV 40 mg BID@0600,1800 [place] Administration Heparin Sodium (Porcine) 5,000 unit 06/26/21 14:00 06/29/21 05:00 Heparin 5,000 Unit/1 Ml Vial SUB-Q 5,000 unit Q8HR [place] Administration Milrinone Lactate/Dextrose 20 mg in 100 mls @ 13.594 mls/hr 06/26/21 10:00 06/28/21 11:34 Milrinone-D5w 20 Mg/100 Ml IV 06/29/21 09:59 0.375 mcg/kg/min DIRECT PARIS 13.594 mls/hr Administration Protocol 0.375 MCG/KG/MIN Vancomycin HCl 1,500 mg/ 530 mls @ 333.333 mls/hr 06/28/21 20:00 06/28/21 20:52 Sodium Chloride IV 333.333 mls/hr Q12H [facility] Administration Insulin Human Lispro 0 unit 06/26/21 07:30 06/28/21 22:45 Insulin Lispro 100 Unit/Ml SUB-Q 2 unit ACHS [facility] Administration Protocol Lisinopril 5 mg 06/26/21 10:00 06/28/21 09:24 Lisinopril 5 Mg Tab PO 5 mg QDAY [place] Administration Magnesium Hydroxide 30 ml 06/26/21 07:00 Magnesium Hydroxide (Mom) Oral Liqd Udc PO Q4H PRN Constipation Morphine Sulfate 2 mg 06/26/21 07:00 06/28/21 12:12 Morphine 2 Mg/1 Ml Inj IV 2 mg Q4H PRN Administration Pain, Moderate (4-6) Morphine Sulfate 4 mg 06/26/21 07:00 06/28/21 04:01 Morphine 4 Mg/1 Ml Inj IV 4 mg Q4H PRN Administration Pain , Severe (7-10) Ondansetron HCl 4 mg 06/26/21 07:00 06/29/21 04:58 Ondansetron 4 Mg/2 Ml Inj IV 4 mg Q8H PRN Administration Nausea And Vomiting Sodium Chloride 10 ml 06/26/21 10:00 06/28/21 22:46 Sodium Chloride 0.9% 10 Ml Flush Syringe IV 10 ml BID PARIS Administration Sodium Chloride 10 ml 06/26/21 07:00 06/28/21 05:58 Sodium Chloride 0.9% 10 Ml Flush Syringe IV 10 ml PRN PRN Administration LINE FLUSH Spironolactone 25 mg 06/26/21 10:00 06/28/21 09:23 Spironolactone 25 Mg Tab PO 25 mg QDAY [place] Administration Nutrition/Malnutrition Assess - Dietary Evaluation Nutrition/Malnutrition Findings: Nutrition Notes Start: 06/26/21 10:00 Freq: Status: Active Protocol: Document 06/26/21 10:01 [facility] (Rec: 06/26/21 10:03 [facility] [id number]) Nutrition Notes Need for Assessment generated from: MD Order,Education Initial or Follow up Brief Note Current Diagnosis Coronary Artery Disease, Diabetes,Hypertension,Heart Failure Other Pertinent Diagnosis CHF exacerbation Current Diet Cardiac Weight Status Obese Subjective/Other Information RD consulted for diet education. Pt admits to medication non-compliance sec to financial constraints. Nutrition Intervention Follow-Up By: 07/01/21 Additional Comments F/U: diet education/assessment needs
[2021-06-29] MEDS: ASPIRIN EC 81 MG TAB PO SCH (09:15)
[2021-06-29] MEDS: SPIRONOLACTONE 25 MG TAB PO SCH (09:15)
[2021-06-29] MEDS: carvediloL 3.125 MG TAB PO SCH ×2 (09:16→21:44)
[2021-06-29] MEDS: VANCOMYCIN 1,500 MG in SODIUM CHLORIDE 0.9% 500 ML 500 ML IV SCH ×2 (09:16→20:30)
[2021-06-29] MEDS: LISINOPRIL 5 MG TAB PO SCH (09:16)
[2021-06-29] MEDS: CLOPIDOGREL 75 MG TAB PO SCH (09:16)
--- NOTE | 2021-06-29 11:58 | Progress Note ---
Assessment and Plan - Patient Problems (1) Acute on chronic systolic heart failure Current Visit: Yes Status: Acute Plan to address problem: Stop milrinone after completed protocol. Continue oral guideline directed medical therapy. (2) Coronary artery disease Current Visit: Yes Status: Acute Plan to address problem: Guideline directed medical therapy for underlying coronary artery disease. Subjective Date of service: 06/29/21 Principal diagnosis: CHF Interval history: Patient is comfortable, no cardiac complaints. He is laying comfortably supine on bedrest, no cardiac symptoms. Objective Vital Signs Temp Pulse Pulse Resp BP BP Pulse Ox 06/29/21 08:36 102 H 18 99 06/29/21 08:04 97.2 F L 105 H 20 128/83 96 06/29/21 03:26 98.1 F 99 H 20 103/65 94 06/28/21 23:08 98.4 F 104 H 20 112/68 100 06/28/21 23:00 92 H 17 92 06/28/21 22:00 92 H 100 06/28/21 19:00 98.2 F 92 H 19 98/55 90 06/28/21 18:59 97.3 F L 19 96/59 06/28/21 12:30 97.8 F 100 H 18 113/72 93 - Physical Examination General: No Apparent Distress HEENT: Positive: PERRL Neck: Positive: neck supple Cardiac: Positive: Reg Rate and Rhythm Lungs: Positive: Decreased Breath Sounds Neuro: Positive: Grossly Intact Abdomen: Positive: Soft Skin: Positive: Clear Extremities: Present: +1 Edema
[2021-06-29] MEDS: MORPHINE 2 MG/1 ML INJ IV PRN (20:24)
[2021-06-29] MEDS ORDERED: FUROSEMIDE 40 MG/4 ML INJ IV ONE (21:00)
[2021-06-29] MEDS: NICOTINE 21 MG/24 HR PATCH TD SCH (21:49)
[2021-06-30] MEDS: HEPARIN 5,000 UNIT/1 ML VIAL SUB-Q SCH ×3 (05:57→22:59)
[2021-06-30] MEDS: FUROSEMIDE 40 MG/4 ML INJ IV SCH ×2 (05:58→18:32)
[2021-06-30] MEDS: INSULIN LISPRO 100 UNIT/ML SUB-Q SCH ×4 (08:00→23:00)
--- NOTE | 2021-06-30 09:03 | Progress Note ---
Assessment and Plan Assessment and plan: Patient is a 45-year-old man with chronic bilateral lower extremity cellulitis, coronary artery disease (multivessel stents) and a severe ischemic cardiomyopathy (EF 15%) who was most recently implanted early 2020 at [facility] and had been recommended for dual antiplatelet therapy with asp irin and Plavix presented to the hospital now with progressive shortness of breath, orthopnea, worsening edema of the lower legs, thighs and scrotal area. The patient was previously recommended for guideline directed medical therapy, salt restricted diet and outpatient cardiac follow-up. Also he was also previously on triple therapy with low-dose Eliquis added to his DAPT, indication for Eliquis is unclear. The patient has exhibited medical noncompliance with medications and no outpatient follow-up, has not seen a doctor since his prior admission to the hospital here 3 months ago. Also, he is also poorly compliant with recommended dietary salt restrictions. Coronary artery disease. History of acute [place] x2 with PCI stents. Ischemic cardiomyopathy, LVEF 15% Symmetrical mild erythema in lower extremities below knees bilaterally likely due to venous insufficiency/edema and not infectious etiology. ID recommends discontinuation of antibiotics as a primary intervention is elevation. Acute on chronic systolic heart failure due to noncompliance, patient claims he cannot afford meds. Type 2 diabetes mellitus Obstructive sleep apnea. Profound medical noncompliance. Hypertension Hyperlipidemia Obesity Narcotic drug seeking behavior, patient is willing and demanding for narcotics claiming he has pain in lower extremities. Daily events: 06/26/2021. Cardiology consulted. We will resume GDMT with diuretic, afterloading agents, Coreg, and a 72-hour trial of IV milrinone. Continue DAPT for coronary artery disease/multivessel stents. Case management follow-up with regards to medications and outpatient follow-up. Continue antibiotics for cellulitis. 06/27/2021. Continue aspirin 81 mg p.o. daily, atorvastatin 40 mg daily, Coreg 3.125 mg p.o. twice daily, Plavix 75 mg p.o. daily, Zestril 5 mg daily and Lasix 40 mg IV twice daily. Also continue milrinone drip x48 hours. Cardiology following. Continue antibiotics for cellulitis. Case management follow-up with regards to medications and outpatient follow-up. 06/28/2021. Continue milrinone drip x24 hours per cardiology recommendations. Also continue GDMT with aspirin 81 mg p.o. daily, atorvastatin 40 mg daily, Coreg 3.125 mg p.o. twice daily, Plavix 75 mg p.o. daily, Zestril 5 mg daily and Lasix 40 mg IV twice daily. Continue IV antibiotics for cellulitis 06/29/2021. Continue IV milrinone per cardiology recommendations. Continue GDMT with aspirin 81 mg p.o. daily, atorvastatin 40 mg daily, Coreg 3.125 mg p.o. twice daily, Plavix 75 mg p.o. daily, Zestril 5 mg daily and Lasix 40 mg IV twice daily. Continue IV antibiotics for cellulitis. Cardiology reports profile medical noncompliance. Patient was refusing therapy while hospitalized at [facility] and pulling out all his lines. Patient signed out AMA from [facility] on Jun 13, 2021. Due to his noncompliance, patient has been deemed not to be a candidate for repeat invasive coronary angiogram or AICD placement 06/30:Patient continues to have some bilateral symmetrical lower extremity erythema and edema below knees and complaining of pain. He is yelling and demanding narcotic pain medications. Evaluated by ID today and recommended no antibiotic therapy since edema secondary to venous stasis and edema. Per cardiology, CHF is stable and needs to be compliant with his medical regimen which is a problem. CM help requested since patient is not able to afford his medications. Patient has no other complaints other than asking for narcotic pain medications. Anticipating discharge in 1 to 2 days. History Interval history: Patient continues to have some bilateral symmetrical lower extremity erythema and edema below knees and complaining of pain. He is yelling and demanding narcotic pain medications. Evaluated by ID today and recommended no antibiotic therapy since edema secondary to venous stasis and edema. Per cardiology, CHF is stable and needs to be compliant with his medical regimen which is a problem. CM help requested since patient is not able to afford his medications. Patient has no other complaints other than asking for narcotic pain medications. Hospitalist Physical - Constitutional Vitals: Temp Pulse Resp BP Pulse Ox 97.6 F 101 H 20 115/81 100 06/30/21 08:04 06/30/21 08:04 06/30/21 08:04 06/30/21 08:04 06/30/21 08:04 General appearance: Present: no acute distress, well-nourished - EENT Eyes: Present: PERRL, EOM intact ENT: hearing intact, clear oral mucosa - Neck Neck: Present: supple - Respiratory Respiratory effort: normal Respiratory: bilateral: CTA - Cardiovascular Rhythm: regular - Extremities Extremity abnormal: other (1-2+ indurated symmetrical bilateral edema with mild erythema below the knees with few tiny scabs.) HEART Score - HEART Score Troponin: Troponin T 0.038 ng/mL (0.00-0.029) H D 06/26/21 05:59 Results - Labs CBC & Chem 7: 06/30/21 09:13 06/30/21 09:13 Labs: Laboratory Last Values WBC 6.9 K/mm3 (4.5-11.0) 06/27/21 06:47 RBC 4.46 M/mm3 (3.65-5.03) 06/27/21 06:47 Hgb 11.0 gm/dl (11.8-15.2) L 06/27/21 06:47 Hct 35.3 % (35.5-45.6) L 06/27/21 06:47 MCV 79 fl (84-94) L 06/27/21 06:47 MCH 25 pg (28-32) L 06/27/21 06:47 MCHC 31 % (32-34) L 06/27/21 06:47 RDW 20.0 % (13.2-15.2) H 06/27/21 06:47 Plt Count 223 K/mm3 (140-440) 06/27/21 06:47 Lymph % (Auto) 8.3 % (13.4-35.0) L 06/27/21 06:47 [place] % (Auto) 7.1 % (0.0-7.3) 06/27/21 06:47 Eos % (Auto) 6.1 % (0.0-4.3) H 06/27/21 06:47 Baso % (Auto) 2.0 % (0.0-1.8) H 06/27/21 06:47 Lymph # (Auto) 0.6 K/mm3 (1.2-5.4) L 06/27/21 06:47 [place] # (Auto) 0.5 K/mm3 (0.0-0.8) 06/27/21 06:47 Eos # (Auto) 0.4 K/mm3 (0.0-0.4) 06/27/21 06:47 Baso # (Auto) 0.1 K/mm3 (0.0-0.1) 06/27/21 06:47 Seg Neutrophils % 76.5 % (40.0-70.0) H 06/27/21 06:47 Seg Neutrophils # 5.3 K/mm3 (1.8-7.7) 06/27/21 06:47 PT 14.6 Sec. (12.2-14.9) 06/26/21 03:17 INR 1.03 (0.87-1.13) 06/26/21 03:17 Sodium 138 mmol/L (137-145) 06/27/21 19:30 Potassium 4.3 mmol/L (3.6-5.0) 06/27/21 19:30 Chloride 95.3 mmol/L (98-107) L 06/27/21 19:30 Carbon Dioxide 29 mmol/L (22-30) 06/27/21 19:30 Anion Gap 18 mmol/L 06/27/21 19:30 BUN 16 mg/dL (9-20) 06/27/21 19:30 Creatinine 0.9 mg/dL (0.8-1.3) 06/27/21 19:30 Estimated GFR > 60 ml/min 06/27/21 19:30 BUN/Creatinine Ratio 18 % 06/27/21 19:30 Glucose 145 mg/dL (75-100) H 06/27/21 19:30 POC Glucose 119 mg/dL (70-105) H 06/30/21 08:06 Calcium 9.4 mg/dL (8.4-10.2) 06/27/21 19:30 Magnesium 2.10 mg/dL (1.7-2.3) 06/27/21 19:30 Total Bilirubin 1.20 mg/dL (0.1-1.2) 06/26/21 03:17 AST 59 units/L (5-40) H 06/26/21 03:17 ALT 30 units/L (7-56) 06/26/21 03:17 Alkaline Phosphatase 198 units/L (35-129) H 06/26/21 03:17 Troponin T 0.038 ng/mL (0.00-0.029) H D 06/26/21 05:59 NT-Pro-B Natriuret Pep 1688 pg/mL (0-450) H 06/26/21 03:17 Total Protein 7.4 g/dL (6.3-8.2) 06/26/21 03:17 Albumin 3.6 g/dL (3.9-5) L 06/26/21 03:17 Albumin/Globulin Ratio 0.9 % 06/26/21 03:17 Triglycerides 78 mg/dL (2-149) 06/26/21 03:17 Cholesterol 170 mg/dL (50-199) 06/26/21 03:17 LDL Cholesterol Direct 128 mg/dL (50-130) 06/26/21 03:17 HDL Cholesterol 31 mg/dL (40-59) L 06/26/21 03:17 Cholesterol/HDL Ratio 5.48 % 06/26/21 03:17 Lipase 49 units/L (13-60) 06/26/21 03:17 Urine Color Yellow (Yellow) 06/26/21 Unknown Urine Turbidity Clear (Clear) 06/26/21 Unknown Urine pH 5.0 (5.0-7.0) 06/26/21 Unknown Ur Specific [place] 1.017 (1.003-1.030) 06/26/21 Unknown Urine Protein 30 mg/dl mg/dL (Negative) 06/26/21 Unknown Urine Glucose (UA) Neg mg/dL (Negative) 06/26/21 Unknown Urine Ketones Neg mg/dL (Negative) 06/26/21 Unknown Urine Blood Neg (Negative) 06/26/21 Unknown Urine Nitrite Neg (Negative) 06/26/21 Unknown Urine Bilirubin Neg (Negative) 06/26/21 Unknown Urine Urobilinogen 4.0 mg/dL (<2.0) 06/26/21 Unknown Ur Leukocyte Esterase Neg (Negative) 06/26/21 Unknown Urine WBC (Auto) 1.0 /HPF (0.0-6.0) 06/26/21 Unknown Urine RBC (Auto) 1.0 /HPF (0.0-6.0) 06/26/21 Unknown U Epithel Cells (Auto) < 1.0 /HPF (0-13.0) 06/26/21 Unknown Urine Mucus Few /HPF 06/26/21 Unknown Vancomycin Trough 24.0 ug/mL (5.0-20.0) H 06/27/21 19:30 Martinez/IV: Voiding Method Urinal Active Medications - Current Medications Current Medications: Generic Name Dose Route Start Last Admin Trade Name Freq PRN Reason Stop Dose Admin Acetaminophen 650 mg 06/26/21 07:00 06/28/21 22:46 Acetaminophen 325 Mg Tab PO 650 mg Q4H PRN Administration Pain MILD(1-3)/Fever >100.5/PAREDES Aspirin 81 mg 06/28/21 10:00 06/29/21 09:15 Aspirin Ec 81 Mg Tab PO 81 mg QDAY [place] Administration Atorvastatin Calcium 40 mg 06/26/21 22:00 06/29/21 21:44 Atorvastatin 40 Mg Tab PO 40 mg QHS [place] Administration Carvedilol 3.125 mg 06/26/21 10:00 06/29/21 21:44 Carvedilol 3.125 Mg Tab PO 3.125 mg BID PARIS Administration Clopidogrel Bisulfate 75 mg 06/26/21 10:00 06/29/21 09:16 Clopidogrel 75 Mg Tab PO 75 mg QDAY [place] Administration Dextrose 0 ml 06/26/21 06:39 Dextrose 10% *Hypoglycemia IV PRN PRN Hypoglycemia Furosemide 40 mg 06/26/21 18:00 06/30/21 05:58 Furosemide 40 Mg/4 Ml Inj IV 40 mg BID@0600,1800 [place] Administration Heparin Sodium (Porcine) 5,000 unit 06/26/21 14:00 06/30/21 05:57 Heparin 5,000 Unit/1 Ml Vial SUB-Q 5,000 unit Q8HR [place] Administration Vancomycin HCl 1,500 mg/ 530 mls @ 333.333 mls/hr 06/28/21 20:00 06/29/21 20:30 Sodium Chloride IV 333.333 mls/hr Q12H [place] Administration Insulin Human Lispro 0 unit 06/26/21 07:30 06/29/21 21:42 Insulin Lispro 100 Unit/Ml SUB-Q Not Given ACHS [facility] Protocol Lisinopril 5 mg 06/26/21 10:00 06/29/21 09:16 Lisinopril 5 Mg Tab PO 5 mg QDAY [place] Administration Magnesium Hydroxide 30 ml 06/26/21 07:00 Magnesium Hydroxide (Mom) Oral Liqd Udc PO Q4H PRN Constipation Morphine Sulfate 2 mg 06/26/21 07:00 06/29/21 20:24 Morphine 2 Mg/1 Ml Inj IV 2 mg Q4H PRN Administration Pain, Moderate (4-6) Morphine Sulfate 4 mg 06/26/21 07:00 06/28/21 04:01 Morphine 4 Mg/1 Ml Inj IV 4 mg Q4H PRN Administration Pain , Severe (7-10) Nicotine 21 mg 06/29/21 22:00 06/29/21 21:49 Nicotine 21 Mg/24 Hr Patch TD 21 mg QDAY [place] Administration Ondansetron HCl 4 mg 06/26/21 07:00 06/29/21 04:58 Ondansetron 4 Mg/2 Ml Inj IV 4 mg Q8H PRN Administration Nausea And Vomiting Sodium Chloride 10 ml 06/26/21 10:00 06/29/21 21:46 Sodium Chloride 0.9% 10 Ml Flush Syringe IV 10 ml BID [place] Administration Sodium Chloride 10 ml 06/26/21 07:00 06/28/21 05:58 Sodium Chloride 0.9% 10 Ml Flush Syringe IV 10 ml PRN PRN Administration LINE FLUSH Spironolactone 25 mg 06/26/21 10:00 06/29/21 09:15 Spironolactone 25 Mg Tab PO 25 mg QDAY [place] Administration Nutrition/Malnutrition Assess - Dietary Evaluation Nutrition/Malnutrition Findings: Nutrition Notes Start: 06/26/21 10:00 Freq: Status: Active Protocol: Document 06/26/21 10:01 [facility] (Rec: 06/26/21 10:03 [facility] [id number]) Nutrition Notes Need for Assessment generated from: MD Order,Education Initial or Follow up Brief Note Current Diagnosis Coronary Artery Disease, Diabetes,Hypertension,Heart Failure Other Pertinent Diagnosis CHF exacerbation Current Diet Cardiac Weight Status Obese Subjective/Other Information RD consulted for diet education. Pt admits to medication non-compliance sec to financial constraints. Nutrition Intervention Follow-Up By: 07/01/21 Additional Comments F/U: diet education/assessment needs
[2021-06-30 09:36] LABS: Basophils # (Auto) 0.1 K/mm3 (0.0-0.1); Basophils % (Auto) 1.8 % (0.0-1.8); Eosinophils # (Auto) 0.3 K/mm3 (0.0-0.4); Eosinophils % (Auto) 5.5 % (0.0-4.3); Hematocrit 36.5 % (35.5-45.6); Hemoglobin 11.9 gm/dl (11.8-15.2); Lymphocytes # (Auto) 0.7 K/mm3 (1.2-5.4); Lymphocytes % (Auto) 12.2 % (13.4-35.0); Mean Corpuscular HGB Conc 33 % (32-34); Mean Corpuscular Volume 79 fl (84-94); Monocytes # (Auto) 0.4 K/mm3 (0.0-0.8); Monocytes % (Auto) 6.6 % (0.0-7.3); Platelet Count 329 K/mm3 (140-440); Red Blood Count 4.64 M/mm3 (3.65-5.03)
[2021-06-30 09:41] LABS: Red Cell Distribution Width 20.1 % (13.2-15.2)
[2021-06-30 10:07] LABS: BUN/Creatinine Ratio 18; Blood Urea Nitrogen 14 mg/dL (9-20); Calcium 9.7 mg/dL (8.4-10.2); Hemolysis Index 0
[2021-06-30] MEDS: ASPIRIN EC 81 MG TAB PO SCH (11:23)
[2021-06-30] MEDS: NICOTINE 21 MG/24 HR PATCH TD SCH (11:23)
[2021-06-30] MEDS: LISINOPRIL 5 MG TAB PO SCH (11:24)
[2021-06-30] MEDS: carvediloL 3.125 MG TAB PO SCH ×2 (11:24→22:59)
[2021-06-30] MEDS: CLOPIDOGREL 75 MG TAB PO SCH (11:25)
--- NOTE | 2021-06-30 11:25 | Progress Note ---
Assessment and Plan - Patient Problems (1) Acute on chronic systolic heart failure Current Visit: Yes Status: Acute Plan to address problem: Continue oral guideline directed medical regimen. The patient's major issue is noncompliance with medical therapy in the outpatient setting, states he is unable to afford medications. It would be prudent at this time to get focused 7th grade social studies teacher assessment and consultation to enable patient get required assistance for outpatient medical management and physician follow-ups. (2) Coronary artery disease Current Visit: Yes Status: Acute Plan to address problem: Guideline directed medical therapy for underlying coronary artery disease. Subjective Date of service: 06/30/21 Principal diagnosis: CHF Interval history: Patient is comfortable, and looks and feels better after inpatient treatment including intravenous milrinone. Objective Vital Signs Temp Pulse Pulse Resp BP BP Pulse Ox 06/30/21 08:04 97.6 F 101 H 20 115/81 100 06/30/21 03:34 97.7 F 98 H 19 108/68 95 06/30/21 00:29 98.2 F 95 H 17 110/67 97 06/29/21 23:00 95 H 95 06/29/21 22:00 95 H 06/29/21 21:44 104 H 140/86 06/29/21 21:12 100 06/29/21 20:20 99.1 F 104 H 17 140/86 95 06/29/21 15:42 97.9 F 99 H 122/79 92 06/29/21 11:35 102 H - Physical Examination General: No Apparent Distress HEENT: Positive: PERRL Neck: Positive: neck supple Cardiac: Positive: Reg Rate and Rhythm Lungs: Positive: Decreased Breath Sounds Neuro: Positive: Grossly Intact Abdomen: Positive: Soft Skin: Positive: Clear Extremities: Present: edema (Trace) - Labs and Meds CBC 06/30/21 Range/Units 09:13 WBC 5.8 (4.5-11.0) K/mm3 RBC 4.64 (3.65-5.03) M/mm3 Hgb 11.9 (11.8-15.2) gm/dl Hct 36.5 (35.5-45.6) % Plt Count 329 (140-440) K/mm3 Lymph # (Auto) 0.7 L (1.2-5.4) K/mm3 [place] # (Auto) 0.4 (0.0-0.8) K/mm3 Eos # (Auto) 0.3 (0.0-0.4) K/mm3 Baso # (Auto) 0.1 (0.0-0.1) K/mm3 Comprehensive Metabolic Panel 06/30/21 Range/Units 09:13 Sodium 136 L (137-145) mmol/L Potassium 4.3 (3.6-5.0) mmol/L Chloride 92.0 L (98-107) mmol/L Carbon Dioxide 37 H D (22-30) mmol/L BUN 14 (9-20) mg/dL Creatinine 0.8 (0.8-1.3) mg/dL Glucose 239 H (75-100) mg/dL Calcium 9.7 (8.4-10.2) mg/dL
[2021-06-30] MEDS: SPIRONOLACTONE 25 MG TAB PO SCH (11:26)
[2021-06-30] MEDS: MORPHINE 2 MG/1 ML INJ IV PRN ×2 (11:35→20:23)
[2021-06-30] MEDS: VANCOMYCIN 1,500 MG in SODIUM CHLORIDE 0.9% 500 ML 500 ML IV SCH ×2 (11:37→20:23)
--- NOTE | 2021-06-30 16:15 | Consultation ---
History of Present Illness - Reason for Consult Consult date: 06/30/21 - History of Present Illness 45-year-old male past medical history hypertension, diabetes, CAD presented to hospital with shortness of breath and bilateral swelling of lower extremities. He notes this began a couple days prior to admission has been ongoing since then. He also reports bilateral redness in the lower extremities. Afebrile since admission with a white count 5.8. No cultures currently on vancomycin. Imaging personally reviewed: Chest x-ray: No acute abnormality Review of Systems: Bold if positive, otherwise negative General: fevers, chills, rigors HEENT: visual disturbance, diplopia, eye pain Respiratory: cough, sputum, hemoptysis, shortness of breath Cardiovascular: chest pain, syncope Gastrointestinal: nausea, vomiting, diarrhea, abdominal pain Genitourinary: dysuria, hematuria, flank pain Musculoskeletal: neck pain, back pain, joint pain, edema Neurologic: headaches, seizures Hematologic: easy bruising or bleeding Endocrine: night sweats, acute weight loss Skin: rash, jaundice, redness Psychiatric: suicidal, homicidal ideation Past History Past Medical History: acute TN (X2 with PCIstents), CAD, diabetes, heart failure (EF 15% 01/27), hypertension, hyperlipidemia, other (Obesity) Past Surgical History: PTCA Social history: smoking Family history: CAD, hypertension, stroke Medications and Allergies Allergies Allergy/AdvReac Type Severity Reaction Status Date / Time adhesive tape Allergy Rash Verified 06/26/21 02:42 Home Medications Medication Instructions Recorded Confirmed Last Taken Type Ondansetron [Zofran Odt] 4 mg PO Q6HR PRN #20 tab.rapdis 05/07/15 03/20/21 03/18/21 09:00 Rx ALPRAZolam [Xanax TAB] 0.25 mg PO QHS PRN #6 tablet 12/31/20 03/20/21 03/09/21 09:00 Rx Aspirin [Aspirin BABY CHEW TAB] 81 mg PO QDAY #30 tab.chew 12/31/20 03/20/21 03/18/21 09:00 Rx AtorvaSTATin [Lipitor] 40 mg PO QHS #30 tablet 12/31/20 03/20/21 03/18/21 09:30 Rx Clopidogrel [Plavix] 75 mg PO QDAY #30 tablet 12/31/20 03/20/21 03/18/21 09:00 Rx ISOSORBIDE MONOnitrate [Imdur ER] 30 mg PO QDAY #30 tablet 12/31/20 03/20/21 01/07/21 21:00 Rx Nicotine [Habitrol] 14 mg TD DAILY #30 patch 12/31/20 03/20/21 03/18/21 Rx Spironolactone [Aldactone] 25 mg PO QDAY #30 tablet 12/31/20 03/20/21 03/18/21 Rx carvediloL [Coreg] 6.25 mg PO BID #60 tablet 12/31/20 03/20/21 03/19/21 10:00 Rx lisinopriL [Zestril TAB] 20 mg PO QDAY #30 tablet 12/31/20 06/27/21 03/17/21 Rx Apixaban [Eliquis] 2.5 mg PO Q12HR #60 tablet 02/04/21 03/20/21 03/19/21 21:30 Rx Compress.stocking,Knee,Reg,Lrg 1 each MC DAILY 30 Days #2 each 03/23/21 Unknown Rx [Relief Knee Close Toe] Gabapentin 300 mg PO Q8HR 30 Days #90 capsule 03/23/21 Unknown Rx Torsemide [Demadex] 40 mg PO DAILY 30 Days #60 tablet 03/23/21 Unknown Rx Ibuprofen [Motrin 800 MG tab] 800 mg PO Q8HR PRN #30 tablet 04/13/21 Unknown Rx Sulfamethoxazole/Trimethoprim 1 each PO Q12H #20 tablet 04/13/21 Unknown Rx [Bactrim DS TAB] Active Meds: Active Medications Acetaminophen (Acetaminophen 325 Mg Tab) 650 mg PO Q4H PRN PRN Reason: Pain MILD(1-3)/Fever >100.5/PAREDES Last Admin: 06/28/21 22:46 Dose: 650 mg Aspirin (Aspirin Ec 81 Mg Tab) 81 mg PO QDAY [facility] Last Admin: 06/30/21 11:23 Dose: 81 mg Atorvastatin Calcium (Atorvastatin 40 Mg Tab) 40 mg PO QHS [facility] Last Admin: 06/29/21 21:44 Dose: 40 mg Carvedilol (Carvedilol 3.125 Mg Tab) 3.125 mg PO BID [facility] Last Admin: 06/30/21 11:24 Dose: 3.125 mg Clopidogrel Bisulfate (Clopidogrel 75 Mg Tab) 75 mg PO QDAY [facility] Last Admin: 06/30/21 11:25 Dose: 75 mg Dextrose (Dextrose 10% *Hypoglycemia) 0 ml IV PRN PRN PRN Reason: Hypoglycemia Furosemide (Furosemide 40 Mg/4 Ml Inj) 40 mg IV BID@0600,1800 [facility] Last Admin: 06/30/21 05:58 Dose: 40 mg Heparin Sodium (Porcine) (Heparin 5,000 Unit/1 Ml Vial) 5,000 unit SUB-Q Q8HR [facility] Last Admin: 06/30/21 05:57 Dose: 5,000 unit Vancomycin HCl 1,500 mg/ (Sodium Chloride) 530 mls @ 333.333 mls/hr IV Q12H [facility] Last Admin: 06/30/21 11:37 Dose: 333.333 mls/hr Insulin Human Lispro (Insulin Lispro 100 Unit/Ml) 0 unit SUB-Q ACHS [facility]; Protocol Last Admin: 06/30/21 08:00 Dose: 3 unit Lisinopril (Lisinopril 5 Mg Tab) 5 mg PO QDAY [facility] Last Admin: 06/30/21 11:24 Dose: 5 mg Magnesium Hydroxide (Magnesium Hydroxide (Mom) Oral Liqd Udc) 30 ml PO Q4H PRN PRN Reason: Constipation Morphine Sulfate (Morphine 2 Mg/1 Ml Inj) 2 mg IV Q4H PRN PRN Reason: Pain, Moderate (4-6) Last Admin: 06/30/21 11:35 Dose: 2 mg Nicotine (Nicotine 21 Mg/24 Hr Patch) 21 mg TD QDAY [facility] Last Admin: 06/30/21 11:23 Dose: 21 mg Ondansetron HCl (Ondansetron 4 Mg/2 Ml Inj) 4 mg IV Q8H PRN PRN Reason: Nausea And Vomiting Last Admin: 06/29/21 04:58 Dose: 4 mg Sodium Chloride (Sodium Chloride 0.9% 10 Ml Flush Syringe) 10 ml IV BID [facility] Last Admin: 06/30/21 11:26 Dose: 10 ml Sodium Chloride (Sodium Chloride 0.9% 10 Ml Flush Syringe) 10 ml IV PRN PRN PRN Reason: LINE FLUSH Last Admin: 06/28/21 05:58 Dose: 10 ml Spironolactone (Spironolactone 25 Mg Tab) 25 mg PO QDAY [facility] Last Admin: 06/30/21 11:26 Dose: 25 mg Physical Examination - Physical Exam Narrative exam: Physical Exam: Constitutional: Alert, cooperative. No acute distress Head, Ears, Nose: Normocephalic, atraumatic. External ears, nose normal Eyes: Conjunctivae/corneas clear. No icterus. No ptosis. Neck: Supple, no meningeal signs Oral: dentition fair, no thrush Cardiovascular: S1, S2 normal. Respiratory: Good air entry, clear to auscultation bilaterally GI: Soft, non-tender; bowel sounds normal. No peritoneal signs. Musculoskeletal: Bilateral lower extremity venous stasis. 1+ edema Skin: No rash or abscess Hem/Lymphatic: No palpable cervical or supraclavicular nodes. No lymphangitis Psych: Mood ok. Affect normal Neurological: Awake, alert, oriented. No gross abnormality - Constitutional Vitals: Vital Signs Temp Pulse Resp BP Pulse Ox 97.8 F 101 H 18 124/68 97 06/30/21 11:55 06/30/21 11:55 06/30/21 11:55 06/30/21 11:55 06/30/21 11:55 Temperature -Last 24 Hours Temperature 97.8 F Temperature 97.6 F Temperature 97.7 F Temperature 98.2 F Temperature 99.1 F Results - Labs CBC & Chem 7: 06/30/21 09:13 06/30/21 09:13 Labs: Abnormal lab results 06/29/21 06/30/21 06/30/21 Range/Units 16:44 08:06 09:13 MCV 79 L (84-94) fl MCH 26 L (28-32) pg RDW 20.1 H (13.2-15.2) % Lymph % (Auto) 12.2 L (13.4-35.0) % Eos % (Auto) 5.5 H (0.0-4.3) % Lymph # (Auto) 0.7 L (1.2-5.4) K/mm3 Seg Neutrophils % 73.9 H (40.0-70.0) % Sodium (137-145) mmol/L Chloride (98-107) mmol/L Carbon Dioxide (22-30) mmol/L Glucose (75-100) mg/dL POC Glucose 181 H 119 H (70-105) mg/dL 06/30/21 06/30/21 Range/Units 09:13 11:48 MCV (84-94) fl MCH (28-32) pg RDW (13.2-15.2) % Lymph % (Auto) (13.4-35.0) % Eos % (Auto) (0.0-4.3) % Lymph # (Auto) (1.2-5.4) K/mm3 Seg Neutrophils % (40.0-70.0) % Sodium 136 L (137-145) mmol/L Chloride 92.0 L (98-107) mmol/L Carbon Dioxide 37 H D (22-30) mmol/L Glucose 239 H (75-100) mg/dL POC Glucose 163 H (70-105) mg/dL Assessment and Plan Cultures: None A/P: 45-year-old male past medical history hypertension, diabetes, CAD now with: #Bilateral venous stasis dermatitis: Patient afebrile history of edema with poor control, this most likely venous stasis dermatitis as well as cellulitis. Would not recommend treatment with antibiotics at the present time. #Diabetes: tight glycemic control for best outcomes. #CHF: Edema control to improve of legs Recs: -Stop vancomycin -No need for antibiotics -Edema control -Limb elevation is the most important thing for symptomatic control Thank you for the consult, we will continue to follow. MD Alyce Mag[facility] O: [phone] F: [phone]
[2021-07-01] MEDS: HEPARIN 5,000 UNIT/1 ML VIAL SUB-Q SCH ×2 (05:18→14:29)
[2021-07-01] MEDS: FUROSEMIDE 40 MG/4 ML INJ IV SCH ×2 (05:18→17:09)
[2021-07-01] MEDS: INSULIN LISPRO 100 UNIT/ML SUB-Q SCH (08:52)
[2021-07-01] MEDS: MORPHINE 2 MG/1 ML INJ IV PRN (09:18)
[2021-07-01] MEDS: SPIRONOLACTONE 25 MG TAB PO SCH (09:19)
[2021-07-01] MEDS: ASPIRIN EC 81 MG TAB PO SCH (09:19)
[2021-07-01] MEDS: NICOTINE 21 MG/24 HR PATCH TD SCH (09:19)
[2021-07-01] MEDS: carvediloL 3.125 MG TAB PO SCH (09:20)
[2021-07-01] MEDS: LISINOPRIL 5 MG TAB PO SCH (09:20)
[2021-07-01] MEDS: CLOPIDOGREL 75 MG TAB PO SCH (09:20)
--- NOTE | 2021-07-01 13:09 | Vascular Lab Report ---
DUPLEX DOPPLER LOWER EXTREMITY VEINS, BILATERAL INDICATION / CLINICAL INFORMATION: Bilateral leg edema but erythema, rule out DVT. TECHNIQUE: Duplex doppler imaging was performed through the veins of both lower extremities using britton ous compression and other maneuvers. COMPARISON: Ultrasound 04/13/2021 FINDINGS: RIGHT COMMON FEMORAL VEIN: Negative. RIGHT FEMORAL VEIN: Negative. RIGHT POPLITEAL VEIN: Negative. RIGHT CALF VEINS: Negative. LEFT COMMON FEMORAL VEIN: Negative. LEFT FEMORAL VEIN: Negative. LEFT POPLITEAL VEIN: Negative. LEFT CALF VEINS: Negative. ADDITIONAL FINDINGS: There is a right Dickerson's cyst measures 2.1 x 1.6 cm. IMPRESSION: 1. No sonographic evidence for DVT in either lower extremity. 2. Right Dickerson's cyst. Signer Name: Kuldeep Martines MD Signed: 07/01/2021 11:48 AM Workstation Name: [email or web address]
--- NOTE | 2021-07-01 16:44 | Progress Note ---
Assessment and Plan - Patient Problems (1) Acute on chronic systolic heart failure Current Visit: Yes Status: Acute Plan to address problem: Continue oral guideline directed medical regimen. The patient's major issue is noncompliance with medical therapy in the outpatient setting, states he is unable to afford medications. It would be prudent at this time to get focused social sciences lecturer assessment and consultation to enable patient get required assistance for outpatient medical management and physician follow-ups. (2) Coronary artery disease Current Visit: Yes Status: Acute Plan to address problem: Guideline directed medical therapy for underlying coronary artery disease. Subjective Date of service: 07/01/21 Principal diagnosis: CHF Interval history: Patient is comfortable, no acute distress, no new cardiac events reported. Objective Vital Signs Temp Pulse Pulse Resp BP Pulse Ox 07/01/21 12:02 98 07/01/21 09:20 97 H 108/77 07/01/21 09:19 97 H 108/77 07/01/21 08:22 96 07/01/21 07:28 98.7 F 97 H 18 108/77 100 07/01/21 03:52 98.0 F 91 H 19 105/69 99 06/30/21 23:47 98.4 F 105 H 18 111/60 97 06/30/21 23:00 92 H 17 98 06/30/21 22:00 98 H 06/30/21 19:31 97.5 F L 98 H 20 104/43 97 - Physical Examination General: No Apparent Distress HEENT: Positive: PERRL Neck: Positive: neck supple Cardiac: Positive: Reg Rate and Rhythm Lungs: Positive: Decreased Breath Sounds Neuro: Positive: Grossly Intact Abdomen: Positive: Soft Skin: Positive: Clear Extremities: Present: edema (Trace)
[2021-07-01 17:09] VITALS: BP 84/52
--- NOTE | 2021-07-01 18:05 | Progress Note ---
Assessment and Plan Cultures: None A/P: 45-year-old male past medical history hypertension, diabetes, CAD now with: #Bilateral venous stasis dermatitis: Patient afebrile history of edema with poor control, this most likely venous stasis dermatitis as well as cellulitis. Would not recommend treatment with antibiotics at the present time. #Diabetes: tight glycemic control for best outcomes. #CHF: Edema control to improve of legs Recs: -Stop vancomycin -No need for antibiotics -Edema control -Limb elevation is the most important thing for symptomatic control Thank you for the consult, we will sign off. Please call questions. Nadeem Thornton MD [facility] O: [phone] F: [phone] Subjective Date of service: 07/01/21 Principal diagnosis: CHF Interval history: Afebrile, normal white count. Imaging personally reviewed: Dopplers: No evidence of DVT. Objective - Exam Narrative Exam: Physical Exam: Constitutional: Alert, cooperative. No acute distress Head, Ears, Nose: Normocephalic, atraumatic. External ears, nose normal Eyes: Conjunctivae/corneas clear. No icterus. No ptosis. Neck: Supple, no meningeal signs Oral: dentition fair, no thrush Cardiovascular: S1, S2 normal. Respiratory: Good air entry, clear to auscultation bilaterally GI: Soft, non-tender; bowel sounds normal. No peritoneal signs. Musculoskeletal: Bilateral lower extremity venous stasis. 1+ edema Skin: No rash or abscess Hem/Lymphatic: No palpable cervical or supraclavicular nodes. Psych: Mood ok. Affect normal Neurological: Awake, alert, oriented. No gross abnormality - Constitutional Vitals: Vital Signs Temp Pulse Resp BP Pulse Ox 98.4 F 96 H 18 84/52 99 07/01/21 16:01 07/01/21 16:01 07/01/21 16:01 07/01/21 16:01 07/01/21 16:01 Temperature -Last 24 Hours Temperature 98.4 F Temperature 98.7 F Temperature 98.0 F Temperature 98.4 F Temperature 97.5 F - Labs CBC & Chem 7: 06/30/21 09:13 06/30/21 09:13 Labs: Abnormal lab results 06/30/21 07/01/21 07/01/21 Range/Units 21:39 07:27 11:25 POC Glucose 162 H 110 H 159 H (70-105) mg/dL 07/01/21 Range/Units 15:59 POC Glucose 265 H (70-105) mg/dL
--- NOTE | 2021-07-01 18:51 | Discharge Summary ---
Providers - Providers Date of Admission: 06/26/21 06:41 Attending physician: SOLA PRESLEY MD 06/26/21 06:15 Consult to Physician [CONS] Routine Comment: Consulting Provider: PETE FERRIS Physician Instructions: Reason For Exam: CHF Exacerbation 06/26/21 06:37 Consult to Dietitian/Nutrition [CONS] Routine Physician Instructions: Reason For Exam: Reason for Consult: Diet education 06/26/21 21:26 Consult to Case Management [CONS] Routine Services Needed at Discharge: Electronics Parts Sales Representative Notified:: CASE MANAGEMENT Comment:: Patient can nor afford his medications. Please evaluate for assistance 06/30/21 11:46 Consult to Physician [CONS] Routine Comment: Consulting Provider: JOSE L MAYORGA Physician Instructions: Reason For Exam: Cellulitis 06/30/21 11:48 Consult to Case Management [CONS] Routine Services Needed at Discharge: Other Notified:: child welfare caseworker Additional Physician Instructions: Patient has congestive heart failure and patient unable to afford medications causing recurrent hospital admissions. 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 See your family doctor in 1 week for follow-up. Check your weight 3 times a week and notify your doctor if you gain more than 3 pounds weight. Monitor your diet and fluid intake as recommended. Follow up with: PRIMARY CARE, [Primary Care Provider] - 3-5 Days Prescriptions: AtorvaSTATin [Lipitor] 40 mg PO QHS #30 tablet Spironolactone [Aldactone] 25 mg PO QDAY #30 tablet Aspirin [Aspirin BABY CHEW TAB] 81 mg PO QDAY #30 tab.chew Sulfamethoxazole/Trimethoprim [Bactrim DS TAB] 1 each PO Q12H #20 tablet carvediloL [Coreg] 6.25 mg PO BID #60 tablet Torsemide [Demadex] 40 mg PO DAILY 30 Days #60 tablet Clopidogrel [Plavix] 75 mg PO QDAY #30 tablet Compress.stocking,Knee,Reg,Lrg [Relief Knee Close Toe] 1 each MC DAILY 30 Days #2 each Lisinopril [Zestril] 5 mg PO BID #60
== END 2021-07-01 19:27 | disposition home or self-care (01) | DRG 291 ==
LOC: SUATTDRO 00:50 → ED 00:50 → 4A 06:41
PROVIDERS: ADMIT Internal Medicine Geriatric Medicine; ATTEND Internal Medicine
DX: I11.0 Hypertensive heart disease with heart failure (principal); I50.23 Acute on chronic systolic (congestive) heart failure; L03.116 Cellulitis of left lower limb; E11.9 Type 2 diabetes mellitus without complications; E66.9 Obesity, unspecified; I25.10 Atherosclerotic heart disease of native coronary artery without angina pectoris; I25.5 Ischemic cardiomyopathy; G47.33 Obstructive sleep apnea (adult) (pediatric); F17.200 Nicotine dependence, unspecified, uncomplicated; J44.9 Chronic obstructive pulmonary disease, unspecified; E78.5 Hyperlipidemia, unspecified; Z98.61 Coronary angioplasty status; I25.2 Old myocardial infarction; Z82.3 Family history of stroke; Z82.49 Family history of ischemic heart disease and other diseases of the circulatory system; Z68.35 Body mass index [BMI] 35.0-35.9, adult; Z91.14 Patient's other noncompliance with medication regimen
CPT/HCPCS: 36415; 71045; 80048; 80053; 80061; 80202; 81001; 82962; 83690; 83735; 83880; 84484; 85025; 85610; 93005; 93010; 93970; 94760; G0378; Q9967; J1644; J1815; J1940; J2260; J2270; J2405; J3370; J7040

== ENCOUNTER 2021-07-25 22:25 | Inpatient (IN) | payer SELFPAY ==
[2021-07-25] MEDS ORDERED: ALBUTEROL 2.5 MG/3 ML NEBU IH ONE ×2 (22:37→22:42)
[2021-07-25] MEDS ORDERED: IPRATROPIUM 0.02% NEBU 2.5 ML IH ONE ×2 (22:37→22:42)
[2021-07-25] MEDS ORDERED: FUROSEMIDE 40 MG/4 ML INJ IV ONE (22:46)
--- NOTE | 2021-07-25 23:16 | XRay Report ---
CHEST 1 VIEW INDICATION / CLINICAL INFORMATION: Dyspnea hypoxia chf copd. COMPARISON: 06/26/2021 FINDINGS: SUPPORT DEVICES: None. HEART / MEDIASTINUM: Stable moderate cardiomegaly. LUNGS / PLEURA: No significant pulmonary or pleural abnormality. No pneumothorax. ADDITIONAL FINDINGS: No significant additional findings. IMPRESSION: 1. No acute pulmonary disease. 2. Stable cardiomegaly. Signer Name: Madelaine Little MD Signed: 07/25/2021 11:12 PM Workstation Name: [id number]
[2021-07-25 23:43] LABS: Basophils # (Auto) 0.1 K/mm3 (0.0-0.1); Basophils % (Auto) 1.3 % (0.0-1.8); Eosinophils # (Auto) 0.2 K/mm3 (0.0-0.4); Lymphocytes # (Auto) 1.7 K/mm3 (1.2-5.4); Mean Corpuscular HGB Conc 30 % (32-34); Mean Corpuscular Volume 79 fl (84-94); Monocytes # (Auto) 0.7 K/mm3 (0.0-0.8); Monocytes % (Auto) 7.9 % (0.0-7.3); Platelet Count 289 K/mm3 (140-440); Red Blood Count 5.09 M/mm3 (3.65-5.03)
[2021-07-25 23:45] LABS: Hematocrit 40.4 % (35.5-45.6); Hemoglobin 12.3 gm/dl (11.8-15.2); Red Cell Distribution Width 20.5 % (13.2-15.2)
[2021-07-26] LABS: Alanine Aminotransferase 20 units/L (7-56); Albumin 3.8 g/dL (3.9-5); BUN/Creatinine Ratio 24; Blood Urea Nitrogen 19 mg/dL (9-20); Calcium 9.5 mg/dL (8.4-10.2); Hemolysis Index 7
[2021-07-26 00:21] LABS: Chol/HDL Ratio 6.47 %; HDL Cholesterol 19 mg/dL (40-59); LDL Cholesterol,Direct 91 mg/dL (50-130)
--- NOTE | 2021-07-26 01:33 | Emergency Department Report ---
ED Shortness of Breath HPI - General Chief Complaint: Dyspnea/Respdistress Stated Complaint: SOB Time Seen by Provider: 07/25/21 22:58 Source: patient, old records reviewed Mode of arrival: Stretcher Limitations: No Limitations - History of Present Illness Initial Comments: 45-year-old male with a history of CAD with "6 stents", diabetes, CHF with a EF of 15%, probable COPD with long history of smoking and 2 L O2 use at night, chronic cellulitis, and medication noncompliance due to affordability issues presents to the hospital with shortness of breath and swelling for last 3 days. Patient states he is compliant with aspirin, Lasix, and potassium but cannot afford his other medications right now. EMS documented a room air saturation 72% and patient was placed on nonrebreather. Patient was treated with bronchodilators and Lasix upon arrival and is now tolerating nasal cannula O2. He complains of burning pain to bilateral extremities, swelling, redness, intermittent weeping secondary to cellulitis. No complaints of chest pain As per cardiology note last admission cardiac history include: Acute on chronic systolic heart failure Ischemic cardiomyopathy LVEF 15% Coronary artery disease s/p multivessel PCI Obstructive sleep apnea Non-compliance MD Complaint: shortness of breath - Related Data Previous Rx's Medication Instructions Recorded Last Taken Type Ondansetron [Zofran Odt] 4 mg PO Q6HR PRN #20 tab.rapdis 05/07/15 03/18/21 09:00 Rx ALPRAZolam [Xanax TAB] 0.25 mg PO QHS PRN #6 tablet 12/31/20 03/09/21 09:00 Rx Nicotine [Habitrol] 14 mg TD DAILY #30 patch 12/31/20 03/18/21 Rx Apixaban [Eliquis] 2.5 mg PO Q12HR #60 tablet 02/04/21 03/19/21 21:30 Rx Gabapentin 300 mg PO Q8HR 30 Days #90 capsule 03/23/21 Unknown Rx Aspirin [Aspirin BABY CHEW TAB] 81 mg PO QDAY #30 tab.chew 07/01/21 Unknown Rx AtorvaSTATin [Lipitor] 40 mg PO QHS #30 tablet 07/01/21 Unknown Rx Clopidogrel [Plavix] 75 mg PO QDAY #30 tablet 07/01/21 Unknown Rx Compress.stocking,Knee,Reg,Lrg 1 each MC DAILY 30 Days #2 each 07/01/21 Unknown Rx [Relief Knee Close Toe] Lisinopril [Zestril] 5 mg PO BID #60 07/01/21 Unknown Rx Spironolactone [Aldactone] 25 mg PO QDAY #30 tablet 07/01/21 Unknown Rx Sulfamethoxazole/Trimethoprim 1 each PO Q12H #20 tablet 07/01/21 Unknown Rx [Bactrim DS TAB] Torsemide [Demadex] 40 mg PO DAILY 30 Days #60 tablet 07/01/21 Unknown Rx carvediloL [Coreg] 6.25 mg PO BID #60 tablet 07/01/21 Unknown Rx Allergies Allergy/AdvReac Type Severity Reaction Status Date / Time adhesive tape Allergy Rash Verified 06/26/21 02:42 ED Review of Systems ROS: Stated complaint: SOB Other details as noted in HPI Comment: All other systems reviewed and negative ED Past Medical Hx - Past Medical History Previous Medical History?: Yes Hx Hypertension: Yes Hx Heart Attack/AMI: Yes (twice) Hx Congestive Heart Failure: Yes (Home O2 PRN) Hx Diabetes: Yes Hx Sickle Cell Disease: No Hx COPD: Yes Hx HIV: No - Surgical History Past Surgical History?: Yes Hx Coronary Stent: Yes Additional Surgical History: R index finger - Social History Smoking Status: Current Every Day Smoker Substance Use Type: None - Medications Home Medications: Home Medications Medication Instructions Recorded Confirmed Last Taken Type Ondansetron [Zofran Odt] 4 mg PO Q6HR PRN #20 tab.rapdis 05/07/15 03/20/21 03/18/21 09:00 Rx ALPRAZolam [Xanax TAB] 0.25 mg PO QHS PRN #6 tablet 12/31/20 03/20/21 03/09/21 0 9:00 Rx Nicotine [Habitrol] 14 mg TD DAILY #30 patch 12/31/20 03/20/21 03/18/21 Rx Apixaban [Eliquis] 2.5 mg PO Q12HR #60 tablet 02/04/21 03/20/21 03/19/21 21:30 Rx Gabapentin 300 mg PO Q8HR 30 Days #90 capsule 03/23/21 Unknown Rx Aspirin [Aspirin BABY CHEW TAB] 81 mg PO QDAY #30 tab.chew 07/01/21 Unknown Rx AtorvaSTATin [Lipitor] 40 mg PO QHS #30 tablet 07/01/21 Unknown Rx Clopidogrel [Plavix] 75 mg PO QDAY #30 tablet 07/01/21 Unknown Rx Compress.stocking,Knee,Reg,Lrg 1 each MC DAILY 30 Days #2 each 07/01/21 Unknown Rx [Relief Knee Close Toe] Lisinopril [Zestril] 5 mg PO BID #60 07/01/21 Unknown Rx Spironolactone [Aldactone] 25 mg PO QDAY #30 tablet 07/01/21 Unknown Rx Sulfamethoxazole/Trimethoprim 1 each PO Q12H #20 tablet 07/01/21 Unknown Rx [Bactrim DS TAB] Torsemide [Demadex] 40 mg PO DAILY 30 Days #60 tablet 07/01/21 Unknown Rx carvediloL [Coreg] 6.25 mg PO BID #60 tablet 07/01/21 Unknown Rx ED Physical Exam - General Limitations: No Limitations - Other Other exam information: General: Moderate respiratory distress Head: Atraumatic Eyes: normal appearance ENT: Moist mucous membranes Neck: Normal appearance, no midline tenderness Chest: Patient auscultated after receiving Lasix and bronchodilators. No audible wheezing or crackles. Patient noted to be dyspneic with minor movement while on nasal cannula CV: Tachycardic regular rhythm after bronchodilators Abdomen: Soft, normal bowel sounds, nontender, nondistended, no rebound or guarding Back: Normal inspection Extremity: Bilateral lower extremity edema with bilateral leg erythema with mild warmth. Tender to palpation. No dry Neuro: Alert O x 3, no facial asymmetry, speech clear, no gross motor sensory deficit Psych: Appropriate behavior Skin: No rash ED Course Vital Signs 07/25/21 07/25/21 22:28 22:44 Temperature 98 F Pulse Rate 95 H Pulse Rate [ 121 H Bilateral Throughout] Respiratory 20 Rate Respiratory 23 Rate [Bilateral Throughout] Blood Pressure 121/97 O2 Sat by Pulse 97 Oximetry ED Medical Decision Making - Lab Data Result diagrams: 07/25/21 23:08 07/25/21 23:08 Lab Results 07/25/21 07/25/21 07/25/21 Range/Units 23:08 23:08 23:08 WBC 8.3 (4.5-11.0) K/mm3 RBC 5.09 H (3.65-5.03) M/mm3 Hgb 12.3 (11.8-15.2) gm/dl Hct 40.4 (35.5-45.6) % MCV 79 L (84-94) fl MCH 24 L (28-32) pg MCHC 30 L (32-34) % RDW 20.5 H (13.2-15.2) % Plt Count 289 (140-440) K/mm3 Lymph % (Auto) 20.0 (13.4-35.0) % [place] % (Auto) 7.9 H (0.0-7.3) % Eos % (Auto) 3.0 (0.0-4.3) % Baso % (Auto) 1.3 (0.0-1.8) % Lymph # (Auto) 1.7 (1.2-5.4) K/mm3 [place] # (Auto) 0.7 (0.0-0.8) K/mm3 Eos # (Auto) 0.2 (0.0-0.4) K/mm3 Baso # (Auto) 0.1 (0.0-0.1) K/mm3 Seg Neutrophils % 67.8 (40.0-70.0) % Seg Neutrophils # 5.6 (1.8-7.7) K/mm3 Sodium 139 (137-145) mmol/L Potassium 4.2 (3.6-5.0) mmol/L Chloride 97.1 L (98-107) mmol/L Carbon Dioxide 29 (22-30) mmol/L Anion Gap 17 mmol/L BUN 19 (9-20) mg/dL Creatinine 0.8 (0.8-1.3) mg/dL Estimated GFR > 60 ml/min BUN/Creatinine Ratio 24 % Glucose 124 H (75-100) mg/dL Calcium 9.5 (8.4-10.2) mg/dL Total Bilirubin 1.60 H (0.1-1.2) mg/dL AST 34 (5-40) units/L ALT 20 (7-56) units/L Alkaline Phosphatase 187 H (35-129) units/L Troponin T 0.051 H (0.00-0.029) ng/mL NT-Pro-B Natriuret Pep 1974 H (0-450) pg/mL Total Protein 7.0 (6.3-8.2) g/dL Albumin 3.8 L (3.9-5) g/dL Albumin/Globulin Ratio 1.2 % Triglycerides 76 (2-149) mg/dL Cholesterol 123 (50-199) mg/dL LDL Cholesterol Direct 91 (50-130) mg/dL HDL Cholesterol 19 L (40-59) mg/dL Cholesterol/HDL Ratio 6.47 % - EKG Data -: EKG Interpreted by Me EKG shows normal: sinus rhythm, ST-T waves (No STEMI) Rate: tachycardia (128) - EKG Data When compared to previous EKG there are: no significant change - Radiology Data Radiology results: report reviewed CHEST 1 VIEW INDICATION / CLINICAL INFORMATION: Dyspnea hypoxia chf copd. COMPARISON: 06/26/2021 FINDINGS: SUPPORT DEVICES: None. HEART / MEDIASTINUM: Stable moderate cardiomegaly. LUNGS / PLEURA: No significant pulmonary or pleural abnormality. No pneumothorax. ADDITIONAL FINDINGS: No significant additional findings. IMPRESSION: 1. No acute pulmonary disease. 2. Stable cardiomegaly. - Medical Decision Making 45-year-old male presents with hypoxia and mild respiratory distress improving with bronchodilators and Lasix. Patient significant cardiac or pulmonary history. Patient admits to noncompliance. Patient does appear to have signs of cellulitis versus venous stasis dermatitis without signs of leukocytosis or fever. Unfortunately, patient has a history noncompliance and almost monthly admissions for similar symptoms. Hospitalist patient will be admitted to the hospital service for further stabilization of respiratory symptoms and worsening hypoxia. Patient has chronic troponin elevation Critical Care Time: No Critical care attestation.: If time is entered above; I have spent that time in minutes in the direct care o f this critically ill patient, excluding procedure time. ED Disposition Clinical Impression: COPD with acute exacerbation, Tobacco use disorder, Venous stasis dermatitis, Noncompliance with medication regimen, Acute exacerbation of congestive heart failure Disposition: ADMITTED INPATIENT Is pt being admited?: Yes Condition: Stable Instructions: Chronic Obstructive Pulmonary Disease (ED)
[2021-07-26] MEDS ORDERED: ACETAMINOPHEN 325 MG TAB PO PRN (02:00)
[2021-07-26] MEDS ORDERED: ONDANSETRON 4 MG/2 ML INJ IV PRN (02:00)
[2021-07-26] MEDS ORDERED: DEXTROSE 50% IN WATER (25GM) 50 ML SYRINGE IV PRN (02:00)
[2021-07-26] MEDS ORDERED: MAGNESIUM HYDROXIDE (MOM) ORAL LIQD UDC PO PRN (02:06)
--- NOTE | 2021-07-26 02:21 | History and Physical Report ---
History of Present Illness Date of examination: 07/26/21 Date of admission: 07/26/2021 Chief complaint: Shortness of breath History of present illness: 45-year-old male with known history of coronary artery disease presents multiple stents in the past, diabetes mellitus, CHF with EF of 15%, COPD, noncompliance with medication due to affordability presenting to the emergency room today with complaints of shortness of breath. Patient also has a prolonged history of tobacco abuse. Shortness of breath has been ongoing for the past 3 days. He also indicates that he has been having progressive lower extremity swelling. Upon arrival of EMS oxygen saturation was about 72% and patient was placed on nonrebreather in route to the hospital. He had some Lasix and nebulizing treatments upon arrival in the emergency room and placed on oxygen by nasal cannula. Patient also indicates that he has been having some burning sensation and occasional redness in his lower extremities . He denies any fever or chills, denies any chest pain, no nausea vomiting and no abdominal pain. Work-up in the emergency room today, lab was significant with for BNP of 1,974, troponin of 0.051. Chest x-ray shows stable cardiomegaly and no acute pulmonary disease. Past History Past Medical History: acute [place], COPD, diabetes, heart failure (On home oxygen as needed), hypertension Past Surgical History: PTCA, Other (Surgery on right index finger) Social history: smoking (Current daily smoker) Family history: no significant family history Medications and Allergies Allergies Allergy/AdvReac Type Severity Reaction Status Date / Time adhesive tape Allergy Rash Verified 06/26/21 02:42 Home Medications Medication Instructions Recorded Confirmed Last Taken Type Ondansetron [Zofran Odt] 4 mg PO Q6HR PRN #20 tab.rapdis 05/07/15 03/20/21 03/18/21 09:00 Rx ALPRAZolam [Xanax TAB] 0.25 mg PO QHS PRN #6 tablet 12/31/20 03/20/21 03/09/21 09:00 Rx Nicotine [Habitrol] 14 mg TD DAILY #30 patch 12/31/20 03/20/21 03/18/21 Rx Apixaban [Eliquis] 2.5 mg PO Q12HR #60 tablet 09/29/21 11/12/21 11/11/21 21:30 Rx Gabapentin 300 mg PO Q8HR 30 Days #90 capsule 03/23/21 Unknown Rx Aspirin [Aspirin BABY CHEW TAB] 81 mg PO QDAY #30 tab.chew 07/01/21 Unknown Rx AtorvaSTATin [Lipitor] 40 mg PO QHS #30 tablet 07/01/21 Unknown Rx Clopidogrel [Plavix] 75 mg PO QDAY #30 tablet 07/01/21 Unknown Rx Compress.stocking,Knee,Reg,Lrg 1 each MC DAILY 30 Days #2 each 07/01/21 Unknown Rx [Relief Knee Close Toe] Lisinopril [Zestril] 5 mg PO BID #60 07/01/21 Unknown Rx Spironolactone [Aldactone] 25 mg PO QDAY #30 tablet 07/01/21 Unknown Rx Sulfamethoxazole/Trimethoprim 1 each PO Q12H #20 tablet 07/01/21 Unknown Rx [Bactrim DS TAB] Torsemide [Demadex] 40 mg PO DAILY 30 Days #60 tablet 07/01/21 Unknown Rx carvediloL [Coreg] 6.25 mg PO BID #60 tablet 07/01/21 Unknown Rx Active Meds: Active Medications Acetaminophen (Acetaminophen 325 Mg Tab) 650 mg PO Q4H PRN PRN Reason: Pain MILD(1-3)/Fever >100.5/PAREDES Dextrose (Dextrose 50% In Water (25gm) 50 Ml Syringe) 50 ml IV Q30MIN PRN; Protocol PRN Reason: Hypoglycemia Dextrose (Dextrose 50% In Water (25gm) 50 Ml Syringe) 50 ml IV Q30MIN PRN; Protocol PRN Reason: Hypoglycemia Furosemide (Furosemide 40 Mg/4 Ml Inj) 40 mg IV BID@0600,1800 [facility] Insulin Human Lispro (Insulin Lispro 100 Unit/Ml) 0 unit SUB-Q ACHS [facility]; Protocol Magnesium Hydroxide (Magnesium Hydroxide (Mom) Oral Liqd Udc) 30 ml PO Q4H PRN PRN Reason: Constipation Morphine Sulfate (Morphine 2 Mg/1 Ml Inj) 2 mg IV Q4H PRN PRN Reason: Pain, Moderate (4-6) Morphine Sulfate (Morphine 4 Mg/1 Ml Inj) 4 mg IV Q4H PRN PRN Reason: Pain , Severe (7-10) Ondansetron HCl (Ondansetron 4 Mg/2 Ml Inj) 4 mg IV Q8H PRN PRN Reason: Nausea And Vomiting Sodium Chloride (Sodium Chloride 0.9% 10 Ml Flush Syringe) 10 ml IV BID [place] Sodium Chloride (Sodium Chloride 0.9% 10 Ml Flush Syringe) 10 ml IV PRN PRN PRN Reason: LINE FLUSH Review of Systems Constitutional: no fever, no chills Ears, nose, mouth and throat: no nasal congestion, no sore throat Cardiovascular: no chest pain, no palpitations Respiratory: no cough, no shortness of breath Gastrointestinal: no abdominal pain, no nausea, no vomiting, no diarrhea Genitourinary Male: no dysuria, no hematuria, no nocturia Musculoskeletal: no neck pain, no low back pain Integumentary: no rash, no pruritis Neurological: no headaches, no confusion Psychiatric: no anxiety, no depression Endocrine: no polyphagia, no polydipsia, no polyuria, no nocturia Exam - Constitutional Vitals: Temp Pulse Resp BP Pulse Ox 98.0 F 114 H 22 156/121 99 07/25/21 23:20 07/25/21 23:20 07/25/21 23:20 07/25/21 23:20 07/25/21 23:20 General appearance: Present: no acute distress, well-nourished - EENT Eyes: Present: PERRL, EOM intact. Absent: scleral icterus ENT: hearing intact, clear oral mucosa, dentition normal - Neck Neck: Present: supple, normal ROM - Respiratory Respiratory effort: normal Respiratory: bilateral: diminished - Cardiovascular Rhythm: regular Heart Sounds: Present: S1 & S2. Absent: systolic murmur, diastolic murmur, rub, click - Extremities Extremities: no ischemia, pulses intact, pulses symmetrical, normal temperature, normal color, Full ROM Extremity abnormal: edema (2+ bilateral lower extremity edema) Peripheral Pulses: within normal limits - Abdominal General gastrointestinal: Present: soft, non-tender, non-distended, normal bowel sounds. Absent: mass - Integumentary Integumentary: Present: clear, warm, dry, normal turgor. Absent: rash - Musculoskeletal Musculoskeletal: strength equal bilaterally, other (Mild tenderness in both lower extremities.) - Psychiatric Psychiatric: appropriate mood/affect, intact judgment & insight, memory intact, cooperative - Neurologic Neurologic: CNII-XII intact, no focal deficits, moves all extremities HEART Score - HEART Score Troponin: Troponin T 0.051 ng/mL (0.00-0.029) H 07/25/21 23:08 Results - Labs CBC & Chem 7: 07/25/21 23:08 07/25/21 23:08 Labs: Abnormal lab results 07/25/21 07/25/21 07/25/21 Range/Units 23:08 23:08 23:08 RBC 5.09 H (3.65-5.03) M/mm3 MCV 79 L (84-94) fl MCH 24 L (28-32) pg MCHC 30 L (32-34) % RDW 20.5 H (13.2-15.2) % [place] % (Auto) 7.9 H (0.0-7.3) % Chloride 97.1 L (98-107) mmol/L Glucose 124 H (75-100) mg/dL Total Bilirubin 1.60 H (0.1-1.2) mg/dL Alkaline Phosphatase 187 H (35-129) units/L Troponin T 0.051 H (0.00-0.029) ng/mL NT-Pro-B Natriuret Pep 1974 H (0-450) pg/mL Albumin 3.8 L (3.9-5) g/dL HDL Cholesterol 19 L (40-59) mg/dL Assessment and Plan - Patient Problems (1) Acute on chronic systolic heart failure Current Visit: No Status: Acute Plan to address problem: Patient placed on diuretics. We will monitor input and output and also monitor daily weight. Echocardiogram done on 02/01/2021 shows EF of 15%. We will await further evaluation and recommendations from cardiology. (2) Diabetes mellitus Current Visit: No Status: Acute Plan to address problem: Patient placed on sliding scale insulin. We will monitor Accu-Cheks closely. (3) Hypertension Current Visit: No Status: Acute Plan to address problem: We will continue routine home medications and monitor vital signs closely. (4) Coronary artery disease Current Visit: No Status: Acute Plan to address problem: Stable. Has had multiple stents in the past. We will continue on routine home medications. (5) DVT prophylaxis Current Visit: No Status: Acute Plan to address problem: Patient placed on subcutaneous heparin. (6) Full code status Current Visit: No Status: Acute Plan to address problem: Patient is full code.
[2021-07-26] MEDS ORDERED: DEXTROSE 10% *Hypoglycemia IV PRN (02:22)
[2021-07-26] MEDS: FUROSEMIDE 40 MG/4 ML INJ IV SCH ×2 (06:50→17:35)
[2021-07-26] MEDS: INSULIN LISPRO 100 UNIT/ML SUB-Q SCH ×4 (07:44→21:42)
[2021-07-26] MEDS: MORPHINE 4 MG/1 ML INJ IV PRN ×2 (09:21→22:13)
--- NOTE | 2021-07-26 10:27 | Consultation ---
History of Present Illness Consult date: 07/26/21 Consult reason: congestive heart failure History of present illness: 45-year-old male with a history of coronary artery disease multiple stents ischemic cardiomyopathy and chronic combined systolic and diastolic heart failure presented with shortness of breath and generalized swelling. Patient has a known history of noncompliance. Patient admitted for further evaluation and management. Past History Past Medical History: acute [place], COPD, diabetes, heart failure (On home oxygen as needed), hypertension Past Surgical History: PTCA, Other (Surgery on right index finger) Social history: smoking (Current daily smoker) Family history: no significant family history Medications and Allergies Allergies Allergy/AdvReac Type Severity Reaction Status Date / Time adhesive tape Allergy Rash Verified 06/26/21 02:42 Home Medications Medication Instructions Recorded Confirmed Last Taken Type Ondansetron [Zofran Odt] 4 mg PO Q6HR PRN #20 tab.rapdis 05/07/15 03/20/21 03/18/21 09:00 Rx ALPRAZolam [Xanax TAB] 0.25 mg PO QHS PRN #6 tablet 12/31/20 03/20/21 03/09/21 09:00 Rx Nicotine [Habitrol] 14 mg TD DAILY #30 patch 12/31/20 03/20/21 03/18/21 Rx Apixaban [Eliquis] 2.5 mg PO Q12HR #60 tablet 02/04/21 03/20/21 03/19/21 21:30 Rx Gabapentin 300 mg PO Q8HR 30 Days #90 capsule 03/23/21 Unknown Rx Aspirin [Aspirin BABY CHEW TAB] 81 mg PO QDAY #30 tab.chew 07/01/21 Unknown Rx AtorvaSTATin [Lipitor] 40 mg PO QHS #30 tablet 07/01/21 Unknown Rx Clopidogrel [Plavix] 75 mg PO QDAY #30 tablet 07/01/21 Unknown Rx Compress.stocking,Knee,Reg,Lrg 1 each MC DAILY 30 Days #2 each 07/01/21 Unknown Rx [Relief Knee Close Toe] Lisinopril [Zestril] 5 mg PO BID #60 07/01/21 Unknown Rx Spironolactone [Aldactone] 25 mg PO QDAY #30 tablet 07/01/21 Unknown Rx Sulfamethoxazole/Trimethoprim 1 each PO Q12H #20 tablet 07/01/21 Unknown Rx [Bactrim DS TAB] Torsemide [Demadex] 40 mg PO DAILY 30 Days #60 tablet 07/01/21 Unknown Rx carvediloL [Coreg] 6.25 mg PO BID #60 tablet 07/01/21 Unknown Rx Active Meds: Active Medications Acetaminophen (Acetaminophen 325 Mg Tab) 650 mg PO Q4H PRN PRN Reason: Pain MILD(1-3)/Fever >100.5/PAREDES Dextrose (Dextrose 10% *Hypoglycemia) 0 ml IV DIRECT PRN; Protocol PRN Reason: Hypoglycemia Furosemide (Furosemide 40 Mg/4 Ml Inj) 40 mg IV BID@0600,1800 [facility] Last Admin: 07/26/21 06:50 Dose: 40 mg Insulin Human Lispro (Insulin Lispro 100 Unit/Ml) 0 unit SUB-Q ACHS [facility]; Protocol Magnesium Hydroxide (Magnesium Hydroxide (Mom) Oral Liqd Udc) 30 ml PO Q4H PRN PRN Reason: Constipation Morphine Sulfate (Morphine 2 Mg/1 Ml Inj) 2 mg IV Q4H PRN PRN Reason: Pain, Moderate (4-6) Morphine Sulfate (Morphine 4 Mg/1 Ml Inj) 4 mg IV Q4H PRN PRN Reason: Pain , Severe (7-10) Last Admin: 07/26/21 09:21 Dose: 4 mg Ondansetron HCl (Ondansetron 4 Mg/2 Ml Inj) 4 mg IV Q8H PRN PRN Reason: Nausea And Vomiting Sodium Chloride (Sodium Chloride 0.9% 10 Ml Flush Syringe) 10 ml IV BID [facility] Last Admin: 07/26/21 09:22 Dose: 10 ml Sodium Chloride (Sodium Chloride 0.9% 10 Ml Flush Syringe) 10 ml IV PRN PRN PRN Reason: LINE FLUSH Last Admin: 07/26/21 06:51 Dose: 10 ml Review of Systems Constitutional: weight gain, fatigue, no weight loss, no fever, no chills, no sweats Ears, nose, mouth and throat: no deferred, no ear pain, no ear discharge Cardiovascular: shortness of breath, dyspnea on exertion, no chest pain Respiratory: no cough, no cough with sputum, no congestion Gastrointestinal: no abdominal pain, no nausea, no vomiting, no melena, no hematochezia Genitourinary Male: no dysuria, no hematuria, no flank pain Rectal: no pain, no incontinence Musculoskeletal: no neck stiffness, no neck pain Integumentary: no rash, no pruritis, no redness, no wounds Neurological: no head injury, no transient paralysis, no paralysis, no weakness, no parathesias Endocrine: no cold intolerance, no heat intolerance, no polyphagia, no excessive thirst Hematologic/Lymphatic: no easy bruising, no easy bleeding Allergic/Immunologic: no urticaria, no allergic rhinitis, no wheezing Physical Examination Vital Signs Temp Pulse Resp BP Pulse Ox 98 F 95 H 20 121/97 97 07/25/21 22:28 07/25/21 22:28 07/25/21 22:28 07/25/21 22:28 07/25/21 22:28 General appearance: no acute distress, obese HEENT: Positive: PERRL, Normocephaly, Mucus Membranes Moist Neck: Positive: neck supple, trachea midline, JVD/HJR Cardiac: Positive: Regular Rate, S1/S2, S3, PMI, Dilated, Laterally Displaced Lungs: Positive: clear to auscultation, No Wheeze, Rales, Rhonchi Neuro: Positive: Grossly Intact Abdomen: Positive: Unremarkable Extremities: Present: +2 Edema Results 07/25/21 23:08 07/25/21 23:08 Cardiac Enzymes 07/25/21 Range/Units 23:08 AST 34 (5-40) units/L Lipids 07/25/21 Range/Units 23:08 Triglycerides 76 (2-149) mg/dL Cholesterol 123 (50-199) mg/dL HDL Cholesterol 19 L (40-59) mg/dL Cholesterol/HDL Ratio 6.47 % CBC 07/25/21 Range/Units 23:08 WBC 8.3 (4.5-11.0) K/mm3 RBC 5.09 H (3.65-5.03) M/mm3 Hgb 12.3 (11.8-15.2) gm/dl Hct 40.4 (35.5-45.6) % Plt Count 289 (140-440) K/mm3 Lymph # (Auto) 1.7 (1.2-5.4) K/mm3 [place] # (Auto) 0.7 (0.0-0.8) K/mm3 Eos # (Auto) 0.2 (0.0-0.4) K/mm3 Baso # (Auto) 0.1 (0.0-0.1) K/mm3 Comprehensive Metabolic Panel 07/25/21 Range/Units 23:08 Sodium 139 (137-145) mmol/L Potassium 4.2 (3.6-5.0) mmol/L Chloride 97.1 L (98-107) mmol/L Carbon Dioxide 29 (22-30) mmol/L BUN 19 (9-20) mg/dL Creatinine 0.8 (0.8-1.3) mg/dL Glucose 124 H (75-100) mg/dL Calcium 9.5 (8.4-10.2) mg/dL AST 34 (5-40) units/L ALT 20 (7-56) units/L Alkaline Phosphatase 187 H (35-129) units/L Total Protein 7.0 (6.3-8.2) g/dL Albumin 3.8 L (3.9-5) g/dL EKG interpretations - Telemetry EKG Rhythm: Sinus Rhythm Assessment and Plan 1. Acute on chronic combined systolic and diastolic heart failure 2. Dilated ischemic cardiomyopathy left ventricular ejection fraction of 15% 3. Coronary artery disease status post multiple stents in the past 4. Chronic obstructive pulmonary disease 5. Type 2 diabetes mellitus 6. Essential hypertension 7. History of noncompliance of medication. Patient's EKG shows a sinus rhythm with normal electrical axis nonspecific ST-T changes chest x-ray shows cardiomegaly with evidence of mild pulmonary vascular congestion he also exhibits on physical examination evidence of mild generalized anasarca serum troponin levels are mildly equivocal. Plan Restart treatment for heart failure as per guideline directed medical therapy. Maximize medical therapy. CHF education stressing the importance of compliance on medication. 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
--- NOTE | 2021-07-26 11:10 | Progress Note ---
Assessment and Plan Assessment and plan: 45-year-old male with known history of coronary artery disease presents multiple stents in the past, diabetes mellitus, CHF with EF of 15%, COPD, noncompliance with medication due to affordability presenting to the emergency room today with complaints of shortness of breath. Patient also has a prolonged history of tobacco abuse. Shortness of breath has been ongoing for the past 3 days. He also indicates that he has been having progressive lower extremity swelling. Upon arrival of EMS oxygen saturation was about 72% and patient was placed on nonrebreather in route to the hospital. He had some Lasix and nebulizing treatments upon arrival in the emergency room and placed on oxygen by nasal destin carmen. 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 EF 15% Diabetes mellitus type 2 Hypertension Coronary artery disease. S/p multiple stents in the past. Medical noncompliance 07/26/2021. Continue CHF protocol and GDMT for heart failure. CHF education stressing the importance of compliance on medication. equipment worker toes see patient and address financial and social assistance which will help with his compliance History Interval history: No new issues overnight Hospitalist Physical - Constitutional Vitals: Temp Pulse Resp BP Pulse Ox 98.8 F 114 H 16 124/86 99 07/26/21 07:48 07/26/21 07:48 07/26/21 07:48 07/26/21 07:48 07/26/21 07:48 General appearance: Present: no acute distress, obese - EENT Eyes: Present: PERRL, EOM intact ENT: hearing intact, clear oral mucosa, dentition normal - Neck Neck: Present: supple, normal ROM - Respiratory Respiratory effort: normal Respiratory: bilateral: CTA - Cardiovascular Rhythm: regular Heart Sounds: Present: S1 & S2. Absent: gallop, rub - Extremities Extremities: no ischemia, No edema, Full ROM - Abdominal General gastrointestinal: soft, non-tender, non-distended, normal bowel sounds - Integumentary Integumentary: Present: clear, warm, dry - Neurologic Neurologic: CNII-XII intact, moves all extremities HEART Score - HEART Score Troponin: Troponin T 0.051 ng/mL (0.00-0.029) H 07/25/21 23:08 Results - Labs CBC & Chem 7: 07/25/21 23:08 07/25/21 23:08 Labs: Laboratory Last Values WBC 8.3 K/mm3 (4.5-11.0) 07/25/21 23:08 RBC 5.09 M/mm3 (3.65-5.03) H 07/25/21 23:08 Hgb 12.3 gm/dl (11.8-15.2) 07/25/21 23:08 Hct 40.4 % (35.5-45.6) 07/25/21 23:08 MCV 79 fl (84-94) L 07/25/21 23:08 MCH 24 pg (28-32) L 07/25/21 23:08 MCHC 30 % (32-34) L 07/25/21 23:08 RDW 20.5 % (13.2-15.2) H 07/25/21 23:08 Plt Count 289 K/mm3 (140-440) 07/25/21 23:08 Lymph % (Auto) 20.0 % (13.4-35.0) 07/25/21 23:08 [place] % (Auto) 7.9 % (0.0-7.3) H 07/25/21 23:08 Eos % (Auto) 3.0 % (0.0-4.3) 07/25/21 23:08 Baso % (Auto) 1.3 % (0.0-1.8) 07/25/21 23:08 Lymph # (Auto) 1.7 K/mm3 (1.2-5.4) 07/25/21 23:08 [place] # (Auto) 0.7 K/mm3 (0.0-0.8) 07/25/21 23:08 Eos # (Auto) 0.2 K/mm3 (0.0-0.4) 07/25/21 23:08 Baso # (Auto) 0.1 K/mm3 (0.0-0.1) 07/25/21 23:08 Seg Neutrophils % 67.8 % (40.0-70.0) 07/25/21 23:08 Seg Neutrophils # 5.6 K/mm3 (1.8-7.7) 07/25/21 23:08 Sodium 139 mmol/L (137-145) 07/25/21 23:08 Potassium 4.2 mmol/L (3.6-5.0) 07/25/21 23:08 Chloride 97.1 mmol/L (98-107) L 07/25/21 23:08 Carbon Dioxide 29 mmol/L (22-30) 07/25/21 23:08 Anion Gap 17 mmol/L 07/25/21 23:08 BUN 19 mg/dL (9-20) 07/25/21 23:08 Creatinine 0.8 mg/dL (0.8-1.3) 07/25/21 23:08 Estimated GFR > 60 ml/min 07/25/21 23:08 BUN/Creatinine Ratio 24 % 07/25/21 23:08 Glucose 124 mg/dL (75-100) H 07/25/21 23:08 Calcium 9.5 mg/dL (8.4-10.2) 07/25/21 23:08 Total Bilirubin 1.60 mg/dL (0.1-1.2) H 07/25/21 23:08 AST 34 units/L (5-40) 07/25/21 23:08 ALT 20 units/L (7-56) 07/25/21 23:08 Alkaline Phosphatase 187 units/L (35-129) H 07/25/21 23:08 Troponin T 0.051 ng/mL (0.00-0.029) H 07/25/21 23:08 NT-Pro-B Natriuret Pep 1974 pg/mL (0-450) H 07/25/21 23:08 Total Protein 7.0 g/dL (6.3-8.2) 07/25/21 23:08 Albumin 3.8 g/dL (3.9-5) L 07/25/21 23:08 Albumin/Globulin Ratio 1.2 % 07/25/21 23:08 Triglycerides 76 mg/dL (2-149) 07/25/21 23:08 Cholesterol 123 mg/dL (50-199) 07/25/21 23:08 LDL Cholesterol Direct 91 mg/dL (50-130) 07/25/21 23:08 HDL Cholesterol 19 mg/dL (40-59) L 07/25/21 23:08 Cholesterol/HDL Ratio 6.47 % 07/25/21 23:08 Martinez/IV: Voiding Method Urinal Active Medications - Current Medications Current Medications: Generic Name Dose Route Start Last Admin Trade Name Freq PRN Reason Stop Dose Admin Acetaminophen 650 mg 07/26/21 02:00 Acetaminophen 325 Mg Tab PO Q4H PRN Pain MILD(1-3)/Fever >100.5/PAREDES Dextrose 0 ml 07/26/21 02:22 Dextrose 10% *Hypoglycemia IV DIRECT PRN Hypoglycemia Protocol Furosemide 40 mg 07/26/21 06:00 07/26/21 06:50 Furosemide 40 Mg/4 Ml Inj IV 40 mg BID@0600,1800 [place] Administration Insulin Human Lispro 0 unit 07/26/21 07:30 07/26/21 07:44 Insulin Lispro 100 Unit/Ml SUB-Q Not Given ACHS [facility] Protocol Magnesium Hydroxide 30 ml 07/26/21 02:06 Magnesium Hydroxide (Mom) Oral Liqd Udc PO Q4H PRN Constipation Morphine Sulfate 2 mg 07/26/21 02:06 Morphine 2 Mg/1 Ml Inj IV Q4H PRN Pain, Moderate (4-6) Morphine Sulfate 4 mg 07/26/21 02:06 07/26/21 09:21 Morphine 4 Mg/1 Ml Inj IV 4 mg Q4H PRN Administration Pain , Severe (7-10) Ondansetron HCl 4 mg 07/26/21 02:00 Ondansetron 4 Mg/2 Ml Inj IV Q8H PRN Nausea And Vomiting Sodium Chloride 10 ml 07/26/21 10:00 07/26/21 09:22 Sodium Chloride 0.9% 10 Ml Flush Syringe IV 10 ml BID [place] Administration Sodium Chloride 10 ml 07/26/21 02:00 07/26/21 06:51 Sodium Chloride 0.9% 10 Ml Flush Syringe IV 10 ml PRN PRN Administration LINE FLUSH
[2021-07-26] MEDS ORDERED: FAMOTIDINE 20 MG TAB PO ONE (14:00)
[2021-07-26] MEDS ORDERED: IPRATROPIUM 0.02% NEBU 2.5 ML IH SCH (20:00)
[2021-07-26] MEDS: IPRATROPIUM 0.02% NEBU 2.5 ML IH SCH (20:54)
[2021-07-27] MEDS ORDERED: HYDROmorphone 1 MG/1 ML INJ IV ONE (00:11)
[2021-07-27] MEDS: FUROSEMIDE 40 MG/4 ML INJ IV SCH ×2 (05:47→18:13)
[2021-07-27 06:11] LABS: Basophils # (Auto) 0.3 K/mm3 (0.0-0.1); Eosinophils # (Auto) 0.1 K/mm3 (0.0-0.4); Eosinophils % (Auto) 0.9 % (0.0-4.3); Lymphocytes # (Auto) 1.8 K/mm3 (1.2-5.4); Mean Corpuscular HGB Conc 31 % (32-34); Mean Corpuscular Volume 80 fl (84-94); Monocytes # (Auto) 0.8 K/mm3 (0.0-0.8); Monocytes % (Auto) 8.5 % (0.0-7.3); Platelet Count 344 K/mm3 (140-440); Red Blood Count 5.35 M/mm3 (3.65-5.03)
[2021-07-27 06:12] LABS: Hematocrit 42.5 % (35.5-45.6); Red Cell Distribution Width 20.2 % (13.2-15.2)
[2021-07-27 06:33] LABS: BUN/Creatinine Ratio 37; Blood Urea Nitrogen 33 mg/dL (9-20); Calcium 9.6 mg/dL (8.4-10.2); Hemolysis Index 26
--- NOTE | 2021-07-27 08:49 | Progress Note ---
Assessment and Plan Assessment and plan: 45-year-old male with known history of coronary artery disease presents multiple stents in the past, diabetes mellitus, CHF with EF of 15%, COPD, noncompliance with medication due to affordability presenting to the emergency room today with complaints of shortness of breath. Patient also has a prolonged history of tobacco abuse. Shortness of breath has been ongoing for the past 3 days. He also indicates that he has been having progressive lower extremity swelling. Upon arrival of EMS oxygen saturation was about 72% and patient was placed on nonrebreather in route to the hospital. He had some Lasix and nebulizing treatments upon arrival in the emergency room and placed on oxygen by nasal destin carmen. 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 EF 15% Diabetes mellitus type 2 Hypertension Coronary artery disease. S/p multiple stents in the past. Medical noncompliance 07/26/2021. Continue CHF protocol and GDMT for heart failure. CHF education stressing the importance of compliance on medication. pipe out worker to see patient and address financial and social assistance which will help with his compliance 07/27/2021. Continue GDMT for heart failure. Continue medications per cardiology recommendations. Will discuss with case management assistance with medications prior to discharge. Continue SSRI and tight glycemic control History Interval history: No new issues overnight Hospitalist Physical - Constitutional Vitals: Temp Pulse Resp BP Pulse Ox 98.3 F 113 H 22 127/86 98 07/27/21 08:15 07/27/21 08:15 07/27/21 08:15 07/27/21 08:15 07/27/21 08:15 General appearance: Present: no acute distress, obese - EENT Eyes: Present: PERRL, EOM intact ENT: hearing intact, clear oral mucosa, dentition normal - Neck Neck: Present: supple, normal ROM - Respiratory Respiratory effort: normal Respiratory: bilateral: CTA - Cardiovascular Rhythm: regular Heart Sounds: Present: S1 & S2. Absent: gallop, rub - Extremities Extremities: no ischemia, No edema, Full ROM - Abdominal General gastrointestinal: soft, non-tender, non-distended, normal bowel sounds - Integumentary Integumentary: Present: clear, warm, dry - Neurologic Neurologic: CNII-XII intact, moves all extremities HEART Score - HEART Score Troponin: Troponin T 0.051 ng/mL (0.00-0.029) H 03/19/22 23:08 Results - Labs CBC & Chem 7: 07/27/21 05:54 07/27/21 05:54 Labs: Laboratory Last Values WBC 9.8 K/mm3 (4.5-11.0) 07/27/21 05:54 RBC 5.35 M/mm3 (3.65-5.03) H 07/27/21 05:54 Hgb 13.0 gm/dl (11.8-15.2) 07/27/21 05:54 Hct 42.5 % (35.5-45.6) 07/27/21 05:54 MCV 80 fl (84-94) L 07/27/21 05:54 MCH 24 pg (28-32) L 07/27/21 05:54 MCHC 31 % (32-34) L 07/27/21 05:54 RDW 20.2 % (13.2-15.2) H 07/27/21 05:54 Plt Count 344 K/mm3 (140-440) 07/27/21 05:54 Lymph % (Auto) 18.0 % (13.4-35.0) 07/27/21 05:54 [place] % (Auto) 8.5 % (0.0-7.3) H 07/27/21 05:54 Eos % (Auto) 0.9 % (0.0-4.3) 07/27/21 05:54 Baso % (Auto) 3.0 % (0.0-1.8) H 07/27/21 05:54 Lymph # (Auto) 1.8 K/mm3 (1.2-5.4) 07/27/21 05:54 [place] # (Auto) 0.8 K/mm3 (0.0-0.8) 07/27/21 05:54 Eos # (Auto) 0.1 K/mm3 (0.0-0.4) 07/27/21 05:54 Baso # (Auto) 0.3 K/mm3 (0.0-0.1) H 07/27/21 05:54 Seg Neutrophils % 69.6 % (40.0-70.0) 07/27/21 05:54 Seg Neutrophils # 6.8 K/mm3 (1.8-7.7) 07/27/21 05:54 Sodium 132 mmol/L (137-145) L D 07/27/21 05:54 Potassium 4.7 mmol/L (3.6-5.0) 07/27/21 05:54 Chloride 89.4 mmol/L (98-107) L 07/27/21 05:54 Carbon Dioxide 25 mmol/L (22-30) 07/27/21 05:54 Anion Gap 22 mmol/L 07/27/21 05:54 BUN 33 mg/dL (9-20) H 07/27/21 05:54 Creatinine 0.9 mg/dL (0.8-1.3) 07/27/21 05:54 Estimated GFR > 60 ml/min 07/27/21 05:54 BUN/Creatinine Ratio 37 % 07/27/21 05:54 Glucose 110 mg/dL (75-100) H 07/27/21 05:54 POC Glucose 117 mg/dL (70-105) H 07/27/21 08:12 Calcium 9.6 mg/dL (8.4-10.2) 07/27/21 05:54 Total Bilirubin 1.60 mg/dL (0.1-1.2) H 07/25/21 23:08 AST 34 units/L (5-40) 07/25/21 23:08 ALT 20 units/L (7-56) 07/25/21 23:08 Alkaline Phosphatase 187 units/L (35-129) H 07/25/21 23:08 Troponin T 0.051 ng/mL (0.00-0.029) H 07/25/21 23:08 NT-Pro-B Natriuret Pep 1974 pg/mL (0-450) H 07/25/21 23:08 Total Protein 7.0 g/dL (6.3-8.2) 07/25/21 23:08 Albumin 3.8 g/dL (3.9-5) L 07/25/21 23:08 Albumin/Globulin Ratio 1.2 % 07/25/21 23:08 Triglycerides 76 mg/dL (2-149) 07/25/21 23:08 Cholesterol 123 mg/dL (50-199) 07/25/21 23:08 LDL Cholesterol Direct 91 mg/dL (50-130) 07/25/21 23:08 HDL Cholesterol 19 mg/dL (40-59) L 07/25/21 23:08 Cholesterol/HDL Ratio 6.47 % 07/25/21 23:08 Martinez/IV: Voiding Method Urinal Active Medications - Current Medications Current Medications: Generic Name Dose Route Start Last Admin Trade Name Freq PRN Reason Stop Dose Admin Acetaminophen 650 mg 07/26/21 02:00 Acetaminophen 325 Mg Tab PO Q4H PRN Pain MILD(1-3)/Fever >100.5/PAREDES Dextrose 0 ml 07/26/21 02:22 Dextrose 10% *Hypoglycemia IV DIRECT PRN Hypoglycemia Protocol Furosemide 40 mg 07/26/21 06:00 07/27/21 05:47 Furosemide 40 Mg/4 Ml Inj IV 40 mg BID@0600,1800 [place] Administration Insulin Human Lispro 0 unit 07/26/21 07:30 07/26/21 21:42 Insulin Lispro 100 Unit/Ml SUB-Q Not Given ACHS [place] Protocol Ipratropium [place] 0.5 mg 07/26/21 20:00 07/26/21 20:54 Ipratropium 0.02% Nebu 2.5 Ml IH 0.5 mg TIDRT [place] Administration Magnesium Hydroxide 30 ml 07/26/21 02:06 Magnesium Hydroxide (Mom) Oral Liqd Udc PO Q4H PRN Constipation Morphine Sulfate 2 mg 07/26/21 02:06 Morphine 2 Mg/1 Ml Inj IV Q4H PRN Pain, Moderate (4-6) Morphine Sulfate 4 mg 07/26/21 02:06 07/26/21 22:13 Morphine 4 Mg/1 Ml Inj IV 4 mg Q4H PRN Administration Pain , Severe (7-10) Ondansetron HCl 4 mg 07/26/21 02:00 Ondansetron 4 Mg/2 Ml Inj IV Q8H PRN Nausea And Vomiting Sodium Chloride 10 ml 07/26/21 10:00 07/26/21 21:38 Sodium Chloride 0.9% 10 Ml Flush Syringe IV 10 ml BID [place] Administration Sodium Chloride 10 ml 07/26/21 02:00 07/27/21 00:18 Sodium Chloride 0.9% 10 Ml Flush Syringe IV 10 ml PRN PRN Administration LINE FLUSH
--- NOTE | 2021-07-27 09:04 | Electrocardiograph Report ---
[facility] Test Date: 2021-07-26 Test Time: 01:51:09 Pat Name: CRYSTAL PATTERSON Department: Room: A465 1 Gender: M Sexer: : 1975 Requested By: MICAELA LEE Order Number: [id number] Reading MD: Kenneth Anderson Measurements Intervals [place] Rate: 128 P: 41 NE: 152 QRS: 72 QRSD: 93 T: 66 QT: 332 QTc: 490 Interpretive Statements Multifocal atrial tachycardia Ventricular premature complex Consider old anterior infarct Compared to ECG 06/26/2021 03:34:49 Ventricular premature complex(es) now present Multifocal atrial tachycardia has replaced sinus tachycardia with frequent PACs Electronically Signed On 07-27-2021 9:04:04 EDT by Kenneth Anderson
[2021-07-27] MEDS: IPRATROPIUM 0.02% NEBU 2.5 ML IH SCH ×3 (09:29→20:05)
--- NOTE | 2021-07-27 10:42 | Progress Note ---
Assessment and Plan - Patient Problems (1) Multifocal atrial tachycardia Current Visit: Yes Status: Acute Plan to address problem: We will optimize beta-itzel therapy for his coronary artery disease and MAT. (2) Acute on chronic systolic heart failure Current Visit: No Status: Acute Plan to address problem: Patient has a chronic coronary artery disease, severe ischemic cardiomyopathy and recurrent exacerbations of systolic heart failure. His presentations mostly due to to admitted, noncompliance with prescribed medical therapy and noncompliance with outpatient physician office follow-ups. Subjective Date of service: 07/27/21 Principal diagnosis: Acute on chronic systolic heart failure Interval history: Patient is comfortable, no acute distress, ambulating in his room without difficulty. There is no residual lower extremity edema. His most recent ECG shows a multifocal atrial tachycardia. Objective Vital Signs Temp Pulse Pulse Resp Resp BP Pulse Ox 07/27/21 08:15 98.3 F 113 H 22 127/86 98 07/27/21 08:00 119 H 18 07/27/21 03:10 97.5 F L 112 H 20 115/97 91 07/27/21 00:44 100 07/26/21 22:58 97.6 F 119 H 20 124/82 95 07/26/21 20:54 116 H 20 07/26/21 20:53 100 07/26/21 19:36 97.6 F 116 H 20 124/90 100 07/26/21 16:31 98.9 F 118 H 18 130/109 99 07/26/21 16:15 25 H 100 07/26/21 11:17 98.6 F 114 H 18 119/57 100 - Physical Examination General: No Apparent Distress HEENT: Positive: PERRL Neck: Positive: neck supple Cardiac: Positive: Irregularly Regular Lungs: Positive: Decreased Breath Sounds Neuro: Positive: Grossly Intact Abdomen: Positive: Soft Skin: Positive: Clear Extremities: Absent: edema - Labs and Meds CBC 07/27/21 Range/Units 05:54 WBC 9.8 (4.5-11.0) K/mm3 RBC 5.35 H (3.65-5.03) M/mm3 Hgb 13.0 (11.8-15.2) gm/dl Hct 42.5 (35.5-45.6) % Plt Count 344 (140-440) K/mm3 Lymph # (Auto) 1.8 (1.2-5.4) K/mm3 [place] # (Auto) 0.8 (0.0-0.8) K/mm3 Eos # (Auto) 0.1 (0.0-0.4) K/mm3 Baso # (Auto) 0.3 H (0.0-0.1) K/mm3 Comprehensive Metabolic Panel 07/27/21 Range/Units 05:54 Sodium 132 L D (137-145) mmol/L Potassium 4.7 (3.6-5.0) mmol/L Chloride 89.4 L (98-107) mmol/L Carbon Dioxide 25 (22-30) mmol/L BUN 33 H (9-20) mg/dL Creatinine 0.9 (0.8-1.3) mg/dL Glucose 110 H (75-100) mg/dL Calcium 9.6 (8.4-10.2) mg/dL
[2021-07-27] MEDS: INSULIN LISPRO 100 UNIT/ML SUB-Q SCH ×4 (12:25→23:06)
[2021-07-27] MEDS: ASPIRIN EC 81 MG TAB PO SCH (12:45)
[2021-07-27] MEDS: METOPROLOL TARTRATE 50 MG TAB PO SCH ×2 (12:46→21:39)
[2021-07-27] MEDS: SPIRONOLACTONE 25 MG TAB PO SCH (12:49)
[2021-07-27] MEDS: LISINOPRIL 5 MG TAB PO SCH (12:50)
[2021-07-27] MEDS: MORPHINE 2 MG/1 ML INJ IV PRN (21:39)
[2021-07-28] MEDS: FUROSEMIDE 40 MG/4 ML INJ IV SCH ×2 (06:35→18:57)
[2021-07-28] MEDS: IPRATROPIUM 0.02% NEBU 2.5 ML IH SCH ×3 (09:12→20:20)
--- NOTE | 2021-07-28 09:50 | Progress Note ---
Assessment and Plan Assessment and plan: Acute on chronic combined systolic and diastolic heart failure exacerbation; Continue current antifailure medications, but output monitoring, daily weights Diuretics, beta-blockers, СЕРГЕЙ inhibitors, nitrates Low-sodium diet and salt restriction Dilated ischemic cardiomyopathy. EF 15%; Continue antifailure medications Diabetes mellitus type 2 Accu-Chek sliding scale coverage ADA diet and insulin as needed Hypertension; Continue current antihypertensives and as needed medications Low-sodium diet fluid restriction Coronary artery disease. S/p multiple stents in the past. Continue current cardiac medications Medical noncompliance; Closely monitor the patient and adjust the management as needed Counseled the patient the importance of adhering to the treatment plan Diet and follow-up visits Verbalized understanding DC planning; multiple social issues; Case management, CM to assist with DC planning and medications Brief history and hospital course; 45-year-old male with known history of coronary artery disease presents multiple stents in the past, diabetes mellitus, CHF with EF of 15%, COPD, noncompliance with medication due to affordability presenting to the emergency room today with complaints of shortness of breath. Patient also has a prolonged history of tobacco abuse. Shortness of breath has been ongoing for the past 3 days. He also indicates that he has been having progressive lower extremity swelling. Upon arrival of EMS oxygen saturation was about 72% and patient was placed on nonrebreather in route to the hospital. He had some Lasix and nebulizing treatments upon arrival in the emergency room and placed on oxygen by nasal cannula. 07/26/2021. Continue CHF protocol and GDMT for heart failure. CHF education stressing the importance of compliance on medication. printing table worker to see p atient and address financial and social assistance which will help with his compliance 07/27/2021. Continue GDMT for heart failure. Continue medications per cardiology recommendations. Will discuss with case management assistance with medications prior to discharge. Continue SSRI and tight glycemic control 07/28/21; counseling done strongly advised to comply with medications diet and follow-up visits CM to assist with medications and discharge planning, possible discharge tomorrow if stable Possible discharge home tomorrow if stable, cardiology recommendations noted and appreciated History Interval history: I seen and examined the patient at the bedside Patient's chart and medications reviewed Patient feels slightly better Patient is noncompliant with medications and diet Vital signs reviewed Hospitalist Physical - Constitutional Vitals: Temp Pulse Resp BP Pulse Ox 97.4 F L 85 22 110/81 100 07/28/21 08:00 07/28/21 08:00 07/28/21 08:00 07/28/21 08:00 07/28/21 09:13 General appearance: Present: no acute distress, obese - EENT Eyes: Present: PERRL, EOM intact - Neck Neck: Present: supple, normal ROM - Respiratory Respiratory effort: normal Respiratory: bilateral: diminished, rales, negative: rhonchi, wheezing - Extremities Extremities: no ischemia Extremity abnormal: edema - Abdominal General gastrointestinal: soft, non-tender, non-distended, normal bowel sounds - Integumentary Integumentary: Present: clear, warm - Psychiatric Psychiatric: appropriate mood/affect, cooperative - Neurologic Neurologic: CNII-XII intact, moves all extremities HEART Score - HEART Score Troponin: Troponin T 0.051 ng/mL (0.00-0.029) H 07/25/21 23:08 Results - Labs CBC & Chem 7: 07/27/21 05:54 07/27/21 05:54 Labs: Laboratory Last Values WBC 9.8 K/mm3 (4.5-11.0) 07/27/21 05:54 RBC 5.35 M/mm3 (3.65-5.03) H 07/27/21 05:54 Hgb 13.0 gm/dl (11.8-15.2) 07/27/21 05:54 Hct 42.5 % (35.5-45.6) 07/27/21 05:54 MCV 80 fl (84-94) L 07/27/21 05:54 MCH 24 pg (28-32) L 07/27/21 05:54 MCHC 31 % (32-34) L 07/27/21 05:54 RDW 20.2 % (13.2-15.2) H 07/27/21 05:54 Plt Count 344 K/mm3 (140-440) 07/27/21 05:54 Lymph % (Auto) 18.0 % (13.4-35.0) 07/27/21 05:54 [place] % (Auto) 8.5 % (0.0-7.3) H 07/27/21 05:54 Eos % (Auto) 0.9 % (0.0-4.3) 07/27/21 05:54 Baso % (Auto) 3.0 % (0.0-1.8) H 07/27/21 05:54 Lymph # (Auto) 1.8 K/mm3 (1.2-5.4) 07/27/21 05:54 [place] # (Auto) 0.8 K/mm3 (0.0-0.8) 07/27/21 05:54 Eos # (Auto) 0.1 K/mm3 (0.0-0.4) 07/27/21 05:54 Baso # (Auto) 0.3 K/mm3 (0.0-0.1) H 07/27/21 05:54 Seg Neutrophils % 69.6 % (40.0-70.0) 07/27/21 05:54 Seg Neutrophils # 6.8 K/mm3 (1.8-7.7) 07/27/21 05:54 Sodium 132 mmol/L (137-145) L D 07/27/21 05:54 Potassium 4.7 mmol/L (3.6-5.0) 07/27/21 05:54 Chloride 89.4 mmol/L (98-107) L 07/27/21 05:54 Carbon Dioxide 25 mmol/L (22-30) 07/27/21 05:54 Anion Gap 22 mmol/L 07/27/21 05:54 BUN 33 mg/dL (9-20) H 07/27/21 05:54 Creatinine 0.9 mg/dL (0.8-1.3) 07/27/21 05:54 Estimated GFR > 60 ml/min 07/27/21 05:54 BUN/Creatinine Ratio 37 % 07/27/21 05:54 Glucose 110 mg/dL (75-100) H 07/27/21 05:54 POC Glucose 106 mg/dL (70-105) H 07/27/21 21:02 Calcium 9.6 mg/dL (8.4-10.2) 07/27/21 05:54 Total Bilirubin 1.60 mg/dL (0.1-1.2) H 07/25/21 23:08 AST 34 units/L (5-40) 07/25/21 23:08 ALT 20 units/L (7-56) 07/25/21 23:08 Alkaline Phosphatase 187 units/L (35-129) H 07/25/21 23:08 Troponin T 0.051 ng/mL (0.00-0.029) H 07/25/21 23:08 NT-Pro-B Natriuret Pep 1974 pg/mL (0-450) H 07/25/21 23:08 Total Protein 7.0 g/dL (6.3-8.2) 07/25/21 23:08 Albumin 3.8 g/dL (3.9-5) L 07/25/21 23:08 Albumin/Globulin Ratio 1.2 % 07/25/21 23:08 Triglycerides 76 mg/dL (2-149) 07/25/21 23:08 Cholesterol 123 mg/dL (50-199) 07/25/21 23:08 LDL Cholesterol Direct 91 mg/dL (50-130) 07/25/21 23:08 HDL Cholesterol 19 mg/dL (40-59) L 07/25/21 23:08 Cholesterol/HDL Ratio 6.47 % 07/25/21 23:08 Martinez/IV: Voiding Method Urinal Active Medications - Current Medications Current Medications: Generic Name Dose Route Start Last Admin Trade Name Freq PRN Reason Stop Dose Admin Acetaminophen 650 mg 07/26/21 02:00 Acetaminophen 325 Mg Tab PO Q4H PRN Pain MILD(1-3)/Fever >100.5/PAREDES Aspirin 81 mg 07/27/21 11:00 07/27/21 12:45 Aspirin Ec 81 Mg Tab PO 81 mg QDAY [facility]ENDING [facility] TO [facility] Administration Dextrose 0 ml 07/26/21 02:22 Dextrose 10% *Hypoglycemia IV DIRECT PRN Hypoglycemia Protocol Furosemide 40 mg 07/26/21 06:00 07/28/21 06:35 Furosemide 40 Mg/4 Ml Inj IV 40 mg BID@0600,1800 [facility]ENDING [facility] TO [facility] Administration Insulin Human Lispro 0 unit 07/26/21 07:30 07/27/21 23:06 Insulin Lispro 100 Unit/Ml SUB-Q Not Given ACHS PENDING S[facility] TO [facility] Protocol Ipratropium [place] 0.5 mg 07/26/21 20:00 07/28/21 09:12 Ipratropium 0.02% Nebu 2.5 Ml IH Not Given TIDRT PENDING SALE TO [facility] Isosorbide Mononitrate 30 mg 07/27/21 11:00 07/27/21 12:48 Isosorbide Mononitrate Er 30 Mg Tab PO 30 mg QDAY [place] Administration Lisinopril 2.5 mg 07/27/21 11:00 07/27/21 12:50 Lisinopril 5 Mg Tab PO 2.5 mg QDAY [place] Administration Magnesium Hydroxide 30 ml 07/26/21 02:06 Magnesium Hydroxide (Mom) Oral Liqd Udc PO Q4H PRN Constipation Metoprolol Tartrate 50 mg 07/27/21 11:00 07/27/21 21:39 Metoprolol Tartrate 50 Mg Tab PO 50 mg BID [place] Administration Morphine Sulfate 2 mg 07/26/21 02:06 07/27/21 21:39 Morphine 2 Mg/1 Ml Inj IV 2 mg Q4H PRN Administration Pain, Moderate (4-6) Morphine Sulfate 4 mg 07/26/21 02:06 07/26/21 22:13 Morphine 4 Mg/1 Ml Inj IV 4 mg Q4H PRN Administration Pain , Severe (7-10) Ondansetron HCl 4 mg 07/26/21 02:00 Ondansetron 4 Mg/2 Ml Inj IV Q8H PRN Nausea And Vomiting Sodium Chloride 10 ml 07/26/21 10:00 07/27/21 21:45 Sodium Chloride 0.9% 10 Ml Flush Syringe IV 10 ml BID [place] Administration Sodium Chloride 10 ml 07/26/21 02:00 07/28/21 06:36 Sodium Chloride 0.9% 10 Ml Flush Syringe IV 10 ml PRN PRN Administration LINE FLUSH Spironolactone 25 mg 07/27/21 11:00 07/27/21 12:49 Spironolactone 25 Mg Tab PO 25 mg QDAY [place] Administration
[2021-07-28] MEDS: INSULIN LISPRO 100 UNIT/ML SUB-Q SCH ×4 (10:18→22:54)
[2021-07-28] MEDS: SPIRONOLACTONE 25 MG TAB PO SCH (10:51)
[2021-07-28] MEDS: ASPIRIN EC 81 MG TAB PO SCH (10:51)
[2021-07-28] MEDS: LISINOPRIL 5 MG TAB PO SCH (10:55)
--- NOTE | 2021-07-28 10:55 | Electrocardiograph Report ---
[facility] Test Date: 2021-07-27 Test Time: 13:44:52 Pat Name: CRYSTAL PATTERSON Department: Room: A465 1 Gender: M Camp Tender: SIERRA : 1975 Requested By: JANI FUENTES Order Number: [id number] Reading MD: Simeon Turk Measurements Intervals [place] Rate: 98 P: 72 [place]: 162 QRS: 102 QRSD: 94 T: QT: 396 QTc: 505 Interpretive Statements Sinus rhythm Low voltage with right axis deviation Probable anterolateral infarct, old Prolonged QT interval Compared to ECG 07/26/2021 01:51:09 Right-axis deviation now present Low QRS voltage now present Prolonged QT interval now present Ectopic atrial tachycardia, multifocal no longer present Ventricular premature complex(es) no longer present Myocardial infarct finding still present Electronically Signed On 07-28-2021 10:55:30 EDT by Simeon Turk
[2021-07-28] MEDS: METOPROLOL TARTRATE 50 MG TAB PO SCH ×2 (11:09→22:53)
--- NOTE | 2021-07-28 12:27 | Progress Note ---
Assessment and Plan - Patient Problems (1) Multifocal atrial tachycardia Current Visit: Yes Status: Acute Plan to address problem: Continue beta-itzel therapy for his coronary artery disease and MAT. (2) Acute on chronic systolic heart failure Current Visit: No Status: Acute Plan to address problem: Patient has a chronic coronary artery disease, severe ischemic cardiomyopathy and recurrent exacerbations of systolic heart failure. His presentations mostly due to noncompliance with prescribed medical therapy and noncompliance with outpatient physician office follow-ups. Subjective Date of service: 07/28/21 Principal diagnosis: Acute on chronic systolic heart failure Interval history: Patient is comfortable, no new cardiac complaints, no acute distress. Objective Vital Signs Temp Pulse Pulse Resp Resp BP BP 07/28/21 12:16 94.5 F L 94 H 20 07/28/21 11:10 99/68 07/28/21 11:09 99/68 07/28/21 10:55 99/62 07/28/21 10:51 83 07/28/21 09:13 07/28/21 08:00 97.4 F L 85 22 110/81 07/28/21 03:25 97.5 F L 80 19 122/83 07/27/21 23:18 97.6 F 78 18 87/69 07/27/21 22:00 07/27/21 21:39 112 H 07/27/21 20:05 112 H 18 07/27/21 20:02 07/27/21 19:37 97.6 F 82 20 109/57 07/27/21 14:32 97.3 F L 96 H 94/53 07/27/21 12:50 118 H 07/27/21 12:49 118 H 07/27/21 12:48 118 H 07/27/21 12:46 118 H BP Pulse Ox 07/28/21 12:16 109/48 98 07/28/21 11:10 07/28/21 11:09 07/28/21 10:55 07/28/21 10:51 07/28/21 09:13 100 07/28/21 08:00 99 07/28/21 03:25 96 07/27/21 23:18 96 07/27/21 22:00 99 07/27/21 21:39 07/27/21 20:05 07/27/21 20:02 100 07/27/21 19:37 96 07/27/21 14:32 97 07/27/21 12:50 07/27/21 12:49 07/27/21 12:48 07/27/21 12:46 - Physical Examination General: No Apparent Distress HEENT: Positive: PERRL Neck: Positive: neck supple Cardiac: Positive: Reg Rate and Rhythm Lungs: Positive: Decreased Breath Sounds Neuro: Positive: Grossly Intact Abdomen: Positive: Soft Skin: Positive: Clear Extremities: Absent: edema
[2021-07-28] MEDS: MORPHINE 2 MG/1 ML INJ IV PRN (15:25)
[2021-07-29] MEDS: MORPHINE 2 MG/1 ML INJ IV PRN (04:05)
[2021-07-29] MEDS: FUROSEMIDE 40 MG/4 ML INJ IV SCH (06:19)
[2021-07-29] MEDS: INSULIN LISPRO 100 UNIT/ML SUB-Q SCH ×2 (08:42→14:02)
[2021-07-29] MEDS: IPRATROPIUM 0.02% NEBU 2.5 ML IH SCH ×2 (09:19→14:03)
--- NOTE | 2021-07-29 09:24 | Discharge Summary ---
Providers - Providers Date of Admission: 07/26/21 02:00 Date of discharge: 07/29/21 Attending physician: MAXIM HAWKINS 07/26/21 02:01 Consult to Dietitian/Nutrition [CONS] Routine Physician Instructions: Reason For Exam: Reason for Consult: Diet education 07/26/21 02:06 Consult to Physician [CONS] Routine Comment: Consulting Provider: PETE FERRIS Physician Instructions: Reason For Exam: Acute on chronic CHF Primary care physician: WERNER RASHEED Hospitalization Condition: Stable Disposition: 01 HOME / SELF CARE / HOMELESS Core Measure Documentation - Palliative Care Palliative Care/ Comfort Measures: Not Applicable - Core Measures Any of the following diagnoses?: heart failure - Heart Failure Discharge Requirements СЕРГЕЙ/ARB for LVSD if EF <40%: Yes Beta itzel at discharge: Yes Exam - Constitutional Vitals: Temp Pulse Resp BP Pulse Ox 97.8 F 87 19 109/79 94 07/29/21 03:23 07/29/21 03:23 07/29/21 03:23 07/29/21 03:23 07/29/21 03:23 Plan Activity: advance as tolerated Diet: other (Cardiac diet) Additional Instructions: If you have worsening symptoms contact MD or go to the nearest emergency room as needed. Strongly advised to comply with medications, diet, follow-up visit and exercise as tolerated and weight reduction when you are stable. 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
[2021-07-29 09:28] VITALS: BP 114/81
[2021-07-29] MEDS: METOPROLOL TARTRATE 50 MG TAB PO SCH (09:28)
[2021-07-29] MEDS: LISINOPRIL 5 MG TAB PO SCH (09:28)
[2021-07-29] MEDS: SPIRONOLACTONE 25 MG TAB PO SCH (09:28)
[2021-07-29] MEDS: ASPIRIN EC 81 MG TAB PO SCH (09:29)
--- NOTE | 2021-07-29 13:02 | Progress Note ---
Assessment and Plan - Patient Problems (1) Acute on chronic systolic heart failure Current Visit: No Status: Acute Plan to address problem: Patient has a chronic coronary artery disease, severe ischemic cardiomyopathy and recurrent exacerbations of systolic heart failure. His presentations mostly due to noncompliance with prescribed medical therapy and noncompliance with outpatient physician office follow-ups. (2) Multifocal atrial tachycardia Current Visit: Yes Status: Acute Plan to address problem: Continue beta-itzel therapy for his coronary artery disease and MAT. Subjective Date of service: 07/29/21 Principal diagnosis: Acute on chronic systolic heart failure Interval history: Patient is comfortable, no new cardiac complaints, no acute distress. No cardiac events reported. Objective Vital Signs Temp Pulse Pulse Resp Resp BP Pulse Ox 07/29/21 09:20 100 07/29/21 08:12 98.7 F 87 22 114/81 99 07/29/21 03:23 97.8 F 87 19 109/79 94 07/28/21 23:05 97.4 F L 75 18 118/66 99 07/28/21 22:53 93 H 07/28/21 20:47 97 07/28/21 20:20 93 H 18 98 07/28/21 19:09 97.6 F 92 H 20 118/62 97 - Physical Examination General: No Apparent Distress HEENT: Positive: PERRL Neck: Positive: neck supple Cardiac: Positive: Reg Rate and Rhythm Lungs: Positive: Decreased Breath Sounds Neuro: Positive: Grossly Intact Abdomen: Positive: Soft Skin: Positive: Clear Extremities: Absent: edema
== END 2021-07-29 14:03 | disposition home or self-care (01) | DRG 291 ==
LOC: ED 22:25 → 4A 07-26 02:00
PROVIDERS: ADMIT Internal Medicine Geriatric Medicine; ATTEND Internal Medicine
DX: I11.0 Hypertensive heart disease with heart failure (principal); I50.43 Acute on chronic combined systolic (congestive) and diastolic (congestive) heart failure; J44.1 Chronic obstructive pulmonary disease with (acute) exacerbation; I47.1 Supraventricular tachycardia; F17.200 Nicotine dependence, unspecified, uncomplicated; I42.0 Dilated cardiomyopathy; I25.5 Ischemic cardiomyopathy; E11.9 Type 2 diabetes mellitus without complications; Z88.8 Allergy status to other drugs, medicaments and biological substances; I25.10 Atherosclerotic heart disease of native coronary artery without angina pectoris; Z91.19 Patient's noncompliance with other medical treatment and regimen; G47.33 Obstructive sleep apnea (adult) (pediatric); I25.2 Old myocardial infarction
CPT/HCPCS: 36415; 71045; 80048; 80053; 80061; 82962; 83880; 84484; 85025; 93005; 94640; 94644; 94760; G0378; Q9967; J1170; J1815; J1940; J2270; J2405